=== PATIENT | male | born 1930 | race Caucasian/White ===

== ENCOUNTER → 2017-02-16 | Outpatient (CLI) | payer OTHER ==
[~2017-02-16] MED LIST: ALL300 PO; ATEN-173 PO; B-COCAP2 PO; CLTP PO; CMD25 PO; DOXY100C76 PO; FLAX10007 PO; MULT-190 PO; MULTCHW PO; POTA-335 PO; TRIA75TA53 PO; VERA240T20 PO
[2017-02-16 10:15] LABS: BASO % 0.4 %; BASO ABS # 0.02 K/uL (0-0.2); COMPLETE YES; HEMATOCRIT 46.6 % (42-52); IG% 0.2 %; LYMPH % 20.2 %; LYMPH ABS # 1.13 K/uL (1.2-3.4); MEAN CELL VOLUME 99.1 fL (80-100); MEAN CORPUSCULAR HEMOGLOBIN 33.8 pg (25-34); MEAN CORPUSCULAR HGB CONC 34.1 g/dl (32-36); MEAN PLATELET VOLUME 9.6 fL (7.4-10.4); MONO % 7.3 %; NEUT % 69.9 %; PLATELET COUNT 163 K/uL (130-400)
[2017-02-16 10:40] LABS: ALT/SGPT 25 U/L (12-78); AST/SGOT 24 U/L (15-37); BLOOD UREA NITROGEN 30 mg/dl (7-18); BUN/CREATININE RATIO 23.1 (10-20); CALCIUM 9.1 mg/dl (8.5-10.1); CARBON DIOXIDE 30 mmol/L (21-32); CHLORIDE 104 mmol/L (98-107); GLUCOSE 88 mg/dl (70-99); POTASSIUM 3.3 mmol/L (3.5-5.1); SODIUM 140 mmol/L (136-145)
[2017-02-16 10:43] LABS: ALB/GLOB RATIO 0.9 (0.9-2); ALKALINE PHOSPHATASE 104 U/L (45-117); CHOLESTEROL 139 mg/dl (0-200); CHOLESTEROL/HDL RATIO 3.3; HDL CHOLESTEROL 42 mg/dl; LDL CHOLESTEROL CALCULATED 75 mg/dl; TRIGLYCERIDES 110 mg/dl (0-150); VERY LOW DENSITY LIPOPROT CALC 22 mg/dl
[2017-02-16 11:24] LABS: ESTIMATED AVERAGE GLUCOSE 103 mg/dl; HA1C FLAG Normal (Normal)
--- NOTE | 2017-02-23 09:33 | CODING QUERY MEDICAL NECESSITY ---
SUPPORTING DIAGNOSIS NEEDED A supporting diagnosis is required for the test/procedure performed on this patient in order for us to be reimbursed by the patient's insurance. Please provide a supporting diagnosis for the following test/procedure listed below next to the test name along with your signature. *If there is no additional diagnosis for this patient that would support the following test/procedure please document that below next to the test/procedure. Test(s)/Procedure(s) that require a supporting diagnosis: * VITAMIN D, 25-HYDROXY DIAGNOSIS: * HEMOGLOBIN A1C DIAGNOSIS: Provider Signature: Date: Thank you Moon Amaro [employer] Once completed, please kindly fax back to [phone] For questions please call [phone]
== END | disposition home or self-care (01) ==
LOC: C.LAB 09:26
PROVIDERS: ATTEND Internal Medicine
DX: I48.2 Chronic atrial fibrillation (principal); N18.3 Chronic kidney disease, stage 3 (moderate); R73.01 Impaired fasting glucose

== ENCOUNTER 2017-06-29 09:13 | Inpatient (IN) | payer OTHER ==
[~2017-06-29] VITALS: Ht 177.8 cm; Wt 92.6 kg
[~2017-06-29 09:13] MED LIST changes: -DOXY100C76 PO
[2017-06-29] MEDS ORDERED: ALLO300T80 PO (09:29)
[2017-06-29] MEDS ORDERED: B-CO1CAP17 PO (09:29)
[2017-06-29] MEDS ORDERED: CALC600T72 PO (09:29)
[2017-06-29] MEDS ORDERED: WARF2.5T8 PO ×2 (09:29)
[2017-06-29] MEDS ORDERED: POTA-65 PO (09:29)
[2017-06-29] MEDS ORDERED: MoRPHine SULFATE 4 MG/ML 1 ML CARP\\VIAL IV STA (09:42)
[2017-06-29] MEDS ORDERED: SODIUM CHLORIDE 0.9% 500ML 500 ML IV STA (09:42)
[2017-06-29] MEDS ORDERED: ONDANSETRON INJ 2 MG/ML 2 ML VIAL IV STA (09:42)
[2017-06-29] MEDS ORDERED: OPTIRAY 320 IV PRN (09:45)
[2017-06-29 09:58] LABS: BASO % 0.1 %; BASO ABS # 0.02 K/uL (0-0.2); COMPLETE YES; HEMATOCRIT 45.8 % (42-52); IG% 0.3 %; LYMPH % 3.7 %; MEAN CELL VOLUME 99.8 fL (80-100); MEAN CORPUSCULAR HEMOGLOBIN 34.4 pg (25-34); MEAN CORPUSCULAR HGB CONC 34.5 g/dl (32-36); MEAN PLATELET VOLUME 9.7 fL (7.4-10.4); MONO % 7.4 %; NEUT % 88.5 %; PLATELET COUNT 137 K/uL (130-400); RED BLOOD COUNT 4.59 M/uL (4.7-6.1); WHITE BLOOD COUNT 16.04 K/uL (4.8-10.8)
[2017-06-29 10:03] LABS: PROTHROMBIN TIME (PATIENT) 20.8 SECONDS (9.0-12.0)
[2017-06-29 10:15] LABS: BUN/CREATININE RATIO 20.9 (10-20); CALCIUM 9.1 mg/dl (8.5-10.1); CREATININE 1.36 mg/dl (0.60-1.40); POTASSIUM 3.7 mmol/L (3.5-5.1)
--- NOTE | 2017-06-29 11:26 | DIAGNOSTIC IMAGING REPORT ---
CT ABD/PELVIS IV CONTRAST ONLY CLINICAL HISTORY: Epigastric pain and left flank pain. COMPARISON STUDY: None. TECHNIQUE: Following the IV administration of 93 mL of Optiray-320, CT scan of the abdomen and pelvis was performed from the lung bases to the proximal femurs. Images are reviewed in the axial, sagittal, and coronal planes. IV contrast was administered without complication. A dose lowering technique was utilized adhering to the principles of ALARA. CT DOSE: 1099.48 mGy.cm FINDINGS: Lower chest: The heart is enlarged with coronary artery calcifications. There are dependent atelectatic changes. There is respiratory motion artifact. There is a hiatal hernia. Liver: The contrast-enhanced liver is normal in size, contour, and attenuation. There is no intrahepatic biliary ductal dilatation. The hepatic veins and portal veins are patent. Gallbladder: Unremarkable. Spleen: Normal in size and attenuation. Pancreas: Evaluation is limited due to motion artifact. There is an equivocal 7 mm hypodensity within the pancreatic body. There is no significant ductal dilatation. Adrenal glands: There is minor left adrenal gland thickening Kidneys: There is a nonobstructing left renal calculus. There are bilateral hypodense renal lesions, likely representing cysts. These range in size from 8 mm to 24 mm. Bowel: There are no transition zones indicate bowel obstruction. There is no acute diverticulitis. There are no findings to indicate acute appendicitis. Peritoneum: There is no intraperitoneal free air or abdominal ascites. Vasculature: The abdominal aorta is normal in course and caliber. Adenopathy: None. Pelvic viscera: The bladder is distended. The prostate is enlarged. Skeletal structures: There are advanced multilevel spondylitic changes present. There is severe spinal stenosis at the L3-4 and L4-5 levels. There is ill-definition of the L2-3 disc. The patient may be status post a prior spinal fusion at this level. IMPRESSION: 1. No evidence of bowel obstruction. No evidence of free air 2. Nonobstructing left renal calculus 3. No evidence of acute diverticulitis. No evidence of acute appendicitis. 4. Advanced degenerative changes within the spine with severe spinal stenosis at the L3-4 and L4-5 levels. 5. Prostamegaly. Mildly distended bladder. Electronically signed by: Almas Davis M.D. 06/29/2017 11:25 AM Dictated Date/Time: 06/29/2017 11:16 AM
[2017-06-29] MEDS ORDERED: PIPERACILLIN/TAZOBACTAM 4.5 GM/100ML D5W IV STA (11:30)
[2017-06-29] MEDS ORDERED: ACETAMINOPHEN 325 MG TAB PO STA (11:32)
--- NOTE | 2017-06-29 11:44 | DIAGNOSTIC IMAGING REPORT ---
LUMBAR SPINE WITHOUT HISTORY: 86 years-old Male lower back pain acute low back pain. The patient is unable to ambulate COMPARISON: CT abdomen and pelvis of same day TECHNIQUE: Multiple axial CT images of the lumbar spine were obtained without contrast. A dose lowering technique was used consistent with the principals of CRESCENCIO. FINDINGS: The bones are demineralized and appear osteoporotic. 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 No acute compression deformity or subluxation identified. Sacrum appears intact. Mild degenerative changes of the SI joints. There is severe intervertebral disc space narrowing with endplate irregularity and lucency involving the disc space at L2-L3. There is prominent marginal spurring at this level. No significant associated inflammatory stranding or epidural fluid collections identified. Evaluation of the central canal and foramina is better evaluated by MRI. There appears to be at least moderate central canal and foraminal narrowing at several levels, notably at 2-L3, L3-L4 and L4-L5. Multifocal cortical scarring and probable renal cysts of the kidneys. Atherosclerosis of the aorta. Distention of the urinary bladder. Consolidative opacity of the right lung base suggesting atelectasis. IMPRESSION: 1. No acute fracture or subluxation identified. 2. Endplate irregularity with cortical indistinctness and severe intervertebral disc space narrowing at L2-L3 is seen with associated marginal bridging osteophytes. 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 Correlate with laboratory analysis and patient presentation. 3. Advanced multilevel intervertebral disc space narrowing, spondylitic spurring and facet arthrosis with varying degrees of central canal and foraminal narrowing which would be better assessed by MRI. The above report was generated using voice recognition software. It may contain grammatical, syntax or spelling errors. Electronically signed by: Sin Napier M.D. 06/29/2017 11:43 AM Dictated Date/Time: 06/29/2017 11:28 AM
[2017-06-29 11:56] LABS: URINE APPEARANCE CLEAR (CLEAR); URINE BILIRUBIN NEG (NEG); URINE COLOR DK YELLOW; URINE EPITHELIAL CELL AUTO >30 /lpf (0-5); URINE NITRITE NEG (NEG); URINE SPECIFIC GRAVITY > 1.045 (1.000-1.030); UROBILINOGEN NEG (NEG); ZZUR CULT IF INDIC CLEAN CATCH YES
[2017-06-29 11:59] LABS: MANUAL MICROSCOPIC REQUIRED? NO; REVIEW REQ? YES
[2017-06-29 12:06] LABS: URINE MUCUS PRESENT (NONE PRSENT)
--- NOTE | 2017-06-29 12:13 | DIAGNOSTIC IMAGING REPORT ---
CHEST ONE VIEW PORTABLE HISTORY: 86 years-old Male fever acute fever with illness COMPARISON: Portable chest radiograph 04/04/2015 TECHNIQUE: Portable upright AP view of the chest FINDINGS: Cardiac silhouette is again moderately enlarged. Chronic left hemidiaphragmatic elevation with linear subsegmental left basilar opacities appear unchanged. Atherosclerosis of the aorta. No pneumothorax or large pleural effusion. Minimal right basilar atelectasis. Degenerative changes of the shoulders and spine. IMPRESSION: 1. Cardiomegaly without acute process. 2. Unchanged left hemidiaphragmatic elevation with left basilar atelectasis/scarring. The above report was generated using voice recognition software. It may contain grammatical, syntax or spelling errors. Electronically signed by: Sin Napier M.D. 06/29/2017 12:12 PM Dictated Date/Time: 06/29/2017 12:11 PM
[2017-06-29] MEDS ORDERED: LEVAQUIN 500MG / 100ML D5W IV ONE ×2 (12:30→14:56)
[2017-06-29] MEDS ORDERED: LEVOFLOXACIN / D5W 500 MG in PREMIXED IN D5W 150 ML IV SCH (13:15)
[2017-06-29] MEDS ORDERED: ONDANSETRON INJ 2 MG/ML 2 ML VIAL IV PRN (13:15)
[2017-06-29] MEDS ORDERED: CYCLOBENZAPRINE HCL 10 MG TAB PO STA (13:19)
[2017-06-29] MEDS ORDERED: CYCLOBENZAPRINE HCL 10 MG TAB PO PRN (13:30)
[2017-06-29] MEDS ORDERED: IV FLUIDS COMPLETED PRN (13:45)
--- NOTE | 2017-06-29 13:51 | DIAGNOSTIC IMAGING REPORT ---
GALLBLADDER-ABD LIMITED CLINICAL HISTORY: 86 years-old Male presenting with epigastric abd pain. TECHNIQUE: Real-time grayscale and limited color Doppler ultrasound imaging of the abdomen limited to the right upper quadrant was performed. COMPARISON: CT from 06/29/2017. FINDINGS: Pancreas: Largely obscured due to overlying bowel gas. Liver: Normal echogenicity and echotexture. The liver measures 16.5 cm in maximal sagittal dimension. No sonographic evidence of hepatic mass. Main portal vein patent with normal directional flow. Biliary: No intrahepatic biliary ductal dilatation. Common bile duct measures up to 5 mm in diameter. Gallbladder: No evidence of gallstones, gallbladder wall thickening, gallbladder distention, or pericholecystic fluid or inflammatory change. Gallbladder sludge suggested. Right kidney: Normal in appearance. No hydronephrosis. Ascites: None. IMPRESSION: Gallbladder sludge suggested. No cholelithiasis or biliary ductal dilatation. Electronically signed by: Walter Diallo M.D. 06/29/2017 1:50 PM Dictated Date/Time: 06/29/2017 1:42 PM
[2017-06-29 14:02] VITALS: O2SAT 95; Ht 177.8 cm; Wt 92.6 kg
[2017-06-29] MEDS ORDERED: CYCLOBENZAPRINE HCL 10 MG TAB ONE (14:15)
[2017-06-29 14:55] VITALS: BP 116/65; PULSE 61; TEMP 36.9; O2SAT 95
[2017-06-29] MEDS ORDERED: LEVOFLOXACIN CONSULT ACTIVE PRN (15:30)
--- NOTE | 2017-06-29 16:59 | EMERGENCY ROOM VISIT NOTE ---
History Report prepared by Judith: Darrell Abad Under the Supervision of: Dr. Yasir Rodriguez D.O. First contact with patient: 09:22 Chief Complaint: NAUSEA Stated Complaint: ILLNESS Nursing Triage Summary: Pt presents to room B9 via ALS c/o nausea, vomiting and increased weakness since wednesday. History of Present Illness The patient is an 86 year old male who presents to the Emergency Room with complaints of constant back pain for the past three days. The patient's states that the patient was doing yard work, and afterwards he was having back pain, and he was unable to stand due to the pain and feeling weak. The patient reports that the pain is worse with movement. He states that this morning he was unable to get up because of this back pain. Additionally, the states that this morning when he went to the bathroom this morning he was shaking. The patient states that he has been nauseous for the past three days, though he states that he has not yet vomited. The patient has a history of neuropathy, and he uses a cane at baseline, and he does not usually have any back pain other than when over exerting himself. He is currently on Coumadin for A Fib. Pt denies out of the ordinary numbness, cough, runny nose, headache, change in vision, fevers, chest pain, shortness of breath, diarrhea, pain with urination, and melena. Source of History: patient, spouse/significant other Onset: three days ago Position: back Timing: constant Modifying Factors (Worsening): movement Associated Symptoms: + nausea, + weakness, No vomiting Review of Systems See HPI for pertinent positives & negatives. A total of 10 systems reviewed and were otherwise negative. Past Medical & Surgical Medical Problems: (1) Sepsis (2) UTI (urinary tract infection) Social History Smoking Status: Unknown if Ever Smoked Drug Use: none Marital Status: Housing Status: lives with family Occupation Status: retired Current/Historical Medications Scheduled Allopurinol (Zyloprim), 300 MG PO DAILY Atenolol (Tenormin), 25 MG PO DAILY Calcium Carbonate-Vitamin D (Calcium/Vitamin D), 1 TAB PO DAILY Flaxseed (Linseed) (Flax Seed Oil), 1,000 MG PO DAILY Multiple Vitamins W/ Minerals (Centrum Silver), 1 TAB PO DAILY Ocuvite Preservision (Ocuvite Preservision), 1 TAB PO DAILY Potassium Chloride (Potassium Chloride ER), 20 MEQ PO DAILY Triamterene/Hctz (Maxzide 75MG/50MG), 1 TAB PO DAILY Verapamil Sust Rel (Calan Sr Ext Rel), 240 MG PO BID Vitamin B Cmplx/Vitc/Folic Ac (Nephrocaps), 1 CAP PO BID Warfarin Sod (Jantoven), 2.5 MG PO 4XWK Warfarin Sod (Jantoven), 5 MG PO 3XWK Allergies Coded Allergies: No Known Allergies (Unverified , NONE, 06/29/17) Physical Exam Vital Signs Date Time Temp Pulse Resp B/P (MAP) Pulse Ox O2 Delivery O2 Flow Rate FiO2 06/29/17 14:55 36.9 61 16 116/65 (82) 95 Room Air 06/29/17 14:41 69 18 111/58 96 06/29/17 14:02 95 Room Air 06/29/17 14:01 67 18 107/61 95 Room Air 06/29/17 13:01 70 06/29/17 12:26 37.9 71 18 137/83 95 Room Air 06/29/17 11:38 38.2 06/29/17 11:17 71 18 130/76 98 Room Air 06/29/17 10:06 38.2 76 17 118/68 93 Room Air 06/29/17 09:25 93 Room Air 06/29/17 09:22 75 06/29/17 09:19 38.2 75 17 122/70 93 Room Air Physical Exam GENERAL: Sitting up in bed, chronically ill appearing. No acute distress. Non- toxic EYE EXAM: normal conjunctiva. PERRL and EOM's grossly intact. OROPHARYNX: no exudate, no erythema, lips, buccal mucosa, and tongue normal and mucous membranes are moist NECK: supple, no nuchal rigidity, no adenopathy, non-tender LUNGS: Clear to auscultation. Normal chest wall mechanics HEART: Irregularly irregular heart beat. ABDOMEN: Slight tenderness in the infraumbilical region. Abdomen soft, normo- active bowel sounds, no masses, no rebound or guarding. BACK: Acute reproducible tenderness in the left lower paraspinal regiion worsening with twisting, turning, and bending. No rash or pain tracking through the gluteus. Back is symmetrical on inspection and there is no deformity, no midline tenderness, no CVA tenderness. SKIN: no rashes and no bruising UPPER EXTREMITIES: upper extremities are grossly normal. LOWER EXTREMITIES: No pitting edema. NEURO EXAM: Normal sensorium, cranial nerves II-XII grossly intact, normal speech, no gross weakness of arms, flexion and extension at the knee, ankle, and EHL is intact on the right. Unable to dorsiflex left foot/EHL. Medical Decision & Procedures ER Provider Diagnostic Interpretation: Radiology results as stated below per my review and the radiologist's interpretation: LUMBAR SPINE WITHOUT HISTORY: 86 years-old Male lower back pain acute low back pain. The patient is unable to ambulate COMPARISON: CT abdomen and pelvis of same day TECHNIQUE: Multiple axial CT images of the lumbar spine were obtained without contrast. A dose lowering technique was used consistent with the principals of GALINARA. FINDINGS: The bones are demineralized and appear osteoporotic. 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 No acute compression deformity or subluxation identified. Sacrum appears intact. Mild degenerative changes of the SI joints. There is severe intervertebral disc space narrowing with endplate irregularity and lucency involving the disc space at L2-L3. There is prominent marginal spurring at this level. No significant associated inflammatory stranding or epidural fluid collections identified. Evaluation of the central canal and foramina is better evaluated by MRI. There appears to be at least moderate central canal and foraminal narrowing at several levels, notably at 2-L3, L3-L4 and L4-L5. Multifocal cortical scarring and probable renal cysts of the kidneys. Atherosclerosis of the aorta. Distention of the urinary bladder. Consolidative opacity of the right lung base suggesting atelectasis. IMPRESSION: 1. No acute fracture or subluxation identified. 2. Endplate irregularity with cortical indistinctness and severe intervertebral disc space narrowing at L2-L3 is seen with associated marginal bridging osteophytes. 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 Correlate with laboratory analysis and patient presentation. 3. Advanced multilevel intervertebral disc space narrowing, spondylitic spurring and facet arthrosis with varying degrees of central canal and foraminal narrowing which would be better assessed by MRI. The above report was generated using voice recognition software. It may contain grammatical, syntax or spelling errors. Electronically signed by: Sin Napier M.D. 06/29/2017 11:43 AM Dictated Date/Time: 06/29/2017 11:[address] ABD/PELVIS IV CONTRAST ONLY CLINICAL HISTORY: Epigastric pain and left flank pain. COMPARISON STUDY: None. TECHNIQUE: Following the IV administration of 93 mL of Optiray-320, CT scan of the abdomen and pelvis was performed from the lung bases to the proximal femurs. Images are reviewed in the axial, sagittal, and coronal planes. IV contrast was administered without complication. A dose lowering technique was utilized adhering to the principles of ALARA. CT DOSE: 1099.48 mGy.cm FINDINGS: Lower chest: The heart is enlarged with coronary artery calcifications. There are dependent atelectatic changes. There is respiratory motion artifact. There is a hiatal hernia. Liver: The contrast-enhanced liver is normal in size, contour, and attenuation. There is no intrahepatic biliary ductal dilatation. The hepatic veins and portal veins are patent. Gallbladder: Unremarkable. Spleen: Normal in size and attenuation. Pancreas: Evaluation is limited due to motion artifact. There is an equivocal 7 mm hypodensity within the pancreatic body. There is no significant ductal dilatation. Adrenal glands: There is minor left adrenal gland thickening Kidneys: There is a nonobstructing left renal calculus. There are bilateral hypodense renal lesions, likely representing cysts. These range in size from 8 mm to 24 mm. Bowel: There are no transition zones indicate bowel obstruction. There is no acute diverticulitis. There are no findings to indicate acute appendicitis. Peritoneum: There is no intraperitoneal free air or abdominal ascites. Vasculature: The abdominal aorta is normal in course and caliber. Adenopathy: None. Pelvic viscera: The bladder is distended. The prostate is enlarged. Skeletal structures: There are advanced multilevel spondylitic changes present. There is severe spinal stenosis at the L3-4 and L4-5 levels. There is ill-definition of the L2-3 disc. The patient may be status post a prior spinal fusion at this level. IMPRESSION: 1. No evidence of bowel obstruction. No evidence of free air 2. Nonobstructing left renal calculus 3. No evidence of acute diverticulitis. No evidence of acute appendicitis. 4. Advanced degenerative changes within the spine with severe spinal stenosis at the L3-4 and L4-5 levels. 5. Prostamegaly. Mildly distended bladder. Electronically signed by: Almas Davis M.D. 06/29/2017 11:25 AM Dictated Date/Time: 06/29/2017 11:16 AM CHEST ONE VIEW PORTABLE HISTORY: 86 years-old Male fever acute fever with illness COMPARISON: Portable chest radiograph 04/04/2015 TECHNIQUE: Portable upright AP view of the chest FINDINGS: Cardiac silhouette is again moderately enlarged. Chronic left hemidiaphragmatic elevation with linear subsegmental left basilar opacities appear unchanged. Atherosclerosis of the aorta. No pneumothorax or large pleural effusion. Minimal right basilar atelectasis. Degenerative changes of the shoulders and spine. IMPRESSION: 1. Cardiomegaly without acute process. 2. Unchanged left hemidiaphragmatic elevation with left basilar atelectasis/scarring. The above report was generated using voice recognition software. It may contain grammatical, syntax or spelling errors. Electronically signed by: Sin Napier M.D. 06/29/2017 12:12 PM Dictated Date/Time: 06/29/2017 12:11 PM GALLBLADDER-ABD LIMITED CLINICAL HISTORY: 86 years-old Male presenting with epigastric abd pain. TECHNIQUE: Real-time grayscale and limited color Doppler ultrasound imaging of the abdomen limited to the right upper quadrant was performed. COMPARISON: CT from 06/29/2017. FINDINGS: Pancreas: Largely obscured due to overlying bowel gas. Liver: Normal echogenicity and echotexture. The liver measures 16.5 cm in maximal sagittal dimension. No sonographic evidence of hepatic mass. Main portal vein patent with normal directional flow. Biliary: No intrahepatic biliary ductal dilatation. Common bile duct measures up to 5 mm in diameter. Gallbladder: No evidence of gallstones, gallbladder wall thickening, gallbladder distention, or pericholecystic fluid or inflammatory change. Gallbladder sludge suggested. Right kidney: Normal in appearance. No hydronephrosis. Ascites: None. IMPRESSION: Gallbladder sludge suggested. No cholelithiasis or biliary ductal dilatation. Electronically signed by: Walter Diallo M.D. 06/29/2017 1:50 PM Dictated Date/Time: 06/29/2017 1:42 PM Laboratory Results 06/29/17 09:35 Red Blood Count 4.59, Mean Corpuscular Volume 99.8, Mean Corpuscular Hemoglobin 34.4, Mean Corpuscular Hemoglobin Concent 34.5, Mean Platelet Volume 9.7, Neutrophils (%) (Auto) 88.5, Lymphocytes (%) (Auto) 3.7, Monocytes (%) (Auto) 7.4, Eosinophils (%) (Auto) 0.0, Basophils (%) (Auto) 0.1, Neutrophils # (Auto) 14.18, Lymphocytes # (Auto) 0.60, Monocytes # (Auto) 1.19, Eosinophils # (Auto) 0.00, Basophils # (Auto) 0.02 06/29/17 09:35 Test 06/29/17 09:35 06/29/17 11:45 06/29/17 11:56 White Blood Count 16.04 K/uL (4.8-10.8) Red Blood Count 4.59 M/uL (4.7-6.1) Hemoglobin 15.8 g/dL (14.0-18.0) Hematocrit 45.8 % (42-52) Mean Corpuscular Volume 99.8 fL (80-100) Mean Corpuscular Hemoglobin 34.4 pg (25-34) Mean Corpuscular Hemoglobin Concent 34.5 g/dl (32-36) Platelet Count 137 K/uL (130-400) Mean Platelet Volume 9.7 fL (7.4-10.4) Neutrophils (%) (Auto) 88.5 % Lymphocytes (%) (Auto) 3.7 % Monocytes (%) (Auto) 7.4 % Eosinophils (%) (Auto) 0.0 % Basophils (%) (Auto) 0.1 % Neutrophils # (Auto) 14.18 K/uL (1.4-6.5) Lymphocytes # (Auto) 0.60 K/uL (1.2-3.4) Monocytes # (Auto) 1.19 K/uL (0.11-0.59) Eosinophils # (Auto) 0.00 K/uL (0-0.5) Basophils # (Auto) 0.02 K/uL (0-0.2) RDW Standard Deviation 50.8 fL (36.4-46.3) RDW Coefficient of Variation 14.1 % (11.5-14.5) Immature Granulocyte % (Auto) 0.3 % Immature Granulocyte # (Auto) 0.05 K/uL (0.00-0.02) Prothrombin Time 20.8 SECONDS (9.0-12.0) Prothromb Time International Ratio 2.0 (0.9-1.1) Anion Gap 8.0 mmol/L (3-11) Est Creatinine Clear Calc Drug Dose 44.6 ml/min Estimated GFR () 54.2 Estimated GFR (Non- 46.8 BUN/Creatinine Ratio 20.9 (10-20) Calcium Level 9.1 mg/dl (8.5-10.1) Total Bilirubin 2.3 mg/dl (0.2-1) Direct Bilirubin 0.5 mg/dl (0-0.2) Aspartate Amino Transf (AST/SGOT) 17 U/L (15-37) Alanine Aminotransferase (ALT/SGPT) 20 U/L (12-78) Alkaline Phosphatase 82 U/L (45-117) Total Protein 7.7 gm/dl (6.4-8.2) Albumin 3.3 gm/dl (3.4-5.0) Lipase 120 U/L (73-393) Urine Color DK YELLOW Urine Appearance CLEAR (CLEAR) Urine pH 5.0 (4.5-7.5) Urine Specific [place] > 1.045 (1.000-1.030) Urine Protein 1+ (NEG) Urine Glucose (UA) NEG (NEG) Urine Ketones NEG (NEG) Urine Occult Blood 2+ (NEG) Urine Nitrite NEG (NEG) Urine Bilirubin NEG (NEG) Urine Urobilinogen NEG (NEG) Urine Leukocyte Esterase NEG (NEG) Urine WBC (Auto) 5-10 /hpf (0-5) Urine RBC (Auto) 10-30 /hpf (0-4) Urine Hyaline Casts (Auto) 10-30 /lpf (0-5) Urine Epithelial Cells (Auto) >30 /lpf (0-5) Urine Bacteria (Auto) NEG (NEG) Urine Renal Epithelial Cells /lpf (0-5) Urine Mucus PRESENT (NONE PRSENT) Urine Yeast (Auto) (NONE PRSENT) Urine Sperm (Auto) PRESENT (NOT PRESENT) Lactic Acid Level 1.9 mmol/L (0.4-2.0) Laboratory results per my review. Medications Administered Medications (Trade) Dose Ordered Sig/Geraldo Route Start Time Stop Time Status Last Admin Dose Admin Ondansetron HCl (Zofran Inj) 4 mg NOW STAT IV 06/29/17 09:42 06/29/17 09:43 DC 06/29/17 10:00 4 MG Sodium Chloride 500 ml @ 999 mls/hr Q31M STAT IV 06/29/17 09:42 06/29/17 10:12 DC 06/29/17 09:42 999 MLS/HR Morphine Sulfate (MoRPHine SULFATE INJ) 4 mg NOW STAT IV 06/29/17 09:42 06/29/17 09:43 DC 06/29/17 10:00 4 MG Piperacillin Sod/ Tazobactam Sod (Zosyn Iv) 4.5 gm NOW STAT IV 06/29/17 11:30 06/29/17 11:32 DC 06/29/17 11:56 4.5 GM Acetaminophen (Tylenol Tab) 650 mg NOW STAT PO 06/29/17 11:32 06/29/17 11:33 DC 06/29/17 11:55 650 MG Levofloxacin (Levaquin / D5W) 500 mg NOW ONCE IV 06/29/17 12:30 06/29/17 12:31 DC 06/29/17 12:54 500 MG Cyclobenzaprine HCl (Flexeril Tab) 10 mg NOW STAT PO 06/29/17 13:19 06/29/17 13:51 DC 06/29/17 14:17 10 MG ED Course ED COURSE: Vital signs were reviewed and showed normal vitals The patients medical record was reviewed The above diagnostic studies were performed and reviewed. ED treatments and interventions as stated above. 0922: The patient was evaluated in room B9. A complete history and physical examination was performed. 0942: Morphine Sulfate 4mg IV, Sodium Chloride 500 ml @ 999 mls/hr IV, Zofran 4mg IV 1032: I revaluated the patient, and he was resting and doing well 1130: Zosyn 4.5gm IV 1132: Tylenol Tab 650mg PO 1133: I reassessed the patient and he was doing well. 1216: I discussed the patient's case with Dr. Perez, and he is going to evaluate the patient for further evaluation. 1220: Upon reevaluation, the patient is doing well. I discussed my findings with the patient and he understands and agrees with the treatment plan. Based on the patients age, coexisting illnesses, exam and lab findings the decision to treat as an inpatient was made. The patient remained stable while under my care. The patient will be evaluated for further management. 1230: Levofloxacin 500mg IV Medical Decision Differential diagnosis includes etiologies such as sepsis, UTI, pneumonia, metabolic, electrolyte abnormalities, cardiac sources, intracerebral event, toxicologic, neurologic, as well as others were entertained. Patient is an 86-year-old male who presents to ER for feeling weak associated with shaking, abdominal discomfort, nausea and left lower back pain. Pain started with bending over. He has had this multiple times before in the past. It is just left of the paraspinal region. Patient is neurologically intact. CBC shows a leukocytosis of 16,000. BMP was unremarkable. T bili was elevated at 2.3. Lactic acid was 1.9. Lipase is normal. INR is therapeutic at 2. UA shows no obvious UTI. Chest x-ray supports a possible infiltrate in left lower lobe. I did cover him with IV Zosyn and Levaquin. Back pain does appear to be purely muscle skeletal although may need further investigation as an inpatient if no other source of fevers this found. I did put in for an ultrasound of the right upper quadrant which did not result prior to admission. Eventually showed sludge in the gallbladder. No signs of cholecystitis. Patient family were previously updated. He was given broad-spectrum antibiotics and admitted to internal medicine for fever of unknown origin. Medication Reconcilliation Current Medication List: was personally reviewed by me Blood Pressure Screening Patient's blood pressure: Normal blood pressure Consults Time Called: 1215 Consulting Physician: Dr. Perez Returned Call: 1216 I discussed the patient's case with Dr. Perez, and he is going to evaluate the patient for further evaluation. Impression Primary Impression: SIRS (systemic inflammatory response syndrome) Scribe Attestation The scribe's documentation has been prepared under my direction and personally reviewed by me in its entirety. I confirm that the note above accurately reflects all work, treatment, procedures, and medical decision making performed by me. Departure Information Dispostion Being Evaluated By Hospitalist Referrals Walter Whitehead M.D. (PCP) Patient Instructions My [facility]
[2017-06-29] MEDS: CEFTRIAXONE SOD INJ 2000 MG in DEXTROSE 5% 50ML IV SCH (18:30)
[2017-06-29] MEDS: VERAPAMIL HCL 240 MG TABCR PO SCH (20:11)
[2017-06-29] MEDS: WARFARIN SOD 2.5 MG TAB PO SCH (21:08)
--- NOTE | 2017-06-29 23:25 | History and Physical ---
History & Physical Date & Time of Service: Jun 29, 2017 at 23:08 Chief Complaint: Sepsis, Uti Primary Care Physician: Walter Whitehead M.D. History of Present Illness Source: patient, family, hospital records 86 yo male with h/o atrial fibrillation and HTN, presented to the ED today with fever and leukocytosis with unclear etiology. The patient reports that the was feeling well last week, no issues. This weekend he was bending over a lot, raking leaves and picking them up. He does not recall a specific time when his back started to hurt but he definitely over used his back muscles, this is not an activity that is normal for him. Then, he bent over the next day to pickle solution maker something off the floor and had severe left lower back pain. Today he noticed some vague periumbilical pain and developed a fever. No confusion, no cough, no nausea or vomiting, no dysuria. Eating well, moving his bowels normally. He was brought to the ED by his for evaluation of the back pain, abdominal pain and fever. Labs showed a leukocytosis, normal Hb, normal Cr and stable electrolytes. CT abdomen/pelvis did not show any acute inflammatory changes. UA was significant for 5-10WBC but not nitrites or LE. GB US showed some sludge but no stones, no signs of cholecystitis. Of note, no pain with eating was noticed by patient. Past Medical/Surgical History PAST MEDICAL AND SURGICAL HISTORY: Gout; hypertension; hypokalemia; atrial fibrillation, on chronic warfarin; mild obesity. Family History HTN Social History Smoking Status: Unknown if Ever Smoked Drug Use: none Marital Status: Housing status: lives with family Occupational Status: retired Multi-Drug Resistant Organisms History of MDRO: No Allergies Coded Allergies: No Known Allergies (Unverified , NONE, 06/29/17) Home Medications Scheduled Allopurinol (Zyloprim), 300 MG PO DAILY Atenolol (Tenormin), 25 MG PO DAILY Calcium Carbonate-Vitamin D (Calcium/Vitamin D), 1 TAB PO DAILY Flaxseed (Linseed) (Flax Seed Oil), 1,000 MG PO DAILY Multiple Vitamins W/ Minerals (Centrum Silver), 1 TAB PO DAILY Ocuvite Preservision (Ocuvite Preservision), 1 TAB PO DAILY Potassium Chloride (Potassium Chloride ER), 20 MEQ PO DAILY Triamterene/Hctz (Maxzide 75MG/50MG), 1 TAB PO DAILY Verapamil Sust Rel (Calan Sr Ext Rel), 240 MG PO BID Vitamin B Cmplx/Vitc/Folic Ac (Nephrocaps), 1 CAP PO BID Warfarin Sod (Jantoven), 2.5 MG PO 4XWK Warfarin Sod (Jantoven), 5 MG PO 3XWK Review of Systems Constitutional: + fever, + chills, + weakness, + fatigue, No weight loss Eyes: No worsening of vision, No eye pain, No redness, No discharge, No diplopia, No problem reported ENT: No hearing loss, No unusual epistaxis, No nasal symptoms, No sore throat, No tinnitus, No dental problems, No trouble swallowing, No problem reported Respiratory: No cough, No sputum, No wheezing, No shortness of breath, No dyspnea on exertion, No dyspnea at rest, No hemoptysis, No problem reported Cardiovascular: No chest pain, No orthopnea, No PND, No edema, No claudication , No palpitations, No problem reported Abdomen: + pain (periumbilical), No nausea, No vomiting, No diarrhea, No constipation, No GI bleeding, No problem reported Musculoskeletal: + joint pain (left lower back), + muscle pain (left lower back ), No swelling, No calf pain, No problem reported Genitourinary - Male: No hematuria, No dysuria, No urinary frequency, No urinary urgency Neurologic: No memory loss, No paralysis, No weakness, No numbness/tingling, No vertigo, No balance problems, No problem reported Psychiatric: No depression symptoms, No anhedonism, No anxiety, No insomnia, No substance abuse, No problem reported Endocrine: No fatigue, No excessive thirst, No excessive urination, No problem reported Hematologic / Lymphatic: No abnormal bleeding/bruising, No clotting problems, No swollen lymph nodes, No night sweats, No problem reported Integumentary: No rash, No itch, No new/changing skin lesions, No color change , No bleeding, No problem reported Allergic / Immunologic: No environmental allergies, No seasonal allergies, No pet sensitivities, No food allergies, No hives, No frequent infections, No poor healing, No prolonged convalescence, No problem reported Physical Exam Vital Signs Date Time Temp Pulse Resp B/P (MAP) Pulse Ox O2 Delivery O2 Flow Rate FiO2 06/29/17 14:55 36.9 61 16 116/65 (82) 95 Room Air 06/29/17 14:41 69 18 111/58 96 06/29/17 14:02 95 Room Air 06/29/17 14:01 67 18 107/61 95 Room Air 06/29/17 13:01 70 06/29/17 12:26 37.9 71 18 137/83 95 Room Air 06/29/17 11:38 38.2 06/29/17 11:17 71 18 130/76 98 Room Air 06/29/17 10:06 38.2 76 17 118/68 93 Room Air 06/29/17 09:25 93 Room Air 06/29/17 09:22 75 06/29/17 09:19 38.2 75 17 122/70 93 Room Air General Appearance: WD/WN, no apparent distress Head: normocephalic, atraumatic Eyes: normal inspection, EOMI, sclerae normal ENT: normal ENT inspection, hearing grossly normal, pharynx normal Neck: supple, no adenopathy, no JVD, trachea midline Respiratory/Chest: chest non-tender, lungs clear, normal breath sounds, no respiratory distress, no accessory muscle use Cardiovascular: regular rate, rhythm, no edema, no gallop, no JVD, no murmur, normal peripheral pulses Abdomen/GI: normal bowel sounds, non tender, soft, no organomegaly Back: + muscle spasm (left lower paraspinal muscles), + decreased range of motion Extremities/Musculoskelatal: normal inspection, no calf tenderness, normal capillary refill, no pedal edema, normal range of motion Neurologic/Psych: lock stitch channeler II-XII nml as tested, no motor/sensory deficits, alert, normal mood/affect, normal reflexes, oriented x 3 Skin: normal color, warm/dry, no rash Diagnostics Laboratory Results Results Past 24 Hours Test 06/29/17 09:35 06/29/17 11:45 06/29/17 11:56 Range/Units White Blood Count 16.04 4.8-10.8 K/uL Red Blood Count 4.59 4.7-6.1 M/uL Hemoglobin 15.8 14.0-18.0 g/dL Hematocrit 45.8 42-52 % Mean Corpuscular Volume 99.8 80-100 fL Mean Corpuscular Hemoglobin 34.4 25-34 pg Mean Corpuscular Hemoglobin Concent 34.5 32-36 g/dl Platelet Count 137 130-400 K/uL Mean Platelet Volume 9.7 7.4-10.4 fL Neutrophils (%) (Auto) 88.5 % Lymphocytes (%) (Auto) 3.7 % Monocytes (%) (Auto) 7.4 % Eosinophils (%) (Auto) 0.0 % Basophils (%) (Auto) 0.1 % Neutrophils # (Auto) 14.18 1.4-6.5 K/uL Lymphocytes # (Auto) 0.60 1.2-3.4 K/uL Monocytes # (Auto) 1.19 0.11-0.59 K/uL Eosinophils # (Auto) 0.00 0-0.5 K/uL Basophils # (Auto) 0.02 0-0.2 K/uL RDW Standard Deviation 50.8 36.4-46.3 fL RDW Coefficient of Variation 14.1 11.5-14.5 % Immature Granulocyte % (Auto) 0.3 % Immature Granulocyte # (Auto) 0.05 0.00-0.02 K/uL Prothrombin Time 20.8 9.0-12.0 SECONDS Prothromb Time International Ratio 2.0 0.9-1.1 Sodium Level 133 136-145 mmol/L Potassium Level 3.7 3.5-5.1 mmol/L Chloride Level 98 98-107 mmol/L Carbon Dioxide Level 27 21-32 mmol/L Anion Gap 8.0 3-11 mmol/L Blood Urea Nitrogen 28 7-18 mg/dl Creatinine 1.36 0.60-1.40 mg/dl Est Creatinine Clear Calc Drug Dose 44.6 ml/min Estimated GFR () 54.2 Estimated GFR (Non- 46.8 BUN/Creatinine Ratio 20.9 10-20 Random Glucose 128 70-99 mg/dl Calcium Level 9.1 8.5-10.1 mg/dl Total Bilirubin 2.3 0.2-1 mg/dl Direct Bilirubin 0.5 0-0.2 mg/dl Aspartate Amino Transf (AST/SGOT) 17 15-37 U/L Alanine Aminotransferase (ALT/SGPT) 20 12-78 U/L Alkaline Phosphatase 82 45-117 U/L Total Protein 7.7 6.4-8.2 gm/dl Albumin 3.3 3.4-5.0 gm/dl Lipase 120 73-393 U/L Urine Color DK YELLOW Urine Appearance CLEAR CLEAR Urine pH 5.0 4.5-7.5 Urine Specific [place] > 1.045 1.000-1.030 Urine Protein 1+ NEG Urine Glucose (UA) NEG NEG Urine Ketones NEG NEG Urine Occult Blood 2+ NEG Urine Nitrite NEG NEG Urine Bilirubin NEG NEG Urine Urobilinogen NEG NEG Urine Leukocyte Esterase NEG NEG Urine WBC (Auto) 5-10 0-5 /hpf Urine RBC (Auto) 10-30 0-4 /hpf Urine Hyaline Casts (Auto) 10-30 0-5 /lpf Urine Epithelial Cells (Auto) >30 0-5 /lpf Urine Bacteria (Auto) NEG NEG Urine Renal Epithelial Cells 0-5 /lpf Urine Mucus PRESENT NONE PRSENT Urine Yeast (Auto) NONE PRSENT Urine Sperm (Auto) PRESENT NOT PRESENT Lactic Acid Level 1.9 0.4-2.0 mmol/L Microbiology Results 06/29/17 Blood Culture, Received Pending 06/29/17 Blood Culture, Received Pending 06/29/17 Urine Culture, Received Pending Diagnostic Radiology CT LUMBAR SPINE IMPRESSION: 1. No acute fracture or subluxation identified. 2. Endplate irregularity with cortical indistinctness and severe intervertebral disc space narrowing at L2-L3 is seen with associated marginal bridging osteophytes. 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 Correlate with laboratory analysis and patient presentation. 3. Advanced multilevel intervertebral disc space narrowing, spondylitic spurring and facet arthrosis with varying degrees of central canal and foraminal narrowing which would be better assessed by MRI. CXR: IMPRESSION: 1. Cardiomegaly without acute process. 2. Unchanged left hemidiaphragmatic elevation with left basilar atelectasis/scarring. CT ABDOMEN AND PELVIS IMPRESSION: 1. No evidence of bowel obstruction. No evidence of free air 2. Nonobstructing left renal calculus 3. No evidence of acute diverticulitis. No evidence of acute appendicitis. 4. Advanced degenerative changes within the spine with severe spinal stenosis at the L3-4 and L4-5 levels. 5. Prostamegaly. Mildly distended bladder. GB ULTRASOUND IMPRESSION: Gallbladder sludge suggested. No cholelithiasis or biliary ductal dilatation. Impression Assessment and Plan 86 yo male with acute presentation of left lower back pain after overuse this weekend, now with fever, leukocytosis, unclear etiology - Fever, leukocytosis but cannot say this is sepsis, no clear source no pneumonia on CXR and no signs of pneumonia on history nothing clearly abnormal intra-abdominally, no RUQ pain on exam, just sludge on US, minimal elevation in bilirubin possible UTI with 5-10 WBC, but no nitrites or LE will give a dose of Rocephin 2gm IV follow up blood and urine cultures repeat CBC tomorrow, follow for any further fever - Low back pain, acute, left sided CT lumbar spine shows severe degenerative disc disease there was mention of discitis as possible differential diagnosis if pain gets worse, could consider MRI but hold for now gave a dose of Flexeril in the ED, adverse reaction with confusion PT/OT ordered - Atrial fibrillation: continue Coumadin, INR therapeutic for now, unclear etiology of patient's presentation, follow up cultures, CBC, symptoms Level of Care Med/Surg Advanced Directives Existing Living Will: No Existing Power of Men'S Golf Coach: No Resuscitation Status FULL RESUSCITATION VTE Prophylaxis VTE Risk Assessment Done? Y/N: Yes Risk Level: High Given or contraindicated: Warfarin (Coumadin)
[2017-06-30] VITALS (8 sets, daily range): BP systolic 103–137; BP diastolic 64–80; PULSE 58–70; TEMP 36.4–37.6; O2SAT 92–97
[2017-06-30] MEDS: ACETAMINOPHEN 325 MG TAB PO PRN (06:53)
[2017-06-30 07:29] LABS: BASO % 0.1 %; BASO ABS # 0.02 K/uL (0-0.2); COMPLETE YES; IG% 0.3 %; LYMPH % 4.7 %; LYMPH ABS # 0.98 K/uL (1.2-3.4); MEAN CELL VOLUME 101.9 fL (80-100); MEAN CORPUSCULAR HEMOGLOBIN 34.1 pg (25-34); MEAN CORPUSCULAR HGB CONC 33.5 g/dl (32-36); MEAN PLATELET VOLUME 9.7 fL (7.4-10.4); MONO % 6.9 %; PLATELET COUNT 123 K/uL (130-400); RED BLOOD COUNT 4.22 M/uL (4.7-6.1); WHITE BLOOD COUNT 21.06 K/uL (4.8-10.8)
[2017-06-30 07:38] LABS: INR 1.8 (0.9-1.1)
[2017-06-30] MEDS ORDERED: ALLOPURINOL 300 MG TAB PO SCH (08:00)
[2017-06-30 08:06] LABS: CREATININE 2.14 mg/dl (0.60-1.40)
[2017-06-30 08:07] LABS: BUN/CREATININE RATIO 20.9 (10-20); CALCIUM 8.9 mg/dl (8.5-10.1); MAGNESIUM 2.4 mg/dl (1.8-2.4); POTASSIUM 4.3 mmol/L (3.5-5.1)
[2017-06-30] MEDS: VERAPAMIL HCL 240 MG TABCR PO SCH ×2 (08:12→20:02)
--- NOTE | 2017-06-30 08:41 | Family Medicine Progress Note ---
Progress Note Date of Service Jun 30, 2017. Subjective Pt evaluation today including: conversation w/ patient, physical exam, chart review, lab review, review of inpatient medication list Pain: 5/10 pain reported PO Intake: Tolerating PO intake Voiding: no voiding problems Mr. Brito reports he feels weak and nauseous today. He states he felt very nauseous earlier in the morning, but did not throw up. He states his back pain has moved from the right side of his back down the front side of his right leg. He states the pain is sharp, 5-6/10 in severity and constant. His abdominal pain has resolved, however, and he reports regular bowel movements, with his last one being yesterday. At home, he reports he is normally SOB after 1 set of stairs, but never at rest. Respiratory: + dyspnea on exertion, No cough, No sputum, No wheezing Cardiovascular: No chest pain, No edema Abdomen: + nausea, No pain, No vomiting, No diarrhea, No constipation Musculoskeletal: + problem reported (back pain and right leg pain) All Other Systems: Reviewed and Negative Medications Current Inpatient Medications Medications (Trade) Dose Ordered Sig/Geraldo Route Start Time Stop Time Status Last Admin Dose Admin Ioversol (Optiray 320) 125 ml UD PRN IV 06/29/17 09:45 07/03/17 09:44 Acetaminophen (Tylenol Tab) 650 mg Q4H PRN PO 06/29/17 13:15 07/29/17 13:14 06/30/17 06:53 650 MG Ondansetron HCl (Zofran Inj) 4 mg Q6H PRN IV 06/29/17 13:15 07/29/17 13:14 Allopurinol (Zyloprim Tab) 300 mg DAILY PO 06/30/17 08:00 07/30/17 08:59 06/30/17 08:12 300 MG Atenolol (Tenormin Tab) 25 mg DAILY PO 06/30/17 08:00 07/30/17 08:59 06/30/17 08:12 25 MG Verapamil HCl (Calan-Sr Tab) 240 mg BID PO 06/29/17 20:00 07/29/17 20:59 06/30/17 08:12 240 MG Cyclobenzaprine HCl (Flexeril Tab) 10 mg BID PRN PO 06/29/17 13:30 07/29/17 13:29 Miscellaneous (Iv Fluids Completed) 1 ea PRN PRN N/A 06/29/17 13:45 06/29/18 13:44 Ceftriaxone Sodium 2000 mg/ Dextrose 70 ml @ 140 mls/hr DAILY@1800 IV 06/29/17 18:00 07/09/17 17:59 06/29/17 18:30 140 MLS/HR Warfarin Sodium (Coumadin Tab) 2.5 mg SuTuThSa@1600 PO 06/29/17 21:00 07/29/17 20:59 06/29/17 21:08 2.5 MG Warfarin Sodium (Coumadin Tab) 5 mg MoWeFr@1600 PO 06/30/17 16:00 07/30/17 15:59 Objective Vital Signs Date Time Temp Pulse Resp B/P (MAP) Pulse Ox O2 Delivery O2 Flow Rate FiO2 06/30/17 08:10 61 06/30/17 07:45 Room Air 06/30/17 07:32 36.8 59 20 129/73 (91) 92 Room Air 06/30/17 00:26 37.0 62 22 103/64 (77) 96 Room Air 06/30/17 00:00 96 Room Air 06/29/17 14:55 36.9 61 16 116/65 (82) 95 Room Air 06/29/17 14:41 69 18 111/58 96 06/29/17 14:02 95 Room Air 06/29/17 14:01 67 18 107/61 95 Room Air 06/29/17 13:01 70 06/29/17 12:26 37.9 71 18 137/83 95 Room Air 06/29/17 11:38 38.2 06/29/17 11:17 71 18 130/76 98 Room Air 06/29/17 10:06 38.2 76 17 118/68 93 Room Air 06/29/17 09:25 93 Room Air 06/29/17 09:22 75 06/29/17 09:19 38.2 75 17 122/70 93 Room Air Physical Exam General Appearance: WD/WN, no apparent distress, + pertinent finding (pt sweating. Tender over left lower paraspinal muscles. No tenderness on palpation of either leg) Respiratory/Chest: chest non-tender, normal breath sounds, no respiratory distress, no accessory muscle use, + decreased breath sounds Cardiovascular: no edema, no gallop, no JVD, no murmur, + irregularly irregular Abdomen: normal bowel sounds, non tender, soft, no organomegaly, no pulsatile mass Extremities: no pedal edema, no calf tenderness, normal capillary refill, + pertinent finding (calves have bruises and scabs bilaterally. From scratching against bedpost) Neurologic/Psychiatric: alert, oriented x 3 Laboratory Results Last 24 Hours Test 06/29/17 09:35 06/29/17 11:45 06/29/17 11:56 06/30/17 06:40 White Blood Count 16.04 K/uL 21.06 K/uL Red Blood Count 4.59 M/uL 4.22 M/uL Hemoglobin 15.8 g/dL 14.4 g/dL Hematocrit 45.8 % 43.0 % Mean Corpuscular Volume 99.8 fL 101.9 fL Mean Corpuscular Hemoglobin 34.4 pg 34.1 pg Mean Corpuscular Hemoglobin Concent 34.5 g/dl 33.5 g/dl Platelet Count 137 K/uL 123 K/uL Mean Platelet Volume 9.7 fL 9.7 fL Neutrophils (%) (Auto) 88.5 % 88.0 % Lymphocytes (%) (Auto) 3.7 % 4.7 % Monocytes (%) (Auto) 7.4 % 6.9 % Eosinophils (%) (Auto) 0.0 % 0.0 % Basophils (%) (Auto) 0.1 % 0.1 % Neutrophils # (Auto) 14.18 K/uL 18.54 K/uL Lymphocytes # (Auto) 0.60 K/uL 0.98 K/uL Monocytes # (Auto) 1.19 K/uL 1.46 K/uL Eosinophils # (Auto) 0.00 K/uL 0.00 K/uL Basophils # (Auto) 0.02 K/uL 0.02 K/uL RDW Standard Deviation 50.8 fL 53.6 fL RDW Coefficient of Variation 14.1 % 14.3 % Immature Granulocyte % (Auto) 0.3 % 0.3 % Immature Granulocyte # (Auto) 0.05 K/uL 0.06 K/uL Prothrombin Time 20.8 SECONDS 19.0 SECONDS Prothromb Time International Ratio 2.0 1.8 Sodium Level 133 mmol/L 130 mmol/L Potassium Level 3.7 mmol/L 4.3 mmol/L Chloride Level 98 mmol/L 95 mmol/L Carbon Dioxide Level 27 mmol/L 27 mmol/L Anion Gap 8.0 mmol/L 8.0 mmol/L Blood Urea Nitrogen 28 mg/dl 45 mg/dl Creatinine 1.36 mg/dl 2.14 mg/dl Est Creatinine Clear Calc Drug Dose 44.6 ml/min 28.3 ml/min Estimated GFR () 54.2 31.3 Estimated GFR (Non- 46.8 27.0 BUN/Creatinine Ratio 20.9 20.9 Random Glucose 128 mg/dl 127 mg/dl Calcium Level 9.1 mg/dl 8.9 mg/dl Total Bilirubin 2.3 mg/dl 1.4 mg/dl Direct Bilirubin 0.5 mg/dl 0.5 mg/dl Aspartate Amino Transf (AST/SGOT) 17 U/L 20 U/L Alanine Aminotransferase (ALT/SGPT) 20 U/L 18 U/L Alkaline Phosphatase 82 U/L 70 U/L Total Protein 7.7 gm/dl 7.6 gm/dl Albumin 3.3 gm/dl 2.8 gm/dl Lipase 120 U/L Urine Color DK YELLOW Urine Appearance CLEAR Urine pH 5.0 Urine Specific Angela > 1.045 Urine Protein 1+ Urine Glucose (UA) NEG Urine Ketones NEG Urine Occult Blood 2+ Urine Nitrite NEG Urine Bilirubin NEG Urine Urobilinogen NEG Urine Leukocyte Esterase NEG Urine WBC (Auto) 5-10 /hpf Urine RBC (Auto) 10-30 /hpf Urine Hyaline Casts (Auto) 10-30 /lpf Urine Epithelial Cells (Auto) >30 /lpf Urine Bacteria (Auto) NEG Urine Renal Epithelial Cells /lpf Urine Mucus PRESENT Urine Yeast (Auto) Urine Sperm (Auto) PRESENT Lactic Acid Level 1.9 mmol/L Magnesium Level 2.4 mg/dl Assessment and Plan Mr. Brito is an 86 year old man who presented with lower back pain, weakness and fever & leukocytosis of undetermined origin Sepsis, Bacteremia of unknown origin - no pneumonia on CXR - possible UTI with 5-10 WBC, but no nitrites or LE - blood cultures positive x2 for gram positive cocci - WBC 21.06, increased from 16.04 yesterday - Tmax 38.2, currently afebrile - thank you to ID for consult - repeat blood cultures - add daptomycin with renal dosing & await sensitivities of gram positive cocci - TTE results did not show vegetations, may need to do a ALONSO to confirm - ?possible osteomyelitis given back pain and bacteremia - consult ortho & obtain MRI - continue Rocephin 2gm IV and daptomycin - lactate level 1.9, then estefani to 2.2 Acute kidney injury - likely due to sepsis - creatinine bumped from 1.36 yesterday to 2.14 - likely prerenal source in setting of infection - 1L fluid bolus given - holding home allopurinol Hyponatremia - Na 130 - will reassess after 1L bolus of NS Hyperbilirubinemia - bilirubin yesterday was 2.3, has now come down to 1.3 - rest of liver enzymes are within normal limits - will monitor, no sign of biliary obstruction in imaging Low back pain - CT lumbar spine shows severe degenerative disc disease and spinal stenosis at L3/L4 and L4/L5 - ?possible osteomyelitis - MRI ordered Atrial fibrillation & HTN - continue Coumadin, INR 2 - continue verapamil and atenolol Gout - holding home allopurinol Code: Full DVT Prophylaxis: warfarin Disposition: remains on med/surg. low threshold for transfer to tele Resident Tracking Resident Involvement: Resident Care Provided Care Provided: Adult Hospital Medicine Reviewed: Pt Seen/Exam by Me History reports back pain worse with any movement no urinary or fecal incontinence Constitutional: denies: fever Respiratory: negative: short of breath Cardiovascular: denies chest pain Gastrointestinal/Abdominal: negative: abdominal pain Genitourinary: negative dysuria General Appearance: no apparent distress Respiratory: lungs clear, no respiratory distress Cardiovascular: regular rate, rhythm Gastrointestinal: normal bowel sounds, non tender, soft Extremities: other (back - no spinous or paraspinous point tenderness illicited in lumbar region) Neurologic/Psychiatric: no motor/sensory deficits, alert, oriented x 3 Skin Characteristics: warm/dry Assessment/Plan Resident Physician Supervision Note: I independently interviewed and examined the patient and verified the hernandez history and physical, reviewed labs and image studies, discussed the case with the resident Dr. Collins and agree with the findings and care plan.
[2017-06-30] MEDS ORDERED: SODIUM CHLORIDE 0.9% 1000ML 1,000 ML IV SCH (09:15)
[2017-06-30] MEDS ORDERED: LINEZOLID / D5W 600 MG in PREMIXED IN D5W 300 ML IV ONE (10:00)
[2017-06-30] MEDS: SODIUM CHLORIDE 0.9% 1000ML 1,000 ML IV SCH (10:50)
--- NOTE | 2017-06-30 10:53 | Progress Note ---
Progress Note Date of Service Jun 30, 2017. Progress Note ID Consult Dictated #[id number] A/P: 1. GPC BSI, ? source - leg ulcer, mouth 2. ? Discitis on CT -Repeat blood cultures, await ID gpc -Change zyvox to dapto with renal dosing due to increased creat -Suggest echo, l spine MRI -Will follow, thank you
[2017-06-30] MEDS ORDERED: DAPTOmycin IV 500 MG in SODIUM CHLORIDE 0.9% 50ML 50 ML IV SCH (11:00)
--- NOTE | 2017-06-30 11:09 | INFECT. DISEASE CONSULTATION ---
DATE OF CONSULTATION: 06/30/2017 HISTORY OF PRESENT ILLNESS: This is an 86-year-old gentleman who was admitted to the hospital yesterday after a sudden onset of back pain. He states he was doing some yard work over the weekend and was picking up leaves and bending over quite frequently; however, he denies any back pain or trauma related to that. He denies any fevers or chills prior to admission. In the Emergency Room, he was found to have a fever of 38.2. He was also found to have leukocytosis of 16,000. UA was performed and he only had 5-10 WBCs. He did undergo a CAT scan of the lumbar spine which showed severe degenerative joint disease but certainly discitis or osteomyelitis could have similar appearance and an MRI was suggested. As part of his initial workup, blood cultures were performed in the ER and 2/2 sets were growing gram positive cocci. The patient was started on Rocephin empirically. Infectious disease was consulted secondary to positive blood cultures. He states his back pain is somewhat improved today and certainly states it is worse with ambulation. He currently is in no pain, but is lying in bed. He denies any trauma to the area. He denies any loss of bowel or bladder. He denies any radiation into the lower extremity. He does admit to having some skin ulcerations from bumping his legs at home. He states the right lower extremity is somewhat tender and does not admit to any open wounds at this time but states these were bleeding, previous. He denies any purulent drainage from the area. No repeat blood cultures have been obtained today. He denies any fevers or chills but does admit to being warm overnight. He states today the pain is radiating around his bilateral flanks. He did have a CAT scan of the abdomen and pelvis which showed nonobstructing stones and renal cysts, but otherwise was unremarkable. A gallbladder ultrasound was negative as well. He currently denies any chest pain, cough or shortness of breath. He denies any fevers or chills. He has no nausea, vomiting or diarrhea. He states his appetite was stable prior to admission. All remaining review of systems reviewed and are unremarkable. His white blood cell count is worse today and up to 21,000. His creatinine has also increased to 2.1 today. PAST MEDICAL HISTORY: Significant for gout, hypertension, hypokalemia, atrial fibrillation on Coumadin and obesity. PAST SURGICAL HISTORY: Unremarkable. FAMILY HISTORY: Noncontributory. SOCIAL HISTORY: Negative for alcohol use, drug use or tobacco use. ALLERGIES: He has no known drug allergies. MEDICATIONS: Include Zyvox, Coumadin, atenolol, verapamil, Rocephin, Flexeril, Zofran. It appears he also got Levaquin and Zosyn in the Emergency Room. PHYSICAL EXAMINATION: VITAL SIGNS: His T-max is 38.2. He is currently afebrile, pulse 61, respiratory rate is 20, blood pressure 129/73, oxygen saturation is 92-96% on room air. GENERAL: He is awake, alert and oriented x3. He is in no acute distress. HEENT: Mucous membranes are moist. Extraocular muscles are intact. HEART: Regular. I do not auscultate a murmur. LUNGS: Clear bilaterally. ABDOMEN: Soft, nontender, nondistended. EXTREMITIES: There is no lower extremity edema. There are scabs over the anterior capsule on bilateral lower extremities without any evidence of erythema or purulent drainage or bleeding. He does have poor dentition. LABORATORY STUDIES: CBC today reveals a white blood cell count 21.0, hemoglobin is 14.4, platelets are 123. Chemistry panel reveals a sodium of 130, potassium 4.3, chloride 95, bicarbonate 27, BUN 45, creatinine 2.1, glucose of 127. LFTs are within normal limits. Lipase was normal. UA is 5-10 WBCs. Blood cultures from the 12th are growing gram positive cocci in 2/2 bottles. Urine culture is pending. IMAGING: As above. ASSESSMENT AND PLAN: Gram-positive septicemia, highly concerning for discitis with back pain and abnormal CAT scan. He will need repeat blood cultures. He will need echocardiogram. I would agree that an MRI would be warranted. I will change his Zyvox to daptomycin with renal dosing and await further identification of his gram-positive cocci. Thank you for this consultation.
[2017-06-30] MEDS ORDERED: DAPTOmycin IV 500 MG in SYRINGE 0 ML IV SCH (12:30)
--- NOTE | 2017-06-30 14:00 | ECHOCARDIOGRAM REPORT ---
*NOTICE TO RECEIVING [employer] This information is strictly Confidential and protected under [place] law. [place] law prohibits you from making any further disclosure of this information unless further disclosure is expressly permitted by the written consent of the person to whom it pertains or is authorized by law. A general authorization for the release of medical or other information is not sufficient for this purpose. Hospital accepts no responsibility if the information is made available to any other person, INCLUDING THE PATIENT. Interpretation Summary * Name: RENATO COLON Study Date: 06/30/2017 10:44 AM BP: 129/73 mmHg * Patient Location: [facility] HR: 61 * : 1930 (M/d/yyyy) Gender: Male Height: 70 in * Age: 86 yrs Ethnicity: [place] Weight: 204 lb * Ordering Physician: Judit Marie MD * Referring Physician: Self, Referred * Performed By: Sabina Cash DOLORES * * Reason For Study: Bacteremia * BSA: 2.1 m2 * Incorrect patient name appears on echo images. Study was performed of Renato Colon, not Renato Dandre Vijay. * -- Conclusions -- * 1. Normal LV size and wall thickness. * 2. Normal LV systolic function. LVEF 55-60%. No regional wall motion abnormalities. * 3. RV severely dilated with borderline RV function. * 4. Aortic valve sclerosis without stenosis. * 5. Mild TR. Mild to moderate pulmonary hypertension. Est PASP 45-50 mmHg. Est RA 15 mmHg. * 6. Severe biatrial enlargment * 7. No prior studies for comparison. Procedure Details * A complete two-dimensional transthoracic echocardiogram was performed (2D, M-mode, Doppler and color flow Doppler). Left Ventricle * The left ventricle is grossly normal size. * There is normal left ventricular wall thickness. * Ejection Fraction = 55-60%. Right Ventricle * The right ventricle is severely dilated. * The right ventricular systolic function is borderline reduced. Atria * The left atrium is severely dilated. * The right atrium is severely dilated. * No ASD detected; PFO is not assessed. Mitral Valve * The mitral valve is grossly normal. * There is no mitral valve stenosis. * There is trace mitral regurgitation. Tricuspid Valve * The tricuspid valve is not well visualized, but is grossly normal. * There is mild tricuspid regurgitation. Aortic Valve * Aortic valve sclerosis moderate, without significant aortic valvular stenosis. * The aortic valve is trileaflet. * No hemodynamically significant valvular aortic stenosis. * There is no significant aortic regurgitation. Pulmonic Valve * The pulmonary valve is inadequately visualized, but the Doppler data is adequate for interpretation. * Pulmonic stenosis is absent. * There is no significant pulmonary regurgitation. Great Vessels * Dilated inferior vena cava with reduced collapsability with sniff indicates an elevated right atrial pressure of 15 mmHg MMode 2D Measurements and Calculations IVSd 1.1 cm LVIDd 4.4 cm LVIDs 3.0 cm LVPWd 1.1 cm IVS/LVPW 0.98 FS 31.9 % EDV(Teich) 90.0 ml ESV(Teich) 35.8 ml EF(Teich) 60.2 % EDV(cubed) 88.0 ml ESV(cubed) 27.8 ml EF(cubed) 68.5 % LV mass(C)d 176.8 grams LV mass(C)dI 84.0 grams/m\S\2 SV(Teich) 54.2 ml SI(Teich) 25.7 ml/m\S\2 SV(cubed) 60.3 ml SI(cubed) 28.6 ml/m\S\2 Ao root diam 3.6 cm Ao root area 10.4 cm\S\2 ACS 1.4 cm LA dimension 4.5 cm asc Aorta Diam 3.4 cm LA/Ao 1.3 LVOT diam 2.0 cm LVOT area 3.3 cm\S\2 LVAd ap4 31.1 cm\S\2 LVLd ap4 8.1 cm EDV(MOD-sp4) 96.7 ml EDV(sp4-el) 101.0 ml LVAs ap4 18.6 cm\S\2 LVLs ap4 6.9 cm ESV(MOD-sp4) 41.1 ml ESV(sp4-el) 42.3 ml EF(MOD-sp4) 57.5 % EF(sp4-el) 58.1 % LVAd ap2 26.7 cm\S\2 LVLd ap2 7.7 cm EDV(MOD-sp2) 76.3 ml EDV(sp2-el) 78.2 ml LVAs ap2 16.0 cm\S\2 LVLs ap2 6.9 cm ESV(MOD-sp2) 30.7 ml ESV(sp2-el) 31.5 ml EF(MOD-sp2) 59.7 % EF(sp2-el) 59.7 % LVLd %diff -5.26 % EDV(MOD-bp) 86.6 ml LVLs %diff -0.59 % ESV(MOD-bp) 35.7 ml EF(MOD-bp) 58.8 % SV(MOD-sp4) 55.6 ml SI(MOD-sp4) 26.4 ml/m\S\2 SV(MOD-sp2) 45.6 ml SI(MOD-sp2) 21.6 ml/m\S\2 SV(MOD-bp) 50.9 ml SI(MOD-bp) 24.2 ml/m\S\2 SV(sp4-el) 58.7 ml SI(sp4-el) 27.9 ml/m\S\2 SV(sp2-el) 46.7 ml SI(sp2-el) 22.2 ml/m\S\2 Doppler Measurements and Calculations MV E max gladis 122.7 cm/sec MV A max gladis 30.1 cm/sec MV E/A 4.1 MV dec time 0.17 sec Ao V2 max 121.6 cm/sec Ao max PG 5.9 mmHg Ao max PG (full) 3.9 mmHg TERRA(V,A) 1.9 cm\S\2 TERRA(V,D) 1.9 cm\S\2 LV V1 max PG 2.0 mmHg LV V1 max 70.8 cm/sec PA V2 max 73.3 cm/sec PA max PG 2.1 mmHg PA acc slope 877.3 cm/sec\S\2 PA acc time 0.07 sec TR max gladis 278.1 cm/sec PA pr(Accel) 48.9 mmHg
[2017-06-30] MEDS ORDERED: WARFARIN SOD 5 MG TAB PO SCH (16:00)
[2017-06-30] MEDS: CEFTRIAXONE SOD INJ 2000 MG in DEXTROSE 5% 50ML IV SCH (17:54)
[2017-06-30] MEDS ORDERED: LINEZOLID / D5W 600 MG in PREMIXED IN D5W 300 ML IV SCH (21:00)
[2017-07-01] MEDS: SODIUM CHLORIDE 0.9% 1000ML 1,000 ML IV SCH ×3 (01:15→14:38)
[2017-07-01 06:16] LABS: HEMATOCRIT 38.9 % (42-52); MEAN CORPUSCULAR HEMOGLOBIN 33.9 pg (25-34); MEAN CORPUSCULAR HGB CONC 33.9 g/dl (32-36); MEAN PLATELET VOLUME 9.6 fL (7.4-10.4); PLATELET COUNT 137 K/uL (130-400); RED BLOOD COUNT 3.89 M/uL (4.7-6.1); WHITE BLOOD COUNT 16.28 K/uL (4.8-10.8)
[2017-07-01 06:53] LABS: BUN/CREATININE RATIO 31.1 (10-20); CALCIUM 8.4 mg/dl (8.5-10.1); CREATININE 1.6 mg/dl (0.60-1.40); POTASSIUM 3.5 mmol/L (3.5-5.1)
[2017-07-01 07:30] VITALS: BP 119/78; PULSE 62; TEMP 36.7; O2SAT 92
--- NOTE | 2017-07-01 07:59 | Progress Note ---
Progress Note Date of Service Jul 01, 2017. Progress Note Noted that MRI was not completed yesterday. I called MRI at 8am, they reported the pt had refused to come down yesterday evening. They reported it will happen today, likely later in the AM. Danyell Tuttle MD PGY-3
[2017-07-01] MEDS: VERAPAMIL HCL 240 MG TABCR PO SCH ×2 (08:13→20:03)
--- NOTE | 2017-07-01 09:07 | Orthopedic Consultation ---
Orthopedic Consultation Date of Consultation: Jul 01, 2017. Attending Physician: Judit Marie M.D. Reason for Consultation: Back pain History of Present Illness Very pleasant 86-year-old male presents to [facility] with onset of severe back pain and evidence of sepsis. Today he states his back pain is controlled as long as he is not moving. Denies any component of leg pain. He states that he lives with his and [employer] home. He usually uses a cane when outside of the home. He denies any description of neurogenic claudicatory complaints prior to this most recent event. Past Medical/Surgical History Medical Problems: (1) SIRS (systemic inflammatory response syndrome) Status: Acute Social History Smoking Status: Unknown if Ever Smoked Drug Use: none Marital Status: Housing Status: lives with family Occupation Status: retired Allergies Coded Allergies: No Known Allergies (Unverified , NONE, 06/29/17) Home Medications Scheduled Allopurinol (Zyloprim), 300 MG PO DAILY Atenolol (Tenormin), 25 MG PO DAILY Calcium Carbonate-Vitamin D (Calcium/Vitamin D), 1 TAB PO DAILY Flaxseed (Linseed) (Flax Seed Oil), 1,000 MG PO DAILY Multiple Vitamins W/ Minerals (Centrum Silver), 1 TAB PO DAILY Ocuvite Preservision (Ocuvite Preservision), 1 TAB PO DAILY Potassium Chloride (Potassium Chloride ER), 20 MEQ PO DAILY Triamterene/Hctz (Maxzide 75MG/50MG), 1 TAB PO DAILY Verapamil Sust Rel (Calan Sr Ext Rel), 240 MG PO BID Vitamin B Cmplx/Vitc/Folic Ac (Nephrocaps), 1 CAP PO BID Warfarin Sod (Jantoven), 2.5 MG PO 4XWK Warfarin Sod (Jantoven), 5 MG PO 3XWK Current Inpatient Medications Current Inpatient Medications Medications (Trade) Dose Ordered Sig/Geraldo Route Start Time Stop Time Status Last Admin Dose Admin Ioversol (Optiray 320) 125 ml UD PRN IV 06/29/17 09:45 07/03/17 09:44 Acetaminophen (Tylenol Tab) 650 mg Q4H PRN PO 06/29/17 13:15 07/29/17 13:14 06/30/17 06:53 650 MG Ondansetron HCl (Zofran Inj) 4 mg Q6H PRN IV 06/29/17 13:15 07/29/17 13:14 Allopurinol (Zyloprim Tab) 300 mg DAILY PO 06/30/17 08:00 07/30/17 08:59 Future Hold 06/30/17 08:12 300 MG Atenolol (Tenormin Tab) 25 mg DAILY PO 06/30/17 08:00 07/30/17 08:59 07/01/17 08:13 25 MG Verapamil HCl (Calan-Sr Tab) 240 mg BID PO 06/29/17 20:00 07/29/17 20:59 07/01/17 08:13 240 MG Cyclobenzaprine HCl (Flexeril Tab) 10 mg BID PRN PO 06/29/17 13:30 07/29/17 13:29 Miscellaneous (Iv Fluids Completed) 1 ea PRN PRN N/A 06/29/17 13:45 06/29/18 13:44 Ceftriaxone Sodium 2000 mg/ Dextrose 70 ml @ 140 mls/hr DAILY@1800 IV 06/29/17 18:00 07/09/17 17:59 06/30/17 17:54 140 MLS/HR Warfarin Sodium (Coumadin Tab) 2.5 mg SuTuThSa@1600 PO 06/29/17 21:00 07/29/17 20:59 06/29/17 21:08 2.5 MG Warfarin Sodium (Coumadin Tab) 5 mg MoWeFr@1600 PO 06/30/17 16:00 07/30/17 15:59 06/30/17 15:25 5 MG Sodium Chloride 1,000 ml @ 100 mls/hr Q10H IV 06/30/17 09:15 07/30/17 09:14 07/01/17 01:15 100 MLS/HR Daptomycin 500 mg/ Syringe 10 ml @ 5 mls/min Q48H IV 06/30/17 12:30 07/14/17 12:29 06/30/17 12:38 5 MLS/MIN Physical Exam Date Time Temp Pulse Resp B/P (MAP) Pulse Ox O2 Delivery O2 Flow Rate FiO2 07/01/17 07:35 Room Air 07/01/17 00:24 Room Air 06/30/17 23:38 37.6 70 20 132/72 (92) 97 Room Air 06/30/17 21:30 Room Air 06/30/17 19:40 36.4 62 20 137/80 (99) 94 Room Air 06/30/17 16:00 95 Room Air 06/30/17 15:08 37.3 58 18 119/68 (85) 95 Room Air On exam he is sitting up in bed. He has a negative logroll bilaterally. He does have some evidence of decreased sensation but to the bilateral lower summaries. He describes evidence of neuropathy. He is reasonable plantarflexion dorsiflexion quadriceps strength. Laboratory Results Last 24 Hours Test 06/30/17 12:53 07/01/17 06:03 Lactic Acid Level 2.2 mmol/L 1.9 mmol/L White Blood Count 16.28 K/uL Red Blood Count 3.89 M/uL Hemoglobin 13.2 g/dL Hematocrit 38.9 % Mean Corpuscular Volume 100.0 fL Mean Corpuscular Hemoglobin 33.9 pg Mean Corpuscular Hemoglobin Concent 33.9 g/dl RDW Standard Deviation 51.6 fL RDW Coefficient of Variation 14.2 % Platelet Count 137 K/uL Mean Platelet Volume 9.6 fL Sodium Level 129 mmol/L Potassium Level 3.5 mmol/L Chloride Level 97 mmol/L Carbon Dioxide Level 25 mmol/L Anion Gap 7.0 mmol/L Blood Urea Nitrogen 50 mg/dl Creatinine 1.60 mg/dl Est Creatinine Clear Calc Drug Dose 37.9 ml/min Estimated GFR () 44.6 Estimated GFR (Non- 38.4 BUN/Creatinine Ratio 31.1 Random Glucose 110 mg/dl Calcium Level 8.4 mg/dl Total Bilirubin 0.9 mg/dl Direct Bilirubin 0.3 mg/dl Aspartate Amino Transf (AST/SGOT) 32 U/L Alanine Aminotransferase (ALT/SGPT) 22 U/L Alkaline Phosphatase 62 U/L Total Protein 6.8 gm/dl Albumin 2.5 gm/dl Assessment & Plan Assessment acute low back pain. Plan at this time we know from his CAT scan that he is severe multilevel degenerative change throughout his lumbar spine with evidence of multilevel spinal stenosis and vacuum phenomenon. An MRI has been ordered but still pending. Clearly we will be able to make further recommendations after this is obtained. At this time is vital signs appear to be stable he is neurologically intact and there is no urgency.
--- NOTE | 2017-07-01 09:39 | Clinical Documentation Query ---
QUERY 1 OF [address] MARTIN, In your clinical opinion is this patient being managed for: ( x ) Sepsis due to Staph aureus ( ) Not Agree ( ) Other explanation of clinical findings (Please Explain) ( ) Unable to determine (Please Define) ( ) Need to Discuss The medical record reflects the following clinical findings, treatment, and risk factors. Clinical Indicators: 86 yo male presenting with sepsis. Blood cultures with staph aureus. Treatment:IV daptomycin, IV fluids, IV rocephin, ID consult Risk Factors: age, possible discitis/osteomyelitis Please clarify and document your clinical opinion in the progress notes and discharge summary. Terms such as "probable", "suspected", "likely", "questionable", "possible", or "still to be ruled out" are acceptable. QUERY 2 OF 2 In your clinical opinion does this patient have: ( x ) Chronic kidney disease, stage 3 ( ) Not Agree ( ) Other explanation of clinical findings (Please Explain) ( ) Unable to determine (Please Define) ( ) Need to Discuss The medical record reflects the following clinical findings, treatment, and risk factors. Clinical Indicators: Review of historical GFR showed range of 38.4-46.8 Treatment:monitor PRP's, treat chronic conditions Risk Factors: age, A fib, HTN, obesity Please clarify and document your clinical opinion in the progress notes and discharge summary. Terms such as "probable", "suspected", "likely", "questionable", "possible", or "still to be ruled out" are acceptable. IF IN AGREEMENT, YOU MUST DOCUMENT ABOVE DIAGNOSTIC STATEMENT IN DAILY PROGRESS NOTES AND DISCHARGE SUMMARY. This document is not part of the patient's record. Thank You, Gayla Sexton, RN [phone]
--- NOTE | 2017-07-01 09:49 | Clinical Documentation Query ---
QUERY 1 OF [address] PATRICIA, In your clinical opinion is this patient being managed for: ( ) Sepsis due to Staph aureus ( ) Not Agree ( ) Other explanation of clinical findings (Please Explain) ( ) Unable to determine (Please Define) ( ) Need to Discuss The medical record reflects the following clinical findings, treatment, and risk factors. Clinical Indicators: 86 yo male presenting with sepsis. Blood cultures with staph aureus. Treatment:IV daptomycin, IV fluids, IV rocephin, ID consult Risk Factors: age, possible discitis/osteomyelitis QUERY 2 OF 2 In your clinical opinion does this patient have: ( ) Chronic kidney disease, stage 3 ( ) Not Agree ( ) Other explanation of clinical findings (Please Explain) ( ) Unable to determine (Please Define) ( ) Need to Discuss The medical record reflects the following clinical findings, treatment, and risk factors. Clinical Indicators: Review of historical GFR showed range of 38.4-46.8 Treatment:monitor PRP's, treat chronic conditions Risk Factors: age, A fib, HTN, obesity Please clarify and document your clinical opinion in the progress notes and discharge summary. Terms such as "probable", "suspected", "likely", "questionable", "possible", or "still to be ruled out" are acceptable. IF IN AGREEMENT, YOU MUST DOCUMENT ABOVE DIAGNOSTIC STATEMENT IN DAILY PROGRESS NOTES AND DISCHARGE SUMMARY. This document is not part of the patient's record. Thank You, Gayla Sexton, RN [phone]
--- NOTE | 2017-07-01 14:25 | Progress Note ---
Subjective Date of Service: Jul 01, 2017. Subjective Pt evaluation today including: conversation w/ patient, conversation w/ family , physical exam, chart review, lab review seen in followup, family at bedside. still with back pain, saw ortho, awaiting MRI, has not been done yet. Initial blood culture with MSSA 2/2. repeat cultures pending. dapto stopped, remains on ctx, tolerating well. TTE negative for veg. No fevers overnight, states mild nausea, no vomiting, no diarrhea, no abd pain. back pain worse with movement but able to move le b/l. all remaining ros reviewed and are negative. Problem List Medical Problems: (1) SIRS (systemic inflammatory response syndrome) Status: Acute Objective Vital Signs Date Time Temp Pulse Resp B/P (MAP) Pulse Ox O2 Delivery O2 Flow Rate FiO2 07/01/17 07:35 Room Air 07/01/17 07:30 36.7 62 20 119/78 (92) 92 Room Air 07/01/17 00:24 Room Air 06/30/17 23:38 37.6 70 20 132/72 (92) 97 Room Air 06/30/17 21:30 Room Air 06/30/17 19:40 36.4 62 20 137/80 (99) 94 Room Air 06/30/17 16:00 95 Room Air 06/30/17 15:08 37.3 58 18 119/68 (85) 95 Room Air Physical Exam General Appearance: WD/WN, no apparent distress Eyes: normal inspection, EOMI Neck: supple Respiratory/Chest: chest non-tender, lungs clear, normal breath sounds, no respiratory distress Cardiovascular: regular rate, rhythm, no edema Abdomen: non tender, soft Extremities: non-tender, no pedal edema Neurologic/Psychiatric: alert, oriented x 3 Skin: normal color, no rash Laboratory Results Item Value Date Time Blood Culture - Final Complete 06/29/17 1156 Blood Staphylococcus Aureus Blood Culture - Final Complete 06/29/17 1148 Blood Staphylococcus Aureus Urine Culture - Final Complete 06/29/17 1145 Urine , Clean Catch Corynebacterium Species Last 24 Hours Test 07/01/17 06:03 White Blood Count 16.28 K/uL Red Blood Count 3.89 M/uL Hemoglobin 13.2 g/dL Hematocrit 38.9 % Mean Corpuscular Volume 100.0 fL Mean Corpuscular Hemoglobin 33.9 pg Mean Corpuscular Hemoglobin Concent 33.9 g/dl RDW Standard Deviation 51.6 fL RDW Coefficient of Variation 14.2 % Platelet Count 137 K/uL Mean Platelet Volume 9.6 fL Sodium Level 129 mmol/L Potassium Level 3.5 mmol/L Chloride Level 97 mmol/L Carbon Dioxide Level 25 mmol/L Anion Gap 7.0 mmol/L Blood Urea Nitrogen 50 mg/dl Creatinine 1.60 mg/dl Est Creatinine Clear Calc Drug Dose 37.9 ml/min Estimated GFR () 44.6 Estimated GFR (Non- 38.4 BUN/Creatinine Ratio 31.1 Random Glucose 110 mg/dl Lactic Acid Level 1.9 mmol/L Calcium Level 8.4 mg/dl Total Bilirubin 0.9 mg/dl Direct Bilirubin 0.3 mg/dl Aspartate Amino Transf (AST/SGOT) 32 U/L Alanine Aminotransferase (ALT/SGPT) 22 U/L Alkaline Phosphatase 62 U/L Total Protein 6.8 gm/dl Albumin 2.5 gm/dl Assessment and Plan (1) Sepsis Assessment & Plan: continue ctx, await mri findings and repeat cultures.
[2017-07-01] MEDS ORDERED: NURSING VERBAL MED ORDER ONE (14:45)
[2017-07-01 15:43] VITALS: BP 125/68; PULSE 65; TEMP 36.7; O2SAT 93
--- NOTE | 2017-07-01 15:55 | Family Medicine Progress Note ---
Progress Note Date of Service Jul 01, 2017. Subjective Pt evaluation today including: conversation w/ patient, physical exam, chart review, lab review, review of inpatient medication list Pain: Back pain reported PO Intake: Tolerating PO intake Voiding: no voiding problems Mr. Brito reports he feels better today. He denies fever, chills, chest pain, SOB, and states his nausea has resolved. He states his left sided back pain remains, but that his right leg only hurts if he moves in a certain way. He reports feeling much weaker than normal, usually he ambulates independently at home, and with a cane if he leaves his house. He states he was unable to complete his MRI yesterday as there were not enough people to lift him onto the table. Constitutional: No fever, No chills Respiratory: No cough, No sputum, No wheezing, No shortness of breath Cardiovascular: No chest pain, No edema Abdomen: No pain, No nausea, No vomiting, No diarrhea Musculoskeletal: + problem reported (left sided back pain) All Other Systems: Reviewed and Negative Medications Current Inpatient Medications Medications (Trade) Dose Ordered Sig/Geraldo Route Start Time Stop Time Status Last Admin Dose Admin Ioversol (Optiray 320) 125 ml UD PRN IV 06/29/17 09:45 07/03/17 09:44 Acetaminophen (Tylenol Tab) 650 mg Q4H PRN PO 06/29/17 13:15 07/29/17 13:14 06/30/17 06:53 650 MG Ondansetron HCl (Zofran Inj) 4 mg Q6H PRN IV 06/29/17 13:15 07/29/17 13:14 Allopurinol (Zyloprim Tab) 300 mg DAILY PO 06/30/17 08:00 07/30/17 08:59 Future Hold 06/30/17 08:12 300 MG Atenolol (Tenormin Tab) 25 mg DAILY PO 06/30/17 08:00 07/30/17 08:59 07/01/17 08:13 25 MG Verapamil HCl (Calan-Sr Tab) 240 mg BID PO 06/29/17 20:00 07/29/17 20:59 07/01/17 08:13 240 MG Cyclobenzaprine HCl (Flexeril Tab) 10 mg BID PRN PO 06/29/17 13:30 07/29/17 13:29 Miscellaneous (Iv Fluids Completed) 1 ea PRN PRN N/A 06/29/17 13:45 06/29/18 13:44 Ceftriaxone Sodium 2000 mg/ Dextrose 70 ml @ 140 mls/hr DAILY@1800 IV 06/29/17 18:00 07/09/17 17:59 06/30/17 17:54 140 MLS/HR Warfarin Sodium (Coumadin Tab) 2.5 mg SuTuThSa@1600 PO 06/29/17 21:00 07/29/17 20:59 06/29/17 21:08 2.5 MG Warfarin Sodium (Coumadin Tab) 5 mg MoWeFr@1600 PO 06/30/17 16:00 07/30/17 15:59 06/30/17 15:25 5 MG Sodium Chloride 1,000 ml @ 100 mls/hr Q10H IV 06/30/17 09:15 07/30/17 09:14 07/01/17 01:15 100 MLS/HR Objective Vital Signs Date Time Temp Pulse Resp B/P (MAP) Pulse Ox O2 Delivery O2 Flow Rate FiO2 07/01/17 07:35 Room Air 07/01/17 07:30 36.7 62 20 119/78 (92) 92 Room Air 07/01/17 00:24 Room Air 06/30/17 23:38 37.6 70 20 132/72 (92) 97 Room Air 06/30/17 21:30 Room Air 06/30/17 19:40 36.4 62 20 137/80 (99) 94 Room Air 06/30/17 16:00 95 Room Air 06/30/17 15:08 37.3 58 18 119/68 (85) 95 Room Air Physical Exam General Appearance: WD/WN, no apparent distress Respiratory/Chest: chest non-tender, normal breath sounds, no respiratory distress, no accessory muscle use, + decreased breath sounds Cardiovascular: no edema, no gallop, no JVD, no murmur Abdomen: normal bowel sounds, non tender, soft, no organomegaly, no pulsatile mass Extremities: non-tender, normal inspection, no pedal edema, no calf tenderness , + pertinent finding (left sided paraspinal muscle tenderness) Laboratory Results Last 24 Hours Test 06/30/17 12:53 07/01/17 06:03 Lactic Acid Level 2.2 mmol/L 1.9 mmol/L White Blood Count 16.28 K/uL Red Blood Count 3.89 M/uL Hemoglobin 13.2 g/dL Hematocrit 38.9 % Mean Corpuscular Volume 100.0 fL Mean Corpuscular Hemoglobin 33.9 pg Mean Corpuscular Hemoglobin Concent 33.9 g/dl RDW Standard Deviation 51.6 fL RDW Coefficient of Variation 14.2 % Platelet Count 137 K/uL Mean Platelet Volume 9.6 fL Sodium Level 129 mmol/L Potassium Level 3.5 mmol/L Chloride Level 97 mmol/L Carbon Dioxide Level 25 mmol/L Anion Gap 7.0 mmol/L Blood Urea Nitrogen 50 mg/dl Creatinine 1.60 mg/dl Est Creatinine Clear Calc Drug Dose 37.9 ml/min Estimated GFR () 44.6 Estimated GFR (Non- 38.4 BUN/Creatinine Ratio 31.1 Random Glucose 110 mg/dl Calcium Level 8.4 mg/dl Total Bilirubin 0.9 mg/dl Direct Bilirubin 0.3 mg/dl Aspartate Amino Transf (AST/SGOT) 32 U/L Alanine Aminotransferase (ALT/SGPT) 22 U/L Alkaline Phosphatase 62 U/L Total Protein 6.8 gm/dl Albumin 2.5 gm/dl Assessment and Plan Mr. Brito is an 86 year old man who presented with lower back pain, weakness and fever & leukocytosis of undetermined origin Sepsis secondary to staph aureus - blood cultures positive x2 for gram positive cocci - WBC decreased from 21.06 to 16.2 - remained afebrile over 24 hour period - thank you to ID for consult - repeat blood cultures pending - first set of cultures grew pansensitive staph aureus, d/c vancomycin and continue rocephin - TTE results did not show vegetations. He will require a ALONSO if his repeat blood cultures come back positive - ?possible osteomyelitis given back pain and bacteremia - thank you to ortho for consult - now awaiting MRI - lactate level dropped from 2.2 to 1.9 ? Delirium - sec to infection, being in the hospital - supportive care Acute kidney injury - likely due to sepsis - creatinine decreased from 2.14 to 1.6, will continue to monitor - d/c fluids and encourage oral intake - holding home allopurinol Hyponatremia - Na 129 - will monitor Hyperbilirubinemia - resolved - bilirubin now 0.9 - rest of liver enzymes are within normal limits - will monitor, no sign of biliary obstruction in imaging Low back pain - CT lumbar spine shows severe degenerative disc disease and spinal stenosis at L3/L4 and L4/L5 - ?possible osteomyelitis - MRI ordered Atrial fibrillation & HTN - continue Coumadin - continue verapamil and atenolol Gout - holding home allopurinol Code: Full DVT Prophylaxis: warfarin Disposition: remains on med/surg Resident Tracking Resident Involvement: Resident Care Provided Care Provided: Adult Hospital Medicine Reviewed: Pt Seen/Exam by Me History didn't sleep well last night. thinks he has been hallucinating since this morning. was trying to reach something but it wasn't there. back pain with movement but somewhat better. overall feeling better Constitutional: denies: fever Respiratory: negative: short of breath Cardiovascular: denies chest pain General Appearance: no apparent distress Respiratory: lungs clear, no respiratory distress Cardiovascular: regular rate, rhythm Gastrointestinal: normal bowel sounds, non tender, soft Neurologic/Psychiatric: alert, oriented x 3 Skin Characteristics: warm/dry Assessment/Plan Resident Physician Supervision Note: I independently interviewed and examined the patient and verified the hernandez history and physical, reviewed labs and image studies, discussed the case with the resident Dr. Collins and agree with the findings and care plan.
[2017-07-01 16:00] VITALS: O2SAT 93
[2017-07-01] MEDS: WARFARIN SOD 2.5 MG TAB PO SCH (16:35)
[2017-07-01] MEDS: CEFTRIAXONE SOD INJ 2000 MG in DEXTROSE 5% 50ML IV SCH (18:39)
--- NOTE | 2017-07-01 22:53 | DIAGNOSTIC IMAGING REPORT ---
LUMBAR SPINE MRI HISTORY: Difficulty walking. Bilateral leg pain and numbness. TECHNIQUE: Multiplanar multisequence MRI of the lumbar spine was performed without the use of contrast. COMPARISON: Lumbar spine CT 06/29/2017. FINDINGS: For the purpose of the report the L5-S1 disc space will be located on axial image 32 of 34. There is 3 mm of retrolisthesis of L1 on L2. The conus terminates at the L1 level. Moderate to space narrowing at L2-L3, L3-L4, and L4-L5. Severe disc space narrowing at L5-S1. The L2-L3 vertebral bodies are fused. Mild endplate edema at the L3-L4 level which extends into the bilateral L3 and L4 pedicles and spinous processes. There is also decreased T1 signal at the L3-L4 levels. No acute fractures identified. Subcutaneous edema within the lumbar region. There is also edema within the bilateral erector spinae muscles. There are small focal fluid collections posterior to the L3 and L4 facets best seen on sagittal images 4 and 13. The largest on the left measures 2 cm. Anterior fusion with flowing osteophytes within the lower thoracic spine. Axial images are suboptimal due to the motion artifact. Endplate osteophytes seen throughout the lumbar spine. L1-L2: Broad-based posterior disc bulge resulting in mild to moderate central canal and moderate bilateral neural foraminal narrowing. L2-L3: The vertebral bodies are fused. There is trace epidural fluid/abnormality posterior to the L2 vertebral body which measures up to 2.7 mm in thickness. This is best seen on axial T2 image 9 of 34. In addition, at the L2-L3 disc space level there is a focal 17 (cc) x 8 (AP) x 6 (TV) mm T2 hyperintense, T1 heterogeneous focal abnormality within the posterior epidural space. This results in moderate to severe central canal narrowing at this level. There is also moderate bilateral neural foraminal narrowing. L3-L4: Broad-based posterior disc bulge with severe ligamentum and facet hypertrophy resulting in severe central canal narrowing. The ventral canal measures a diameter of 5 mm. There is also moderate right and mild left neural foraminal narrowing. As seen on the L2-L3 level there is also suggestion of a posterior epidural which also accounts for this central canal narrowing. L4-L5: There is epidural abnormality at the L4 level surrounding the thecal sac. Some of this could be due to epidural fat. However, this does not complete suppress on the fat sat sequences and therefore is concerning for abnormal epidural fluid as seen at the L2 and L3 levels. This results in moderate central canal narrowing at this level. The epidural abnormality is best seen on axial image 25 of 34. L5-S1: No significant central canal or neural foraminal narrowing. IMPRESSION: 1. Epidural abnormality seen from the L2-L4 levels which could represent epidural abscess or an epidural hematoma. 2. Endplate edema at the L3-L4 levels which extend into the pedicles and transverse processes. There is also decreased T1 signal at the L3 inferior endplate. Despite the vacuum phenomenon at the L3-L4 level, these findings raise the possibility of a discitis/osteomyelitis. 4. There is also edema within the bilateral erector spinae muscles. Small fluid collections posterior to the L3-L4 facets measuring up to 2 cm could represent small abscesses. 5. Multilevel central canal narrowing as described above most pronounced at the L2-L3 and L3-L4 levels. Some of this is due to the epidural abnormality resulting in mass effect along the thecal sac. 6. These findings were discussed with Dr. Gutiérrez at 11 PM on 07/01/2017. Electronically signed by: Parmjit Torres M.D. 07/01/2017 11:37 PM Dictated Date/Time: 07/01/2017 10:29 PM
[2017-07-01] MEDS ORDERED: PIPERACILL/TAZOBAC CONSULT ACTIVE PRN (23:45)
[2017-07-01] MEDS ORDERED: VANCOMYCIN CONSULT ACTIVE PRN (23:45)
[2017-07-02] MEDS ORDERED: PIPERACILL/TAZOBAC IV 3.375 GM in DEXTROSE 5% 100ML IV ONE ×2
[2017-07-02] MEDS ORDERED: VANCOMYCIN INJ 2,250 MG in SODIUM CHLORIDE 0.9% 500ML 500 ML IV SCH ×2
[2017-07-02 00:52] VITALS: BP 142/77; PULSE 72; TEMP 36.8; O2SAT 93
[2017-07-02] MEDS ORDERED: PIPERACILL/TAZOBAC IV 3.375 GM in DEXTROSE 5% 100ML IV SCH (04:00)
[2017-07-02] MEDS ORDERED: PIPERACILL/TAZOBAC IV 3.375 GM in DEXTROSE 5% 100ML 100 ML IV SCH (06:00)
[2017-07-02 07:21] VITALS: BP 134/78; PULSE 59; TEMP 37; O2SAT 92
[2017-07-02 07:25] LABS: HEMATOCRIT 40.3 % (42-52); MEAN CELL VOLUME 98.1 fL (80-100); MEAN CORPUSCULAR HEMOGLOBIN 33.8 pg (25-34); MEAN CORPUSCULAR HGB CONC 34.5 g/dl (32-36); MEAN PLATELET VOLUME 9.5 fL (7.4-10.4); PLATELET COUNT 138 K/uL (130-400); RED BLOOD COUNT 4.11 M/uL (4.7-6.1); WHITE BLOOD COUNT 12.29 K/uL (4.8-10.8)
[2017-07-02 07:54] LABS: CALCIUM 8.2 mg/dl (8.5-10.1); CREATININE 1.27 mg/dl (0.60-1.40)
[2017-07-02] MEDS: VERAPAMIL HCL 240 MG TABCR PO SCH ×2 (08:50→19:49)
[2017-07-02] MEDS ORDERED: VANCOMYCIN INJ 1,000 MG in SODIUM CHLORIDE 0.9% 250ML 250 ML IV SCH (09:00)
--- NOTE | 2017-07-02 10:13 | DIAGNOSTIC IMAGING REPORT ---
CHEST ONE VIEW PORTABLE CLINICAL HISTORY: new onset SOB and wheeze dyspnea COMPARISON STUDY: 06/29/2017 FINDINGS: Chronic elevation left hemidiaphragm. Developing components of congestive failure possibly with superimposed basilar infiltrates. Pulmonary apices are clear. IMPRESSION: Developing congestive failure versus bibasilar parenchymal infiltrates. The above report was generated using voice recognition software. It may contain grammatical, syntax or spelling errors. Electronically signed by: Nixon Francois M.D. 07/02/2017 10:12 AM Dictated Date/Time: 07/02/2017 10:11 AM
--- NOTE | 2017-07-02 10:47 | Progress Note ---
Progress Note Date of Service Jul 02, 2017. Progress Note Patient seen this morning with his at the bedside. At this moment he is alert and oriented. He remembers our conversation from yesterday. On exam he does exhibit full sensation to light touch and cold bilateral lower extremities. He exhibits +5 over 5 plantar flexion dorsiflexion quadriceps. 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 Plan I had a long discussion with the patient and his reviewing his MRI findings and her current plan. At this time he is neurologically intact and with his health status would like to avoid any surgical intervention. Having said that we are planning to hold his Coumadin in the event that we may have to consider lumbar decompression and evacuation of epidural fluid. I also emphasized that oftentimes these can improve with the passage of time and appropriate antibiotic treatment for which she is on. I we following him throughout the weekend. They understand and agree with this plan.
--- NOTE | 2017-07-02 10:49 | Progress Note ---
Subjective Date of Service: Jul 02, 2017. 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 no cp, no cough. abx changed to vanco and zosyn overnight, repeat blood cultures so far negative.Having increased pain today and legs weak today, having some difficulty with urination on my exam, nursing states pt urinated earlier this am. No fevers. States he is having pain with movement, has not been ambulating due to this. present on my exam, states she feels he is more confused, did get flexeril and she states this tends to make him "loopy", no narcotics. Echo negative. Had MRI last evening, significant findings , likely discitis at L3/L4 with osteo, L2-L4 collection vs hematoma noted. abscess noted at L3/L4 measuring 2cm, some mass effect noted. Spoke with primary and ortho. Problem List Medical Problems: (1) SIRS (systemic inflammatory response syndrome) Status: Acute Objective Vital Signs Date Time Temp Pulse Resp B/P (MAP) Pulse Ox O2 Delivery O2 Flow Rate FiO2 07/02/17 07:30 Room Air 07/02/17 07:21 37.0 59 18 134/78 (96) 92 Room Air 07/02/17 00:52 36.8 72 20 142/77 (98) 93 Room Air 07/02/17 00:10 Room Air 07/01/17 16:00 93 Room Air 07/01/17 15:43 36.7 65 22 125/68 (87) 93 Room Air Physical Exam General Appearance: + mild distress Eyes: EOMI Neck: supple Respiratory/Chest: lungs clear, + decreased breath sounds, + wheezing, + pertinent finding Cardiovascular: regular rate, rhythm, no edema, no murmur Abdomen: non tender, soft Extremities: non-tender, no pedal edema Neurologic/Psychiatric: alert, oriented x 3 Skin: normal color, no rash Comments: less movement in legs today, states due to pain. Laboratory Results Item Value Date Time Blood Culture - Final Complete 06/29/17 1156 Blood Staphylococcus Aureus Blood Culture - Final Complete 06/29/17 1148 Blood Staphylococcus Aureus Blood Culture - Preliminary Resulted 06/30/17 1233 Blood NO GROWTH TO DATE. Blood Culture - Preliminary Resulted 06/30/17 1252 Blood NO GROWTH TO DATE. Last 24 Hours Test 07/02/17 07:04 White Blood Count 12.29 K/uL Red Blood Count 4.11 M/uL Hemoglobin 13.9 g/dL Hematocrit 40.3 % Mean Corpuscular Volume 98.1 fL Mean Corpuscular Hemoglobin 33.8 pg Mean Corpuscular Hemoglobin Concent 34.5 g/dl RDW Standard Deviation 49.9 fL RDW Coefficient of Variation 14.0 % Platelet Count 138 K/uL Mean Platelet Volume 9.5 fL Sodium Level 132 mmol/L Potassium Level 3.0 mmol/L Chloride Level 99 mmol/L Carbon Dioxide Level 23 mmol/L Anion Gap 10.0 mmol/L Blood Urea Nitrogen 39 mg/dl Creatinine 1.27 mg/dl Est Creatinine Clear Calc Drug Dose 47.7 ml/min Estimated GFR () 58.9 Estimated GFR (Non- 50.8 BUN/Creatinine Ratio 31.0 Random Glucose 96 mg/dl Calcium Level 8.2 mg/dl Assessment and Plan (1) Vertebral osteomyelitis Assessment & Plan: repeat cultures negative to date, fever resolved, will change back to ctx and follow pt has had clinical decline today, unclear if related to meds, infection, combination however, with urinary difficulty and decreased leg movement highly concerned for swelling/compression. Spoke with primary and ortho, pt coumadin held today, last INR on 06/30 1.8. Concerned for worsening decline. Ortho to eval and discuss options. ? need to transfer if concern for neuro decline. (2) Sepsis
[2017-07-02] MEDS ORDERED: CEFTRIAXONE SOD INJ 2,000 MG in DEXTROSE 5% 50ML 50 ML IV SCH (12:00)
[2017-07-02] MEDS ORDERED: NURSING VERBAL MED ORDER ONE (12:45)
[2017-07-02] MEDS: LEValbuterol HFA 15GM INHALER INH PRN ×2 (14:30→18:53)
[2017-07-02] MEDS ORDERED: FUROSEMIDE INJ 20 MG in SYRINGE 0 ML IV ONE (14:30)
[2017-07-02 15:10] VITALS: BP 129/75; PULSE 56; TEMP 37; O2SAT 92
--- NOTE | 2017-07-02 15:25 | Family Medicine Progress Note ---
Progress Note Date of Service Jul 02, 2017. Subjective Pt evaluation today including: conversation w/ patient, physical exam, chart review, lab review, review of inpatient medication list Pain: Back pain reported PO Intake: Tolerating PO intake Voiding: no voiding problems Mr. Brito reports he feels alright today. He states he is still nauseous and having trouble eating, but has not vomited. He reports his back is still painful , slightly better than yesterday unless he moves. He also reported raspy breathing beginning this morning but states he does not feel short of breath. He stated in the past, he has had testing done to assess his lung function, and he was told his breathing was 30% better after the use of an inhaler, but he was never prescribed any inhalers. Constitutional: No fever, No chills Respiratory: + wheezing, No cough, No sputum Cardiovascular: No chest pain, No orthopnea, No PND, No edema Abdomen: + nausea, No pain, No vomiting Musculoskeletal: + problem reported (left sided back pain) All Other Systems: Reviewed and Negative Medications Current Inpatient Medications Medications (Trade) Dose Ordered Sig/Geraldo Route Start Time Stop Time Status Last Admin Dose Admin Ioversol (Optiray 320) 125 ml UD PRN IV 06/29/17 09:45 07/03/17 09:44 Acetaminophen (Tylenol Tab) 650 mg Q4H PRN PO 06/29/17 13:15 07/29/17 13:14 06/30/17 06:53 650 MG Ondansetron HCl (Zofran Inj) 4 mg Q6H PRN IV 06/29/17 13:15 07/29/17 13:14 Allopurinol (Zyloprim Tab) 300 mg DAILY PO 06/30/17 08:00 07/30/17 08:59 Future Hold 06/30/17 08:12 300 MG Atenolol (Tenormin Tab) 25 mg DAILY PO 06/30/17 08:00 07/30/17 08:59 07/02/17 08:50 25 MG Verapamil HCl (Calan-Sr Tab) 240 mg BID PO 06/29/17 20:00 07/29/17 20:59 07/02/17 08:50 240 MG Cyclobenzaprine HCl (Flexeril Tab) 10 mg BID PRN PO 06/29/17 13:30 07/29/17 13:29 Miscellaneous (Iv Fluids Completed) 1 ea PRN PRN N/A 06/29/17 13:45 06/29/18 13:44 Warfarin Sodium (Coumadin Tab) 2.5 mg SuTuThSa@1600 PO 06/29/17 21:00 07/29/17 20:59 07/01/17 16:35 2.5 MG Warfarin Sodium (Coumadin Tab) 5 mg MoWeFr@1600 PO 06/30/17 16:00 07/30/17 15:59 06/30/17 15:25 5 MG Piperacillin Sod/ Tazobactam Sod 3.375 gm/Dextrose 115 ml @ 28.75 mls/ hr Q8H IV 07/02/17 04:00 08/13/17 03:59 07/02/17 03:55 28.75 MLS/HR Piperacillin Sod/ Tazobactam Sod (Consult) 1 ea UD PRN N/A 07/01/17 23:45 07/31/17 23:44 Vancomycin HCl (Consult) 1 ea UD PRN N/A 07/01/17 23:45 07/31/17 23:44 Levalbuterol (Xopenex Hfa Inhaler) 2 puffs QID PRN INH 07/02/17 09:15 08/01/17 09:14 Objective Vital Signs Date Time Temp Pulse Resp B/P (MAP) Pulse Ox O2 Delivery O2 Flow Rate FiO2 07/02/17 07:30 Room Air 07/02/17 07:21 37.0 59 18 134/78 (96) 92 Room Air 07/02/17 00:52 36.8 72 20 142/77 (98) 93 Room Air 07/02/17 00:10 Room Air 07/01/17 16:00 93 Room Air 07/01/17 15:43 36.7 65 22 125/68 (87) 93 Room Air Physical Exam General Appearance: WD/WN, no apparent distress, + pertinent finding (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) Respiratory/Chest: chest non-tender, no respiratory distress, no accessory muscle use, + decreased breath sounds, + wheezing Cardiovascular: no edema, no gallop, no JVD, no murmur Abdomen: normal bowel sounds, non tender, soft, no organomegaly, no pulsatile mass Laboratory Results Last 24 Hours Test 07/02/17 07:04 White Blood Count 12.29 K/uL Red Blood Count 4.11 M/uL Hemoglobin 13.9 g/dL Hematocrit 40.3 % Mean Corpuscular Volume 98.1 fL Mean Corpuscular Hemoglobin 33.8 pg Mean Corpuscular Hemoglobin Concent 34.5 g/dl RDW Standard Deviation 49.9 fL RDW Coefficient of Variation 14.0 % Platelet Count 138 K/uL Mean Platelet Volume 9.5 fL Sodium Level 132 mmol/L Potassium Level 3.0 mmol/L Chloride Level 99 mmol/L Carbon Dioxide Level 23 mmol/L Anion Gap 10.0 mmol/L Blood Urea Nitrogen 39 mg/dl Creatinine 1.27 mg/dl Est Creatinine Clear Calc Drug Dose 47.7 ml/min Estimated GFR () 58.9 Estimated GFR (Non- 50.8 BUN/Creatinine Ratio 31.0 Random Glucose 96 mg/dl Calcium Level 8.2 mg/dl Assessment and Plan Mr. Brito is an 86 year old man who presented with lower back pain, weakness and fever & leukocytosis of undetermined origin Sepsis secondary to staph aureus - blood cultures positive x2 for gram positive cocci - WBC decreased from 16.2 to 12.2 - remains afebrile - thank you to ID for consult - first set of cultures grew pansensitive staph aureus - TTE results did not show vegetations. Second set of blood cultures negative , does not require ALONSO - rocephin discontinued, one dose of vancomycin given and now on IV zosyn - source of infection likely low back Low back pain - CT lumbar spine shows severe degenerative disc disease and spinal stenosis at L3/L4 and L4/L5 - MRI shows possible epidural abscess vs. hematoma and questionable osteomyelitis - thank you to ortho for consult - will continue medical management - hold warfarin in case surgical intervention becomes necessary Shortness of breath - CXR showed developing components of congestive failure possibly with superimposed basilar infiltrates - will give 20mg IV lasix and levalbuterol inhalers prn and reassess ? Delirium - secondary to infection, being in the hospital - supportive care, frequent reorientation - better today Acute kidney injury - likely due to sepsis - creatinine decreased from 1.6 to 1.2, will continue to monitor - holding home allopurinol Hyponatremia - Na improved from 129 to 132 - will monitor Atrial fibrillation & HTN - hold coumadin - continue verapamil and atenolol Gout - holding home allopurinol Code: Full DVT Prophylaxis: holding warfarin, will order SCDs Disposition: remains on med/surg. Possible eventual d/c to [facility] Resident Tracking Resident Involvement: Resident Care Provided Care Provided: Adult Hospital Medicine Reviewed: Pt Seen/Exam by Me History denies any complains reports - back pain is better feels his breathing is not a problem - gets wheezy at home sometimes. Constitutional: denies: fever Respiratory: negative: short of breath Cardiovascular: denies chest pain General Appearance: no apparent distress Respiratory: lungs clear, no respiratory distress Cardiovascular: irregularly irregular Extremities: other (low back - pain with movement but better than yesterday. no point tenderness illicited) Neurologic/Psychiatric: alert, oriented x 3 Skin Characteristics: warm/dry Assessment/Plan Resident Physician Supervision Note: I independently interviewed and examined the patient and verified the hernandez history and physical, reviewed labs and image studies, discussed the case with the resident Dr. Collins and agree with the findings and care plan.
[2017-07-02] MEDS: CEFTRIAXONE SOD INJ 2,000 MG in DEXTROSE 5% 50ML 50 ML IV SCH (18:06)
[2017-07-02 19:55] VITALS: BP 137/80
[2017-07-02] MEDS: ALBUT/IPRATROP 3MG/0.5MG NEB 3 ML VIAL INH SCH (22:06)
[2017-07-02 22:07] VITALS: PULSE 53; O2SAT 82
[2017-07-03] VITALS (9 sets, daily range): BP systolic 118–137; BP diastolic 61–79; PULSE 56–78; TEMP 36.7–37.1; O2SAT 92–99
[2017-07-03] MEDS: ALBUT/IPRATROP 3MG/0.5MG NEB 3 ML VIAL INH SCH ×4 (07:17→19:00)
[2017-07-03] MEDS: VERAPAMIL HCL 240 MG TABCR PO SCH ×2 (07:51→20:30)
[2017-07-03 08:39] LABS: HEMATOCRIT 41.8 % (42-52); MEAN CELL VOLUME 96.3 fL (80-100); MEAN CORPUSCULAR HEMOGLOBIN 34.6 pg (25-34); MEAN CORPUSCULAR HGB CONC 35.9 g/dl (32-36); MEAN PLATELET VOLUME 9.5 fL (7.4-10.4); PLATELET COUNT 164 K/uL (130-400); RED BLOOD COUNT 4.34 M/uL (4.7-6.1); WHITE BLOOD COUNT 11.66 K/uL (4.8-10.8)
[2017-07-03 09:20] LABS: BUN/CREATININE RATIO 32.6 (10-20); CALCIUM 8.3 mg/dl (8.5-10.1); POTASSIUM 2.5 mmol/L (3.5-5.1)
[2017-07-03] MEDS ORDERED: NURSING VERBAL MED ORDER ONE (09:45)
[2017-07-03] MEDS ORDERED: POTASSIUM CHLORIDE 20 MEQ TABCR PO ONE (10:00)
--- NOTE | 2017-07-03 11:07 | Progress Note ---
Progress Note Date of Service Jul 03, 2017. Progress Note Patient is alert and oriented this morning. He states his back pain is better today. He is able to get to the bedside commode with assistance yesterday. He is denying any leg pain. He does have known peripheral neuropathy. On exam he again is alert and oriented this morning much clear to person place and time and our conversation. He exhibits +5 over 5 plantar flexion dorsiflexion quadriceps. Sensory symmetric and intact. Assessment sepsis possible epidural abscess per plan this time is neurologically stable. He is very adamant he like to avoid surgical intervention if possible. His white count appears to be decreasing. We will continue to watch him closely. If there is any decline or change we may need to consider decompression of the lumbar spine. I've also emphasized that if he is unable to progress with ambulation secondary to canal stenosis we may need to consider decompression as well.
[2017-07-03] MEDS ORDERED: POTASSIUM CHLORIDE 20 MEQ/15 ML UDC PO STA (15:15)
--- NOTE | 2017-07-03 15:18 | Family Medicine Progress Note ---
Progress Note Date of Service Jul 03, 2017. Subjective Pt evaluation today including: conversation w/ patient, physical exam, chart review, lab review Pain: back pain (persistent) PO Intake: tolerating Voiding: no voiding problems Constitutional: No fever, No chills Respiratory: + wheezing, + shortness of breath Cardiovascular: No chest pain Abdomen: + nausea, No pain, No vomiting Male : No dysuria Medications Current Inpatient Medications Medications (Trade) Dose Ordered Sig/Geraldo Route Start Time Stop Time Status Last Admin Dose Admin Acetaminophen (Tylenol Tab) 650 mg Q4H PRN PO 06/29/17 13:15 07/29/17 13:14 06/30/17 06:53 650 MG Ondansetron HCl (Zofran Inj) 4 mg Q6H PRN IV 06/29/17 13:15 07/29/17 13:14 Allopurinol (Zyloprim Tab) 300 mg DAILY PO 06/30/17 08:00 07/30/17 08:59 Future Hold 06/30/17 08:12 300 MG Atenolol (Tenormin Tab) 25 mg DAILY PO 06/30/17 08:00 07/30/17 08:59 07/03/17 07:51 25 MG Verapamil HCl (Calan-Sr Tab) 240 mg BID PO 06/29/17 20:00 07/29/17 20:59 07/03/17 07:51 240 MG Cyclobenzaprine HCl (Flexeril Tab) 10 mg BID PRN PO 06/29/17 13:30 07/29/17 13:29 Miscellaneous (Iv Fluids Completed) 1 ea PRN PRN N/A 06/29/17 13:45 06/29/18 13:44 Warfarin Sodium (Coumadin Tab) 2.5 mg SuTuThSa@1600 PO 06/29/17 21:00 07/29/17 20:59 Future Hold 07/01/17 16:35 2.5 MG Warfarin Sodium (Coumadin Tab) 5 mg MoWeFr@1600 PO 06/30/17 16:00 07/30/17 15:59 Future Hold 06/30/17 15:25 5 MG Levalbuterol (Xopenex Hfa Inhaler) 2 puffs QID PRN INH 07/02/17 09:15 08/01/17 09:14 07/02/17 18:53 2 PUFFS Ceftriaxone Sodium 2000 mg/ Dextrose 70 ml @ 100 mls/hr Q24H IV 07/02/17 18:00 08/10/17 17:59 07/02/17 18:06 100 MLS/HR Albuterol/ Ipratropium (Duoneb) 3 ml QIDR INH 07/02/17 20:00 08/01/17 19:59 07/03/17 11:06 3 ML Objective Vital Signs Date Time Temp Pulse Resp B/P (MAP) Pulse Ox O2 Delivery O2 Flow Rate FiO2 07/03/17 11:06 70 20 94 Nasal Cannula 2.0 07/03/17 07:24 36.8 77 16 135/79 (97) 97 2.0 07/03/17 07:18 78 20 95 Nasal Cannula 2.0 07/03/17 00:03 37.1 56 16 118/61 (80) 94 Nasal Cannula 2.0 07/03/17 00:00 92 Nasal Cannula 2.0 07/02/17 22:07 53 20 82 Nasal Cannula 2.0 07/02/17 19:55 137/80 (99) 07/02/17 15:38 Room Air 07/02/17 15:10 37.0 56 18 129/75 (93) 92 Room Air Physical Exam General Appearance: no apparent distress Neck: supple Respiratory/Chest: + decreased breath sounds, + wheezing Cardiovascular: regular rate, rhythm Abdomen: normal bowel sounds, non tender, soft Extremities: no pedal edema Notes: Lumbar back TTP Laboratory Results 07/03/17 07:55 07/03/17 07:55 07/03/17 13:00 Test 07/03/17 07:55 07/03/17 13:00 Red Blood Count 4.34 M/uL (4.7-6.1) Mean Corpuscular Volume 96.3 fL (80-100) Mean Corpuscular Hemoglobin 34.6 pg (25-34) Mean Corpuscular Hemoglobin Concent 35.9 g/dl (32-36) RDW Standard Deviation 47.9 fL (36.4-46.3) RDW Coefficient of Variation 13.6 % (11.5-14.5) Mean Platelet Volume 9.5 fL (7.4-10.4) Anion Gap 10.0 mmol/L (3-11) Est Creatinine Clear Calc Drug Dose 60.6 ml/min Estimated GFR () 78.6 Estimated GFR (Non- 67.8 BUN/Creatinine Ratio 32.6 (10-20) Calcium Level 8.3 mg/dl (8.5-10.1) Chemistry Specimen Hemolysis Assessment and Plan Mr. Brito is an 86yoM who presented with low back pain, weakness and fever & leukocytosis found to be septic sec to staph aureus likely from low back etiology (osteomyelitis vs. epidural abscess) Sepsis secondary to staph aureus - Initial blood cultures positive x2 for gram positive cocci - Repeat blood cultures x 2 dated 06/30 - NGTD - WBC decreased from 16.2 to 11.66 - remains afebrile - ID consulted - first set of cultures grew pansensitive staph aureus - TTE results did not show vegetations. Second set of blood cultures negative , does not require ALONSO - IV zosyn dced. Now on Ceftriaxone IV - source of infection - low back etiology Low back pain - CT lumbar spine shows severe degenerative disc disease and spinal stenosis at L3/L4 and L4/L5 - MRI shows possible epidural abscess vs. hematoma and questionable osteomyelitis - Ortho consulted - will continue medical management - hold warfarin in case surgical intervention becomes necessary Shortness of breath - CXR showed developing components of congestive failure possibly with superimposed basilar infiltrates - Given 20mg IV lasix and levalbuterol inhalers prn Hypokalemia - K 2.5 this AM - improved to 3 on lab repeat - Repleted with 40meq KCL once Atrial fibrillation & HTN - hold coumadin - continue verapamil and atenolol Gout - holding home allopurinol Delirium - improved - secondary to infection, being in the hospital - supportive care, frequent reorientation - better today Hyponatremia - improved - Na improved from 129 to 133 - will continue to monitor Acute kidney injury - improved - likely due to sepsis - creatinine normalized from 1.6 to 1, will continue to monitor - holding home allopurinol Code: Full DVT Prophylaxis: holding warfarin, will order SCDs Disposition: remains on med/surg. Possible eventual d/c to [facility] Resident Involvement: Resident Care Provided Care Provided: Adult Hospital Medicine Reviewed: Pt Seen/Exam by Me History back pain slowly improving - still hurts with any movement no shortness of breath Constitutional: denies: fever Respiratory: negative: short of breath Cardiovascular: denies chest pain General Appearance: no apparent distress Respiratory: no respiratory distress, decreased breath sounds Cardiovascular: irregularly irregular Neurologic/Psychiatric: oriented x 3, other (somnolent but easily arousable) Skin Characteristics: warm/dry Assessment/Plan Resident Physician Supervision Note: I independently interviewed and examined the patient and verified the hernandez history and physical, reviewed labs and image studies, discussed the case with the resident Dr. Cosby and agree with the findings and care plan.
[2017-07-03] MEDS: CEFTRIAXONE SOD INJ 2,000 MG in DEXTROSE 5% 50ML 50 ML IV SCH (17:28)
[2017-07-04] VITALS (11 sets, daily range): BP systolic 125–143; BP diastolic 71–82; PULSE 64–74; TEMP 36.6–37; O2SAT 92–99
[2017-07-04] MEDS: ALBUT/IPRATROP 3MG/0.5MG NEB 3 ML VIAL INH SCH ×5 (02:02→20:08)
[2017-07-04 06:47] LABS: HEMATOCRIT 41.1 % (42-52); MEAN CELL VOLUME 97.6 fL (80-100); MEAN CORPUSCULAR HEMOGLOBIN 34.2 pg (25-34); MEAN PLATELET VOLUME 9.2 fL (7.4-10.4); PLATELET COUNT 177 K/uL (130-400); RED BLOOD COUNT 4.21 M/uL (4.7-6.1); WHITE BLOOD COUNT 13.24 K/uL (4.8-10.8)
[2017-07-04 06:55] LABS: INR 2.9 (0.9-1.1); PROTHROMBIN TIME (PATIENT) 30.2 SECONDS (9.0-12.0)
[2017-07-04 07:23] LABS: BUN/CREATININE RATIO 25.4 (10-20); CALCIUM 8.1 mg/dl (8.5-10.1); CREATININE 0.95 mg/dl (0.60-1.40); POTASSIUM 3.2 mmol/L (3.5-5.1)
[2017-07-04] MEDS ORDERED: POTASSIUM CHLORIDE 20 MEQ/15 ML UDC PO STA (08:00)
[2017-07-04] MEDS: VERAPAMIL HCL 240 MG TABCR PO SCH ×2 (09:24→20:43)
--- NOTE | 2017-07-04 14:27 | Family Medicine Progress Note ---
Progress Note Date of Service Jul 04, 2017. Subjective Pt evaluation today including: conversation w/ patient, physical exam, chart review, lab review Pain: reports back pain only when he moves PO Intake: tolerating Voiding: no voiding problems This AM Mr. Brito reports back pain only when he moves but improved nausea and shortness of breath. He reports chronic soft stools/diarrhea described as "apricot pudding" consistency which is what his stools looked like today Constitutional: No fever, No chills Respiratory: + shortness of breath, No wheezing Cardiovascular: No chest pain Abdomen: + nausea, + diarrhea (reports chrnoc soft stools ), No pain, No vomiting Male : No dysuria Medications Current Inpatient Medications Medications (Trade) Dose Ordered Sig/Geraldo Route Start Time Stop Time Status Last Admin Dose Admin Acetaminophen (Tylenol Tab) 650 mg Q4H PRN PO 06/29/17 13:15 07/29/17 13:14 06/30/17 06:53 650 MG Ondansetron HCl (Zofran Inj) 4 mg Q6H PRN IV 06/29/17 13:15 07/29/17 13:14 Allopurinol (Zyloprim Tab) 300 mg DAILY PO 06/30/17 08:00 07/30/17 08:59 Future Hold 06/30/17 08:12 300 MG Atenolol (Tenormin Tab) 25 mg DAILY PO 06/30/17 08:00 07/30/17 08:59 07/04/17 09:25 25 MG Verapamil HCl (Calan-Sr Tab) 240 mg BID PO 06/29/17 20:00 07/29/17 20:59 07/04/17 09:24 240 MG Cyclobenzaprine HCl (Flexeril Tab) 10 mg BID PRN PO 06/29/17 13:30 07/29/17 13:29 Miscellaneous (Iv Fluids Completed) 1 ea PRN PRN N/A 06/29/17 13:45 06/29/18 13:44 Warfarin Sodium (Coumadin Tab) 2.5 mg SuTuThSa@1600 PO 06/29/17 21:00 07/29/17 20:59 Future Hold 07/01/17 16:35 2.5 MG Warfarin Sodium (Coumadin Tab) 5 mg MoWeFr@1600 PO 06/30/17 16:00 07/30/17 15:59 Future Hold 06/30/17 15:25 5 MG Levalbuterol (Xopenex Hfa Inhaler) 2 puffs QID PRN INH 07/02/17 09:15 08/01/17 09:14 07/02/17 18:53 2 PUFFS Ceftriaxone Sodium 2000 mg/ Dextrose 70 ml @ 100 mls/hr Q24H IV 07/02/17 18:00 08/10/17 17:59 07/03/17 17:28 100 MLS/HR Albuterol/ Ipratropium (Duoneb) 3 ml QIDR INH 07/02/17 20:00 08/01/17 19:59 07/04/17 11:13 3 ML Objective Vital Signs Date Time Temp Pulse Resp B/P (MAP) Pulse Ox O2 Delivery O2 Flow Rate FiO2 07/04/17 11:13 70 18 96 Nasal Cannula 2.0 07/04/17 09:30 97 Nasal Cannula 2.0 07/04/17 07:39 67 18 97 Nasal Cannula 2.0 07/04/17 07:17 37.0 69 18 143/78 (99) 97 2.0 07/04/17 02:03 64 18 97 Nasal Cannula 2.0 07/04/17 00:00 99 Nasal Cannula 2.0 07/03/17 23:32 36.7 71 18 137/66 (89) 96 Nasal Cannula 2.0 07/03/17 19:03 63 18 99 Nasal Cannula 2.0 07/03/17 16:00 Nasal Cannula 2.0 07/03/17 15:52 36.7 62 18 125/71 (89) 96 1.0 07/03/17 15:40 75 20 93 Nasal Cannula 2.0 Physical Exam General Appearance: no apparent distress Eyes: normal inspection Respiratory/Chest: lungs clear, + decreased breath sounds (bilateral lung bases ) Cardiovascular: regular rate, rhythm, no edema Abdomen: normal bowel sounds, non tender, soft Extremities: non-tender, no pedal edema Notes: back non-tender to palpation Laboratory Results 07/04/17 06:26 07/04/17 06:26 Test 07/04/17 06:26 Red Blood Count 4.21 M/uL (4.7-6.1) Mean Corpuscular Volume 97.6 fL (80-100) Mean Corpuscular Hemoglobin 34.2 pg (25-34) Mean Corpuscular Hemoglobin Concent 35.0 g/dl (32-36) RDW Standard Deviation 48.6 fL (36.4-46.3) RDW Coefficient of Variation 13.7 % (11.5-14.5) Mean Platelet Volume 9.2 fL (7.4-10.4) Prothrombin Time 30.2 SECONDS (9.0-12.0) Prothromb Time International Ratio 2.9 (0.9-1.1) Anion Gap 7.0 mmol/L (3-11) Est Creatinine Clear Calc Drug Dose 63.8 ml/min Estimated GFR () 83.7 Estimated GFR (Non- 72.2 BUN/Creatinine Ratio 25.4 (10-20) Calcium Level 8.1 mg/dl (8.5-10.1) Assessment and Plan Mr. Brito is an 86yoM who presented with low back pain, weakness, fever & leukocytosis found to be septic sec to staph aureus likely from low back etiology (osteomyelitis vs. epidural abscess). Today with improved exam findings. Sepsis secondary to staph aureus - Initial blood cultures positive x2 for gram positive cocci - Repeat blood cultures x 2 dated 06/30 - NGTD - WBC decreased from 16.2 to 11.66 07/03 to 13.24 today - remains afebrile - ID consulted - first set of cultures grew pansensitive staph aureus - TTE results did not show vegetations. Second set of blood cultures negative , does not require ALONSO - IV zosyn dced. Now on Ceftriaxone IV - source of infection - low back etiology Low back pain - CT lumbar spine shows severe degenerative disc disease and spinal stenosis at L3/L4 and L4/L5 - MRI shows possible epidural abscess vs. hematoma and questionable osteomyelitis - Ortho consulted - will continue medical management - hold warfarin in case surgical intervention becomes necessary Diarrhea - chronic? - Reports usually BMs soft "apricot pudding" consistency - C. Diff toxin negative - Started on probiotics - Consider Lomotil if worsens Shortness of breath - improving - CXR showed developing components of congestive failure possibly with superimposed basilar infiltrates - Given 20mg IV lasix and levalbuterol inhalers prn Hypokalemia - improving - K this AM 3.2 - Repleted with 40meq KCL x 2 Atrial fibrillation & HTN - hold coumadin - continue verapamil and atenolol Gout - holding home allopurinol Delirium - improved - secondary to infection, being in the hospital - supportive care, frequent reorientation - better today Hyponatremia - improved - Na improved from 129 to 134 - will continue to monitor Acute kidney injury - improved - likely due to sepsis - creatinine normalized from 1.6 to 0.95, will continue to monitor - holding home allopurinol Code: Full DVT Prophylaxis: holding warfarin, SCDs Disposition: remains on med/surg. Possible eventual d/c to [facility] PT/OT re-eval Resident Involvement: Resident Care Provided Care Provided: Adult Hospital Medicine Reviewed: Pt Seen/Exam by Me History feeling frustrated for having loose stools last night back pain with movement Constitutional: denies: fever Respiratory: negative: short of breath Cardiovascular: denies chest pain General Appearance: no apparent distress Respiratory: lungs clear, no respiratory distress Cardiovascular: regular rate, rhythm Gastrointestinal: soft Neurologic/Psychiatric: alert, oriented x 3 Skin Characteristics: warm/dry Assessment/Plan Resident Physician Supervision Note: I independently interviewed and examined the patient and verified the hernandez history and physical, reviewed labs and image studies, discussed the case with the resident Dr. Cosby and agree with the findings and care plan.
[2017-07-04] MEDS ORDERED: SACCHAROMYCES BOUL (FLORASTOR) 250 MG CAP PO ONE (18:00)
[2017-07-04] MEDS: CEFTRIAXONE SOD INJ 2,000 MG in DEXTROSE 5% 50ML 50 ML IV SCH (18:13)
[2017-07-05] VITALS (9 sets, daily range): BP systolic 133–142; BP diastolic 73–79; PULSE 59–67; TEMP 36.7–36.9; O2SAT 95–99
[2017-07-05 06:52] LABS: HEMATOCRIT 39.4 % (42-52); MEAN CELL VOLUME 98.5 fL (80-100); MEAN CORPUSCULAR HEMOGLOBIN 33.8 pg (25-34); MEAN CORPUSCULAR HGB CONC 34.3 g/dl (32-36); MEAN PLATELET VOLUME 9.1 fL (7.4-10.4); PLATELET COUNT 192 K/uL (130-400); WHITE BLOOD COUNT 11.31 K/uL (4.8-10.8)
[2017-07-05] MEDS: ALBUT/IPRATROP 3MG/0.5MG NEB 3 ML VIAL INH SCH ×4 (07:02→19:19)
[2017-07-05 07:22] LABS: BUN/CREATININE RATIO 28.7 (10-20); CALCIUM 8.1 mg/dl (8.5-10.1); CREATININE 0.87 mg/dl (0.60-1.40); POTASSIUM 3.5 mmol/L (3.5-5.1)
[2017-07-05] MEDS: VERAPAMIL HCL 240 MG TABCR PO SCH ×2 (07:30→19:30)
[2017-07-05] MEDS ORDERED: SACCHAROMYCES BOUL (FLORASTOR) 250 MG CAP PO SCH (08:00)
--- NOTE | 2017-07-05 10:11 | Progress Note ---
Subjective Date of Service: Jul 05, 2017. Subjective Pt evaluation today including: conversation w/ patient, physical exam, chart review, lab review pt oob to chair, looks significantly better today, states pain is less, less confused. no f/c. tolerating abx. repeat blood cultures are negative. states he is able to walk to bathroom without significant pain, overall feeling better. all remaining ros reviewed and are negative. Problem List Medical Problems: (1) SIRS (systemic inflammatory response syndrome) Status: Acute Objective Vital Signs Date Time Temp Pulse Resp B/P (MAP) Pulse Ox O2 Delivery O2 Flow Rate FiO2 07/05/17 08:50 36.7 67 20 133/73 (93) 97 Nasal Cannula 2.0 07/05/17 07:03 61 18 98 Nasal Cannula 2.0 07/05/17 00:00 95 Nasal Cannula 2.0 07/04/17 23:13 36.6 74 20 132/82 (99) 92 Nasal Cannula 2.0 07/04/17 20:43 72 125/71 (89) 07/04/17 20:10 71 18 95 Nasal Cannula 2.0 07/04/17 15:57 36.7 71 20 138/80 (99) 94 Nasal Cannula 2.0 07/04/17 15:55 Nasal Cannula 2.0 07/04/17 14:26 71 18 95 Nasal Cannula 2.0 07/04/17 11:13 70 18 96 Nasal Cannula 2.0 Physical Exam General Appearance: WD/WN, no apparent distress Eyes: normal inspection, EOMI Neck: supple Respiratory/Chest: lungs clear, normal breath sounds, no respiratory distress Cardiovascular: regular rate, rhythm, no edema Abdomen: non tender, soft Extremities: non-tender, no pedal edema Neurologic/Psychiatric: alert, oriented x 3 Skin: normal color Laboratory Results Item Value Date Time Blood Culture - Preliminary Resulted 06/30/17 1252 Blood NO GROWTH TO DATE. Blood Culture - Preliminary Resulted 06/30/17 1233 Blood NO GROWTH TO DATE. Blood Culture - Final Complete 06/29/17 1156 Blood Staphylococcus Aureus Blood Culture - Final Complete 06/29/17 1148 Blood Staphylococcus Aureus Last 24 Hours Test 07/05/17 06:23 White Blood Count 11.31 K/uL Red Blood Count 4.00 M/uL Hemoglobin 13.5 g/dL Hematocrit 39.4 % Mean Corpuscular Volume 98.5 fL Mean Corpuscular Hemoglobin 33.8 pg Mean Corpuscular Hemoglobin Concent 34.3 g/dl RDW Standard Deviation 49.5 fL RDW Coefficient of Variation 13.8 % Platelet Count 192 K/uL Mean Platelet Volume 9.1 fL Sodium Level 131 mmol/L Potassium Level 3.5 mmol/L Chloride Level 99 mmol/L Carbon Dioxide Level 26 mmol/L Anion Gap 6.0 mmol/L Blood Urea Nitrogen 25 mg/dl Creatinine 0.87 mg/dl Est Creatinine Clear Calc Drug Dose 69.7 ml/min Estimated GFR () 90.6 Estimated GFR (Non- 78.1 BUN/Creatinine Ratio 28.7 Random Glucose 92 mg/dl Calcium Level 8.1 mg/dl Assessment and Plan (1) Vertebral osteomyelitis Assessment & Plan: will continue rocephin at current dose, appears to be improving clinically, no neuro decline noted. 06/30 cultures negative to date, ok for picc line, will need min 6 weeks IV rocephin, tentative stop date 08/11. will need weekly cbc,cmp, esr while on abx. can follow with ID post d/c (2) Sepsis
--- NOTE | 2017-07-05 14:29 | Family Medicine Progress Note ---
Progress Note Date of Service Jul 05, 2017. Subjective Pt evaluation today including: conversation w/ patient, conversation w/ family , physical exam, chart review, lab review, review of inpatient medication list Pain: No pain reported PO Intake: Tolerating PO intake Voiding: no voiding problems Mr. Brito reports his back pain has improved, and that it does not bother him at rest, but when get got up to walk over the weekend, he reports that was painful for him, particularly with returning to bed afterwards. He denies nausea , chest pain, but states he has had a nonproductive cough since Wednesday. He does, however, report his breathing has improved over the weekend. When asked about his bowel movements, he states they are of a tapioca like consistency, but denies overt diarrhea. Constitutional: No fever, No chills Respiratory: + cough, No sputum, No wheezing, No shortness of breath Cardiovascular: No chest pain Abdomen: + diarrhea (loose stools), No pain, No nausea, No vomiting, No constipation Musculoskeletal: + problem reported (back pain) Male : No dysuria, No urinary frequency, No incontinence All Other Systems: Reviewed and Negative Medications Current Inpatient Medications Medications (Trade) Dose Ordered Sig/Geraldo Route Start Time Stop Time Status Last Admin Dose Admin Acetaminophen (Tylenol Tab) 650 mg Q4H PRN PO 06/29/17 13:15 07/29/17 13:14 06/30/17 06:53 650 MG Ondansetron HCl (Zofran Inj) 4 mg Q6H PRN IV 06/29/17 13:15 07/29/17 13:14 Allopurinol (Zyloprim Tab) 300 mg DAILY PO 06/30/17 08:00 07/30/17 08:59 Future Hold 06/30/17 08:12 300 MG Atenolol (Tenormin Tab) 25 mg DAILY PO 06/30/17 08:00 07/30/17 08:59 07/05/17 07:30 25 MG Verapamil HCl (Calan-Sr Tab) 240 mg BID PO 06/29/17 20:00 07/29/17 20:59 07/05/17 07:30 240 MG Cyclobenzaprine HCl (Flexeril Tab) 10 mg BID PRN PO 06/29/17 13:30 07/29/17 13:29 Miscellaneous (Iv Fluids Completed) 1 ea PRN PRN N/A 06/29/17 13:45 06/29/18 13:44 Warfarin Sodium (Coumadin Tab) 2.5 mg SuTuThSa@1600 PO 06/29/17 21:00 07/29/17 20:59 Future Hold 07/01/17 16:35 2.5 MG Warfarin Sodium (Coumadin Tab) 5 mg MoWeFr@1600 PO 06/30/17 16:00 07/30/17 15:59 Future Hold 06/30/17 15:25 5 MG Levalbuterol (Xopenex Hfa Inhaler) 2 puffs QID PRN INH 07/02/17 09:15 08/01/17 09:14 07/02/17 18:53 2 PUFFS Ceftriaxone Sodium 2000 mg/ Dextrose 70 ml @ 100 mls/hr Q24H IV 07/02/17 18:00 08/10/17 17:59 07/04/17 18:13 100 MLS/HR Albuterol/ Ipratropium (Duoneb) 3 ml QIDR INH 07/02/17 20:00 08/01/17 19:59 07/05/17 11:22 3 ML Saccharomyces Boulardii (Florastor Cap) 250 mg DAILY PO 07/05/17 08:00 08/04/17 07:59 07/05/17 07:30 250 MG Objective Vital Signs Date Time Temp Pulse Resp B/P (MAP) Pulse Ox O2 Delivery O2 Flow Rate FiO2 07/05/17 11:22 59 18 95 Nasal Cannula 2.0 07/05/17 08:50 36.7 67 20 133/73 (93) 97 Nasal Cannula 2.0 07/05/17 07:03 61 18 98 Nasal Cannula 2.0 07/05/17 00:00 95 Nasal Cannula 2.0 07/04/17 23:13 36.6 74 20 132/82 (99) 92 Nasal Cannula 2.0 07/04/17 20:43 72 125/71 (89) 07/04/17 20:10 71 18 95 Nasal Cannula 2.0 07/04/17 15:57 36.7 71 20 138/80 (99) 94 Nasal Cannula 2.0 07/04/17 15:55 Nasal Cannula 2.0 07/04/17 14:26 71 18 95 Nasal Cannula 2.0 Physical Exam General Appearance: WD/WN, no apparent distress Respiratory/Chest: chest non-tender, normal breath sounds, no respiratory distress, no accessory muscle use, + decreased breath sounds Cardiovascular: no edema, no gallop, no JVD, no murmur Abdomen: normal bowel sounds, non tender, soft, no organomegaly, no pulsatile mass Extremities: normal range of motion, no pedal edema, no calf tenderness, + pertinent finding (left sided back tenderness) Laboratory Results Last 24 Hours Test 07/05/17 06:23 White Blood Count 11.31 K/uL Red Blood Count 4.00 M/uL Hemoglobin 13.5 g/dL Hematocrit 39.4 % Mean Corpuscular Volume 98.5 fL Mean Corpuscular Hemoglobin 33.8 pg Mean Corpuscular Hemoglobin Concent 34.3 g/dl RDW Standard Deviation 49.5 fL RDW Coefficient of Variation 13.8 % Platelet Count 192 K/uL Mean Platelet Volume 9.1 fL Sodium Level 131 mmol/L Potassium Level 3.5 mmol/L Chloride Level 99 mmol/L Carbon Dioxide Level 26 mmol/L Anion Gap 6.0 mmol/L Blood Urea Nitrogen 25 mg/dl Creatinine 0.87 mg/dl Est Creatinine Clear Calc Drug Dose 69.7 ml/min Estimated GFR () 90.6 Estimated GFR (Non- 78.1 BUN/Creatinine Ratio 28.7 Random Glucose 92 mg/dl Calcium Level 8.1 mg/dl Assessment and Plan Mr. Brito is an 86 year old gentleman who presented with low back pain, weakness , fever & leukocytosis found to be septic secondary to staph aureus likely from low back etiology (osteomyelitis vs. epidural abscess). Urinary Retention - pt did not urinate all day and then was bladder scanned and found to be retaining >999mls - discussed with Dr. Nelson who ordered a repeat MRI - will also make him NPO after midnight in case he needs surgical intervention tomorrow - 10mg IV vitamin K given to reverse INR (was 2.9 on 07/04) - will recheck in morning Sepsis secondary to staph aureus - Initial blood cultures positive x2 for gram positive cocci - Repeat blood cultures x 2 dated 06/30 - NGTD - WBC continuing to decrease. Down to 11.3 today - remains afebrile - ID consulted - first set of cultures grew pansensitive staph aureus - TTE results did not show vegetations. Second set of blood cultures negative , does not require ALONSO - continue IV rocephin, will need 6 weeks of antibiotics - tentative stop date 08/11 - weekly CBC, CMP, ESR whilst on abx - f/u with ID in outpatient - consent for PICC line obtained and PICC line will be placed today - source of infection - low back etiology Low back pain - CT lumbar spine shows severe degenerative disc disease and spinal stenosis at L3/L4 and L4/L5 - MRI shows possible epidural abscess vs. hematoma and questionable osteomyelitis - Ortho consulted - will continue medical management - hold warfarin in case surgical intervention becomes necessary - INR 2.9 as of 07/04, will recheck tomorrow AM Diarrhea - chronic? - Reports usually BMs soft "tapioca pudding" consistency - C. Diff toxin negative - continue probiotics Shortness of breath - improving - CXR showed developing components of congestive failure possibly with superimposed basilar infiltrates - Given one dose of 20mg of Lasix on 07/02 - duonebs qid and levalbuterol inhaler prn Hypokalemia - improving - K this AM 3.5 Atrial fibrillation & HTN - hold coumadin - continue verapamil and atenolol Gout - holding home allopurinol Delirium - resolved - secondary to infection, being in the hospital - supportive care, frequent reorientation Hyponatremia - Na 131 - will continue to monitor Acute kidney injury - improved - likely due to sepsis - creatinine normalized from 1.6 to 0.87, will continue to monitor - holding home allopurinol Code: Full DVT Prophylaxis: holding warfarin, SCDs Disposition: remains on med/surg. Possible eventual d/c to [facility] Resident Physician Supervision Note: I interviewed and examined the patient. Discussed with Dr. Garfield Collins and agree with findings and plan as documented in the note. Any exceptions or clarifications are listed here: None Patient here with concern for epidural abscess and positive blood cultures for MSSA. Patient developed urinary retention today and after discussion with orthopedic spine surgery will likely be taken for abscess drainage 07/06. Infectious disease is also recommended a total of 6 weeks therapy for this staff bacteremia and PICC line will eventually be placed to a cough which is goal. Discussions were had about the patient having subacute rehabilitation which likely will be required since she's having spinal surgery. Patient is at the bedside QUESTIONS were answered he states that he feels slightly weak Vital signs are stable urinary retention was found with a bladder scan revealing 900 mL's of urine and inability of the patient avoids today Cardiac exam was regular there were no crackles there is no JVD lungs were clear Epidural abscess undetermined source, staph bacteremia also undetermined source Transthoracic echocardiogram did rule out a valvular vegetation, given the fact that were going to pursue 6 weeks of therapy and ALONSO would not be changing therapy. Once his the patient has his INR reduced posterior surgery will reevaluate him for the need for subacute rehabilitation and we will plan on 6 weeks of total IV access and therapy Documented By: Chris Merrill Resident Tracking Resident Involvement: Resident Care Provided Care Provided: Adult Hospital Medicine
--- NOTE | 2017-07-05 15:24 | Progress Note ---
Progress Note Date of Service Jul 05, 2017. Progress Note Patient is comfortable this time. Denies any significant back pain states he was able to tolerate sitting in a chair without difficulty day. He denies any perineal numbness. Denies any pain in the bilateral lower extremities. He did require a straight cath today with overall thousand cc of retained urine. On exam he is sitting up in bed is comfortable. He exhibits of pus 5 out of 5 bilateral plantarflexion dorsiflexion sensory symmetric and an intact of the thighs and inguinal region. Assessment epidural abscess. Plan at this time we will obtain an MRI lumbar spine without gadolinium rule out expansion of the epidural fluid. Also begin reversing his INR and lastly make him nothing by mouth after midnight as a precaution.
[2017-07-05] MEDS ORDERED: PHYTONADIONE INJ 10 MG in SODIUM CHLORIDE 0.9% 50ML 50 ML IV ONE (15:30)
--- NOTE | 2017-07-05 17:21 | DIAGNOSTIC IMAGING REPORT ---
CHEST ONE VIEW PORTABLE CLINICAL HISTORY: 86 years-old Male presenting with right picc tip placement. TECHNIQUE: Portable upright AP view of the chest was obtained. COMPARISON: 07/02/2017. FINDINGS: Right upper extremity PICC terminates is poorly visualized but may terminate within the right atrium. Atherosclerosis of aortic arch. Cardiac silhouette moderately enlarged, unchanged. Persistent elevation of the left hemidiaphragm. Prominence of pulmonary vasculature. Increased right basilar opacity. Persistent left basilar opacity. More focal left basilar nodularity unchanged. No pneumothorax. Small bilateral pleural effusions may be present. Degenerative changes of the glenohumeral joints. Upper abdomen normal. IMPRESSION: 1. Right upper terminate PICC poorly visualized but may terminate in the right atrium. Dedicated PA and lateral radiographs may better demonstrate the terminus. 2. Cardiomegaly with stable slightly increased pulmonary edema and suspected small layering pleural effusions. 3. Indeterminate nodular opacity at the left lung base, possibly atelectasis. Electronically signed by: Walter Diallo M.D. 07/05/2017 5:20 PM Dictated Date/Time: 07/05/2017 5:17 PM
[2017-07-05] MEDS: CEFTRIAXONE SOD INJ 2,000 MG in DEXTROSE 5% 50ML 50 ML IV SCH (18:00)
--- NOTE | 2017-07-05 20:10 | DIAGNOSTIC IMAGING REPORT ---
CHEST OBLIQUES ONLY CLINICAL HISTORY: Right PICC repositioning. COMPARISON STUDY: Chest radiograph July 05, 2017 at 4:52 PM. FINDINGS: The tip of the right PICC is partially obscured but likely projects over the cavoatrial junction. There is pulmonary vascular congestion. Elevation of the left hemidiaphragm is unchanged. Cardiomediastinal silhouette is stable. There is no pneumothorax. Mild bibasilar opacities persist. IMPRESSION: 1. Tip of right PICC partially obscured but likely projects over the cavoatrial junction. 2. Pulmonary vascular congestion. 3. Bibasilar opacities which reflect atelectasis. Electronically signed by: Glenn Leon M.D. 07/05/2017 8:08 PM Dictated Date/Time: 07/05/2017 8:06 PM
--- NOTE | 2017-07-06 06:58 | DIAGNOSTIC IMAGING REPORT ---
MRI LUMBAR SPINE W/O CONTRAST CLINICAL HISTORY: Persistent back pain. Difficulty walking. Bilateral leg pain. Abnormal MRI with possible epidural abscess/hematoma. TECHNIQUE: Sagittal and axial T1, T2 and STIR images were obtained. COMPARISON STUDY: 07/01/2017 OBSERVATIONS: There is L2-3 fusion. There is persistent marked increased signal within the L1-2 disc. Cystic degeneration of disc is favored over a discitis. L1-2: There is a circumferential disc bulge present. There is mild spinal stenosis. L2-3: There is a persistent fluid collection posterior to the L2-3 level. This measures 19 x 7 x 7 mm. This could represent a small epidural abscess or hematoma. There is mild to moderate spinal canal narrowing. L3-4: There is a circumferential disc bulge. There is facet joint ligamentous hypertrophy. There is severe spinal stenosis. There is persistent inferior L3 and superior L4 endplate edema. L4-5: There is a circumferential disc bulge. There is mild spinal stenosis. There is severe facet joint arthropathy. L5-S1: No disc protrusions or extrusions. No evidence of spinal canal or neural foraminal compromise. The conus medullaris and cauda equina appear normal. There is persistent edema within the paraspinal musculature. IMPRESSION: 1. No significant change from the prior study dated 07/01/2017 2. Persistent posterior epidural fluid collection at the L2-3 level measuring 19 x 7 x 7 mm. This could represent a small epidural abscess or hematoma. There is mild to moderate spinal canal narrowing at this level 3. Persistent mild endplate edema at the L3-4 level. An early discitis/osteomyelitis can again not be excluded 4. Persistent edema within the bilateral erector spinae muscles. 5. Mild spinal stenosis at the L1-2-level. Mild to moderate spinal stenosis the L2-3 level. Severe spinal stenosis at the L3-4 level. Mild spinal stenosis at the L4-5 level. Electronically signed by: Almas Davis M.D. 07/06/2017 6:56 AM Dictated Date/Time: 07/06/2017 6:43 AM
[2017-07-06 07:09] LABS: HEMATOCRIT 39.4 % (42-52); MEAN CELL VOLUME 97.8 fL (80-100); MEAN CORPUSCULAR HEMOGLOBIN 34.5 pg (25-34); MEAN CORPUSCULAR HGB CONC 35.3 g/dl (32-36); MEAN PLATELET VOLUME 8.8 fL (7.4-10.4); PLATELET COUNT 226 K/uL (130-400); RED BLOOD COUNT 4.03 M/uL (4.7-6.1); WHITE BLOOD COUNT 10.31 K/uL (4.8-10.8)
[2017-07-06 07:20] LABS: INR 1.3 (0.9-1.1); PROTHROMBIN TIME (PATIENT) 13.2 SECONDS (9.0-12.0)
[2017-07-06] MEDS: ALBUT/IPRATROP 3MG/0.5MG NEB 3 ML VIAL INH SCH ×3 (07:22→14:58)
[2017-07-06 07:24] VITALS: PULSE 65; O2SAT 97
[2017-07-06 07:36] VITALS: BP 141/78; PULSE 62; TEMP 36.5; O2SAT 98
[2017-07-06 07:37] LABS: BUN/CREATININE RATIO 27.4 (10-20); CALCIUM 8.2 mg/dl (8.5-10.1); CREATININE 0.87 mg/dl (0.60-1.40); POTASSIUM 3.5 mmol/L (3.5-5.1)
[2017-07-06] MEDS: VERAPAMIL HCL 240 MG TABCR PO SCH ×3 (07:45→19:59)
[2017-07-06] MEDS: LACTOBACILLUS ACIDOPHILUS (FLORANEX) TAB PO SCH (08:00)
[2017-07-06 11:15] VITALS: PULSE 56; O2SAT 97
[2017-07-06] MEDS ORDERED: LACTATED RINGER'S 1000ML 1,000 ML IV ONE (11:45)
--- NOTE | 2017-07-06 12:39 | Progress Note ---
Progress Note Date of Service Jul 06, 2017. Progress Note Patient was met with today. His is at the bedside. He is sitting up in bed. Appears comfortable. He denies any leg pain. Denies any leg numbness. Denies any significant back pain at this time. On exam he exhibits reasonable strength testing lower extremities. He was up to the chair several times yesterday. I reviewed his MRI with the patient and his . Does not appear to be any expansion of the epidural fluid or abscess. It is too early for this to have resolved. At this point the patient and his would very much like to avoid surgical intervention. His he is neurologically intact afebrile and appears stable. An may be worth continued observation versus possible consultation with interventional radiology for drainage of the epidural abscess. This time we will allow him a regular diet. Continue to follow was case.
--- NOTE | 2017-07-06 14:39 | Progress Note ---
Subjective Date of Service: Jul 06, 2017. Subjective pt oob to chair, working with PT. remains on abx, tolerating well. afebrile. repeat blood cultures negative and final x 2. no plans for surgery at this time as repeat MRI no worse, ortho following. Problem List Medical Problems: (1) SIRS (systemic inflammatory response syndrome) Status: Acute Objective Vital Signs Date Time Temp Pulse Resp B/P (MAP) Pulse Ox O2 Delivery O2 Flow Rate FiO2 07/06/17 11:15 56 17 97 Room Air 07/06/17 07:50 Room Air 07/06/17 07:36 36.5 62 16 141/78 (99) 98 Room Air 07/06/17 07:24 65 17 97 Nasal Cannula 2.0 07/06/17 00:00 Room Air 07/05/17 23:42 36.9 65 20 142/79 (100) 97 Room Air 07/05/17 19:19 66 18 96 Nasal Cannula 2.0 07/05/17 16:00 99 Nasal Cannula 2.0 07/05/17 15:22 36.8 59 18 138/78 (98) 99 Nasal Cannula 2.0 Physical Exam General Appearance: WD/WN Neck: supple Respiratory/Chest: normal breath sounds, no respiratory distress Neurologic/Psychiatric: alert Skin: normal color Laboratory Results Item Value Date Time Blood Culture - Final Complete 06/30/17 1252 Blood NO GROWTH Blood Culture - Final Complete 06/30/17 1233 Blood NO GROWTH Blood Culture - Final Complete 06/29/17 1156 Blood Staphylococcus Aureus Blood Culture - Final Complete 06/29/17 1148 Blood Staphylococcus Aureus Urine Culture - Final Complete 06/29/17 1145 Urine , Clean Catch Corynebacterium Species Last 24 Hours Test 07/06/17 06:57 White Blood Count 10.31 K/uL Red Blood Count 4.03 M/uL Hemoglobin 13.9 g/dL Hematocrit 39.4 % Mean Corpuscular Volume 97.8 fL Mean Corpuscular Hemoglobin 34.5 pg Mean Corpuscular Hemoglobin Concent 35.3 g/dl RDW Standard Deviation 48.2 fL RDW Coefficient of Variation 13.6 % Platelet Count 226 K/uL Mean Platelet Volume 8.8 fL Prothrombin Time 13.2 SECONDS Prothromb Time International Ratio 1.3 Sodium Level 131 mmol/L Potassium Level 3.5 mmol/L Chloride Level 97 mmol/L Carbon Dioxide Level 27 mmol/L Anion Gap 7.0 mmol/L Blood Urea Nitrogen 24 mg/dl Creatinine 0.87 mg/dl Est Creatinine Clear Calc Drug Dose 69.7 ml/min Estimated GFR () 90.6 Estimated GFR (Non- 78.1 BUN/Creatinine Ratio 27.4 Random Glucose 88 mg/dl Calcium Level 8.2 mg/dl Total Bilirubin 1.2 mg/dl Direct Bilirubin 0.4 mg/dl Aspartate Amino Transf (AST/SGOT) 25 U/L Alanine Aminotransferase (ALT/SGPT) 31 U/L Alkaline Phosphatase 66 U/L Total Protein 6.2 gm/dl Albumin 2.2 gm/dl Assessment and Plan (1) Vertebral osteomyelitis Assessment & Plan: will continue rocephin at current dose, appears to be improving clinically, no neuro decline noted. 06/30 cultures negative to date, ok for picc line, will need min 6 weeks IV rocephin, tentative stop date 08/11. will need weekly cbc,cmp, esr while on abx. can follow with ID post d/c (2) Sepsis
[2017-07-06 14:58] VITALS: PULSE 69; O2SAT 95
--- NOTE | 2017-07-06 15:52 | Family Medicine Progress Note ---
Progress Note Date of Service Jul 06, 2017. Subjective Pt evaluation today including: conversation w/ patient, physical exam Pain: No pain reported PO Intake: Tolerating PO intake Mr. Brito reports he feels ok today, with no new complaints. He states his back still hurts with movement, but that he has been able to get up as well as sit in his chair. He denies chest pain, n/v, abdominal pain and states his breathing is slowly improving. Constitutional: No fever, No chills Respiratory: No cough, No sputum, No wheezing Cardiovascular: No chest pain Abdomen: No pain, No nausea, No vomiting Musculoskeletal: + problem reported (back pain) All Other Systems: Reviewed and Negative Medications Current Inpatient Medications Medications (Trade) Dose Ordered Sig/Geraldo Route Start Time Stop Time Status Last Admin Dose Admin Acetaminophen (Tylenol Tab) 650 mg Q4H PRN PO 06/29/17 13:15 07/29/17 13:14 06/30/17 06:53 650 MG Ondansetron HCl (Zofran Inj) 4 mg Q6H PRN IV 06/29/17 13:15 07/29/17 13:14 Allopurinol (Zyloprim Tab) 300 mg DAILY PO 06/30/17 08:00 07/30/17 08:59 Future Hold 06/30/17 08:12 300 MG Atenolol (Tenormin Tab) 25 mg DAILY PO 06/30/17 08:00 07/30/17 08:59 07/06/17 08:01 25 MG Verapamil HCl (Calan-Sr Tab) 240 mg BID PO 06/29/17 20:00 07/29/17 20:59 07/05/17 19:30 240 MG Cyclobenzaprine HCl (Flexeril Tab) 10 mg BID PRN PO 06/29/17 13:30 07/29/17 13:29 Miscellaneous (Iv Fluids Completed) 1 ea PRN PRN N/A 06/29/17 13:45 06/29/18 13:44 Warfarin Sodium (Coumadin Tab) 2.5 mg SuTuThSa@1600 PO 06/29/17 21:00 07/29/17 20:59 Future Hold 07/01/17 16:35 2.5 MG Warfarin Sodium (Coumadin Tab) 5 mg MoWeFr@1600 PO 06/30/17 16:00 07/30/17 15:59 Future Hold 06/30/17 15:25 5 MG Levalbuterol (Xopenex Hfa Inhaler) 2 puffs QID PRN INH 07/02/17 09:15 08/01/17 09:14 07/02/17 18:53 2 PUFFS Ceftriaxone Sodium 2000 mg/ Dextrose 70 ml @ 100 mls/hr Q24H IV 07/02/17 18:00 08/10/17 17:59 07/05/17 18:00 100 MLS/HR Albuterol/ Ipratropium (Duoneb) 3 ml QIDR INH 07/02/17 20:00 08/01/17 19:59 07/06/17 14:58 3 ML Heparin Sodium (Porcine) (Heparin 10 Unit/ ml 5 ml Flush) 5 ml PRN PRN FLUSH 07/05/17 21:15 08/04/17 21:14 07/06/17 10:18 5 ML Lactobacillus Acidophilus (Floranex Tab) 4 tab QDB PO 07/06/17 08:00 08/05/17 07:59 Lactated Ringer's 1,000 ml @ 75 mls/hr [id number] ONCE IV 07/06/17 11:45 07/07/17 01:04 07/06/17 11:56 75 MLS/HR Objective Vital Signs Date Time Temp Pulse Resp B/P (MAP) Pulse Ox O2 Delivery O2 Flow Rate FiO2 07/06/17 14:58 69 16 95 Room Air 07/06/17 11:15 56 17 97 Room Air 07/06/17 07:50 Room Air 07/06/17 07:36 36.5 62 16 141/78 (99) 98 Room Air 07/06/17 07:24 65 17 97 Nasal Cannula 2.0 07/06/17 00:00 Room Air 07/05/17 23:42 36.9 65 20 142/79 (100) 97 Room Air 07/05/17 19:19 66 18 96 Nasal Cannula 2.0 07/05/17 16:00 99 Nasal Cannula 2.0 Physical Exam General Appearance: WD/WN, no apparent distress Respiratory/Chest: chest non-tender, normal breath sounds, no respiratory distress, no accessory muscle use, + decreased breath sounds Cardiovascular: no edema, no gallop, no JVD, no murmur Abdomen: normal bowel sounds, non tender, soft, no organomegaly, no pulsatile mass Laboratory Results Last 24 Hours Test 07/06/17 06:57 White Blood Count 10.31 K/uL Red Blood Count 4.03 M/uL Hemoglobin 13.9 g/dL Hematocrit 39.4 % Mean Corpuscular Volume 97.8 fL Mean Corpuscular Hemoglobin 34.5 pg Mean Corpuscular Hemoglobin Concent 35.3 g/dl RDW Standard Deviation 48.2 fL RDW Coefficient of Variation 13.6 % Platelet Count 226 K/uL Mean Platelet Volume 8.8 fL Prothrombin Time 13.2 SECONDS Prothromb Time International Ratio 1.3 Sodium Level 131 mmol/L Potassium Level 3.5 mmol/L Chloride Level 97 mmol/L Carbon Dioxide Level 27 mmol/L Anion Gap 7.0 mmol/L Blood Urea Nitrogen 24 mg/dl Creatinine 0.87 mg/dl Est Creatinine Clear Calc Drug Dose 69.7 ml/min Estimated GFR () 90.6 Estimated GFR (Non- 78.1 BUN/Creatinine Ratio 27.4 Random Glucose 88 mg/dl Calcium Level 8.2 mg/dl Total Bilirubin 1.2 mg/dl Direct Bilirubin 0.4 mg/dl Aspartate Amino Transf (AST/SGOT) 25 U/L Alanine Aminotransferase (ALT/SGPT) 31 U/L Alkaline Phosphatase 66 U/L Total Protein 6.2 gm/dl Albumin 2.2 gm/dl Assessment and Plan Mr. Brito is an 86 year old gentleman who presented with low back pain, weakness , fever & leukocytosis found to be septic secondary to staph aureus likely from low back etiology (osteomyelitis vs. epidural abscess). Urinary Retention/Low Back Pain - CT lumbar spine shows severe degenerative disc disease and spinal stenosis at L3/L4 and L4/L5 - MRI shows possible epidural abscess vs. hematoma and questionable osteomyelitis - yesterday, pt had episode of urinary retention and was bladder scanned and found to be retaining >999mls - york catheter placed - repeat MRI was ordered - showed no progression of the epidural abscess - discussed w/Dr. Nelson who recommends continuing abx and monitoring - Dr. Merrill also discussed this w/the IR doctor in [place] - they recommend continuing medical management and are aware if the need for intervention arises - continue holding warfarin in case of surgical intervention (INR 1.9 today - reversed with 10mg of IV vitamin K on 07/05) Sepsis secondary to staph aureus - Initial blood cultures positive x2 for gram positive cocci - Repeat blood cultures x 2 dated 06/30 - NGTD - WBC continuing to decrease. Down to normal at 10.3 today - remains afebrile - ID consulted - first set of cultures grew pansensitive staph aureus - TTE results did not show vegetations. Second set of blood cultures negative , does not require ALONSO - continue IV rocephin, will need 6 weeks of antibiotics - tentative stop date 08/11 - weekly CBC, CMP, ESR whilst on abx - f/u with ID in outpatient - PICC line intact Diarrhea - chronic? - Reports usually BMs soft "tapioca pudding" consistency - C. Diff toxin negative - continue probiotics Shortness of breath - improving - CXR 07/05 showed pulmonary vascular congestion, no infiltrates - Given one dose of 20mg of Lasix on 07/02 - duonebs qid and levalbuterol inhaler prn Hypokalemia - improving - K this AM 3.5 Atrial fibrillation & HTN - hold coumadin, start 1.5mg/kg of lovenox - continue verapamil and atenolol Gout - holding home allopurinol Delirium - resolved - secondary to infection, being in the hospital - supportive care, frequent reorientation Hyponatremia - Na 131 - will continue to monitor Acute kidney injury - improved - likely due to sepsis - creatinine normalized from 1.6 to 0.87, will continue to monitor - holding home allopurinol Code: Full DVT Prophylaxis: holding warfarin, starting lovenox, SCDs Disposition: remains on med/surg. Possible eventual d/c to [facility] Resident Physician Supervision Note: I interviewed and examined the patient. Discussed with Dr. Garfield Collins and agree with findings and plan as documented in the note. Any exceptions or clarifications are listed here: None Patient here with concern for epidural abscess and positive blood cultures for MSSA. Patient developed urinary retention 07/05 and after discussion with orthopedic spine surgery will not be taken to OR unless defined neurologic changes, Infectious disease is also recommended a total of 6 weeks therapy for this staph bacteremia and PICC line was placed 07/05 as pt did have negative peripheral blood cultures. As pt and he wanted to avoid surgery, I did call [facility] and spoke to spine surgeon cotton sampler, he did not feel we should proceed to IR drainage. Discussions were had about the patient having subacute rehabilitation which likely will be required since she's having spinal surgery. Patient is at the bedside QUESTIONS were answered he states that he feels slightly weak Vital signs are stable urinary retention was found with a bladder scan revealing 900 mL's of urine and york was placed 07/05, will consider flomax and proscar Cardiac exam was regular there lung exam was clear LE are without decreased stenghth or new sensory changes Epidural abscess undetermined source, staph bacteremia also undetermined source Transthoracic echocardiogram did rule out a valvular vegetation, given the fact that were going to pursue 6 weeks of therapy and ALONSO would not be changing therapy. Did Have INr reversed in case surgery was needed will restart lovenox at this time and move toward re anticoagulation. need for subacute rehabilitation and we will plan on 6 weeks of total IV access and therapy Documented By: Chris Merrill Resident Tracking Resident Involvement: Resident Care Provided Care Provided: Adult Hospital Medicine
[2017-07-06 16:00] VITALS: O2SAT 95
[2017-07-06 16:11] VITALS: BP 116/71; PULSE 62; TEMP 36.4; O2SAT 99
[2017-07-06] MEDS: CEFTRIAXONE SOD INJ 2,000 MG in DEXTROSE 5% 50ML 50 ML IV SCH (18:33)
[2017-07-06] MEDS: ENOXAPARIN 150 MG/1ML SYR SQ SCH (18:33)
[2017-07-06] MEDS ORDERED: ALBUT/IPRATROP 3MG/0.5MG NEB 3 ML VIAL INH PRN (20:00)
[2017-07-07] VITALS (7 sets, daily range): BP systolic 113–168; BP diastolic 64–87; PULSE 54–72; TEMP 36–37.6; O2SAT 92–98
[2017-07-07] MEDS ORDERED: ENOXAPARIN 1.5 MG/KG SQ SCH (08:00)
--- NOTE | 2017-07-07 08:37 | Family Medicine Progress Note ---
Progress Note Date of Service Jul 07, 2017. Subjective Pt evaluation today including: conversation w/ patient, physical exam, chart review, lab review, review of inpatient medication list Pain: Back pain PO Intake: Tolerating PO intake Voiding: york catheter in place Mr. Brito reports he feels alright today. He states his back pain is unchanged from yesterday. He denies chest pain, fever/chills, shortness of breath, n/v, weakness in his legs. He reports he feels his breathing is improved. Constitutional: No fever, No chills Respiratory: No cough, No sputum, No wheezing, No shortness of breath, No dyspnea on exertion, No dyspnea at rest Cardiovascular: No chest pain, No edema Abdomen: No pain, No nausea, No vomiting Musculoskeletal: + problem reported (back pain) All Other Systems: Reviewed and Negative Medications Current Inpatient Medications Medications (Trade) Dose Ordered Sig/Geraldo Route Start Time Stop Time Status Last Admin Dose Admin Acetaminophen (Tylenol Tab) 650 mg Q4H PRN PO 06/29/17 13:15 07/29/17 13:14 06/30/17 06:53 650 MG Ondansetron HCl (Zofran Inj) 4 mg Q6H PRN IV 06/29/17 13:15 07/29/17 13:14 Allopurinol (Zyloprim Tab) 300 mg DAILY PO 06/30/17 08:00 07/30/17 08:59 Future Hold 06/30/17 08:12 300 MG Atenolol (Tenormin Tab) 25 mg DAILY PO 06/30/17 08:00 07/30/17 08:59 07/06/17 08:01 25 MG Verapamil HCl (Calan-Sr Tab) 240 mg BID PO 06/29/17 20:00 07/29/17 20:59 07/06/17 19:59 240 MG Cyclobenzaprine HCl (Flexeril Tab) 10 mg BID PRN PO 06/29/17 13:30 07/29/17 13:29 Miscellaneous (Iv Fluids Completed) 1 ea PRN PRN N/A 06/29/17 13:45 06/29/18 13:44 Warfarin Sodium (Coumadin Tab) 2.5 mg SuTuThSa@1600 PO 06/29/17 21:00 07/29/17 20:59 Future Hold 07/01/17 16:35 2.5 MG Warfarin Sodium (Coumadin Tab) 5 mg MoWeFr@1600 PO 06/30/17 16:00 07/30/17 15:59 Future Hold 06/30/17 15:25 5 MG Levalbuterol (Xopenex Hfa Inhaler) 2 puffs QID PRN INH 07/02/17 09:15 08/01/17 09:14 07/02/17 18:53 2 PUFFS Ceftriaxone Sodium 2000 mg/ Dextrose 70 ml @ 100 mls/hr Q24H IV 07/02/17 18:00 08/10/17 17:59 07/06/17 18:33 100 MLS/HR Heparin Sodium (Porcine) (Heparin 10 Unit/ ml 5 ml Flush) 5 ml PRN PRN FLUSH 07/05/17 21:15 08/04/17 21:14 07/07/17 05:24 5 ML Lactobacillus Acidophilus (Floranex Tab) 4 tab QDB PO 07/06/17 08:00 08/05/17 07:59 Enoxaparin Sodium (Lovenox Inj) 141 mg DAILY@1700 SQ 07/06/17 17:00 08/05/17 16:59 07/06/17 18:33 141 MG Albuterol/ Ipratropium (Duoneb) 3 ml QIDR PRN INH 07/06/17 20:00 08/01/17 19:59 Objective Vital Signs Date Time Temp Pulse Resp B/P (MAP) Pulse Ox O2 Delivery O2 Flow Rate FiO2 07/07/17 07:21 36.0 59 16 168/64 (98) 95 Room Air 07/07/17 00:00 Room Air 07/07/17 00:00 36.4 72 20 137/87 (104) 92 Room Air 07/06/17 16:11 36.4 62 20 116/71 (86) 99 Room Air 07/06/17 16:00 95 Room Air 07/06/17 14:58 69 16 95 Room Air 07/06/17 11:15 56 17 97 Room Air Physical Exam General Appearance: WD/WN, no apparent distress Respiratory/Chest: chest non-tender, lungs clear, normal breath sounds, no respiratory distress, no accessory muscle use Cardiovascular: no edema, no gallop, no JVD, no murmur Abdomen: normal bowel sounds, non tender, soft, no organomegaly, no pulsatile mass Extremities: normal range of motion, non-tender, no pedal edema, no calf tenderness, normal capillary refill, + pertinent finding (right leg joint effusion. not warm to touch, full ROM, not erythematous) Neurologic/Psychiatric: alert, normal mood/affect, oriented x 3 Laboratory Results Last 24 Hours Test 07/07/17 08:11 Assessment and Plan Mr. Brito is an 86 year old gentleman who presented with low back pain, weakness , fever & leukocytosis found to be septic secondary to staph aureus likely from low back etiology (osteomyelitis vs. epidural abscess). Urinary Retention/Low Back Pain - MRI shows possible epidural abscess vs. hematoma and questionable osteomyelitis - 07/05 - pt had episode of urinary retention and was bladder scanned and found to be retaining >999mls - york catheter placed - repeat MRI was ordered - showed no progression of the epidural abscess - discussed w/Dr. Nelson who recommends continuing abx and monitoring - Dr. Merrill also discussed this w/the IR doctor in [place] - they recommend continuing medical management and are aware if the need for intervention arises - continue holding warfarin in case of surgical intervention (INR 1.2 today - reversed with 10mg of IV vitamin K on 07/05) - patient continues not to exhibit neurological symptoms - will obtain baseline ESR and CRP for monitoring whilst in outpatient setting Sepsis secondary to staph aureus - Initial blood cultures positive x2 for gram positive cocci - Repeat blood cultures x 2 dated 06/30 - NGTD - WBC remains within normal limits - remains afebrile - ID consulted - first set of cultures grew pansensitive staph aureus - TTE results did not show vegetations. Second set of blood cultures negative , does not require ALONSO - continue IV rocephin, will need 6 weeks of antibiotics - tentative stop date 08/11 - weekly CBC, CMP, ESR whilst on abx - f/u with ID in outpatient - PICC line intact Diarrhea - chronic? - Reports usually BMs soft "tapioca pudding" consistency - C. Diff toxin negative - continue probiotics Shortness of breath - improving - CXR 07/05 showed pulmonary vascular congestion, no infiltrates - Given one dose of 20mg of Lasix on 07/02 - duonebs qid and levalbuterol inhaler prn Hypokalemia - K this AM 3.2 - 40 meQ of potassium given today, will also add 20 meQ BID to his regimen - continue to monitor Atrial fibrillation & HTN - hold coumadin, continue 1.5mg/kg of lovenox - continue verapamil and atenolol Gout - holding home allopurinol Delirium - resolved - secondary to infection, being in the hospital - supportive care, frequent reorientation Hyponatremia - Na 133 - will continue to monitor Acute kidney injury - improved - likely due to sepsis - creatinine normalized from 1.6 to 0.87, will continue to monitor - holding home allopurinol Code: Full DVT Prophylaxis: holding warfarin, continue lovenox, SCDs Disposition: remains on med/surg. Accepted to [facility] on d/c Resident Physician Supervision Note: I was present with PGY1 Garfield Collins during the history and exam. I discussed the case with the resident and agree with the findings and plan as documented in the note. Any exceptions or clarifications are listed here: none. Pt w/ back pain but no worse than previous. Denies dyspnea. Asks multiple questions about whether IV antibiotics will "get rid of it" ( lumbar infection). VSS no fever gen - nad neck - no JVD heart - irregular, s1, s2 lungs - CTA b/l abd - soft ext - no edema musculo - right knee joint effusion but no pain w/ palpation or ROM neuro - strength 5/5 x 4 exts skin - healed ulcerations on shins b/l A/P: 1. Lumbar spine diskitis with epidural abscess 2. staph aureus septicemia 3. urinary retention s/p york insertion 4. acute kidney injury - resolved 5. a. fib cont IV rocephin via RUE PICC line no plans for surgical intervention at this time check SAHIL, r/o BPH, consider flomax PT, OT hold coumadin; continue lovenox 1.5mg/kg dispo planning = SNF Documented By: Yayo Samuel MD Resident Tracking Resident Involvement: Resident Care Provided Care Provided: Adult [facility] Medicine
[2017-07-07] MEDS: VERAPAMIL HCL 240 MG TABCR PO SCH ×2 (08:39→20:39)
[2017-07-07] MEDS: LACTOBACILLUS ACIDOPHILUS (FLORANEX) TAB PO SCH (08:39)
[2017-07-07 08:43] LABS: HEMATOCRIT 41.1 % (42-52); MEAN CELL VOLUME 97.9 fL (80-100); MEAN CORPUSCULAR HEMOGLOBIN 33.6 pg (25-34); MEAN CORPUSCULAR HGB CONC 34.3 g/dl (32-36); MEAN PLATELET VOLUME 8.8 fL (7.4-10.4); PLATELET COUNT 235 K/uL (130-400); WHITE BLOOD COUNT 10.48 K/uL (4.8-10.8)
[2017-07-07 08:51] LABS: INR 1.2 (0.9-1.1); PROTHROMBIN TIME (PATIENT) 12.3 SECONDS (9.0-12.0)
[2017-07-07 09:14] LABS: BUN/CREATININE RATIO 24.9 (10-20); CALCIUM 8.1 mg/dl (8.5-10.1); CREATININE 0.95 mg/dl (0.60-1.40); POTASSIUM 3.2 mmol/L (3.5-5.1)
--- NOTE | 2017-07-07 13:55 | Progress Note ---
Subjective Date of Service: Jul 07, 2017. Subjective Pt evaluation today including: conversation w/ patient, physical exam, chart review, lab review seen in followup, oob to chair, still having back pain with movement. none at rest, york remains in place. tolerating abx. s/p picc, repeat blood cultures negative and final. all remaining ros reviewed and are negative. no plans for surgery/IR Problem List Medical Problems: (1) SIRS (systemic inflammatory response syndrome) Status: Acute Objective Vital Signs Date Time Temp Pulse Resp B/P (MAP) Pulse Ox O2 Delivery O2 Flow Rate FiO2 07/07/17 08:40 61 18 157/84 (108) 98 07/07/17 08:00 95 Room Air 07/07/17 07:21 36.0 59 16 168/64 (98) 95 Room Air 07/07/17 00:00 Room Air 07/07/17 00:00 36.4 72 20 137/87 (104) 92 Room Air 07/06/17 16:11 36.4 62 20 116/71 (86) 99 Room Air 07/06/17 16:00 95 Room Air 07/06/17 14:58 69 16 95 Room Air Physical Exam General Appearance: WD/WN, no apparent distress Eyes: normal inspection, EOMI Neck: supple Respiratory/Chest: lungs clear, normal breath sounds, no respiratory distress Cardiovascular: regular rate, rhythm, no edema Abdomen: non tender, soft Extremities: non-tender, no pedal edema Neurologic/Psychiatric: alert, oriented x 3 Skin: normal color Laboratory Results Item Value Date Time Blood Culture - Final Complete 06/30/17 1252 Blood NO GROWTH Blood Culture - Final Complete 06/30/17 1233 Blood NO GROWTH Blood Culture - Final Complete 06/29/17 1156 Blood Staphylococcus Aureus Blood Culture - Final Complete 06/29/17 1148 Blood Staphylococcus Aureus Last 24 Hours Test 07/07/17 08:11 White Blood Count 10.48 K/uL Red Blood Count 4.20 M/uL Hemoglobin 14.1 g/dL Hematocrit 41.1 % Mean Corpuscular Volume 97.9 fL Mean Corpuscular Hemoglobin 33.6 pg Mean Corpuscular Hemoglobin Concent 34.3 g/dl RDW Standard Deviation 48.5 fL RDW Coefficient of Variation 13.6 % Platelet Count 235 K/uL Mean Platelet Volume 8.8 fL Prothrombin Time 12.3 SECONDS Prothromb Time International Ratio 1.2 Sodium Level 133 mmol/L Potassium Level 3.2 mmol/L Chloride Level 97 mmol/L Carbon Dioxide Level 30 mmol/L Anion Gap 6.0 mmol/L Blood Urea Nitrogen 24 mg/dl Creatinine 0.95 mg/dl Est Creatinine Clear Calc Drug Dose 63.8 ml/min Estimated GFR () 83.7 Estimated GFR (Non- 72.2 BUN/Creatinine Ratio 24.9 Random Glucose 94 mg/dl Calcium Level 8.1 mg/dl Assessment and Plan (1) Vertebral osteomyelitis Assessment & Plan: will continue rocephin at current dose, appears to be improving clinically, no neuro decline noted. 06/30 cultures negative to date, ok for picc line, will need min 6 weeks IV rocephin, tentative stop date 08/11. will need weekly cbc,cmp, esr while on abx. can follow with ID post d/c (2) Sepsis
[2017-07-07] MEDS ORDERED: POTASSIUM CHLORIDE 20 MEQ TABCR PO STA (15:07)
[2017-07-07] MEDS: ENOXAPARIN 150 MG/1ML SYR SQ SCH (16:31)
[2017-07-07] MEDS: CEFTRIAXONE SOD INJ 2,000 MG in DEXTROSE 5% 50ML 50 ML IV SCH (18:28)
[2017-07-07] MEDS: POTASSIUM CHLORIDE 20 MEQ TABCR PO SCH (20:40)
[2017-07-08 07:36] VITALS: BP 123/75; PULSE 58; TEMP 36.9; O2SAT 97
[2017-07-08 08:00] VITALS: O2SAT 97
[2017-07-08] MEDS: POTASSIUM CHLORIDE 20 MEQ TABCR PO SCH ×2 (08:41→20:45)
[2017-07-08] MEDS: VERAPAMIL HCL 240 MG TABCR PO SCH ×2 (08:41→20:45)
[2017-07-08] MEDS: LACTOBACILLUS ACIDOPHILUS (FLORANEX) TAB PO SCH (08:42)
[2017-07-08 08:59] LABS: HEMATOCRIT 38.7 % (42-52); MEAN CELL VOLUME 98.2 fL (80-100); MEAN CORPUSCULAR HEMOGLOBIN 33.2 pg (25-34); MEAN CORPUSCULAR HGB CONC 33.9 g/dl (32-36); MEAN PLATELET VOLUME 8.9 fL (7.4-10.4); PLATELET COUNT 252 K/uL (130-400); RED BLOOD COUNT 3.94 M/uL (4.7-6.1); WHITE BLOOD COUNT 15.37 K/uL (4.8-10.8)
[2017-07-08 09:07] LABS: INR 1.1 (0.9-1.1); PROTHROMBIN TIME (PATIENT) 11.7 SECONDS (9.0-12.0)
[2017-07-08 09:24] LABS: C-REACTIVE PROTEIN 5.19 mg/dl (0-0.29); CALCIUM 8.1 mg/dl (8.5-10.1); POTASSIUM 3.4 mmol/L (3.5-5.1)
--- NOTE | 2017-07-08 12:42 | Family Medicine Progress Note ---
Progress Note Date of Service Jul 08, 2017. Subjective Pt evaluation today including: conversation w/ patient, physical exam, chart review, lab review, review of inpatient medication list Pain: Back pain reported PO Intake: Tolerating PO intake Voiding: york catheter in place Mr. Brito reports he feels about the same as yesterday. He states the pain in his back is still present. He denies chest pain, fever, chills, SOB, n/v, pain in his legs. Constitutional: No fever, No chills Respiratory: No cough, No sputum, No wheezing, No shortness of breath, No dyspnea on exertion Cardiovascular: No chest pain, No edema Musculoskeletal: + problem reported (back pain) All Other Systems: Reviewed and Negative Medications Current Inpatient Medications Medications (Trade) Dose Ordered Sig/Geraldo Route Start Time Stop Time Status Last Admin Dose Admin Acetaminophen (Tylenol Tab) 650 mg Q4H PRN PO 06/29/17 13:15 07/29/17 13:14 06/30/17 06:53 650 MG Ondansetron HCl (Zofran Inj) 4 mg Q6H PRN IV 06/29/17 13:15 07/29/17 13:14 Allopurinol (Zyloprim Tab) 300 mg DAILY PO 06/30/17 08:00 07/30/17 08:59 Future Hold 06/30/17 08:12 300 MG Atenolol (Tenormin Tab) 25 mg DAILY PO 06/30/17 08:00 07/30/17 08:59 07/06/17 08:01 25 MG Verapamil HCl (Calan-Sr Tab) 240 mg BID PO 06/29/17 20:00 07/29/17 20:59 07/08/17 08:41 240 MG Cyclobenzaprine HCl (Flexeril Tab) 10 mg BID PRN PO 06/29/17 13:30 07/29/17 13:29 Miscellaneous (Iv Fluids Completed) 1 ea PRN PRN N/A 06/29/17 13:45 06/29/18 13:44 Warfarin Sodium (Coumadin Tab) 2.5 mg SuTuThSa@1600 PO 06/29/17 21:00 07/29/17 20:59 Future Hold 07/01/17 16:35 2.5 MG Warfarin Sodium (Coumadin Tab) 5 mg MoWeFr@1600 PO 06/30/17 16:00 07/30/17 15:59 Future Hold 06/30/17 15:25 5 MG Levalbuterol (Xopenex Hfa Inhaler) 2 puffs QID PRN INH 07/02/17 09:15 08/01/17 09:14 07/02/17 18:53 2 PUFFS Ceftriaxone Sodium 2000 mg/ Dextrose 70 ml @ 100 mls/hr Q24H IV 07/02/17 18:00 08/10/17 17:59 07/07/17 18:28 100 MLS/HR Heparin Sodium (Porcine) (Heparin 10 Unit/ ml 5 ml Flush) 5 ml PRN PRN FLUSH 07/05/17 21:15 08/04/17 21:14 07/07/17 05:24 5 ML Lactobacillus Acidophilus (Floranex Tab) 4 tab QDB PO 07/06/17 08:00 08/05/17 07:59 07/08/17 08:42 4 TAB Enoxaparin Sodium (Lovenox Inj) 141 mg DAILY@1700 SQ 07/06/17 17:00 08/05/17 16:59 07/07/17 16:31 141 MG Albuterol/ Ipratropium (Duoneb) 3 ml QIDR PRN INH 07/06/17 20:00 08/01/17 19:59 Potassium Chloride (Klor-Con Tab) 20 meq BID PO 07/07/17 20:00 07/10/17 19:59 07/08/17 08:41 20 MEQ Objective Vital Signs Date Time Temp Pulse Resp B/P (MAP) Pulse Ox O2 Delivery O2 Flow Rate FiO2 07/08/17 08:00 97 Room Air 07/08/17 07:36 36.9 58 20 123/75 (91) 97 Room Air 07/08/17 00:00 Room Air 07/07/17 23:48 37.6 66 20 130/70 (90) 94 Room Air 07/07/17 16:15 95 Room Air 07/07/17 16:07 37.3 54 20 113/71 (85) 94 Room Air Physical Exam General Appearance: WD/WN, no apparent distress Respiratory/Chest: chest non-tender, normal breath sounds, no respiratory distress, no accessory muscle use, + decreased breath sounds Cardiovascular: no edema, no gallop, no JVD, no murmur, + irregularly irregular Abdomen: normal bowel sounds, non tender, soft, no organomegaly, no pulsatile mass Extremities: non-tender, no pedal edema, no calf tenderness, + pertinent finding (multiple healed scabs over legs) Laboratory Results Last 24 Hours Test 07/08/17 08:05 White Blood Count 15.37 K/uL Red Blood Count 3.94 M/uL Hemoglobin 13.1 g/dL Hematocrit 38.7 % Mean Corpuscular Volume 98.2 fL Mean Corpuscular Hemoglobin 33.2 pg Mean Corpuscular Hemoglobin Concent 33.9 g/dl RDW Standard Deviation 48.9 fL RDW Coefficient of Variation 13.7 % Platelet Count 252 K/uL Mean Platelet Volume 8.9 fL Erythrocyte Sedimentation Rate 44 mm/hr Prothrombin Time 11.7 SECONDS Prothromb Time International Ratio 1.1 Sodium Level 131 mmol/L Potassium Level 3.4 mmol/L Chloride Level 98 mmol/L Carbon Dioxide Level 29 mmol/L Anion Gap 4.0 mmol/L Blood Urea Nitrogen 24 mg/dl Creatinine 1.00 mg/dl Est Creatinine Clear Calc Drug Dose 60.6 ml/min Estimated GFR () 78.6 Estimated GFR (Non- 67.8 BUN/Creatinine Ratio 24.0 Random Glucose 85 mg/dl Calcium Level 8.1 mg/dl C-Reactive Protein 5.19 mg/dl Assessment and Plan Mr. Brito is an 86 year old gentleman who presented with low back pain, weakness , fever & leukocytosis found to be septic secondary to staph aureus likely from low back etiology (osteomyelitis vs. epidural abscess). Urinary Retention/Low Back Pain - MRI shows possible epidural abscess vs. hematoma and questionable osteomyelitis - 07/05 - pt had episode of urinary retention and was bladder scanned and found to be retaining >999mls - york catheter placed - repeat MRI was ordered - showed no progression of the epidural abscess - discussed w/Dr. Nelson who recommends continuing abx and monitoring - Dr. Merrill also discussed this w/the IR doctor in [place] - they recommend continuing medical management and are aware if the need for intervention arises - continue holding warfarin in case of surgical intervention (INR 1.1 today - reversed with 10mg of IV vitamin K on 07/05) - patient continues not to exhibit neurological symptoms - baseline ESR = 44 and CRP = 5 - SAHIL today revealed possible enlarged prostate - will begin flomax and do a voiding trial in a couple of days Sepsis secondary to staph aureus - Initial blood cultures positive x2 for gram positive cocci - Repeat blood cultures x 2 dated 06/30 - negative - WBC elevated today at 15 - remains afebrile - ID consulted - first set of cultures grew pansensitive staph aureus - TTE results did not show vegetations. Second set of blood cultures negative , does not require ALONSO - continue IV rocephin, will need 6 weeks of antibiotics - tentative stop date 08/11 - weekly CBC, CMP, ESR whilst on abx - f/u with ID in outpatient - PICC line intact Diarrhea - chronic? - Reports usually BMs soft "tapioca pudding" consistency - C. Diff toxin negative, will repeat c.diff toxin as he had mucoid diarrhea today - continue probiotics Shortness of breath - improved - CXR 07/05 showed pulmonary vascular congestion, no infiltrates - Given one dose of 20mg of Lasix on 07/02 - duonebs qid and levalbuterol inhaler prn Hypokalemia - K this AM 3.4 - continue 20 meQ BID of potassium - continue to monitor Atrial fibrillation & HTN - hold coumadin, continue 1.5mg/kg of lovenox - continue verapamil and atenolol Gout - holding home allopurinol Delirium - resolved - secondary to infection, being in the hospital - supportive care, frequent reorientation Hyponatremia - Na 131 - will continue to monitor Acute kidney injury - improved - likely due to sepsis - creatinine normalized from 1.6 to 0.87, will continue to monitor - holding home allopurinol Code: Full DVT Prophylaxis: holding warfarin, continue lovenox, SCDs Disposition: remains on med/surg. Accepted to [facility] on d/c Resident Physician Supervision Note: I was present with PGY1 Garfield Collins during the history and exam. I discussed the case with the resident and agree with the findings and plan as documented in the note. Any exceptions or clarifications are listed here: none. No change in back pain. No decrease in strength of legs. York remains. Mucoid stool noted by staff today but denies abd pain. Appetite improving. VSS no fever gen - nad neck - no JVD heart - irregular, s1, s2 lungs - CTA b/l abd - soft ext - no edema musculo - right knee joint effusion unchanged; no pain to palpation neuro - strength 5/5 x 4 exts skin - healed ulcerations on shins b/l A/P: 1. Lumbar spine diskitis with epidural abscess 2. staph aureus septicemia 3. urinary retention s/p york insertion 4. acute kidney injury - resolved 5. a. fib 6. BPH per Dr. Collins's examination cont IV rocephin via RUE PICC line no plans for surgical intervention at this time although if he has fever spikes through antibiotics we would need to revisit the possibility of surgery agree w/ flomax; cont york for now PT, OT hold coumadin; continue lovenox 1.5mg/kg repeat c. diff toxin if diarrhea persists mild leukocytosis today in absence of fever - repeat CBC in am; trend crp as well if wbc count were to continue to rise would discuss case again with Dr. Nelson about ?need for surgery dispo planning = SNF Documented By: Yayo Samuel MD Resident Tracking Resident Involvement: Resident Care Provided Care Provided: Adult Hospital Medicine
[2017-07-08] MEDS: ACETAMINOPHEN 325 MG TAB PO PRN (15:24)
[2017-07-08 15:56] VITALS: BP 128/72; PULSE 59; TEMP 36.4; O2SAT 95
[2017-07-08] MEDS: CEFTRIAXONE SOD INJ 2,000 MG in DEXTROSE 5% 50ML 50 ML IV SCH (17:36)
[2017-07-08] MEDS: ENOXAPARIN 150 MG/1ML SYR SQ SCH (17:36)
[2017-07-08] MEDS ORDERED: TAMSULOSIN HCL 0.4 MG CAP PO SCH (22:00)
[2017-07-08 23:29] VITALS: BP 127/70; PULSE 61; TEMP 36.6; O2SAT 99
[2017-07-09 06:03] LABS: HEMATOCRIT 35.7 % (42-52); MEAN CELL VOLUME 98.1 fL (80-100); MEAN CORPUSCULAR HEMOGLOBIN 33.2 pg (25-34); MEAN CORPUSCULAR HGB CONC 33.9 g/dl (32-36); MEAN PLATELET VOLUME 8.8 fL (7.4-10.4); PLATELET COUNT 275 K/uL (130-400); RED BLOOD COUNT 3.64 M/uL (4.7-6.1); WHITE BLOOD COUNT 13.17 K/uL (4.8-10.8)
[2017-07-09 06:33] LABS: BUN/CREATININE RATIO 25.9 (10-20); C-REACTIVE PROTEIN 5.64 mg/dl (0-0.29); CALCIUM 8.1 mg/dl (8.5-10.1); CREATININE 0.98 mg/dl (0.60-1.40); POTASSIUM 3.5 mmol/L (3.5-5.1)
[2017-07-09 07:05] VITALS: BP 125/71; PULSE 63; TEMP 36.7; O2SAT 98
[2017-07-09] MEDS: LACTOBACILLUS ACIDOPHILUS (FLORANEX) TAB PO SCH (07:33)
[2017-07-09] MEDS: VERAPAMIL HCL 240 MG TABCR PO SCH (07:33)
[2017-07-09] MEDS: POTASSIUM CHLORIDE 20 MEQ TABCR PO SCH (07:34)
--- NOTE | 2017-07-09 08:47 | Family Medicine Progress Note ---
Progress Note Date of Service Jul 09, 2017. Subjective Pt evaluation today including: conversation w/ patient, physical exam, chart review, lab review, review of inpatient medication list Pain: Right sided back pain reported PO Intake: Tolerating PO intake Voiding: york catheter in place Mr. Brito reports he feels better today than he has in a couple of days. He states he has 3-4/10 constant, dull right sided back pain which he did not have before. He states it feels similar to the left sided back pain that was present on his admission, but has resolved since. He denies radiation of the pain into his legs. With regards to his fecal incontinence, he states he has had this for approx 2-3 years. He denies chest pain, SOB, abdominal pain. Constitutional: No fever, No chills Respiratory: No cough, No sputum, No wheezing, No shortness of breath Cardiovascular: No chest pain Abdomen: No pain, No nausea, No vomiting Musculoskeletal: + problem reported (right sided back pain) All Other Systems: Reviewed and Negative Medications Current Inpatient Medications Medications (Trade) Dose Ordered Sig/Geraldo Route Start Time Stop Time Status Last Admin Dose Admin Acetaminophen (Tylenol Tab) 650 mg Q4H PRN PO 06/29/17 13:15 07/29/17 13:14 07/08/17 15:24 650 MG Ondansetron HCl (Zofran Inj) 4 mg Q6H PRN IV 06/29/17 13:15 07/29/17 13:14 Allopurinol (Zyloprim Tab) 300 mg DAILY PO 06/30/17 08:00 07/30/17 08:59 Future Hold 06/30/17 08:12 300 MG Atenolol (Tenormin Tab) 25 mg DAILY PO 06/30/17 08:00 07/30/17 08:59 07/09/17 07:34 25 MG Verapamil HCl (Calan-Sr Tab) 240 mg BID PO 06/29/17 20:00 07/29/17 20:59 07/09/17 07:33 240 MG Cyclobenzaprine HCl (Flexeril Tab) 10 mg BID PRN PO 06/29/17 13:30 07/29/17 13:29 Miscellaneous (Iv Fluids Completed) 1 ea PRN PRN N/A 06/29/17 13:45 06/29/18 13:44 Warfarin Sodium (Coumadin Tab) 2.5 mg SuTuThSa@1600 PO 06/29/17 21:00 07/29/17 20:59 Future Hold 07/01/17 16:35 2.5 MG Warfarin Sodium (Coumadin Tab) 5 mg MoWeFr@1600 PO 06/30/17 16:00 07/30/17 15:59 Future Hold 06/30/17 15:25 5 MG Levalbuterol (Xopenex Hfa Inhaler) 2 puffs QID PRN INH 07/02/17 09:15 08/01/17 09:14 07/02/17 18:53 2 PUFFS Ceftriaxone Sodium 2000 mg/ Dextrose 70 ml @ 100 mls/hr Q24H IV 07/02/17 18:00 08/10/17 17:59 07/08/17 17:36 100 MLS/HR Heparin Sodium (Porcine) (Heparin 10 Unit/ ml 5 ml Flush) 5 ml PRN PRN FLUSH 07/05/17 21:15 08/04/17 21:14 07/09/17 05:29 5 ML Lactobacillus Acidophilus (Floranex Tab) 4 tab QDB PO 07/06/17 08:00 08/05/17 07:59 07/09/17 07:33 4 TAB Enoxaparin Sodium (Lovenox Inj) 141 mg DAILY@1700 SQ 07/06/17 17:00 08/05/17 16:59 07/08/17 17:36 141 MG Albuterol/ Ipratropium (Duoneb) 3 ml QIDR PRN INH 07/06/17 20:00 08/01/17 19:59 Potassium Chloride (Klor-Con Tab) 20 meq BID PO 07/07/17 20:00 07/10/17 19:59 07/09/17 07:34 20 MEQ Tamsulosin HCl (Flomax Cap) 0.4 mg HS PO 07/08/17 22:00 08/07/17 21:59 07/08/17 20:45 0.4 MG Objective Vital Signs Date Time Temp Pulse Resp B/P (MAP) Pulse Ox O2 Delivery O2 Flow Rate FiO2 07/09/17 07:05 36.7 63 20 125/71 (89) 98 Room Air 07/08/17 23:30 Room Air 07/08/17 23:29 36.6 61 20 127/70 (89) 99 Room Air 07/08/17 16:00 Room Air 07/08/17 15:56 36.4 59 18 128/72 (90) 95 Room Air Physical Exam General Appearance: WD/WN, no apparent distress Respiratory/Chest: chest non-tender, lungs clear, no respiratory distress, no accessory muscle use, + decreased breath sounds Cardiovascular: no edema, no gallop, no JVD, no murmur, + irregularly irregular Abdomen: normal bowel sounds, non tender, soft, no organomegaly, no pulsatile mass Laboratory Results Last 24 Hours Test 07/09/17 05:18 White Blood Count 13.17 K/uL Red Blood Count 3.64 M/uL Hemoglobin 12.1 g/dL Hematocrit 35.7 % Mean Corpuscular Volume 98.1 fL Mean Corpuscular Hemoglobin 33.2 pg Mean Corpuscular Hemoglobin Concent 33.9 g/dl RDW Standard Deviation 48.6 fL RDW Coefficient of Variation 13.6 % Platelet Count 275 K/uL Mean Platelet Volume 8.8 fL Sodium Level 132 mmol/L Potassium Level 3.5 mmol/L Chloride Level 98 mmol/L Carbon Dioxide Level 29 mmol/L Anion Gap 5.0 mmol/L Blood Urea Nitrogen 25 mg/dl Creatinine 0.98 mg/dl Est Creatinine Clear Calc Drug Dose 61.9 ml/min Estimated GFR () 80.6 Estimated GFR (Non- 69.5 BUN/Creatinine Ratio 25.9 Random Glucose 88 mg/dl Calcium Level 8.1 mg/dl C-Reactive Protein 5.64 mg/dl Assessment and Plan Mr. Brito is an 86 year old gentleman who presented with low back pain, weakness , fever & leukocytosis found to be septic secondary to staph aureus likely from low back etiology (osteomyelitis vs. epidural abscess). Urinary Retention/Low Back Pain - MRI shows possible epidural abscess vs. hematoma and questionable osteomyelitis - 07/05 - pt had episode of urinary retention and was bladder scanned and found to be retaining >999mls - york catheter placed - repeat MRI was ordered - showed no progression of the epidural abscess - discussed w/Dr. Nelson who recommends continuing abx and monitoring - Dr. Merrill also discussed this w/the IR doctor in [place] - they recommend continuing medical management and are aware if the need for intervention arises - continue holding warfarin in case of surgical intervention (INR 1.1 today - reversed with 10mg of IV vitamin K on 07/05) - patient continues not to exhibit neurological symptoms - baseline ESR = 44 and CRP = 5 - SAHIL today revealed possible enlarged prostate - will begin flomax and do a voiding trial in a couple of days Sepsis secondary to staph aureus - Initial blood cultures positive x2 for gram positive cocci - Repeat blood cultures x 2 dated 06/30 - negative - WBC elevated today at 15 - remains afebrile - ID consulted - first set of cultures grew pansensitive staph aureus - TTE results did not show vegetations. Second set of blood cultures negative , does not require ALONSO - continue IV rocephin, will need 6 weeks of antibiotics - tentative stop date 08/11 - weekly CBC, CMP, ESR whilst on abx - f/u with ID in outpatient - PICC line intact Diarrhea - chronic? - Reports usually BMs soft "tapioca pudding" consistency - C. Diff toxin negative, will repeat c.diff toxin as he had mucoid diarrhea today - continue probiotics Shortness of breath - improved - CXR 07/05 showed pulmonary vascular congestion, no infiltrates - Given one dose of 20mg of Lasix on 07/02 - duonebs qid and levalbuterol inhaler prn Hypokalemia - K this AM 3.4 - continue 20 meQ BID of potassium - continue to monitor Atrial fibrillation & HTN - hold coumadin, continue 1.5mg/kg of lovenox - continue verapamil and atenolol Gout - holding home allopurinol Delirium - resolved - secondary to infection, being in the hospital - supportive care, frequent reorientation Hyponatremia - Na 131 - will continue to monitor Acute kidney injury - improved - likely due to sepsis - creatinine normalized from 1.6 to 0.87, will continue to monitor - holding home allopurinol Code: Full DVT Prophylaxis: holding warfarin, continue lovenox, SCDs Disposition: remains on med/surg. Accepted to [facility] on d/c Resident Tracking Resident Involvement: Resident Care Provided Care Provided: Adult Hospital Medicine
--- NOTE | 2017-07-09 11:21 | Progress Note ---
Subjective Date of Service: Jul 09, 2017. Subjective spoke with primary and ortho, no plans for OR, family declined. no f/c. appetite improving, repeat blood cultures negative, picc in place, tolerating abx. some loose stool c diff negative 07/04 and 07/08. continues with probiotics. no overnight events. Problem List Medical Problems: (1) SIRS (systemic inflammatory response syndrome) Status: Acute Objective Vital Signs Date Time Temp Pulse Resp B/P (MAP) Pulse Ox O2 Delivery O2 Flow Rate FiO2 07/09/17 08:59 Room Air 07/09/17 07:05 36.7 63 20 125/71 (89) 98 Room Air 07/08/17 23:30 Room Air 07/08/17 23:29 36.6 61 20 127/70 (89) 99 Room Air 07/08/17 16:00 Room Air 07/08/17 15:56 36.4 59 18 128/72 (90) 95 Room Air Laboratory Results Item Value Date Time Blood Culture - Final Complete 06/29/17 1156 Blood Staphylococcus Aureus Blood Culture - Final Complete 06/29/17 1148 Blood Staphylococcus Aureus Blood Culture - Final Complete 06/30/17 1252 Blood NO GROWTH Blood Culture - Final Complete 06/30/17 1233 Blood NO GROWTH Last 24 Hours Test 07/09/17 05:18 White Blood Count 13.17 K/uL Red Blood Count 3.64 M/uL Hemoglobin 12.1 g/dL Hematocrit 35.7 % Mean Corpuscular Volume 98.1 fL Mean Corpuscular Hemoglobin 33.2 pg Mean Corpuscular Hemoglobin Concent 33.9 g/dl RDW Standard Deviation 48.6 fL RDW Coefficient of Variation 13.6 % Platelet Count 275 K/uL Mean Platelet Volume 8.8 fL Sodium Level 132 mmol/L Potassium Level 3.5 mmol/L Chloride Level 98 mmol/L Carbon Dioxide Level 29 mmol/L Anion Gap 5.0 mmol/L Blood Urea Nitrogen 25 mg/dl Creatinine 0.98 mg/dl Est Creatinine Clear Calc Drug Dose 61.9 ml/min Estimated GFR () 80.6 Estimated GFR (Non- 69.5 BUN/Creatinine Ratio 25.9 Random Glucose 88 mg/dl Calcium Level 8.1 mg/dl C-Reactive Protein 5.64 mg/dl Assessment and Plan (1) Vertebral osteomyelitis Assessment & Plan: will continue rocephin at current dose, appears to be improving clinically, no neuro decline noted. 06/30 cultures negative to date, ok for picc line, will need min 6 weeks IV rocephin, tentative stop date 08/11. will need weekly cbc,cmp, esr while on abx. can follow with ID post d/c (2) Sepsis
[2017-07-09] MEDS ORDERED: CEFT1INJ57 IV (13:24)
[2017-07-09] MEDS ORDERED: FLM4 PO (13:24)
[2017-07-09] MEDS ORDERED: LCTX PO (13:24)
[2017-07-09] MEDS ORDERED: LVNIS150 SQ (13:24)
--- NOTE | 2017-07-09 13:41 | Discharge Instructions ---
Discharge Instructions Date of Service Jul 09, 2017. Admission Reason for Admission: Sepsis, Uti Discharge Discharge Diagnosis / Problem: Sepsis, Epidural Abscess Discharge Goals Goal(s): Decrease discomfort, Improve function, Increase independence Activity Recommendations Activity Level: OOB In Chair, Assistance Required . Additional Information Patient informed of condition: Yes Advance Directives: No DNR: No Level of Care: Skilled Communicable Disease: No Prognosis: Stable [place] Catheter: Yes Instructions / Follow-Up Instructions / Follow-Up Mr. Brito is an 86 year old gentleman who presented with low back pain, weakness , fever & leukocytosis found to be septic secondary to staph aureus bacteremia from low back etiology (osteomyelitis & epidural abscess). He was being monitored for worsening back pain or neurological symptoms, and did not exhibit any. He has been stable for a number of days. The IR doctor in [place] is aware , and recommended IV antibiotics and close monitoring as opposed to immediate surgical intervention, but in the case that he does deteriorate, they will take him. If Mr. Brito develops neurological symptoms, fever, chills, worsening back pain , please have him transferred to a tertiary center ([place]) for evaluation and treatment by an interventional radiologist. Epidural Abscess - MRI shows epidural abscess vs. hematoma and questionable osteomyelitis - Dr. Nelson aware and recommends monitoring and treatment with IV abx - being treated with IV Rocephin 2g daily for 6 weeks through PICC line Sepsis secondary to staph aureus - ID consulted - first set of cultures grew pansensitive staph aureus - TTE results did not show vegetations. Second set of blood cultures negative on 06/30, does not require ALONSO - continue IV rocephin, will need 6 weeks of antibiotics - tentative stop date 08/11 - weekly CBC, CMP, CRP whilst on abx - f/u with ID in outpatient - baseline ESR = 44 and CRP = 5 - currently afebrile Urinary Retention - 07/05 - pt had episode of urinary retention and was bladder scanned and found to be retaining >999mls - york catheter placed - repeat MRI was ordered - showed no progression of the epidural abscess - started flomax as his SAHIL showed BPH - can d/c york in next 2-3 days and do a voiding trial Diarrhea - chronic? - Reports usually BMs soft "tapioca pudding" consistency - C. Diff toxin negative - continue probiotics, likely due to abx Hypokalemia - K this AM 3.5 - continue potassium supplementation Atrial fibrillation & HTN - hold coumadin, continue 1.5mg/kg of lovenox - held coumadin in case he needed surgical intervention, if he is stable over the next few days, can transition back to warfarin - continue verapamil and atenolol Gout - holding home allopurinol, he states he had not taken this for many years. Can restart if needed Delirium - resolved - secondary to infection, being in the hospital - supportive care, frequent reorientation Hyponatremia - Na 132 - continue to monitor Current Hospital Diet Patient's current hospital diet: AHA Diet (Heart Healthy) Discharge Diet Recommended Diet: AHA Diet (Heart Healthy) Pending Studies Studies pending at discharge: no Medical Emergencies . Who to Call and When: Medical Emergencies: If at any time you feel your situation is an emergency, please call 911 immediately. . Non-Emergent Contact Non-Emergency issues call your: Primary Care Provider . . "Provider Documentation" section prepared by Garfield Collins. Attending Attestation: I agree with these discharge instructions as outlined by PGY1 Dr. Garfield Collins. Yayo Samuel MD . Core Measure Problem Core Measures: None
--- NOTE | 2017-07-09 13:59 | Discharge Summary ---
Discharge Summary Date of Service Jul 09, 2017. 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 The patient is unable to ambulate COMPARISON: CT abdomen and pelvis of same day TECHNIQUE: Multiple axial CT images of the lumbar spine were obtained without contrast. A dose lowering technique was used consistent with the principals of CRESCENCIO. FINDINGS: The bones are demineralized and appear osteoporotic. 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 No acute compression deformity or subluxation identified. Sacrum appears intact. Mild degenerative changes of the SI joints. There is severe intervertebral disc space narrowing with endplate irregularity and lucency involving the disc space at L2-L3. There is prominent marginal spurring at this level. No significant associated inflammatory stranding or epidural fluid collections identified. Evaluation of the central canal and foramina is better evaluated by MRI. There appears to be at least moderate central canal and foraminal narrowing at several levels, notably at 2-L3, L3-L4 and L4-L5. Multifocal cortical scarring and probable renal cysts of the kidneys. Atherosclerosis of the aorta. Distention of the urinary bladder. Consolidative opacity of the right lung base suggesting atelectasis. IMPRESSION: 1. No acute fracture or subluxation identified. 2. Endplate irregularity with cortical indistinctness and severe intervertebral disc space narrowing at L2-L3 is seen with associated marginal bridging osteophytes. 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 Correlate with laboratory analysis and patient presentation. 3. Advanced multilevel intervertebral disc space narrowing, spondylitic spurring and facet arthrosis with varying degrees of central canal and foraminal narrowing which would be better assessed by MRI. CT ABD/PELVIS IV CONTRAST ONLY CLINICAL HISTORY: Epigastric pain and left flank pain. COMPARISON STUDY: None. TECHNIQUE: Following the IV administration of 93 mL of Optiray-320, CT scan of the abdomen and pelvis was performed from the lung bases to the proximal femurs. Images are reviewed in the axial, sagittal, and coronal planes. IV contrast was administered without complication. A dose lowering technique was utilized adhering to the principles of ALARA. CT DOSE: 1099.48 mGy.cm FINDINGS: Lower chest: The heart is enlarged with coronary artery calcifications. There are dependent atelectatic changes. There is respiratory motion artifact. There is a hiatal hernia. Liver: The contrast-enhanced liver is normal in size, contour, and attenuation. There is no intrahepatic biliary ductal dilatation. The hepatic veins and portal veins are patent. Gallbladder: Unremarkable. Spleen: Normal in size and attenuation. Pancreas: Evaluation is limited due to motion artifact. There is an equivocal 7 mm hypodensity within the pancreatic body. There is no significant ductal dilatation. Adrenal glands: There is minor left adrenal gland thickening Kidneys: There is a nonobstructing left renal calculus. There are bilateral hypodense renal lesions, likely representing cysts. These range in size from 8 mm to 24 mm. Bowel: There are no transition zones indicate bowel obstruction. There is no acute diverticulitis. There are no findings to indicate acute appendicitis. Peritoneum: There is no intraperitoneal free air or abdominal ascites. Vasculature: The abdominal aorta is normal in course and caliber. Adenopathy: None. Pelvic viscera: The bladder is distended. The prostate is enlarged. Skeletal structures: There are advanced multilevel spondylitic changes present. There is severe spinal stenosis at the L3-4 and L4-5 levels. There is ill-definition of the L2-3 disc. The patient may be status post a prior spinal fusion at this level. IMPRESSION: 1. No evidence of bowel obstruction. No evidence of free air 2. Nonobstructing left renal calculus 3. No evidence of acute diverticulitis. No evidence of acute appendicitis. 4. Advanced degenerative changes within the spine with severe spinal stenosis at the L3-4 and L4-5 levels. 5. Prostamegaly. Mildly distended bladder. GALLBLADDER-ABD LIMITED CLINICAL HISTORY: 86 years-old Male presenting with epigastric abd pain. TECHNIQUE: Real-time grayscale and limited color Doppler ultrasound imaging of the abdomen limited to the right upper quadrant was performed. COMPARISON: CT from 06/29/2017. FINDINGS: Pancreas: Largely obscured due to overlying bowel gas. Liver: Normal echogenicity and echotexture. The liver measures 16.5 cm in maximal sagittal dimension. No sonographic evidence of hepatic mass. Main portal vein patent with normal directional flow. Biliary: No intrahepatic biliary ductal dilatation. Common bile duct measures up to 5 mm in diameter. Gallbladder: No evidence of gallstones, gallbladder wall thickening, gallbladder distention, or pericholecystic fluid or inflammatory change. Gallbladder sludge suggested. Right kidney: Normal in appearance. No hydronephrosis. Ascites: None. IMPRESSION: Gallbladder sludge suggested. No cholelithiasis or biliary ductal dilatation. MRI LUMBAR SPINE W/O CONTRAST CLINICAL HISTORY: Persistent back pain. Difficulty walking. Bilateral leg pain. Abnormal MRI with possible epidural abscess/hematoma. TECHNIQUE: Sagittal and axial T1, T2 and STIR images were obtained. COMPARISON STUDY: 07/01/2017 OBSERVATIONS: There is L2-3 fusion. There is persistent marked increased signal within the L1-2 disc. Cystic degeneration of disc is favored over a discitis. L1-2: There is a circumferential disc bulge present. There is mild spinal stenosis. L2-3: There is a persistent fluid collection posterior to the L2-3 level. This measures 19 x 7 x 7 mm. This could represent a small epidural abscess or hematoma. There is mild to moderate spinal canal narrowing. L3-4: There is a circumferential disc bulge. There is facet joint ligamentous hypertrophy. There is severe spinal stenosis. There is persistent inferior L3 and superior L4 endplate edema. L4-5: There is a circumferential disc bulge. There is mild spinal stenosis. There is severe facet joint arthropathy. L5-S1: No disc protrusions or extrusions. No evidence of spinal canal or neural foraminal compromise. The conus medullaris and cauda equina appear normal. There is persistent edema within the paraspinal musculature. IMPRESSION: 1. No significant change from the prior study dated 07/01/2017 2. Persistent posterior epidural fluid collection at the L2-3 level measuring 19 x 7 x 7 mm. This could represent a small epidural abscess or hematoma. There is mild to moderate spinal canal narrowing at this level 3. Persistent mild endplate edema at the L3-4 level. An early discitis/osteomyelitis can again not be excluded 4. Persistent edema within the bilateral erector spinae muscles. 5. Mild spinal stenosis at the L1-2-level. Mild to moderate spinal stenosis the L2-3 level. Severe spinal stenosis at the L3-4 level. Mild spinal stenosis at the L4-5 level. echocardiogram: * -- Conclusions -- * 1. Normal LV size and wall thickness. * 2. Normal LV systolic function. LVEF 55-60%. No regional wall motion abnormalities. * 3. RV severely dilated with borderline RV function. * 4. Aortic valve sclerosis without stenosis. * 5. Mild TR. Mild to moderate pulmonary hypertension. Est PASP 45-50 mmHg. Est RA 15 mmHg. * 6. Severe biatrial enlargment * 7. No prior studies for comparison. RUE PICC line placement Consultations: Dr. Nelson - Surgery Dr. Pressley - Infectious Diseases Medication Reconciliation New Medications: Ceftriaxone Sod (Rocephin) 1 Gm Inj 2 GM IV Q24H for 33 Days, VIAL 2 grams daily until 08/11/2017 Enoxaparin (Lovenox) 150 Mg/1 Ml Inj 141 MG SQ DAILY@1700 for 10 Days Lactobacillus Acidophilus (Floranex) 1 Tab Tab 4 TAB PO QDB for 30 Days, TAB Tamsulosin HCl (Tamsulosin HCl) 0.4 Mg Cap 0.4 MG PO HS for 30 Days, CAP Continued Medications: Atenolol (Tenormin) 25 Mg Tab 25 MG PO DAILY, 0 Refills Calcium Carbonate-Vitamin D (Calcium/Vitamin D) 1 Tab Tab 1 TAB PO DAILY Flaxseed (Linseed) (Flax Seed Oil) 1,000 Mg Cap 1000 MG PO DAILY Multiple Vitamins W/ Minerals (Centrum Silver) 1 Chw Chw 1 TAB PO DAILY Ocuvite Preservision (Ocuvite Preservision) 1 Tab Tab 1 TAB PO DAILY, TAB Potassium Chloride (Potassium Chloride ER) 20 Meq Tab 20 MEQ PO DAILY Verapamil Sust Rel (Calan Sr Ext Rel) 240 Mg Tabcr 240 MG PO BID, 0 Refills Vitamin B Cmplx/Vitc/Folic Ac (Nephrocaps) Cap 1 CAP PO BID, CAP Discontinued Medications: Allopurinol (Zyloprim) 300 Mg Tab 300 MG PO DAILY Triamterene/Hctz (Maxzide 75MG/50MG) Tab 1 TAB PO DAILY, 0 Refills Warfarin Sod (Jantoven) 2.5 Mg Tab 2.5 MG PO 4XWK TAKES TUES,THURS,SAT,SUN Warfarin Sod (Jantoven) 2.5 Mg Tab 5 MG PO 3XWK TAKES MON,WED,FRI Discharge Exam Mr. Brito reports he feels better today than he has in a couple of days. He states he has 3-4/10 constant, dull right sided back pain which he did not have before. He states it feels similar to the left sided back pain that was present on his admission, but has resolved since. He denies radiation of the pain into his legs. Review of Systems: Constitutional: No fever, No chills Respiratory: No cough, No sputum, No wheezing, No shortness of breath Cardiovascular: No chest pain, No edema Abdomen: + diarrhea, No pain, No nausea, No vomiting Musculoskeletal: + problem reported (right sided back pain) Physical Exam: General Appearance: WD/WN, no apparent distress, + pertinent finding (no tenderness to palpation of back) Respiratory/Chest: chest non-tender, lungs clear, no respiratory distress, no accessory muscle use, + decreased breath sounds Cardiovascular: no edema, no gallop, no JVD, no murmur, normal peripheral pulses Abdomen / GI: normal bowel sounds, non tender, soft, no organomegaly, no pulsatile mass Extremities: + pertinent finding (multiple healed scabs over legs) Hospital Course Mr. Brito is an 86 year old gentleman who presented with low back pain, weakness , fever & leukocytosis found to be septic secondary staph aureus bacteremia from low back etiology (osteomyelitis, epidural abscess). Epidural Abscess - MRI shows possible epidural abscess vs. hematoma and questionable osteomyelitis - discussed w/Dr. Nelson who recommends continuing IV abx and monitoring - Dr. Merrill also discussed this w/the IR doctor in [place] - they recommend continuing medical management and are aware if the need for intervention arises - patient continues not to exhibit neurological symptoms - baseline ESR = 44 and CRP = 5 Urinary Retention - 07/05 - pt had episode of urinary retention and was bladder scanned and found to be retaining >999mls - york catheter placed - repeat MRI was ordered - showed no progression of the epidural abscess - SAHIL today revealed possible enlarged prostate - began flomax and will d/c with york. Can do a voiding trial in a couple of days Sepsis secondary to staph aureus - ID consulted - first set of cultures grew pansensitive staph aureus - TTE results did not show vegetations. Second set of blood cultures on negative, does not require ALONSO - continue IV rocephin, will need 6 weeks of antibiotics via PICC line - tentative stop date 08/11 - weekly CBC, CMP, CRP whilst on abx - f/u with ID in outpatient Diarrhea - chronic - Reports usually BMs soft "tapioca pudding" consistency - C. Diff toxin negative, will repeat c.diff toxin as he had mucoid diarrhea today - continue probiotics - has had fecal incontinence over last 2-3 years Shortness of breath - CXR 07/05 showed pulmonary vascular congestion, no infiltrates - Given one dose of 20mg of Lasix on 07/02 - resolved, no longer requires O2 Hypokalemia - K this AM 3.5 - continue potassium supplementation on d/c Atrial fibrillation & HTN - held coumadin in case surgical intervention became necessary - discharged on 1.5mg/kg of lovenox - can switch back to warfarin once he has been stable for a few days - continue verapamil and atenolol Gout - holding home allopurinol - he reports he had not taken this for a number of years Delirium - resolved - secondary to infection, being in the hospital - supportive care, frequent reorientation Hyponatremia - Na 132 on d/c, chronically low Acute kidney injury - improved - likely due to sepsis - creatinine normalized from 1.6 to 0.87 Resident Physician Supervision Note: I was present with PGY1 Dr. Garfield Collins during the history and exam on day of discharge. I discussed the case with the resident and agree with the findings and plan as documented in the discharge summary. Any exceptions or clarifications are listed here: none. 86yo male with history of atrial fibrillation who presented with fever, acute kidney injury and low back pain. Later found to have positive blood cultures with methicillin-sensitive staph aureus. His septicemia was treated with IV antibiotic therapy and ultimately narrowed to rocephin once daily via PICC line. The source for his MSSA septicemia was lumbar diskitis at L2-L3 and epidural abscess at L2-L4. He was seen in consult by Dr. Elio Nelson who recommended conservative Rx with prolonged course of IV antibiotics. A phone consult was had with interventional radiology at [facility] who recommended conservative Rx with antibiotics as well. In the 48 hours prior to discharge he had no fever and appetite improved. Back pain improved throughout his stay as well. Acute kidney injury resolved with supportive care. Hyponatremia - Na on day of discharge was 132. He was 133 at admission. 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 He will need 6 weeks of IV rocephin via RUE PICC at minimum. Weekly CBC, CMP, ESR, and CRP will be needed and f/u with Dr. Nazia Pressley within 7-10 days of discharge is advised. Discharge exam - gen - NAD skin - RUE PICC clean; multiple healed ulcers/abrasions on shins neck - no JVD heart - irregular, s1, s2 lungs - CTA b/l abd - soft, NT ext - no edema neuro - strength 5/5 b/l legs In addition to his antibiotic therapy the following is recommended at discharge - 1. removal of york catheter in 3-4 days after discharge with spontaneous voiding trial at that time 2. continuation of lovenox 1.5mg/kg daily for anticoagulation for his a. fib; would not resume coumadin until we see progressive improvement in back issue ( hopefully can resume coumadin next 5 days or so) If the patient develops recurrent fever, worsening back pain, worsening neurological function of the legs, etc and the source appears to be his lumbar diskitis/epidural abscess urgent transfer to [facility] is advised. Documented By: Yayo Samuel MD Total Time Spent: Greater than 30 minutes This includes examination of the patient, discharge planning, medication reconciliation, and communication with other providers. Discharge Instructions Please refer to the electronic Patient Visit Report (Discharge Instructions) for additional information. Follow-Up see Dr. Nazia Pressley, infectious disease, in 7-10 days while on IV rocephin therapy the following is recommended - weekly CBC, CMP, ESR, CRP - start these on 07/14/2017 Additional Copies To Gus Nelson D.O.; Jamila Johnson; Walter Whitehead M.D.; Jennifer. Pressley D.O. Resident Tracking Resident Involvement: Resident Care Provided Care Provided: [facility]
[2017-07-09 14:02] VITALS: BP 125/71; PULSE 63; TEMP 36.7; O2SAT 98
== END 2017-07-09 14:38 | DRG 871 ==
LOC: EDBD 09:13 → C.EDB 09:14 → C.MS4W 13:16 → ENRESERV 14:13 → C.MS4W 14:55 → UNDOADMOB 14:55 → OBSVTOIN 06-30 10:51
PROVIDERS: ADMIT Internal Medicine; ATTEND Internal Medicine
PROC: 02HV33Z Insertion of Infusion Device into Superior Vena Cava, Percutaneous Approach (ICD-10-PCS; principal; 2017-07-05)
DX: A41.01 Sepsis due to Methicillin susceptible Staphylococcus aureus (principal); G06.1 Intraspinal abscess and granuloma; N17.9 Acute kidney failure, unspecified; M46.26 Osteomyelitis of vertebra, lumbar region; I50.31 Acute diastolic (congestive) heart failure; E87.1 Hypo-osmolality and hyponatremia; M51.36 Other intervertebral disc degeneration, lumbar region; I11.0 Hypertensive heart disease with heart failure; I48.91 Unspecified atrial fibrillation; Z79.01 Long term (current) use of anticoagulants; E87.6 Hypokalemia; N40.1 Benign prostatic hyperplasia with lower urinary tract symptoms; R33.9 Retention of urine, unspecified; M48.061 Spinal stenosis, lumbar region without neurogenic claudication; R41.0 Disorientation, unspecified

== ENCOUNTER → 2017-10-04 | Outpatient (CLI) | payer OTHER ==
[~2017-10-04] MED LIST changes: -ALL300 PO; +B-CO1CAP17 PO; -B-COCAP2 PO; +CALC600T72 PO; +CEPH500C2 PO; -CLTP PO; -CMD25 PO; +FLM4 PO; +LCTX PO; -POTA-335 PO; +POTA-65 PO; -TRIA75TA53 PO; +WARF2.5T8 PO
[2017-10-04 16:05] LABS: BLOOD UREA NITROGEN 33 mg/dl (7-18); CREATININE 1.46 mg/dl (0.60-1.40)
== END | disposition home or self-care (01) ==
LOC: C.LAB 15:07
PROVIDERS: ATTEND Physician Assistant Medical
DX: M54.5 Low back pain (principal)

== ENCOUNTER → 2017-10-12 | Outpatient (CLI) | payer OTHER ==
[~2017-10-12] MED LIST changes: -FLM4 PO
--- NOTE | 2017-10-12 15:02 | DIAGNOSTIC IMAGING REPORT ---
MRI LUMBAR SPINE W/O CONTRAST CLINICAL HISTORY: LUMBAR SPINE PAIN HISTORY OF ABSCESS. TECHNIQUE: Sagittal and axial T1, T2 and STIR images were obtained. COMPARISON STUDY: 07/05/2017 OBSERVATIONS: There are no areas of marrow replacement suspicious for neoplasm. There is L2-3 fusion. There is improving L3-4 endplate edema. L1-2: There is a circumferential disc bulge present. There is mild to moderate spinal stenosis. There is bilateral foraminal narrowing. L2-3: There are postsurgical changes of a prior fusion. There is mild spinal stenosis. There is no significant foraminal narrowing L3-4: There is slight decrease in the small posterior epidural fluid collection currently measuring 10 mm. Given history this likely represents a resolving abscess. There is diffuse circumferential disc bulge present. There is severe spinal stenosis. L4-5: There is a circumferential disc bulge and mild spinal stenosis. There is bilateral foraminal narrowing. There is facet joint arthropathy. L5-S1: There is a mild circumferential disc bulge. There is no significant spinal stenosis. There is minor bilateral foraminal narrowing. There is been near complete interval resolution of the previous described erector spinae high muscular edema. The conus medullaris and cauda equina appear normal. IMPRESSION: 1. Interval decrease in the size of the posterior epidural fluid collection at the L3-4 level. 2. Postsurgical changes of an L2-3 spinal fusion 3. Mild to moderate spinal stenosis the L1-2 level, mild spinal stenosis at the L2-3 level, severe spinal stenosis at the L3-4 level, and mild spinal stenosis at the L4-5 level. 4. Resolution of the erector spinae muscle edema Electronically signed by: Almas Davis M.D. 10/12/2017 3:01 PM Dictated Date/Time: 10/12/2017 2:51 PM
== END | disposition home or self-care (01) ==
LOC: C.MRI 13:39
PROVIDERS: ATTEND Internal Medicine
DX: M54.16 Radiculopathy, lumbar region (principal); M48.061 Spinal stenosis, lumbar region without neurogenic claudication

== ENCOUNTER → 2017-11-19 | Outpatient (CLI) | payer OTHER ==
--- NOTE | 2017-11-19 17:58 | DIAGNOSTIC IMAGING REPORT ---
LUMBAR SPINE W/O CONTRAST CLINICAL HISTORY: 87 years-old Male presenting with OSTEOMYELITIS OF LUMBAR SPINE, lumbar spine pain since June, subsequent sepsis, asymptomatic currently. TECHNIQUE: Multisequence, multiplanar MR imaging of the lumbar spine was performed without the use of intravenous contrast. IV contrast: None. COMPARISON: 10/12/2017, 07/01/2017 and 07/05/2017 FINDINGS: Localizer images: Unremarkable. Exaggerated lumbar lordosis. Osseous fusion across L2-3 as on prior exam. No significant bony edema is evident. Diffuse fatty and sclerotic endplate changes. Severe multilevel degenerative changes detailed below: L1-2: Disc bulge, facet arthropathy, and ligamentum flavum thickening results in circumferential effacement of the thecal sac though CSF signal intensity is maintained. Severe right and moderate left neural foraminal narrowing. L2-3: Disc osteophyte complex results in effacement of the ventral thecal sac. There is greater effacement of the right lateral recess (series 12 image 10), which exerts mass effect on the transiting right nerve roots. Moderate to severe bilateral neural foraminal narrowing. L3-4: Disc osteophyte complex, severe facet hypertrophy, and ligament flavum thickening result in severe circumferential effacement of the thecal sac as on prior exam. No residual CSF signal intensity. Severe neural foraminal narrowing bilaterally greater on the left small residual fluid collection in the posterior epidural space extending along a length of 2.6 cm (series 10 image 8). This is incompletely evaluated without intravenous contrast but is larger than on prior exam and more similar to June. L4-5: Mild disc bulge, facet arthropathy, and ligamentum flavum thickening result in circumferential effacement of the thecal sac though CSF signal intensity is maintained. Severe bilateral neural foraminal narrowing. L5-S1: Disc osteophyte complex and facet arthropathy result in moderate bilateral neural foraminal narrowing. No significant spinal canal stenosis. Spinal cord ends in good position at the superior endplate of L1. Cauda equina crowding as mentioned above. There is also clumping of the exiting right L5 nerve roots. The cauda equina is in the periphery of the thecal sac below the level of L4-5. Mild muscular edema of the erector spinae though this is significantly less than in June. Fatty atrophy of the erector spinae muscles. Partially visualized kidneys demonstrate a right renal cyst. IMPRESSION: 1. Persistent severe spinal canal stenosis at L3-4 in part secondary to a small posterior epidural collection. This has slightly increased from the most recent prior but is similar to June. This could represent granulomatous tissue, abscess, hematoma, or complex synovial cyst. This would be better evaluated with intravenous contrast. 2. Significant multilevel degenerative changes with severe neural foraminal narrowing at multiple levels as detailed above. 3. Osseous fusion across L2-3. 4. Mild paraspinal muscular edema. 5. No convincing evidence of discitis osteomyelitis. 6. Slight clumping of the cauda equina and peripheral is aeration of the cauda equina below L4-5. This could suggest arachnoiditis though the appearance is similar to prior. This may merely be a result of severe stenosis at L3-4 altering the configuration of the cauda equina. Electronically signed by: Walter Diallo M.D. 11/19/2017 5:57 PM Dictated Date/Time: 11/19/2017 5:41 PM
== END | disposition home or self-care (01) ==
LOC: C.MRIBC 16:29
PROVIDERS: ATTEND Internal Medicine Infectious Disease
DX: M48.26 Kissing spine, lumbar region (principal)

== ENCOUNTER 2020-01-27 13:50 | Inpatient (IN) ==
[2020-01-27] MEDS ORDERED: SODIUM CHLORIDE 0.9% 1000ML 1,000 ML IV SCH (14:15)
[2020-01-27 14:48] LABS: Basophils # (auto) 0.01 K/uL (0-0.2); Basophils % (auto) 0.1 %; Eosinophils # (auto) 0.05 K/uL (0-0.5); Eosinophils % (auto) 0.3 %; Hemoglobin 15.3 g/dL (14.0-18.0); Immature Granulocytes % (auto) 0.6 %; Lymphocytes # (auto) 0.79 K/uL (1.2-3.4); Lymphocytes % (auto) 4.7 %; Mean Corpuscular Hemoglobin 33.3 pg (25-34); Mean Corpuscular Hgb Conc 35.6 g/dL (32-36); Mean Corpuscular Volume 93.7 fL (80-100); Mean Platelet Volume 8.8 fL (7.4-10.4); Monocytes # (auto) 2.31 K/uL (0.11-0.59); Monocytes % (auto) 13.7 %; Neutrophils # (auto) 13.62 K/uL (1.4-6.5); Neutrophils % (auto) 80.6 %; Platelet Count 234 K/uL (130-400); RDW Coefficient of Variation 13.4 % (11.5-14.5); RDW Standard Deviation 45.8 fL (36.4-46.3); Red Blood Count 4.59 M/uL (4.7-6.1); White Blood Count 16.88 K/uL (4.8-10.8)
--- NOTE | 2020-01-27 14:50 | XRay Report ---
SINGLE VIEW CHEST CLINICAL HISTORY: Generalized weakness. FINDINGS: 2 AP, portable, upright chest radiographs are compared to study dated 07/05/2017. The exami nation is degraded by portable technique and patient rotation. The heart is markedly enlarged noting atherosclerotic calcification of the thoracic aorta. The pulmonary vasculature is noncongested. Chron ic interstitial thickening and elevation of the left hemidiaphragm are similar to previous. There is bibasilar scarring/atelectasis. No airspace consolidation or large pleural effusion is identified. No pneumothorax is seen. The skeletal structures are osteopenic. The bony thorax is grossly intact. Adv anced arthritic change is noted in the shoulders. IMPRESSION: Cardiomegaly and chronic parenchymal changes as above with no acute cardiopulmonary abnor mality identified. ACT 112: Negative or not required by law. Electronically signed by: Frandy Moody M.D. 01/27/2020 2:48 PM
[2020-01-27 15:05] LABS: BUN Creatinine Ratio 25.8 (10-20); Creatinine Clr Calc Pharmacy 39.5 ml/min; Est GFR (Non-African American) 43.1; Potassium 3.8 mmol/L (3.5-5.1)
[2020-01-27 15:16] LABS: Albumin Globulin Ratio 0.6 (0.9-2); Bilirubin,Total 1.4 mg/dl (0.2-1); Globulin 4.6 gm/dl (2.5-4.0); Thyroid Stimulating Hormone 0.535 uIu/ml (0.300-4.500); Total Protein 7.6 gm/dl (6.4-8.2); Troponin I 0.024 ng/ml (0-0.045)
--- NOTE | 2020-01-27 15:24 | CT Scan Report ---
CT SCAN OF THE BRAIN WITHOUT IV CONTRAST CLINICAL HISTORY: Fall. Generalized weakness. COMPARISON STUDY: No priors. TECHNIQUE: Unenhanced axial CT scan of the brain is performed from the vertex to the skull base. A do se lowering technique was utilized adhering to the principles of ALARA. CT DOSE: 1257.71 mGy.cm FINDINGS: Brain parenchyma: There are age-related involutional changes noting advanced confluent subcortical a nd periventricular microangiopathic change. There is no hemorrhage, mass effect, or evidence of acute territorial ischemia by CT criteria. There are small chronic lacunar infarcts in the right cerebella r hemisphere in the right basal ganglia. Barrett-white matter differentiation is preserved. No extra-axi al fluid collection is seen. Ventricles, sulci, cisterns: Prominent secondary to involutional change. Intracranial vasculature: There is atherosclerotic calcification of the cavernous carotid and vertebr al arteries. Calvarium: The skeletal structures are osteopenic. There is no depressed calvarial fracture. Sinuses and mastoids: The visualized paranasal sinuses are clear. The mastoid air cells are well pneu matized. Orbits: The bony orbits are grossly intact. There is a right ocular lens implant. IMPRESSION: There is no hemorrhage, mass effect, or evidence of acute territorial ischemia by CT laura gray. ACT 112: Negative or not required by law. Electronically signed by: Frandy Moody M.D. 01/27/2020 3:22 PM
[2020-01-27 15:56] LABS: Appearance Urine Clear (Clear); Bacteria Urine Automated Negative (Negative); Bilirubin Urine Negative (Negative); Blood Urine 1+ (Negative); Color Urine Yellow; Epithelial Cell Urine Auto 0-5 /lpf (0-5); Glucose Urine UA Negative (Negative); Ketones Urine Negative (Negative); Leukocyte Esterase Urine Negative (Negative); Nitrite Urine Negative (Negative); Protein Urine 1+ (Negative); Specific Gravity Urine 1.013 (1.000-1.030); Urobilinogen Urine Negative (Negative); pH Urine 5.5 (4.5-7.5)
--- NOTE | 2020-01-27 16:38 | Emergency Department Note ---
History of Present Illness General Chief complaint: Illness Stated complaint: WEAKNESS Time Seen by Provider: 01/27/20 13:53 Source: patient and family Mode of arrival: EMS Limitations: physical limitation History of Present Illness Provider complaint: Generalized weakness Maximum Pain Intensity: 3 This is an 89-year-old male who presents to the ED with a chief complaint of generalized weakness. The patient states that his symptoms initially started about a week ago. He states that he felt constipated. He was having stomach pains but had a bowel movement yesterday and today. He states that he fell several times this week because of his weakness. He reports decreased appetite. He has not had any nausea vomiting with the exception of onset Wednesday, 1 week ago. The patient states that since his bowel movements today, his abdominal pain has improved. His states that he falls asleep very easily. He has been sleeping more than usual. He has been eating less than usual. He has fallen several times in the past week. He could not get off of the toilet today. He is on warfarin for A. fib. Home Medications Home Medications Medication Instructions Recorded Confirmed Type Lactobacillus acidoph-L.bulgar 1 4 tab PO QDB tab 03/30/18 01/27/20 History million cell tablet calcium carbonate-vitamin D3 600 1 tab PO DAILY 03/30/18 01/27/20 History mg (1,500 mg)-800 unit tablet flaxseed oil 1,000 mg capsule 1,000 mg PO QAM 03/30/18 01/27/20 History egdtefhv-zix-tfbqt acid 0.4 1 tab PO QAM 03/30/18 01/27/20 History mg-lycopene 300 mcg-lutein 250 mcg tablet vitamins A,C,Z-rzkf-kfytrm 7,160 1 tab PO BID tab 03/30/18 01/27/20 History unit-113 mg-100 unit tablet verapamil 240 mg tablet,extended 240 mg PO Q12H #180 tab 10/17/19 01/27/20 Rx release warfarin 2.5 mg tablet See Rx Instructions PO UD #108 tab 12/29/19 01/27/20 Rx atenolol 25 mg PO QAM 01/27/20 01/27/20 History potassium chloride [Klor-Con M20] 20 meq PO QAM 01/27/20 01/27/20 History triamterene-hydrochlorothiazid 1 tab PO QAM 01/27/20 01/27/20 History [Maxzide] vitamin B complex 1 cap PO BID 01/27/20 01/27/20 History Allergies Allergy/AdvReac Type Severity Reaction Status Date / Time No Known Drug Allergies Allergy Unknown Verified 01/27/20 14:37 Past Med/Surg History Medical History Arthritis of multiple sites (Chronic) Bacteremia (Inactive) Chronic anticoagulation (Chronic) CKD (chronic kidney disease), stage III (Chronic) Dyslipidemia (Chronic) HTN (hypertension) (Chronic) Impaired fasting glucose (Chronic) Macular degeneration Osteomyelitis of lumbar vertebra (Chronic) Peripheral neuropathy (Chronic) Permanent atrial fibrillation (Chronic) Vertebral osteomyelitis Surgical History History of colonoscopy History of inguinal hernia repair History of tonsillectomy Family History Father Cardiac failure Mother Colorectal cancer Sister Colorectal cancer Denies family history of Ovarian cancer Prostate cancer Breast cancer Lung cancer Social History Preferred Language: Panamanian Visual Impairment: Limited Hearing Ability: Use of Hearing Aid 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 Head Required: No marital status: Current Living Situation: Spouse current occupational status: retired Feels Safe at Home: Yes Smoking Status: Never smoker Hx Alcohol Use: Yes Alcohol type: beer Alcohol Intake Frequency: Rarely Hx Substance Use: No Childhood Exposure to Second-Hand Smoke: No Dental Care, Regularly: Yes Physical Activity Frequency: Daily Seatbelt Use: always Sunscreen Use: Yes Review of Systems A total of 10 systems reviewed and were otherwise negative Physical Exam Vital Signs Vital Signs - 24 hr 01/27/20 14:00 01/27/20 14:44 Temperature 37.0 C Temperature Source Oral Pulse Rate 56 L Respiratory Rate 20 Respiratory Effort / Characteristics Non-Labored Respiratory Depth Normal Respiratory Pattern Regular Blood Pressure 110/85 Blood Pressure Mean 93 Blood Pressure Position Lying Pulse Oximetry 97 Oxygen Delivery Method Room Air Room Air Sepsis Recent Fever Within 48 Hours No Sepsis Action Taken by Nursing No Action Required CONSTITUTIONAL/VITAL SIGNS: Reviewed / noted above. GENERAL: Non-toxic in appearance. Generalized weakness. INTEGUMENTARY: Warm, dry, and [place]. HEAD: Normocephalic. EYES: without scleral icterus or trauma. ENT/OROPHARYNX: clear and moist. LYMPHADENOPATHY/NECK: Is supple without lymphadenopathy or meningismus. RESPIRATORY: Lungs clear and equal. CARDIOVASCULAR: Regular rate and rhythm. GI/ABDOMEN: Soft and nontender. No organomegaly or pulsatile mass. No rebound or guarding. Normal bowel sounds. EXTREMITIES: Warm and well perfused. Abrasions to the right shoulder from recent fall. BACK: No CVA tenderness. NEUROLOGICAL: Intact without focal deficits. PSYCHIATRIC: normal affect. MUSCULOSKELETAL: Normally developed with good muscle tone. TRIAGE NURSING DOCUMENTATION REVIEWED. Course Administered Medications Discontinued Medications Sodium Chloride (Nss 1000ml) 1,000 mls @ 999 mls/hr IV .Q1H1M BOSSMAN Stop: 01/27/20 15:15 Last Infusion: 01/27/20 16:21 Dose: 0 mls/hr Documented by: [id number] Admin: 01/27/20 15:02 Dose: 999 mls/hr Documented by: [id number] Medical Decision Making Differential Diagnosis Differential includes acute coronary syndrome, myocardial infarction, CVA, TIA, anemia, infection, pneumonia, UTI, pyelonephritis, poor nutrition, dehydration, electrolyte disturbance,hypoglycemia. Medical Records Attestation: I reviewed the patient's medical records. Home Medications Current Medication List: was personally reviewed by me Laboratory Data Attestation: I reviewed the patient's lab results. Result diagrams: 01/27/20 14:40 01/27/20 14:40 Lab Results 01/27/20 01/27/20 01/27/20 Range/Units 14:40 14:40 15:30 WBC 16.88 H (4.8-10.8) K/uL RBC 4.59 L (4.7-6.1) M/uL Hgb 15.3 (14.0-18.0) g/dL Hct 43.0 (42-52) % MCV 93.7 (80-100) fL MCH 33.3 (25-34) pg MCHC 35.6 (32-36) g/dL RDW Std Deviation 45.8 (36.4-46.3) fL RDW Coeff of Leonel 13.4 (11.5-14.5) % Plt Count 234 (130-400) K/uL MPV 8.8 (7.4-10.4) fL Immature Gran % (Auto) 0.6 % Neut % (Auto) 80.6 % Lymph % (Auto) 4.7 % Clark % (Auto) 13.7 % Eos % (Auto) 0.3 % Baso % (Auto) 0.1 % Neut # (Auto) 13.62 H (1.4-6.5) K/uL Lymph # (Auto) 0.79 L (1.2-3.4) K/uL Clark # (Auto) 2.31 H (0.11-0.59) K/uL Eos # (Auto) 0.05 (0-0.5) K/uL Baso # (Auto) 0.01 (0-0.2) K/uL Immature Gran # (Auto) 0.10 H (0.00-0.02) K/uL Sodium 129 L (136-145) mmol/L Potassium 3.8 (3.5-5.1) mmol/L Chloride 92 L (98-107) mmol/L Carbon Dioxide 30 (21-32) mmol/L Anion Gap 7.0 (3-11) BUN 37 H (7-18) mg/dl Creatinine 1.43 H (0.6-1.4) mg/dl Est Cr Clr Drug Dosing 39.5 ml/min Est GFR ( Amer) 50.0 Est GFR (Non-Af Amer) 43.1 BUN/Creatinine Ratio 25.8 H (10-20) Glucose 94 (70-99) mg/dl Calcium 9.0 (8.5-10.1) mg/dl Total Bilirubin 1.4 H (0.2-1) mg/dl AST 26 (15-37) U/L ALT 26 (12-78) U/L Alkaline Phosphatase 111 (45-117) U/L Total Creatine Kinase 108 (39-308) U/L Troponin I 0.024 (0-0.045) ng/ml Total Protein 7.6 (6.4-8.2) gm/dl Albumin 3.0 L (3.4-5.0) gm/dl Globulin 4.6 H (2.5-4.0) gm/dl Albumin/Globulin Ratio 0.6 L (0.9-2) TSH 0.535 (0.300-4.500) uIu/ml Urine Color Yellow Urine Appearance Clear (Clear) Urine pH 5.5 (4.5-7.5) Ur Specific [place] 1.013 (1.000-1.030) Urine Protein 1+ H (Negative) Urine Glucose (UA) Negative (Negative) Urine Ketones Negative (Negative) Urine Blood 1+ H (Negative) Urine Nitrite Negative (Negative) Urine Bilirubin Negative (Negative) Urine Urobilinogen Negative (Negative) Ur Leukocyte Esterase Negative (Negative) Urine WBC (Auto) 1-5 (0-5) /hpf Urine RBC (Auto) 5-10 H (0-4) /hpf U Hyaline Cast (Auto) 1-5 (0-5) /lpf U Epithel Cells (Auto) 0-5 (0-5) /lpf Urine Bacteria (Auto) Negative (Negative) Imaging Data Radiologist's Impression: CT scan of the brain:IMPRESSION: There is no hemorrhage, mass effect, or evidence of acute territorial ischemia by CT criteria. SINGLE VIEW CHEST CLINICAL HISTORY: Generalized weakness. FINDINGS: 2 AP, portable, upright chest radiographs are compared to study dated 07/05/2017. The examination is degraded by portable technique and patient rotation. The heart is markedly enlarged noting atherosclerotic calcification of the thoracic aorta. The pulmonary vasculature is noncongested. Chronic interstitial thickening and elevation of the left hemidiaphragm are similar to previous. There is bibasilar scarring/atelectasis. No airspace consolidation or large pleural effusion is identified. No pneumothorax is seen. The skeletal structures are osteopenic. The bony thorax is grossly intact. Advanced arthritic change is noted in the shoulders. IMPRESSION: Cardiomegaly and chronic parenchymal changes as above with no acute cardiopulmonary abnormality identified. ECG Data Attestation: I personally reviewed and interpreted this ECG as follows: Indication: + weakness Rate (beats per minute): 57 Rhythm: + atrial fibrillation ECG Intervals/blocks: + Normal QT-c ECG ST segments: no ST elevation ECG Findings: no PVCs Blood Pressure Blood Pressure Findings: Normal blood pressure MDM Narrative This is an 89-year-old male who presents to the ED with a chief complaint of generalized weakness. The patient states that his symptoms initially started about a week ago. He states that he felt constipated. He was having stomach pains but had a bowel movement yesterday and today. He states that he fell several times this week because of his weakness. He reports decreased appetite. He has not had any nausea vomiting with the exception of onset Wednesday, 1 week ago. The patient states that since his bowel movements today, his abdominal pain has improved. His states that he falls asleep very easily. He has been sleeping more than usual. He has been eating less than usual. He has fallen several times in the past week. He could not get off of the toilet today. He is on warfarin for A. fib. The patient's CBC revealed a leukocytosis with a white blood cell count of 16.8. His sodium is 129. BUN is 37 and creatinine is 1.4. This is baseline for the patient. Troponin is normal and TSH is normal. Chest x-ray did not show any acute disease and a urine showed 1+ blood but otherwise no evidence of infection. Because of the patient significant weakness and inability to get off the toilet today, and recent falls, the patient will require further inpatient evaluation and likely inpatient rehab. Impression & Plan Generalized muscle weakness, Anorexia Discharge Plan Visit Data Chief Complaint: Illness Stated Complaint: WEAKNESS ED Provider: Toy Jimenez Discharge Problem: Generalized muscle weakness, Anorexia Patient Disposition: Being Evaluated by Hospitalist Forms Stand Alone Forms: My [facility] Prescriptions Prescriptions: No Action calcium carbonate-vitamin D3 [Caltrate with Vitamin D3] 600 mg(1,500mg) -800 unit tablet 1 tab PO DAILY RF: 0 flaxseed oil 1,000 mg capsule 1,000 mg PO QAM RF: 0 Lactobacillus acidoph-L.bulgar [Floranex] 1 million cell tablet 4 tab PO QDB RF: 0 puavinbr-xeu-VS-lycopen-lutein [Centrum Silver] 0.4-300-250 mg-mcg-mcg tablet 1 tab PO QAM RF: 0 vitamins A,C,F-lfsz-mexmqr 7,160-113-100 mato-wa-zura tablet 1 tab PO BID RF: 0 verapamil [Calan SR] 240 mg tablet extended release 240 mg PO Q12H Qty: 180 RF: 3 warfarin 2.5 mg tablet See Rx Instructions PO UD Qty: 108 RF: 3 vitamin B complex Capsule 1 cap PO BID RF: 0 atenolol 25 mg tablet 25 mg PO QAM RF: 0 potassium chloride [Klor-Con M20] 20 mEq tablet,ER particles/crystals 20 meq PO QAM RF: 0 triamterene-hydrochlorothiazid [Maxzide] 75-50 mg tablet 1 tab PO QAM RF: 0 Referrals Referrals: Walter Whitehead MD [Primary Care Provider] -
[2020-01-27 17:16] LABS: INR 2.3 (0.9-1.1); Prothrombin Time 23.3 Seconds (9.0-12.0)
[2020-01-27] MEDS ORDERED: ACETAMINOPHEN 325 MG TAB PO PRN (18:55)
[2020-01-27] MEDS ORDERED: ONDANSETRON INJ 2 MG/ML 2 ML VIAL IV PRN (18:55)
--- NOTE | 2020-01-27 19:54 | History & Physical Report ---
Date of Service January 27, 2020 Assessment & Plan (1) Generalized muscle weakness: Generalized muscle weakness/ambulatory dysfunction/anorexia with mild protein calorie malnutrition- We will consult PT/OT. May in part be aggravated by peripheral neuropathy, hyponatremia and bradycardia We will hold triamterene/HCTZ and atenolol. Decrease verapamil as noted below Present on Admission?: Yes (2) Gait abnormality: See above Present on Admission?: Yes (3) Anorexia: See above Present on Admission?: Yes (4) Hyponatremia: Sodium was 129 upon admission, with range 131-136. Would discontinue triamterene/HCTZ. Continue rehydration with normal saline. Repeat laboratories in a.m. Present on Admission?: Yes (5) Peripheral neuropathy: Will consult PT/OT, and try to avoid any additional medications Present on Admission?: Yes (6) CKD (chronic kidney disease), stage III: Creatinine upon admission 1.43, with range 1.46-1.55. Follow serially. Present on Admission?: Yes (7) Chronic anticoagulation: Continue warfarin. INR 2.3 upon admission. Present on Admission?: Yes (8) HTN (hypertension): Permanent atrial fibrillation/hypertension- Hold atenolol due to bradycardia Hold triamterene/HCTZ as noted above Decrease verapamil extended release from 240 mg p.o. every 12 hours to 120 mg p.o. every 12 hours Present on Admission?: Yes (9) Permanent atrial fibrillation: See above Present on Admission?: Yes Admission and Anticipated Discharge Date Admission Date: January 27, 2020 History of Present Illness Chief Complaint: The patient presents to the emergency department with complaints of generalized weakness, decreased appetite, and difficulty with ambulation. Primary Care Provider: Walter Whitehead MD The patient is a 89-year-old male with a past medical history including pulmonary hypertension, aortic valve sclerosis, ambulatory dysfunction, peripheral neuropathy, dyslipidemia, chronic anticoagulation, osteomyelitis of lumbar vertebrae, CKD stage III, hypertension and permanent atrial fibrillation. His reports that he has had decreased appetite for the past week, however, he did actually eat better over the past 24 hours. She became concerned because he was still having difficulty with ambulation, and was generally weak, and she brought him to the emergency department for assessment. provides the main HPI and review of systems Allergies Allergy/AdvReac Type Severity Reaction Status Date / Time No Known Drug Allergies Allergy Unknown Verified 01/27/20 14:37 Home Medications Home Medications Medication Instructions Recorded Confirmed Type Lactobacillus acidoph-L.bulgar 1 4 tab PO QDB tab 03/30/18 01/27/20 History million cell tablet calcium carbonate-vitamin D3 600 1 tab PO DAILY 03/30/18 01/27/20 History mg (1,500 mg)-800 unit tablet flaxseed oil 1,000 mg capsule 1,000 mg PO QAM 03/30/18 01/27/20 History qtvpczrt-otq-kvfqw acid 0.4 1 tab PO QAM 03/30/18 01/27/20 History mg-lycopene 300 mcg-lutein 250 mcg tablet vitamins A,C,I-nubn-lmrszu 7,160 1 tab PO BID tab 03/30/18 01/27/20 History unit-113 mg-100 unit tablet verapamil 240 mg tablet,extended 240 mg PO Q12H #180 tab 10/17/19 01/27/20 Rx release warfarin 2.5 mg tablet See Rx Instructions PO UD #108 tab 12/29/19 01/27/20 Rx atenolol 25 mg PO QAM 01/27/20 01/27/20 History potassium chloride [Klor-Con M20] 20 meq PO QAM 01/27/20 01/27/20 History triamterene-hydrochlorothiazid 1 tab PO QAM 01/27/20 01/27/20 History [Maxzide] vitamin B complex 1 cap PO BID 01/27/20 01/27/20 History Past Med/Surg History Medical History Arthritis of multiple sites (Chronic) Bacteremia (Inactive) Chronic anticoagulation (Chronic) CKD (chronic kidney disease), stage III (Chronic) Dyslipidemia (Chronic) HTN (hypertension) (Chronic) Impaired fasting glucose (Chronic) Macular degeneration Osteomyelitis of lumbar vertebra (Chronic) Peripheral neuropathy (Chronic) Permanent atrial fibrillation (Chronic) Vertebral osteomyelitis Surgical History History of colonoscopy History of inguinal hernia repair History of tonsillectomy Family History Father Cardiac failure Mother Colorectal cancer Sister Colorectal cancer Denies family history of Ovarian cancer Prostate cancer Breast cancer Lung cancer Social History Preferred Language: Afghan Communication Ability: Effective Visual Impairment: Limited Hearing Ability: Use of Hearing Aid Dial Lathe Operator Required: No Beliefs That Will Affect Care: None marital status: Current Living Situation: Spouse current occupational status: retired Other Information That Helps Us Care for You: No Feels Safe at Home: Yes Safety Concerns: Feels Safe At This Time Smoking Status: Former smoker Tobacco Type: cigarettes ; Do You Dip or Chew Tobacco: No ; Smoking End Date: "" ; Second Hand Exposure: No ; Hx Alcohol Use: Yes Alcohol type: hard liquor Alcohol Intake Frequency: Rarely Hx Substance Use: No Childhood Exposure to Second-Hand Smoke: No Dental Care, Regularly: Yes Physical Activity Frequency: Daily Seatbelt Use: always Sunscreen Use: Yes Review of Systems Review of Systems: As per the patient and , denies chest pain, palpitations, shortness of breath, dyspnea on exertion, cough, lower extremity swelling, sore throat, fevers, chills, sweats, nausea, vomiting, diarrhea , constipation, abdominal pain, pelvic pain, blood in urine or stool, dysuria, urinary frequency or urgency, lightheadedness, dizziness, headache, loss of consciousness, rash, abnormal bruising or bleeding, focal weakness, numbness or tingling in arms or legs, back or neck pain, or night sweats. The review of systems is otherwise negative other than for that already noted above, and at least 10 systems have been reviewed. Physical Exam Physical Exam: The patient is awake, alert, but slow to respond, well developed and well nourished, normocephalic and atraumatic, lying in bed and in no acute distress. HEENT--PERRL, EOMI, mucous membranes and oropharynx dry. Neck--supple. No JVD. No bruits. Thyroid normal, trachea midline, no adenopathy. Heart--normal S1 and S2. No murmurs, rubs or gallops. Lungs--clear bilaterally, no respiratory distress, no accessory muscle use. Abdomen--normal bowel sounds and soft. Nontender. Nondistended. Extremities--no cyanosis or clubbing. No edema. There are good distal pulses b/l. Dermatologic--normal skin turgor, normal color, no abnormal lymph nodes, no rash. Neurologic--cranial nerves II through XII grossly intact. Rheumatologic--normal range of motion. Psychiatric--normal affect. Results & Data Results & Data ([facility]) Vital Signs (Past 12 Hours) Vital Signs Temp Pulse Pulse Resp BP BP Pulse Ox 01/27/20 19:21 47 L 01/27/20 18:58 98.6 F 52 L 18 114/77 97 01/27/20 18:01 52 L 24 138/72 01/27/20 18:00 52 L 27 H 01/27/20 17:31 52 L 19 121/64 01/27/20 17:30 51 L 27 H 01/27/20 17:02 52 L 25 H 01/27/20 17:01 54 L 27 H 128/68 01/27/20 17:00 52 L 22 01/27/20 16:31 50 L 19 01/27/20 16:30 53 L 17 126/83 01/27/20 16:01 52 L 27 H 137/74 01/27/20 16:00 53 L 29 H 01/27/20 15:30 56 L 27 H 01/27/20 15:00 55 L 27 H 125/78 01/27/20 14:41 56 L 22 128/64 97 01/27/20 14:30 56 L 22 01/27/20 14:19 58 L 01/27/20 14:01 67 22 127/66 01/27/20 14:00 98.6 F 56 L 20 110/85 97 Laboratory Results Laboratory Results WBC 16.88 K/uL (4.8-10.8) H 01/27/20 14:40 RBC 4.59 M/uL (4.7-6.1) L 01/27/20 14:40 Hgb 15.3 g/dL (14.0-18.0) 01/27/20 14:40 Hct 43.0 % (42-52) 01/27/20 14:40 MCV 93.7 fL (80-100) 01/27/20 14:40 MCH 33.3 pg (25-34) 01/27/20 14:40 MCHC 35.6 g/dL (32-36) 01/27/20 14:40 RDW Std Deviation 45.8 fL (36.4-46.3) 01/27/20 14:40 RDW Coeff of Leonel 13.4 % (11.5-14.5) 01/27/20 14:40 Plt Count 234 K/uL (130-400) 01/27/20 14:40 MPV 8.8 fL (7.4-10.4) 01/27/20 14:40 Immature Gran % (Auto) 0.6 % 01/27/20 14:40 Neut % (Auto) 80.6 % 01/27/20 14:40 Lymph % (Auto) 4.7 % 01/27/20 14:40 [place] % (Auto) 13.7 % 01/27/20 14:40 Eos % (Auto) 0.3 % 01/27/20 14:40 Baso % (Auto) 0.1 % 01/27/20 14:40 Neut # (Auto) 13.62 K/uL (1.4-6.5) H 01/27/20 14:40 Lymph # (Auto) 0.79 K/uL (1.2-3.4) L 01/27/20 14:40 [place] # (Auto) 2.31 K/uL (0.11-0.59) H 01/27/20 14:40 Eos # (Auto) 0.05 K/uL (0-0.5) 01/27/20 14:40 Baso # (Auto) 0.01 K/uL (0-0.2) 01/27/20 14:40 Immature Gran # (Auto) 0.10 K/uL (0.00-0.02) H 01/27/20 14:40 PT 23.3 Seconds (9.0-12.0) H 01/27/20 14:40 INR 2.3 (0.9-1.1) H 01/27/20 14:40 Sodium 129 mmol/L (136-145) L 01/27/20 14:40 Potassium 3.8 mmol/L (3.5-5.1) 01/27/20 14:40 Chloride 92 mmol/L (98-107) L 01/27/20 14:40 Carbon Dioxide 30 mmol/L (21-32) 01/27/20 14:40 Anion Gap 7.0 (3-11) 01/27/20 14:40 BUN 37 mg/dl (7-18) H 01/27/20 14:40 Creatinine 1.43 mg/dl (0.6-1.4) H 01/27/20 14:40 Est Cr Clr Drug Dosing 39.5 ml/min 01/27/20 14:40 Est GFR ( Amer) 50.0 01/27/20 14:40 Est GFR (Non-Af Amer) 43.1 01/27/20 14:40 BUN/Creatinine Ratio 25.8 (10-20) H 01/27/20 14:40 Glucose 94 mg/dl (70-99) 01/27/20 14:40 Calcium 9.0 mg/dl (8.5-10.1) 01/27/20 14:40 Total Bilirubin 1.4 mg/dl (0.2-1) H 01/27/20 14:40 AST 26 U/L (15-37) 01/27/20 14:40 ALT 26 U/L (12-78) 01/27/20 14:40 Alkaline Phosphatase 111 U/L (45-117) 01/27/20 14:40 Total Creatine Kinase 108 U/L (39-308) 01/27/20 14:40 Troponin I 0.024 ng/ml (0-0.045) 01/27/20 14:40 Total Protein 7.6 gm/dl (6.4-8.2) 01/27/20 14:40 Albumin 3.0 gm/dl (3.4-5.0) L 01/27/20 14:40 Globulin 4.6 gm/dl (2.5-4.0) H 01/27/20 14:40 Albumin/Globulin Ratio 0.6 (0.9-2) L 01/27/20 14:40 TSH 0.535 uIu/ml (0.300-4.500) 01/27/20 14:40 Urine Color Yellow 01/27/20 15:30 Urine Appearance Clear (Clear) 01/27/20 15:30 Urine pH 5.5 (4.5-7.5) 01/27/20 15:30 Ur Specific [place] 1.013 (1.000-1.030) 01/27/20 15:30 Urine Protein 1+ (Negative) H 01/27/20 15:30 Urine Glucose (UA) Negative (Negative) 01/27/20 15:30 Urine Ketones Negative (Negative) 01/27/20 15:30 Urine Blood 1+ (Negative) H 01/27/20 15:30 Urine Nitrite Negative (Negative) 01/27/20 15:30 Urine Bilirubin Negative (Negative) 01/27/20 15:30 Urine Urobilinogen Negative (Negative) 01/27/20 15:30 Ur Leukocyte Esterase Negative (Negative) 01/27/20 15:30 Urine WBC (Auto) 1-5 /hpf (0-5) 01/27/20 15:30 Urine RBC (Auto) 5-10 /hpf (0-4) H 01/27/20 15:30 U Hyaline Cast (Auto) 1-5 /lpf (0-5) 01/27/20 15:30 U Epithel Cells (Auto) 0-5 /lpf (0-5) 01/27/20 15:30 Urine Bacteria (Auto) Negative (Negative) 01/27/20 15:30 Diagnostic Findings [place], [place] [phone] XRay Report Patient: RENATO COLON Date: 01/27/20 MR#: [id number]: [address] Acct ID:[id number]: Date: 1930ity Zip: [place] [address] Age: 89Location: ED Sex: M Room/Bed: Att Phy:Diagnosis: WEAKNESS Erica Phy: Walter Whitehead MDService Date: 01/27/20 Fam Phy:Interpreting Phy: Frandy Moody MD Admit Phy: Ordering Phy: Toy Jimenez D.O. cc: ~ SINGLE VIEW CHEST CLINICAL HISTORY: Generalized weakness. FINDINGS: 2 AP, portable, upright chest radiographs are compared to study dated 07/05/2017. The examination is degraded by portable technique and patient rotation. The heart is markedly enlarged noting atherosclerotic calcification of the thoracic aorta. The pulmonary vasculature is noncongested. Chronic interstitial thickening and elevation of the left hemidiaphragm are similar to previous. There is bibasilar scarring/atelectasis. No airspace consolidation or large pleural effusion is identified. No pneumothorax is seen. The skeletal structures are osteopenic. The bony thorax is grossly intact. Advanced arthritic change is noted in the shoulders. IMPRESSION: Cardiomegaly and chronic parenchymal changes as above with no acute cardiopulmonary abnormality identified. ACT 112: Negative or not required by law. Electronically signed by: Frandy Moody M.D. 01/27/2020 2:48 PM Dictated: 01/27/20 1447 Transcribed: 01/27/20 1447 [place], [place] [phone] CT Scan Report Patient: RENATO COLON Date: 01/27/20 MR#: [id number]: [address] Acct ID:[id number]: Date: 1City Zip: [place] [address] Age: 89Location: ED Sex: M Room/Bed: Att Phy:Diagnosis: WEAKNESS Erica Phy: Walter Whitehead MDService Date: 01/27/20 Fam Phy:Interpreting Phy: Frandy Moody MD Admit Phy: Ordering Phy: Toy Jimenez D.O. cc: ~ CT SCAN OF THE BRAIN WITHOUT IV CONTRAST CLINICAL HISTORY: Fall. Generalized weakness. COMPARISON STUDY: No priors. TECHNIQUE: Unenhanced axial CT scan of the brain is performed from the vertex to the skull base. A dose lowering technique was utilized adhering to the principles of ALARA. CT DOSE: 1257.71 mGy.cm FINDINGS: Brain parenchyma: There are age-related involutional changes noting advanced confluent subcortical and periventricular microangiopathic change. There is no hemorrhage, mass effect, or evidence of acute territorial ischemia by CT criteria. There are small chronic lacunar infarcts in the right cerebellar hemisphere in the right basal ganglia. Barrett-white matter differentiation is preserved. No extra-axial fluid collection is seen. Ventricles, sulci, cisterns: Prominent secondary to involutional change. Intracranial vasculature: There is atherosclerotic calcification of the cavernous carotid and vertebral arteries. Calvarium: The skeletal structures are osteopenic. There is no depressed calvarial fracture. Sinuses and mastoids: The visualized paranasal sinuses are clear. The mastoid air cells are well pneumatized. Orbits: The bony orbits are grossly intact. There is a right ocular lens implant. IMPRESSION: There is no hemorrhage, mass effect, or evidence of acute territorial ischemia by CT criteria. ACT 112: Negative or not required by law. Electronically signed by: Frandy Moody M.D. 01/27/2020 3:22 PM Dictated: 01/27/20 1520 Transcribed: 01/27/20 152 Code Status & VTE Plan Code Status Full code VTE Prophylaxis Plan VTE Prophylaxis will be ordered: Yes PG Care Time/CCT Total # of Minutes Spent Total Time Spent with Patient: Total time spent is greater than 50% in coordination of care (as documented) at patient's floor/unit and/or counseling patient: Coding Level of Care Code 64677 Initial Inpt Care Lvl 3 Diagnoses Generalized muscle weakness M62.81 Gait abnormality R26.9 Anorexia R63.0 Hyponatremia E87.1 Peripheral neuropathy G62.9 Peripheral neuropathy type: polyneuropathy, unspecified CKD (chronic kidney disease), stage III N18.3 Chronic anticoagulation Z79.01 HTN (hypertension) I10 Hypertension type: essential hypertension Permanent atrial fibrillation I48.21 (1) Peripheral neuropathy Peripheral neuropathy type: polyneuropathy, unspecified Qualified Code(s): G62.9 - Polyneuropathy, unspecified (2) HTN (hypertension) Hypertension type: essential hypertension Qualified Code(s): I10 - Essential (primary) hypertension
[2020-01-27] MEDS ORDERED: VERAPAMIL HCL 240 MG TABCR PO SCH (20:00)
[2020-01-27] MEDS: SODIUM CHLORIDE 0.9% 1000ML 1,000 ML IV SCH (20:03)
[2020-01-27] MEDS ORDERED: VITAMINS A C E ZINC COPPER PO SCH (21:00)
[2020-01-27] MEDS: VERAPAMIL HCL 120 MG TABCR PO SCH (21:04)
[2020-01-27] MEDS: VITAMIN B COMPLEX TAB PO SCH (21:04)
[2020-01-27] MEDS: WARFARIN SOD 2.5 MG TAB PO SCH (21:04)
[2020-01-28 06:16] LABS: INR 2.6 (0.9-1.1); Prothrombin Time 25.8 Seconds (9.0-12.0)
[2020-01-28] MEDS: VERAPAMIL HCL 120 MG TABCR PO SCH ×3 (08:59→20:34)
[2020-01-28] MEDS: SODIUM CHLORIDE 0.9% 1000ML 1,000 ML IV SCH ×2 (08:59→20:03)
[2020-01-28] MEDS: VITAMIN B COMPLEX TAB PO SCH ×3 (08:59→20:35)
[2020-01-28] MEDS ORDERED: NON-FORMULARY MEDICATION (Flaxseed Oil 1,000 MG) PO SCH (09:00)
[2020-01-28] MEDS ORDERED: ATENOLOL 25 MG TABLET PO SCH (09:00)
[2020-01-28] MEDS: CEROVITE ADV FORMULA TAB PO SCH (09:00)
[2020-01-28] MEDS: LACTOBACILLUS ACIDOPHILUS (FLORANEX) TAB PO SCH (09:00)
[2020-01-28] MEDS ORDERED: POTASSIUM CHLORIDE 20 MEQ TABCR PO SCH (09:00)
[2020-01-28] MEDS: CALCIUM 600MG + VIT D 400 IU TAB PO SCH (09:00)
[2020-01-28 09:05] LABS: Basophils # (auto) 0.02 K/uL (0-0.2); Basophils % (auto) 0.1 %; Eosinophils # (auto) 0.06 K/uL (0-0.5); Eosinophils % (auto) 0.4 %; Hematocrit (blood only) 44.4 % (42-52); Hemoglobin 14.9 g/dL (14.0-18.0); Immature Granulocytes # (auto) 0.07 K/uL (0.00-0.02); Immature Granulocytes % (auto) 0.5 %; Lymphocytes # (auto) 0.95 K/uL (1.2-3.4); Lymphocytes % (auto) 6.3 %; Mean Corpuscular Hemoglobin 32.4 pg (25-34); Mean Corpuscular Hgb Conc 33.6 g/dL (32-36); Mean Corpuscular Volume 96.5 fL (80-100); Mean Platelet Volume 8.8 fL (7.4-10.4); Monocytes # (auto) 1.16 K/uL (0.11-0.59); Monocytes % (auto) 7.7 %; Neutrophils # (auto) 12.81 K/uL (1.4-6.5); Platelet Count 271 K/uL (130-400); RDW Coefficient of Variation 13.4 % (11.5-14.5); RDW Standard Deviation 47.5 fL (36.4-46.3); White Blood Count 15.07 K/uL (4.8-10.8)
[2020-01-28 09:42] LABS: Albumin Level 2.7 gm/dl (3.4-5.0); BUN Creatinine Ratio 22.2 (10-20); Calcium 8.9 mg/dl (8.5-10.1); Creatinine Clr Calc Pharmacy 39.2 ml/min; Est GFR (Non-African American) 47.5; Magnesium 2.2 mg/dl (1.8-2.4); Potassium 3.2 mmol/L (3.5-5.1)
[2020-01-28 09:45] LABS: Albumin Globulin Ratio 0.6 (0.9-2); Bilirubin,Total 1.2 mg/dl (0.2-1); Globulin 4.5 gm/dl (2.5-4.0); Total Protein 7.2 gm/dl (6.4-8.2)
--- NOTE | 2020-01-28 12:35 | Electrocardiogram Report ---
Test Reason : Blood Pressure : / mmHG Vent. 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
[2020-01-28] MEDS: POTASSIUM CHLORIDE 20 MEQ TABCR PO SCH ×3 (15:29→20:34)
[2020-01-28] MEDS: PANTOprazole 40 MG TAB PO SCH (15:29)
[2020-01-28] MEDS: WARFARIN SOD 2.5 MG TAB PO SCH (15:30)
--- NOTE | 2020-01-28 19:53 | Hospitalist Progress Note ---
Date of Service January 28, 2020 Assessment & Plan (1) Leukocytosis: Elevated WBC count, abdominal pain, anorexia, emesis - concerning for GI tract pathology. Biliary? other? will obtain RUQ u/s - r/o brewing cholecystitis. defer on antibiotics unless u/s is suggestive of cholecystitis. blood cx's sent. u/a remarkable except for blood/RBCs. if RUQ u/s is negative and if pain persists consider CT abd/pelvis to r/o kidney stone, etc. repeat cbc am. (2) Abdominal pain: see discussion above add PPI full liquid diet t. bili modestly high but has been high in the past RUQ u/s to start (3) Hyponatremia: Improving with saline hydration. HCTZ has been stopped. Hypovolemic hyponatremia. Repeat BMP am. (4) CKD (chronic kidney disease), stage III: BMP stable. BMP again in am. (5) HTN (hypertension): Due to bradycardia and electrolytes abnormalities his HCTZ has been stopped, atenolol has been stopped, and verapamil dose has been decreased by 50%. (6) Permanent atrial fibrillation: See above in "HTN" (7) Hypokalemia: replace repeat BMP am mag noted to be normal (8) Bradycardia: likely combination of BB use and CCB use atenolol on hold verapamil dose decreased by 50% rates much improved to the 70s TSH noted to be normal (9) Fall: likely multifactorial (?infectious process? hyponatremia? bradycardia? and/or other factors) CT head neg PT, OT evals requested (10) DVT prophylaxis: cont warfarin updated at bedside today Admission and Anticipated Discharge Date Admission Date: January 27, 2020 Subjective patient c/o ongoing upper abdominal discomfort. he is not a great historian and can't remember the date of onset but reports the pain is relatively constant. about a "3 out of 10" on pain scale. had emesis at home - he said "multiple times" but - who arrived later in my visit - said it was one time. no fevers or chills. had no appetite at home - appetite this am was improved with breakfast (ate 100% per flowsheets from nursing). denies dyspnea or cough. Review of Systems Constitutional: + fatigue and + anorexia (but improved today ); no fever Cardiovascular: no chest pain Gastrointestinal: + abdominal pain and + nausea; no constipation and no diarrhea/loose stools Physical Exam Constitutional: no acute distress and no altered mental status ENMT: external ear and nose normal, oropharynx normal Respiratory: normal respiratory effort, lungs clear to auscultation Cardiovascular: Rate/Rhythm: regular rate and + irregularly irregular Heart Sounds: normal S1 and normal S2; no murmur Vessels: posterior tibial pulses present and dorsalis pedis pulses present; no JVD Extremities: no edema Gastrointestinal (Abdomen): Inspection/Auscultation: abdomen not distended Percussion/Palpation: + abdomen tender (RUQ/epigastric region ) and abdomen soft; no guarding and no hepatosplenomegaly Skin: no rashes, warm and dry Psychiatric: A+Ox3, euthymic affect Results & Data Results & Data ([facility]) Vital Signs (Past 12 Hours) Vital Signs Temp Pulse Pulse Resp BP Pulse Ox 01/28/20 19:27 36.5 C 74 18 122/74 94 01/28/20 15:26 56 L 01/28/20 15:14 36.4 C L 58 L 18 126/65 94 01/28/20 11:28 36.7 C 81 18 117/66 94 01/28/20 09:00 61 Laboratory Results Laboratory Results - last 24 hr 01/28/20 01/28/20 01/28/20 05:44 08:38 08:38 WBC 15.07 H RBC 4.60 L Hgb 14.9 Hct 44.4 MCV 96.5 MCH 32.4 MCHC 33.6 RDW Std Deviation 47.5 H RDW Coeff of Leonel 13.4 Plt Count 271 MPV 8.8 Immature Gran % (Auto) 0.5 Neut % (Auto) 85.0 Lymph % (Auto) 6.3 [place] % (Auto) 7.7 Eos % (Auto) 0.4 Baso % (Auto) 0.1 Neut # (Auto) 12.81 H Lymph # (Auto) 0.95 L [place] # (Auto) 1.16 H Eos # (Auto) 0.06 Baso # (Auto) 0.02 Immature Gran # (Auto) 0.07 H ESR 52 H PT 25.8 H INR 2.6 H Sodium Potassium Chloride Carbon Dioxide Anion Gap BUN Creatinine Est Cr Clr Drug Dosing Est GFR ( Amer) Est GFR (Non-Af Amer) BUN/Creatinine Ratio Glucose Calcium Magnesium Total Bilirubin AST ALT Alkaline Phosphatase Total Protein Albumin Globulin Albumin/Globulin Ratio 01/28/20 08:38 WBC RBC Hgb Hct MCV MCH MCHC RDW Std Deviation RDW Coeff of Leonel Plt Count MPV Immature Gran % (Auto) Neut % (Auto) Lymph % (Auto) [place] % (Auto) Eos % (Auto) Baso % (Auto) Neut # (Auto) Lymph # (Auto) [place] # (Auto) Eos # (Auto) Baso # (Auto) Immature Gran # (Auto) ESR PT INR Sodium 133 L Potassium 3.2 L D Chloride 97 L Carbon Dioxide 28 Anion Gap 7.0 BUN 29 H Creatinine 1.32 Est Cr Clr Drug Dosing 39.2 Est GFR ( Amer) 55.0 Est GFR (Non-Af Amer) 47.5 BUN/Creatinine Ratio 22.2 H Glucose 125 H Calcium 8.9 Magnesium 2.2 Total Bilirubin 1.2 H AST 23 ALT 25 Alkaline Phosphatase 110 Total Protein 7.2 Albumin 2.7 L Globulin 4.5 H Albumin/Globulin Ratio 0.6 L PG Care Time/CCT Total # of Minutes Spent Total Time Spent with Patient: Total time spent is greater than 50% in coordination of care (as documented) at patient's floor/unit and/or counseling patient: Coding Level of Care Code 73158 Subseq Hosp Care Lvl 3 Diagnoses Leukocytosis D72.829 Abdominal pain R10.9 Hyponatremia E87.1 CKD (chronic kidney disease), stage III N18.3 HTN (hypertension) I10 Hypertension type: essential hypertension Permanent atrial fibrillation I48.21 Hypokalemia E87.6 Bradycardia R00.1 Fall W19.XXXA DVT prophylaxis Z29.9 (1) HTN (hypertension) Hypertension type: essential hypertension Qualified Code(s): I10 - Essential (primary) hypertension
[2020-01-29] MEDS ORDERED: PIPERACILL/TAZOBAC CONSULT ACTIVE PRN (00:07)
--- NOTE | 2020-01-29 00:25 | Communication Note ---
Date of Service: January 29, 2020 Was made aware of US [employer] STAT Rad read of concerns for acute gangrenous cholecystitis. Patient is currently resting with comfort. No hypotension, afebrile. He just had late clear liquid dinner. Started Zosyn 4.5gm IV q6H after literature review for treatment options. General surgery consult placed, and patient made NPO. Will follow closely overnight if worsens will call general surgery. Patient made aware of findings and current treatment plan. Will start on IVF NSS @ 120 mL/hr. Resident Activity Tracking Resident Involvement: Resident Care Provided Care Provided: Adult Hospital Medicine
[2020-01-29] MEDS ORDERED: PIPERACILLIN/TAZOBACTAM 3.375 GM in DEXTROSE 5% 100 ML IV ONE (00:30)
[2020-01-29] MEDS ORDERED: SODIUM CHLORIDE 0.9% 1000ML 1,000 ML IV SCH (00:30)
[2020-01-29] MEDS: PIPERACILLIN/TAZOBACTAM 3.375 GM in DEXTROSE 5% 100 ML IV SCH ×3 (05:55→21:20)
--- NOTE | 2020-01-29 07:24 | Ultrasound Report ---
ABDOMINAL ULTRASOUND, RIGHT UPPER QUADRANT HISTORY: epigastric/RUQ pain; emesis; eval cholecystitis. COMPARISON: Abdominal ultrasound 06/29/2017. FINDINGS: Pancreas: Obscured by overlying bowel gas. Liver: Unremarkable. Gallbladder: Small stones and sludge within the gallbladder. There is gallbladder wall with suggestio n of sloughing of the mucosal membranes at the gallbladder fundus. This is concerning for acute gangr enous cholecystitis. CBD: 8 mm in diameter. Right kidney: No hydronephrosis. IMPRESSION: 1. Thickened and abnormal appearing gallbladder wall with suggestion of sloughing of the mucosal memb ranes at the gallbladder fundus. This is concerning for acute gangrenous cholecystitis. 2. Small stones and sludge within the gallbladder. ACT 112: Negative or not required by law. Electronically signed by: Parmjit Torres M.D. 01/29/2020 7:23 AM
[2020-01-29] MEDS ORDERED: PHYTONADIONE 5 MG in SODIUM CHLORIDE 0.9% 50 ML IV ONE (08:15)
--- NOTE | 2020-01-29 08:25 | Surgery Consultation ---
Date of Consultation January 29, 2020 Assessment & Plan (1) Acute cholecystitis: On coumadin for A-fib, INR yesteray 2.6. WBC stable on IV abx. Multiple medical issues, will discuss further with medical service/family to decide between lap salbador vs perc drainage. as above. d/w Dr. Butts...believes pt ok medically for lap salbador. INR today is 3.0. vit K, monitor INR, continue light diet and antibiotics. d/w pt and lap salbador and associated risks.... suspect lap salbador pending INR. pt / agreeable to plan. History of Present Illness Attending Physician: Yayo Samuel History of Present Illness 89 y/o male with c/o weakness, loss of appetite. Has pain after eating. He lives at home, has stair lift. No previous abdominal pain or surgery. Allergies Allergy/AdvReac Type Severity Reaction Status Date / Time No Known Drug Allergies Allergy Unknown Verified 01/27/20 14:37 Home Medications Home Medications Medication Instructions Recorded Confirmed Type Lactobacillus acidoph-L.bulgar 1 4 tab PO QDB tab 03/30/18 01/27/20 History million cell tablet calcium carbonate-vitamin D3 600 1 tab PO DAILY 03/30/18 01/27/20 History mg (1,500 mg)-800 unit tablet flaxseed oil 1,000 mg capsule 1,000 mg PO QAM 03/30/18 01/27/20 History vmmlghyt-xvp-tpsfg acid 0.4 1 tab PO QAM 03/30/18 01/27/20 History mg-lycopene 300 mcg-lutein 250 mcg tablet vitamins A,C,A-pqol-ulcjac 7,160 1 tab PO BID tab 03/30/18 01/27/20 History unit-113 mg-100 unit tablet verapamil 240 mg tablet,extended 240 mg PO Q12H #180 tab 10/17/19 01/27/20 Rx release warfarin 2.5 mg tablet See Rx Instructions PO UD #108 tab 12/29/19 01/27/20 Rx atenolol 25 mg PO QAM 01/27/20 01/27/20 History potassium chloride [Klor-Con M20] 20 meq PO QAM 01/27/20 01/27/20 History triamterene-hydrochlorothiazid 1 tab PO QAM 01/27/20 01/27/20 History [Maxzide] vitamin B complex 1 cap PO BID 01/27/20 01/27/20 History Patient History Medical History Arthritis of multiple sites (Chronic) Bacteremia (Inactive) Chronic anticoagulation (Chronic) CKD (chronic kidney disease), stage III (Chronic) Dyslipidemia (Chronic) HTN (hypertension) (Chronic) Impaired fasting glucose (Chronic) Macular degeneration Osteomyelitis of lumbar vertebra (Chronic) Peripheral neuropathy (Chronic) Permanent atrial fibrillation (Chronic) Vertebral osteomyelitis Surgical History History of colonoscopy History of inguinal hernia repair History of tonsillectomy Family History Father Cardiac failure Mother Colorectal cancer Sister Colorectal cancer Denies family history of Ovarian cancer Prostate cancer Breast cancer Lung cancer Social History Preferred Language: Pashto Communication Ability: Effective Visual Impairment: Limited Hearing Ability: Use of Hearing Aid [employer] Required: No Beliefs That Will Affect Care: None marital status: Current Living Situation: Spouse current occupational status: retired Other Information That Helps Us Care for You: No Feels Safe at Home: Yes Safety Concerns: Feels Safe At This Time Smoking Status: Former smoker Tobacco Type: cigarettes ; Do You Dip or Chew Tobacco: No ; Smoking End Date: "" ; Second Hand Exposure: No ; Hx Alcohol Use: Yes Alcohol type: hard liquor Alcohol Intake Frequency: Rarely Hx Substance Use: No Childhood Exposure to Second-Hand Smoke: No Dental Care, Regularly: Yes Physical Activity Frequency: Daily Seatbelt Use: always Sunscreen Use: Yes Review of Systems Constitutional: no fever and no chills Gastrointestinal: + abdominal pain; no nausea and no vomiting Physical Exam Constitutional: no acute distress Respiratory: normal respiratory effort Cardiovascular: Rate/Rhythm: regular rate Gastrointestinal (Abdomen): Inspection/Auscultation: abdomen not distended and no abdominal surgical scar Percussion/Palpation: + abdomen tender (minimal RUQ) and abdomen soft Results & Data Vital Signs (Past 12 Hours) Vital Signs Temp Pulse Pulse Resp BP Pulse Ox 01/29/20 07:36 63 01/29/20 07:17 36.5 C 63 16 123/74 92 01/29/20 06:44 60 01/29/20 04:32 36.5 C 69 20 141/75 H 95 01/28/20 22:41 36.5 C 90 18 141/73 H 94 PG Care Time/CCT Total # of Minutes Spent Total Time Spent with Patient: Total time spent is greater than 50% in coordination of care (as documented) at patient's floor/unit and/or counseling patient: Coding Level of Care Code 21935 Initial Inpt Care Lvl 3 Diagnoses Acute cholecystitis K81.0
[2020-01-29 08:48] LABS: Basophils # (auto) 0.01 K/uL (0-0.2); Basophils % (auto) 0.1 %; Eosinophils # (auto) 0.12 K/uL (0-0.5); Hematocrit (blood only) 39.9 % (42-52); Hemoglobin 13.8 g/dL (14.0-18.0); Immature Granulocytes # (auto) 0.08 K/uL (0.00-0.02); Immature Granulocytes % (auto) 0.6 %; Lymphocytes % (auto) 7.9 %; Mean Corpuscular Hemoglobin 32.5 pg (25-34); Mean Corpuscular Hgb Conc 34.6 g/dL (32-36); Mean Corpuscular Volume 94.1 fL (80-100); Mean Platelet Volume 8.6 fL (7.4-10.4); Monocytes # (auto) 1.37 K/uL (0.11-0.59); Monocytes % (auto) 10.9 %; Neutrophils # (auto) 10.03 K/uL (1.4-6.5); Neutrophils % (auto) 79.5 %; Platelet Count 223 K/uL (130-400); RDW Coefficient of Variation 13.3 % (11.5-14.5); RDW Standard Deviation 45.8 fL (36.4-46.3); Red Blood Count 4.24 M/uL (4.7-6.1); White Blood Count 12.61 K/uL (4.8-10.8)
[2020-01-29 09:00] LABS: Prothrombin Time 29.9 Seconds (9.0-12.0)
[2020-01-29] MEDS: CEROVITE ADV FORMULA TAB PO SCH (09:10)
[2020-01-29] MEDS: CALCIUM 600MG + VIT D 400 IU TAB PO SCH (09:10)
[2020-01-29] MEDS: PANTOprazole 40 MG TAB PO SCH (09:10)
[2020-01-29] MEDS: VITAMIN B COMPLEX TAB PO SCH ×2 (09:10→21:21)
[2020-01-29] MEDS: LACTOBACILLUS ACIDOPHILUS (FLORANEX) TAB PO SCH (09:10)
[2020-01-29] MEDS: VERAPAMIL HCL 120 MG TABCR PO SCH ×2 (09:11→21:21)
[2020-01-29] MEDS: POTASSIUM CHLORIDE 20 MEQ TABCR PO SCH ×3 (09:11→21:21)
[2020-01-29 09:20] LABS: Albumin Level 2.2 gm/dl (3.4-5.0); BUN Creatinine Ratio 19.5 (10-20); Calcium 8.2 mg/dl (8.5-10.1); Est GFR (Non-African American) 61.2; Potassium 3.2 mmol/L (3.5-5.1)
[2020-01-29 09:22] LABS: Albumin Globulin Ratio 0.6 (0.9-2); Globulin 3.9 gm/dl (2.5-4.0); Total Protein 6.1 gm/dl (6.4-8.2)
[2020-01-29] MEDS: NSS + 20MEQ KCL 20 MEQ/1,000 ML BAG IV SCH (17:11)
--- NOTE | 2020-01-29 21:26 | Hospitalist Progress Note ---
Date of Service January 29, 2020 Assessment & Plan (1) Acute cholecystitis: likely cause of his illness at home (emesis, Poor PO intake, abd pain, etc). gen surg consulted; lap salbador this week. reverse coumadin with vitamin K. ok for clears per gen surg. cont IV zosyn. blood cx's thus far neg. if any rise in bili - MRCP. (2) Hyponatremia: Improving with saline hydration. HCTZ has been stopped. Hypovolemic hyponatremia. Repeat BMP am. Cont NS hydration gently. (3) CKD (chronic kidney disease), stage III: BMP stable. BMP again in am. (4) HTN (hypertension): Due to bradycardia and electrolytes abnormalities his HCTZ has been stopped, atenolol has been stopped, and verapamil dose has been decreased by 50%. BPS stable with these changes. (5) Permanent atrial fibrillation: See above in "HTN" rates acceptable overnight (6) Hypokalemia: replace repeat BMP am mag normal (7) Bradycardia: likely combination of BB use and CCB use atenolol on hold verapamil dose decreased by 50% rates much improved and stable TSH noted to be normal (8) Fall: likely multifactorial (brewing cholecystitis, hyponatremia, bradycardia, etc) CT head neg PT, OT evals requested (9) DVT prophylaxis: coumadin (but being reversed for upcoming lap salbador) COVID-19 test sent - will need for OR updated by phone today Admission and Anticipated Discharge Date Admission Date: January 27, 2020 Subjective minimal upper abdominal discomfort denies nausea or emesis had 1 liquid BM during his GB u/s last night none since tolerating clears tele stable overnight feeling overall pretty good Review of Systems Constitutional: no fever, no chills and no body aches Respiratory: no dyspnea Cardiovascular: no chest pain Physical Exam Constitutional: no acute distress and no altered mental status ENMT: external ear and nose normal, oropharynx normal Respiratory: normal respiratory effort, lungs clear to auscultation Cardiovascular: Rate/Rhythm: regular rate and + irregularly irregular Heart Sounds: normal S1 and normal S2; no murmur Vessels: posterior tibial pulses present and dorsalis pedis pulses present; no JVD Extremities: no edema Gastrointestinal (Abdomen): Inspection/Auscultation: abdomen not distended Percussion/Palpation: + abdomen tender (RUQ/epigastric region - minimal ) and abdomen soft; no guarding and no hepatosplenomegaly Skin: no rashes, warm and dry Psychiatric: A+Ox3, euthymic affect Results & Data Results & Data ([facility]) Vital Signs (Past 12 Hours) Vital Signs Temp Pulse Resp BP Pulse Ox 01/29/20 19:35 36.6 C 56 L 18 158/72 H 95 01/29/20 15:21 36.7 C 68 18 136/69 98 01/29/20 11:22 36.3 C L 60 16 123/73 97 01/29/20 10:14 36.6 C 63 18 153/85 H 97 01/29/20 09:57 36.5 C 62 18 152/77 H 94 01/29/20 09:40 36.7 C 62 18 137/74 97 Laboratory Results Laboratory Results - last 24 hr 01/29/20 01/29/20 01/29/20 08:34 08:34 08:34 WBC 12.61 H RBC 4.24 L Hgb 13.8 L Hct 39.9 L MCV 94.1 MCH 32.5 MCHC 34.6 RDW Std Deviation 45.8 RDW Coeff of Leonel 13.3 Plt Count 223 MPV 8.6 Immature Gran % (Auto) 0.6 Neut % (Auto) 79.5 Lymph % (Auto) 7.9 Kings % (Auto) 10.9 Eos % (Auto) 1.0 Baso % (Auto) 0.1 Neut # (Auto) 10.03 H Lymph # (Auto) 1.00 L Kings # (Auto) 1.37 H Eos # (Auto) 0.12 Baso # (Auto) 0.01 Immature Gran # (Auto) 0.08 H PT 29.9 H INR 3.0 H Sodium 134 L Potassium 3.2 L Chloride 99 Carbon Dioxide 28 Anion Gap 7.0 BUN 21 H Creatinine 1.07 Est Cr Clr Drug Dosing 48.0 Est GFR ( Amer) 71.0 Est GFR (Non-Af Amer) 61.2 BUN/Creatinine Ratio 19.5 Glucose 98 Calcium 8.2 L Total Bilirubin 1.0 AST 20 ALT 21 Alkaline Phosphatase 90 Total Protein 6.1 L Albumin 2.2 L Globulin 3.9 Albumin/Globulin Ratio 0.6 L Lipase SARS-CoV-2 RNA (RT-PCR) 01/29/20 01/29/20 08:34 16:55 WBC RBC Hgb Hct MCV MCH MCHC RDW Std Deviation RDW Coeff of Leonel Plt Count MPV Immature Gran % (Auto) Neut % (Auto) Lymph % (Auto) Kings % (Auto) Eos % (Auto) Baso % (Auto) Neut # (Auto) Lymph # (Auto) Kings # (Auto) Eos # (Auto) Baso # (Auto) Immature Gran # (Auto) PT INR Sodium Potassium Chloride Carbon Dioxide Anion Gap BUN Creatinine Est Cr Clr Drug Dosing Est GFR ( Amer) Est GFR (Non-Af Amer) BUN/Creatinine Ratio Glucose Calcium Total Bilirubin AST ALT Alkaline Phosphatase Total Protein Albumin Globulin Albumin/Globulin Ratio Lipase 200 SARS-CoV-2 RNA (RT-PCR) Pending PG Care Time/CCT Total # of Minutes Spent Total Time Spent with Patient: Total time spent is greater than 50% in coordination of care (as documented) at patient's floor/unit and/or counseling patient: Coding Level of Care Code 82846 Subseq Hosp Care Lvl 2 Diagnoses Acute cholecystitis K81.0 Hyponatremia E87.1 CKD (chronic kidney disease), stage III N18.3 HTN (hypertension) I10 Hypertension type: essential hypertension Permanent atrial fibrillation I48.21 Hypokalemia E87.6 Bradycardia R00.1 Fall W19.XXXA DVT prophylaxis Z29.9 (1) HTN (hypertension) Hypertension type: essential hypertension Qualified Code(s): I10 - Essential (primary) hypertension
[2020-01-30] MEDS: PIPERACILLIN/TAZOBACTAM 3.375 GM in DEXTROSE 5% 100 ML IV SCH ×3 (06:10→21:43)
[2020-01-30] MEDS: NSS + 20MEQ KCL 20 MEQ/1,000 ML BAG IV SCH ×2 (06:11→18:28)
[2020-01-30 08:50] LABS: Basophils # (auto) 0.01 K/uL (0-0.2); Basophils % (auto) 0.1 %; Eosinophils # (auto) 0.15 K/uL (0-0.5); Eosinophils % (auto) 1.3 %; Hematocrit (blood only) 41.1 % (42-52); Hemoglobin 14.2 g/dL (14.0-18.0); Immature Granulocytes # (auto) 0.11 K/uL (0.00-0.02); Immature Granulocytes % (auto) 0.9 %; Lymphocytes # (auto) 1.05 K/uL (1.2-3.4); Lymphocytes % (auto) 8.9 %; Mean Corpuscular Hemoglobin 32.6 pg (25-34); Mean Corpuscular Hgb Conc 34.5 g/dL (32-36); Mean Corpuscular Volume 94.5 fL (80-100); Mean Platelet Volume 8.6 fL (7.4-10.4); Monocytes # (auto) 1.22 K/uL (0.11-0.59); Monocytes % (auto) 10.3 %; Neutrophils % (auto) 78.5 %; Platelet Count 263 K/uL (130-400); RDW Coefficient of Variation 13.1 % (11.5-14.5); RDW Standard Deviation 45.5 fL (36.4-46.3); Red Blood Count 4.35 M/uL (4.7-6.1); White Blood Count 11.84 K/uL (4.8-10.8)
[2020-01-30] MEDS: CEROVITE ADV FORMULA TAB PO SCH (08:51)
[2020-01-30] MEDS: LACTOBACILLUS ACIDOPHILUS (FLORANEX) TAB PO SCH (08:51)
[2020-01-30] MEDS: VERAPAMIL HCL 120 MG TABCR PO SCH ×2 (08:51→20:51)
[2020-01-30] MEDS: VITAMIN B COMPLEX TAB PO SCH ×2 (08:52→20:52)
[2020-01-30] MEDS: POTASSIUM CHLORIDE 20 MEQ TABCR PO SCH ×3 (08:52→20:52)
[2020-01-30] MEDS: PANTOprazole 40 MG TAB PO SCH (08:52)
[2020-01-30] MEDS: CALCIUM 600MG + VIT D 400 IU TAB PO SCH (08:52)
[2020-01-30 09:04] LABS: INR 1.4 (0.9-1.1); Prothrombin Time 14.1 Seconds (9.0-12.0)
[2020-01-30 09:28] LABS: Albumin Level 2.5 gm/dl (3.4-5.0); BUN Creatinine Ratio 14.4 (10-20); Calcium 8.4 mg/dl (8.5-10.1); Creatinine Clr Calc Pharmacy 47.9 ml/min; Est GFR (African American) 70.2; Est GFR (Non-African American) 60.5; Potassium 3.6 mmol/L (3.5-5.1)
[2020-01-30 09:32] LABS: Albumin Globulin Ratio 0.6 (0.9-2); Bilirubin,Total 1.6 mg/dl (0.2-1); Globulin 4.1 gm/dl (2.5-4.0); Total Protein 6.6 gm/dl (6.4-8.2)
--- NOTE | 2020-01-30 11:24 | Surgery Progress Note ---
Date of Service January 30, 2020 Assessment & Plan (1) Acute cholecystitis: INR down to 1.4 today...can proceed with lap salbador tomorrow. discussed options/risks ( bleeding/infection/dvt/pe/mi/cva/injury to bile duct or other organs, bile leaks etc...) questions answered. will proceed with lap/poss open cholecystectomy tomorrow (2) Right knee pain: will obtain xray of right knee/tibial platuea. Subjective pt feeling ok...does have a dull ache in epigastric region. nausea improved. also mentions he fell at home over a week ago..now having some right knee, tibial pain that has not resolved... Physical Exam Physical Exam: alert. nad. abd: soft. +epigastric ttp. no g/r/r right knee slightly swollen. several skin breaks. no redness or warmth. Results & Data Vital Signs (Past 12 Hours) Vital Signs Temp Pulse Pulse Pulse Resp BP Pulse Ox 01/30/20 11:13 36.5 C 63 20 133/76 98 01/30/20 07:34 63 01/30/20 07:11 36.9 C 69 19 145/88 H 97 01/30/20 03:16 37.1 C 58 L 18 134/79 96 01/30/20 00:00 67 PG Care Time/CCT Total # of Minutes Spent Total Time Spent with Patient: Total time spent is greater than 50% in coordination of care (as documented) at patient's floor/unit and/or counseling patient: Coding Level of Care Code 90232 Subseq Hosp Care Lvl 3 Diagnoses Acute cholecystitis K81.0 Right knee pain M25.561
--- NOTE | 2020-01-30 11:40 | XRay Report ---
XR knee RT 3V CLINICAL HISTORY: right knee pain s/p fall COMPARISON: None. DISCUSSION: No acute fractures are visualized. There are advanced osteoarthritic changes most pronoun abelino in the medial joint compartment and patellofemoral joint. There is a probable small loose bodies. There is a suprapatellar joint effusion. There are moderate vascular calcifications IMPRESSION: 1. Moderately advanced osteoarthritic change 2. No acute fractures identified 3. Joint effusion ACT 112: Negative or not required by law. Electronically signed by: Almas Davis M.D. 01/30/2020 11:39 AM
[2020-01-31] MEDS: PIPERACILLIN/TAZOBACTAM 3.375 GM in DEXTROSE 5% 100 ML IV SCH ×3 (06:14→21:41)
[2020-01-31 06:20] LABS: Hematocrit (blood only) 38.2 % (42-52); Hemoglobin 13.4 g/dL (14.0-18.0); Mean Corpuscular Hemoglobin 33.3 pg (25-34); Mean Corpuscular Hgb Conc 35.1 g/dL (32-36); Mean Corpuscular Volume 94.8 fL (80-100); Mean Platelet Volume 8.4 fL (7.4-10.4); Platelet Count 243 K/uL (130-400); RDW Coefficient of Variation 13.3 % (11.5-14.5); RDW Standard Deviation 46.1 fL (36.4-46.3); Red Blood Count 4.03 M/uL (4.7-6.1); White Blood Count 10.06 K/uL (4.8-10.8)
[2020-01-31 06:29] LABS: INR 1.4 (0.9-1.1); Prothrombin Time 14.5 Seconds (9.0-12.0)
[2020-01-31 06:55] LABS: Albumin Level 2.3 gm/dl (3.4-5.0); BUN Creatinine Ratio 11.3 (10-20); Calcium 8.2 mg/dl (8.5-10.1); Creatinine Clr Calc Pharmacy 50.2 ml/min; Est GFR (African American) 74.3; Est GFR (Non-African American) 64.1; Potassium 3.8 mmol/L (3.5-5.1)
[2020-01-31 06:57] LABS: Albumin Globulin Ratio 0.6 (0.9-2); Bilirubin,Total 1.4 mg/dl (0.2-1); Total Protein 6.3 gm/dl (6.4-8.2)
--- NOTE | 2020-01-31 07:13 | Hospitalist Progress Note ---
Date of Service January 30, 2020 Assessment & Plan (1) Acute cholecystitis: likely cause of his illness at home (emesis, Poor PO intake, abd pain, etc). gen surg consulted; lap salbador tomorrow. reversed coumadin with vitamin K. INR 1.4 today. repeat INR in am. cont clears per gen surg. cont IV zosyn. blood cx's thus far neg. if any further rise in bili - MRCP? intra-op cholangiogram? (2) Hyponatremia: Improved with saline hydration. HCTZ has been stopped. Repeat BMP am. Cont NS hydration gently. (3) CKD (chronic kidney disease), stage III: BMP stable. BMP again in am. (4) HTN (hypertension): Due to bradycardia and electrolytes abnormalities his HCTZ has been stopped, atenolol has been stopped, and verapamil dose has been decreased by 50%. BPS cont to be stable with these changes. (5) Permanent atrial fibrillation: See above in "HTN" rates acceptable overnight coumadin on hold (6) Hypokalemia: replaced and resolved repeat BMP am mag normal (7) Bradycardia: likely combination of BB use and CCB use atenolol on hold verapamil dose decreased by 50% rates much improved and stable TSH noted to be normal (8) Fall: likely multifactorial (brewing cholecystitis, hyponatremia, bradycardia, etc) CT head neg PT, OT evals requested knee x-rays today without fracture (9) DVT prophylaxis: coumadin (but reversed for upcoming lap salbador) COVID-19 test sent - will need for OR and/or rehab post-discharge updated at bedside today Admission and Anticipated Discharge Date Admission Date: January 27, 2020 Subjective no events overnight feeling about the same abdominal discomfort is very mild/scant tolerating clears however at bedside - she is pleased with his mentation and his overall appearance she is aware of lap salbador tomorrow Review of Systems Constitutional: no fever and no chills Respiratory: no cough and no dyspnea Cardiovascular: no chest pain Gastrointestinal: + diarrhea/loose stools; no nausea and no vomiting Physical Exam Constitutional: no acute distress and no altered mental status ENMT: external ear and nose normal, oropharynx normal Respiratory: normal respiratory effort, lungs clear to auscultation Auscultation: + diminished lung sounds (Modest - bases ) Cardiovascular: Rate/Rhythm: regular rate and + irregularly irregular Heart Sounds: normal S1 and normal S2; no murmur Vessels: posterior tibial pulses present and dorsalis pedis pulses present; no JVD Extremities: no edema Gastrointestinal (Abdomen): Inspection/Auscultation: abdomen not distended Percussion/Palpation: + abdomen tender (Scant - epigastric region) and abdomen soft; no guarding and no hepatosplenomegaly Skin: no rashes, warm and dry Psychiatric: A+Ox3, euthymic affect Results & Data Results & Data ([facility]) Vital Signs (Past 12 Hours) Vital Signs Temp Pulse Resp BP Pulse Ox 01/31/20 02:51 36.6 C 58 L 18 135/81 96 01/30/20 22:00 37.0 C 63 20 148/80 H 97 01/30/20 19:42 36.8 C 79 18 131/79 96 Laboratory Results WBC 11 Cr wnl t. bili 1.6 other LFTs wnl PG Care Time/CCT Total # of Minutes Spent Total Time Spent with Patient: Total time spent is greater than 50% in coordination of care (as documented) at patient's floor/unit and/or counseling patient: Coding Level of Care Code 60204 Subseq Hosp Care Lvl 2 Diagnoses Acute cholecystitis K81.0 Hyponatremia E87.1 CKD (chronic kidney disease), stage III N18.3 HTN (hypertension) I10 Hypertension type: essential hypertension Permanent atrial fibrillation I48.21 Hypokalemia E87.6 Bradycardia R00.1 Fall W19.XXXD Encounter type: subsequent encounter DVT prophylaxis Z29.9 (1) HTN (hypertension) Hypertension type: essential hypertension Qualified Code(s): I10 - Essential (primary) hypertension (2) Fall Encounter type: subsequent encounter Qualified Code(s): W19.XXXD - Unspecified fall, subsequent encounter
[2020-01-31] MEDS ORDERED: LIDOCAINE HCL 2% 2 ML VIAL/AMP(20MG/ML) INFIL ONE (07:41)
[2020-01-31] MEDS ORDERED: PROPOFOL IV EMULSION 10 MG/ML 20 ML VIAL IV ONE (07:41)
[2020-01-31] MEDS ORDERED: ONDANSETRON INJ 2 MG/ML 2 ML VIAL ONE (07:41)
[2020-01-31] MEDS ORDERED: fentaNYL citrate 100 MCG/2 ML VIAL ONE (07:41)
[2020-01-31] MEDS ORDERED: ROCURONIUM BROMIDE 10 MG/ML 5 ML VIAL IV ONE (07:41)
[2020-01-31] MEDS: NSS + 20MEQ KCL 20 MEQ/1,000 ML BAG IV SCH (07:56)
[2020-01-31] MEDS ORDERED: BUPIVACAINE 0.5 % 5 MG/1 ML MPF 30ML VIAL ONE (09:00)
[2020-01-31] MEDS ORDERED: EPINEPHrine INJ 1 MG/ML AMP ONE (09:00)
[2020-01-31] MEDS ORDERED: ONDANSETRON INJ 2 MG/ML 2 ML VIAL IV PRN (10:39)
[2020-01-31] MEDS ORDERED: ATROPINE SULFATE 0.1 MG/ML 10ML SYR IV PRN (10:39)
[2020-01-31] MEDS ORDERED: ePHEDrine sulfate 50 MG/ML AMP IV PRN (10:39)
--- NOTE | 2020-01-31 10:39 | Anesthesiology Consultation ---
Date of Service January 31, 2020 Assessment & Plan (1) Encounter for pre-operative examination: Chart Review Chart Review: Acceptable Risk for Surgery and Patient NOT seen in Pre Admission Testing Consults Requested none ASA ASA3 Proposed Anesthesia Anesthesia Type: General Risk / Benefits Reviewed With: PT / POA / Parent / Guardian, Accepts Plan and In formed Consent Obtained History Surgery Operation Date: 01/31/20 10:30 Proposed Procedures p Laparoscopic Cholecystectomy, Possible Cholangiogram - Melvin Reyes, DO Height/Weight Height: 5 ft 10 in Weight: 86.3 kg Allergies Allergy/AdvReac Type Severity Reaction Status Date / Time No Known Drug Allergies Allergy Unknown Verified 01/27/20 14:37 Medications Home Medications Medication Instructions Recorded Confirmed Last Taken Lactobacillus acidoph-L.bulgar 1 4 tab PO QDB tab 03/30/18 01/27/20 01/27/20 million cell tablet calcium carbonate-vitamin D3 600 1 tab PO DAILY 03/30/18 01/27/20 01/27/20 mg (1,500 mg)-800 unit tablet flaxseed oil 1,000 mg capsule 1,000 mg PO QAM 03/30/18 01/27/20 01/27/20 oferlvft-vfw-xemfl acid 0.4 1 tab PO QAM 03/30/18 01/27/20 01/27/20 mg-lycopene 300 mcg-lutein 250 mcg tablet vitamins A,C,V-ufnh-veiwgz 7,160 1 tab PO BID tab 03/30/18 01/27/20 01/27/20 unit-113 mg-100 unit tablet verapamil 240 mg tablet,extended 240 mg PO Q12H #180 tab 10/17/19 01/27/20 01/27/20 release warfarin 2.5 mg tablet See Rx Instructions PO UD #108 tab 12/29/19 01/27/20 01/26/20 atenolol 25 mg PO QAM 01/27/20 01/27/20 01/27/20 potassium chloride [Klor-Con M20] 20 meq PO QAM 01/27/20 01/27/20 01/27/20 triamterene-hydrochlorothiazid 1 tab PO QAM 01/27/20 01/27/20 01/27/20 [Maxzide] vitamin B complex 1 cap PO BID 01/27/20 01/27/20 01/27/20 Active Medications Generic Name Dose Route Start Last Admin Trade Name Katt PRN Reason Stop Dose Admin Piperacillin Sod/Tazobactam 115 mls @ 28.75 mls/hr 01/29/20 06:00 01/31/20 10:08 Sod 3.375 gm/ Dextrose IV 02/08/20 05:59 Infused Q8H [facility]OSSMAN Infusion Protocol Potassium Chloride/Sodium Chloride 20 meq in 1,000 mls @ 75 mls/hr 01/29/20 16:30 01/31/20 07:56 Normal Saline W/20 Meq Kcl IV 02/28/20 16:29 75 mls/hr .[id number] BOSSMAN Administration Lactobacillus Acidophilus 4 tab 01/28/20 07:30 01/30/20 08:51 Floranex PO 02/27/20 07:29 4 tab QDB BOSSMAN Administration Multivitamins/Minerals 1 tab 01/28/20 09:00 01/30/20 08:52 Caltrate Plus PO 02/27/20 08:59 1 tab DAILY BOSSMAN Administration Multivitamins/Minerals 1 tab 01/28/20 09:00 01/30/20 08:51 Multivitamin W/ Minerals Tab PO 02/27/20 08:59 1 tab QAM [facility]SMAN Administration Pantoprazole Sodium 40 mg 01/28/20 14:00 01/30/20 08:52 Protonix PO 02/27/20 13:59 40 mg QAM [facility]SMAN Administration Potassium Chloride 20 meq 01/28/20 14:00 01/30/20 20:52 Klor-Con M20 PO 02/27/20 13:59 20 meq TID [facility]SMAN Administration Verapamil HCl 120 mg 01/27/20 20:00 01/30/20 20:51 Calan Sr PO 02/26/20 19:59 120 mg Q12H BOSSMAN Administration Vitamin B Complex 1 tab 01/27/20 21:00 01/30/20 20:52 Vitamin B Complex PO 02/26/20 20:59 1 tab BID [facility]SMAN Administration Warfarin Sodium 2.5 mg 01/27/20 20:00 01/28/20 15:30 Coumadin PO 02/26/20 19:59 2.5 mg [id number] BOSSMAN Administration NPO Date Last Intake of Fluids: 01/30/20 Time Last Intake of Fluids: 20:00 Date Last Intake of Solids: 01/29/20 Past Medical History Medical History Arthritis of multiple sites (Chronic) Bacteremia (Inactive) Chronic anticoagulation (Chronic) CKD (chronic kidney disease), stage III (Chronic) Dyslipidemia (Chronic) HTN (hypertension) (Chronic) Impaired fasting glucose (Chronic) Macular degeneration Osteomyelitis of lumbar vertebra (Chronic) Peripheral neuropathy (Chronic) Permanent atrial fibrillation (Chronic) Vertebral osteomyelitis Exercise / Class Metabolic Activity II 4-5 Yardwork/Stairs/Walk up hill Past Family History Family History Father Cardiac failure Mother Colorectal cancer Sister Colorectal cancer Denies family history of Ovarian cancer Prostate cancer Breast cancer Lung cancer Past Surgical History Surgical History History of colonoscopy History of inguinal hernia repair History of tonsillectomy Past Anesthesia History No Hx of Anesthesia Complications and No Family Hx of Anesthesia Complications History of PONV No Hx of PONV and No Hx of Motion Sickness Social History Smoking Status: Former smoker tobacco type: cigarettes Do You Dip or Chew Tobacco: No Smoking End Date: "" Hx Alcohol Use: Yes Alcohol type: hard liquor Hx Substance Use: No Physical Exam Vital Signs Last Vital Signs Temp 36.7 C 01/31/20 10:21 Pulse 66 01/31/20 10:21 Resp 18 01/31/20 10:21 BP 153/82 H 01/31/20 10:21 Pulse Ox 98 01/31/20 10:21 ENMT Mouth: no dentition abnormality Thyromental Distance: > or= 3.5 Finger Breadths Mallampati Class: II Neck normal visual inspection Respiratory normal respiratory effort Auscultation: lungs clear to auscultation bilaterally Cardiovascular Rate/Rhythm: regular rate and regular rhythm Psychiatric Orientation: alert Testing Laboratory Results 01/31/20 05:55 01/31/20 05:55 PT 14.5 Seconds (9.0-12.0) H 01/31/20 05:55 INR 1.4 (0.9-1.1) H 01/31/20 05:55 Urine Color Yellow 01/27/20 15:30 Urine Appearance Clear (Clear) 01/27/20 15:30 Urine pH 5.5 (4.5-7.5) 01/27/20 15:30 Ur Specific [place] 1.013 (1.000-1.030) 01/27/20 15:30 Urine Protein 1+ (Negative) H 01/27/20 15:30 Urine Glucose (UA) Negative (Negative) 01/27/20 15:30 Urine Ketones Negative (Negative) 01/27/20 15:30 Urine Nitrite Negative (Negative) 01/27/20 15:30 Ur Leukocyte Esterase Negative (Negative) 01/27/20 15:30 Urine WBC (Auto) 1-5 /hpf (0-5) 01/27/20 15:30 Urine RBC (Auto) 5-10 /hpf (0-4) H 01/27/20 15:30 U Hyaline Cast (Auto) 1-5 /lpf (0-5) 01/27/20 15:30 U Epithel Cells (Auto) 0-5 /lpf (0-5) 01/27/20 15:30 Urine Bacteria (Auto) Negative (Negative) 01/27/20 15:30 01/28/20 08:38 Aerobic Blood Culture - Preliminary Blood No growth in Aerobic bottle after 48 hours. Anaerobic Blood Culture - Preliminary No growth in Anaerobic bottle after 48 hours. 01/28/20 08:55 Aerobic Blood Culture - Preliminary Blood No growth in Aerobic bottle after 48 hours. Anaerobic Blood Culture - Preliminary No growth in Anaerobic bottle after 48 hours.
--- NOTE | 2020-01-31 10:41 | History & Physical Bridge Note ---
Date of Service January 31, 2020 History & Physical Bridge Note I have examined the patient, reviewed the History & Physical and in the interval since the performance of the History & Physical I have noted the following changes of clinical significance: no changes noted
[2020-01-31] MEDS ORDERED: CEFAZOLIN 250 MG/ML 1 GM VIAL ONE (11:07)
[2020-01-31] MEDS ORDERED: ESMOLOL HCL INJ 10 MG/ML 10ML VIAL IV ONE (11:19)
[2020-01-31] MEDS ORDERED: CEFAZOLIN 2000MG 2,000 MG/15 ML SYR IV ONE (11:37)
[2020-01-31] MEDS ORDERED: NEOSTIGMINE METHYLSULFATE 5 MG/5 ML SYR ONE (12:50)
[2020-01-31] MEDS ORDERED: GLYCOPYRROLATE 0.2 MG/ML VIAL ONE (12:50)
--- NOTE | 2020-01-31 13:02 | Operative Report ---
PG Post Operative Report Pre & Post Diagnosis Operation Date: 01/31/20 10:30 Pre-Op Diagnosis: Acute cholecystits Post-Op Diagnosis: Acute cholecystits I identified the patient and participated in the time-out.: Yes Procedure Operation Date: 01/31/20 10:30 Actual Procedures p Laparoscopic Cholecystectomy - Melvin Reyes DO Surgeon Melvin Reyes DO [employer] Sheets Supervisor mary Tafoya Estimated Blood Loss 40 Findings Consistent with Post-Op Diagnosis Specimens gallbladder Drains SHELL into RUQ Description of Procedure After informed consent was obtained the patient was taken to the operating room and placed in supine position. After successful intubation the abdomen was ster ilely prepped and draped in usual fashion. A supraumbilical incision was made with an 11 blade scalpel and carried down through the soft tissue using cautery. The anterior rectus fascia was opened using cautery and two #0 Vicryl stay sutures were placed. Peritoneum was entered using blunt finger penetration and a finger sweep was performed. A 12 mm Johnson trocar was placed and the abdomen was insufflated to 18 mmHg. Laparoscope was inserted and the abdomen was examined in 360 degrees. A subxiphoid 5 mm port which would later be changed to a 12 mm port was placed, 2 right upper quadrant 5 mm ports were placed under direct vision as well. The patient was placed in reverse Trendelenburg position and airplaned to the left. The omentum and colon were adherent to the gallbladder itself. Once we peeled the omentum off the dome of the gallbladder it exposed perforated gallbladder wall near the dome with gelatinous, necrotic tissue. There was already stones, sludge and bile contained within the omentum/gallbladder lumen. The gallbladder was completely gangrenous and the top half of the gallbladder was almost a gelatinous type of infarcted serosa and mucosa. There were stones and bile in the right upper quadrant which we immediately suctioned out. The dissection was quite tedious. We were able to slowly dissect the colon as well as duodenum off of the gallbladder. I gently p eeled it up with blunt dissection. We were able to grasp and elevate the gallbladder superiorly and laterally. I continued to slowly dissect down the neck of the gallbladder... Because of the necrotic nature of the gallbladder I was unable to completely delineate the cystic artery and cystic duct. I was able to come around behind the actual neck of the gallbladder with a right angle clamp. I then used a SEBAS 60 mm brown stapler to transect the cystic artery and neck of the gallbladder with 1 cartridge. After this I was able to use primarily blunt dissection with small amounts of cautery to take the gallbladder off of the liver bed. Again part of the back wall of the gallbladder remained because of its prior perforation. Once we had a gallbladder off of the gallbladder fossa I placed it into an Endo Catch bag and removed it from the camera port site. Next we spent quite some time suctioning out any sludge and stones that had spilled as well as bile blood and debris. Multiple bags of irrigant were used to irrigate the right upper quadrant until the irrigant was clear. A quick look around the abdomen showed no other gross abnormalities. A 10 flat Josue-Burgos drain was placed into the right upper quadrant and pulled out 1 of the 5 mm trochars and secured to the skin using 0 Vicryl. The trochars were all removed and the abdomen desufflated. The fascia of the camera port was closed using 0 Vicryl in a [id number] fashion. The wounds were all irrigated and closed using 4-0 Monocryl. Marcaine was injected around the incisions for postoperative analgesia and skin glue used as a dressing. Patient was awakened extubated and transferred recovery stable condition. My physician addictions counselor assistant was present for the entire case. She helped prep the patient. She helped with exposure throughout my dissection as well as with wound closure and dressing placement. I attest to the content of the Intraoperative Record and any orders documented therein. Any exceptions are noted below.
[2020-01-31] MEDS: fentaNYL citrate 100 MCG/2 ML VIAL IV PRN ×2 (13:06→13:11)
--- NOTE | 2020-01-31 13:50 | Anesthesiology Progress Note ---
Date of Service January 31, 2020 Anesthesia Post Procedure Vital Signs Vital Signs: Temp Pulse Pulse Pulse Resp BP Pulse Ox 01/31/20 13:30 36.6 C 78 18 116/59 L 97 01/31/20 13:20 80 18 125/68 98 01/31/20 13:10 80 20 129/71 95 01/31/20 13:03 36.4 C L 87 16 136/85 96 01/31/20 10:21 36.7 C 66 18 153/82 H 98 01/31/20 08:16 153/78 H 01/31/20 07:50 36.7 C 65 17 177/54 H 98 01/31/20 07:28 70 01/31/20 02:51 36.6 C 58 L 18 135/81 96 01/30/20 22:00 37.0 C 63 20 148/80 H 97 01/30/20 19:42 36.8 C 79 18 131/79 96 01/30/20 15:00 57 L 01/30/20 14:31 36.6 C 58 L 20 136/79 95 Pain Intensity Abdomen: Pain Intensity: 5 Bilateral Generalized: Pain Intensity: 5 Transfer of Care Handoff Completed per policy Notes Mental Status: alert / awake / arousable Patient Amnestic to Procedure: Yes Nausea / Vomiting: adequately controlled Pain: adequately controlled Airway Patency, RR, SpO2: stable & adequate BP & HR: stable & adequate Hydration State: stable & adequate Anesthetic Complications: no major complications apparent
[2020-01-31] MEDS ORDERED: HYDROCODONE/ACETAMOPHEN 5/325MG TAB PO PRN ×2 (13:55)
[2020-01-31] MEDS ORDERED: MoRPHine SULFATE 4 MG/ML 1 ML CARP\\VIAL IV PRN (13:55)
[2020-01-31] MEDS ORDERED: MoRPHine SULFATE 2 MG/ML CARP IV PRN (13:55)
[2020-01-31] MEDS: LACTOBACILLUS ACIDOPHILUS (FLORANEX) TAB PO SCH (14:12)
[2020-01-31] MEDS: CALCIUM 600MG + VIT D 400 IU TAB PO SCH (14:13)
[2020-01-31] MEDS: VITAMIN B COMPLEX TAB PO SCH ×2 (14:13→21:42)
[2020-01-31] MEDS: CEROVITE ADV FORMULA TAB PO SCH (14:13)
[2020-01-31] MEDS: POTASSIUM CHLORIDE 20 MEQ TABCR PO SCH ×3 (14:13→21:42)
[2020-01-31] MEDS: LACTATED RINGER'S 1,000 ML IV SCH ×2 (14:14→21:40)
[2020-01-31] MEDS: PANTOprazole 40 MG TAB PO SCH (14:19)
[2020-01-31] MEDS: VERAPAMIL HCL 120 MG TABCR PO SCH ×2 (14:19→21:42)
[2020-01-31] MEDS: TAMSULOSIN HCL 0.4 MG CAP PO SCH (14:19)
[2020-01-31 17:28] LABS: Hematocrit (blood only) 40.2 % (42-52); Hemoglobin 13.7 g/dL (14.0-18.0)
[2020-01-31] MEDS ORDERED: NURSING DECISION MEDICATION ONE (20:41)
[2020-01-31] MEDS ORDERED: COUGH DROP (SUGAR FREE) LOZ 24 LOZ/1 BOX BUCCAL PRN (20:44)
[2020-01-31] MEDS ORDERED: MIRTAZAPINE TAB 15 MG TAB PO ONE (21:00)
--- NOTE | 2020-01-31 22:34 | Hospitalist Progress Note ---
Date of Service January 31, 2020 Assessment & Plan (1) Acute cholecystitis: likely cause of his illness at home (emesis, Poor PO intake, abd pain, etc). gen surg consulted; S/P lap salbador Will likely dung to resume Coumadin. will monitor for now. cont IV zosyn. blood cx's thus far neg. (2) Hyponatremia: Improved with saline hydration. HCTZ has been stopped. Cont NS hydration gently. (3) CKD (chronic kidney disease), stage III: BMP stable. (4) HTN (hypertension): Due to bradycardia and electrolytes abnormalities his HCTZ has been stopped, atenolol has been stopped, and verapamil dose has been decreased by 50%. BPS cont to be stable with these changes. (5) Permanent atrial fibrillation: See above in "HTN" rates acceptable overnight coumadin on hold (6) Hypokalemia: replaced and resolved repeat BMP am mag normal (7) Bradycardia: likely combination of BB use and CCB use atenolol on hold verapamil dose decreased by 50% rates much improved and stable TSH noted to be normal (8) Fall: likely multifactorial (brewing cholecystitis, hyponatremia, bradycardia, etc) CT head neg PT, OT evals requested knee x-rays today without fracture (9) DVT prophylaxis: coumadin (but reversed for upcoming lap salbador) COVID-19 test sent - Admission and Anticipated Discharge Date Admission Date: January 27, 2020 Subjective Patient reports no new symptoms today. He tolerated lap. cholescystectomy. Review of Systems Review of Systems: All systems reviewed & are unremarkable except as noted in HPI & below Physical Exam Physical Exam: Constitutional: no acute distress and no altered mental status ENMT: external ear and nose normal, oropharynx normal Respiratory: normal respiratory effort, lungs clear to auscultation Auscultation: + diminished lung sounds (Modest - bases ) Cardiovascular: Rate/Rhythm: regular rate and + irregularly irregular Heart Sounds: normal S1 and normal S2; no murmur Vessels: posterior tibial pulses present and dorsalis pedis pulses present; no JVD Extremities: no edema Gastrointestinal (Abdomen): Inspection/Auscultation: abdomen not distended Percussion/Palpation: abdomen soft; no guarding and no hepatosplenomegaly Skin: no rashes, warm and dry Psychiatric: A+Ox3, euthymic affect Results & Data Results & Data ([facility]) Vital Signs (Past 12 Hours) Vital Signs Temp Pulse Pulse Pulse Resp BP Pulse Ox 01/31/20 19:53 36.8 C 72 16 149/86 H 95 01/31/20 18:20 36.4 C L 76 16 162/83 H 95 01/31/20 17:26 36.4 C L 78 16 152/80 H 93 01/31/20 16:18 36.4 C L 73 18 160/87 H 94 01/31/20 16:00 67 01/31/20 15:10 36.6 C 75 16 159/78 H 95 01/31/20 14:17 72 18 116/68 93 01/31/20 13:30 36.6 C 78 18 116/59 L 97 01/31/20 13:20 80 18 125/68 98 01/31/20 13:10 80 20 129/71 95 01/31/20 13:03 36.4 C L 87 16 136/85 96 PG Care Time/CCT Total # of Minutes Spent Total Time Spent with Patient: Total time spent is greater than 50% in coordination of care (as documented) at patient's floor/unit and/or counseling patient: Coding Level of Care Code 77680 Subseq Hosp Care Lvl 3 Diagnoses Acute cholecystitis K81.0 Hyponatremia E87.1 CKD (chronic kidney disease), stage III N18.3 HTN (hypertension) I10 Hypertension type: essential hypertension Permanent atrial fibrillation I48.21 Hypokalemia E87.6 Bradycardia R00.1 Fall W19.XXXD Encounter type: subsequent encounter DVT prophylaxis Z29.9 Time Spent (min) 35 (1) HTN (hypertension) Hypertension type: essential hypertension Qualified Code(s): I10 - Essential (primary) hypertension (2) Fall Encounter type: subsequent encounter Qualified Code(s): W19.XXXD - Unspecified fall, subsequent encounter
[2020-02-01] MEDS: PIPERACILLIN/TAZOBACTAM 3.375 GM in DEXTROSE 5% 100 ML IV SCH ×3 (06:04→21:29)
[2020-02-01] MEDS: LACTATED RINGER'S 1,000 ML IV SCH ×2 (06:04→14:15)
[2020-02-01 06:24] LABS: Hemoglobin 13.4 g/dL (14.0-18.0); Mean Corpuscular Hemoglobin 32.8 pg (25-34); Mean Corpuscular Hgb Conc 34.4 g/dL (32-36); Mean Corpuscular Volume 95.4 fL (80-100); Mean Platelet Volume 8.6 fL (7.4-10.4); Platelet Count 263 K/uL (130-400); RDW Coefficient of Variation 13.3 % (11.5-14.5); RDW Standard Deviation 46.1 fL (36.4-46.3); Red Blood Count 4.09 M/uL (4.7-6.1)
[2020-02-01 06:47] LABS: Albumin Level 2.3 gm/dl (3.4-5.0); BUN Creatinine Ratio 9.5 (10-20); Bilirubin Direct 0.5 mg/dl (0-0.2); Calcium 8.1 mg/dl (8.5-10.1); Creatinine Clr Calc Pharmacy 45.4 ml/min; Est GFR (African American) 65.7; Est GFR (Non-African American) 56.7; Potassium 3.7 mmol/L (3.5-5.1)
[2020-02-01 06:50] LABS: Bilirubin,Total 1.1 mg/dl (0.2-1); Total Protein 6.1 gm/dl (6.4-8.2)
--- NOTE | 2020-02-01 07:51 | Surgery Progress Note ---
Date of Service February 01, 2020 Assessment & Plan (1) Acute cholecystitis: POD 1 lap salbador cont IV abx cont drain advance diet as devin decrease IVF as above. doing ok so far. may need assessed for possible rehab prior to home Subjective some soreness, no other c/o Physical Exam Gastrointestinal (Abdomen): Inspection/Auscultation: + abdominal surgical drain present (20 cc overnight); abdomen not distended Percussion/Palpation: abdomen soft Results & Data Vital Signs (Past 12 Hours) Vital Signs Temp Pulse Resp BP Pulse Ox 02/01/20 04:07 36.9 C 77 19 144/83 H 94 01/31/20 23:00 36.8 C 79 18 135/74 96 01/31/20 19:53 36.8 C 72 16 149/86 H 95 PG Care Time/CCT Total # of Minutes Spent Total Time Spent with Patient: Total time spent is greater than 50% in coordination of care (as documented) at patient's floor/unit and/or counseling patient: Coding Level of Care Code None Diagnoses Acute cholecystitis K81.0
--- NOTE | 2020-02-01 08:35 | Anesthesiology Progress Note ---
Date of Service February 01, 2020 Anesthesia Post Procedure Vital Signs Vital Signs: Temp Pulse Pulse Pulse Resp BP Pulse Ox 02/01/20 07:50 36.5 C 65 17 159/80 H 94 02/01/20 04:07 36.9 C 77 19 144/83 H 94 01/31/20 23:00 36.8 C 79 18 135/74 96 01/31/20 19:53 36.8 C 72 16 149/86 H 95 01/31/20 18:20 36.4 C L 76 16 162/83 H 95 01/31/20 17:26 36.4 C L 78 16 152/80 H 93 01/31/20 16:18 36.4 C L 73 18 160/87 H 94 01/31/20 16:00 67 01/31/20 15:10 36.6 C 75 16 159/78 H 95 01/31/20 14:17 72 18 116/68 93 01/31/20 13:30 36.6 C 78 18 116/59 L 97 01/31/20 13:20 80 18 125/68 98 01/31/20 13:10 80 20 129/71 95 01/31/20 13:03 36.4 C L 87 16 136/85 96 01/31/20 10:21 36.7 C 66 18 153/82 H 98 Pain Intensity Abdomen: Pain Intensity: 6 Bilateral Generalized: Pain Intensity: 5 Notes Mental Status: alert / awake / arousable Patient Amnestic to Procedure: Yes Nausea / Vomiting: adequately controlled Pain: adequately controlled Airway Patency, RR, SpO2: stable & adequate BP & HR: stable & adequate Hydration State: stable & adequate Anesthetic Complications: no major complications apparent and Pt Satisfied with anesthetic care
[2020-02-01] MEDS: CEROVITE ADV FORMULA TAB PO SCH (09:25)
[2020-02-01] MEDS: VERAPAMIL HCL 120 MG TABCR PO SCH ×2 (09:25→20:45)
[2020-02-01] MEDS: TAMSULOSIN HCL 0.4 MG CAP PO SCH (09:25)
[2020-02-01] MEDS: POTASSIUM CHLORIDE 20 MEQ TABCR PO SCH ×2 (09:26→20:45)
[2020-02-01] MEDS: VITAMIN B COMPLEX TAB PO SCH ×2 (09:26→20:44)
[2020-02-01] MEDS: CALCIUM 600MG + VIT D 400 IU TAB PO SCH (09:26)
[2020-02-01] MEDS: PANTOprazole 40 MG TAB PO SCH (09:26)
[2020-02-01] MEDS: LACTOBACILLUS ACIDOPHILUS (FLORANEX) TAB PO SCH (09:26)
[2020-02-01] MEDS ORDERED: WARFARIN SOD 2.5 MG TAB PO ONE (21:00)
--- NOTE | 2020-02-01 21:18 | Hospitalist Progress Note ---
Date of Service February 01, 2020 Assessment & Plan (1) Acute cholecystitis: POD #1 s/p lap salbador for perforated acute gangrenous cholecytitis doing well from surgical standpoint tolerating diet cont IV zosyn given the perforation of GB and spilling of contents into abdomen as seen during surgery diet advancement per surgery cont IV fluids judiciously (2) Hyponatremia: Resolved with saline hydration. HCTZ has been stopped. Repeat BMP am. (3) CKD (chronic kidney disease), stage III: BMP stable. BMP again in am. (4) HTN (hypertension): Due to bradycardia and electrolytes abnormalities his HCTZ has been stopped, atenolol has been stopped, and verapamil dose has been decreased by 50%. BPS now rising. resume HCTZ am. (5) Permanent atrial fibrillation: See above in "HTN" rates acceptable overnight resume coumadin today (6) Hypokalemia: replaced and resolved (7) Bradycardia: likely combination of BB use and CCB use atenolol on hold verapamil dose decreased by 50% rates much improved and stable TSH noted to be normal (8) Fall: pre-hospitalization likely multifactorial (brewing cholecystitis, hyponatremia, bradycardia, etc) CT head neg PT, OT right knee x-rays without fracture (9) DVT prophylaxis: coumadin - resume updated at bedside today rehab post-d/c? Admission and Anticipated Discharge Date Admission Date: January 27, 2020 Subjective patient with dull abdominal discomfort but no nausea. passing limited amount of flatus. no stool tele stable overnight - rate controlled a.fib. denies dyspnea. denies chest pain. at bedside today during my visit. Review of Systems Constitutional: no fever and no chills Respiratory: no cough Cardiovascular: no chest pain Gastrointestinal: no nausea and no vomiting Physical Exam Constitutional: no acute distress and no altered mental status ENMT: external ear and nose normal, oropharynx normal Respiratory: normal respiratory effort, lungs clear to auscultation Auscultation: + diminished lung sounds (bases ) Cardiovascular: Rate/Rhythm: regular rate and + irregularly irregular Heart Sounds: normal S1 and normal S2; no murmur Vessels: posterior tibial pulses present and dorsalis pedis pulses present; no JVD Extremities: no edema Gastrointestinal (Abdomen): Inspection/Auscultation: + abdomen distended Percussion/Palpation: abdomen nontender, no guarding and no hepatosplenomegaly Skin: no rashes, warm and dry abdominal wall incisions clean; SHELL drain in place right abdomen Psychiatric: A+Ox3, euthymic affect Results & Data Results & Data ([facility]) Vital Signs (Past 12 Hours) Vital Signs Temp Pulse Pulse Resp BP BP Pulse Ox 02/01/20 20:06 36.8 C 74 20 170/91 H 95 02/01/20 15:12 36.9 C 77 17 120/72 94 02/01/20 14:21 78 02/01/20 11:36 36.7 C 69 17 162/97 H 96 Laboratory Results Laboratory Results - last 24 hr 02/01/20 02/01/20 05:55 05:55 WBC 10.10 RBC 4.09 L Hgb 13.4 L Hct 39.0 L MCV 95.4 MCH 32.8 MCHC 34.4 RDW Std Deviation 46.1 RDW Coeff of Leonel 13.3 Plt Count 263 MPV 8.6 Sodium 137 Potassium 3.7 Chloride 104 Carbon Dioxide 28 Anion Gap 6.0 BUN 11 Creatinine 1.14 Est Cr Clr Drug Dosing 45.4 Est GFR ( Amer) 65.7 Est GFR (Non-Af Amer) 56.7 BUN/Creatinine Ratio 9.5 L Glucose 82 Calcium 8.1 L Total Bilirubin 1.1 H Direct Bilirubin 0.5 H AST 57 H ALT 48 Alkaline Phosphatase 76 Total Protein 6.1 L Albumin 2.3 L PG Care Time/CCT Total # of Minutes Spent Total Time Spent with Patient: Total time spent is greater than 50% in coordination of care (as documented) at patient's floor/unit and/or counseling patient: Coding Level of Care Code 90196 Subseq Hosp Care Lvl 2 Diagnoses Acute cholecystitis K81.0 Hyponatremia E87.1 CKD (chronic kidney disease), stage III N18.3 HTN (hypertension) I10 Hypertension type: essential hypertension Permanent atrial fibrillation I48.21 Hypokalemia E87.6 Bradycardia R00.1 Fall W19.XXXD Encounter type: subsequent encounter DVT prophylaxis Z29.9 (1) HTN (hypertension) Hypertension type: essential hypertension Qualified Code(s): I10 - Essential (primary) hypertension (2) Fall Encounter type: subsequent encounter Qualified Code(s): W19.XXXD - Unspecified fall, subsequent encounter
[2020-02-02] MEDS: PIPERACILLIN/TAZOBACTAM 3.375 GM in DEXTROSE 5% 100 ML IV SCH ×3 (05:58→21:36)
[2020-02-02 06:35] LABS: Hematocrit (blood only) 37.9 % (42-52); Hemoglobin 12.6 g/dL (14.0-18.0); Mean Corpuscular Hemoglobin 31.9 pg (25-34); Mean Corpuscular Hgb Conc 33.2 g/dL (32-36); Mean Corpuscular Volume 95.9 fL (80-100); Mean Platelet Volume 8.7 fL (7.4-10.4); Platelet Count 243 K/uL (130-400); RDW Coefficient of Variation 13.2 % (11.5-14.5); RDW Standard Deviation 46.2 fL (36.4-46.3); Red Blood Count 3.95 M/uL (4.7-6.1); White Blood Count 10.14 K/uL (4.8-10.8)
[2020-02-02 06:45] LABS: INR 1.8 (0.9-1.1); Prothrombin Time 18.2 Seconds (9.0-12.0)
[2020-02-02 07:23] LABS: BUN Creatinine Ratio 8.2 (10-20); Bilirubin Direct 0.4 mg/dl (0-0.2); Creatinine Clr Calc Pharmacy 39.8 ml/min; Est GFR (African American) 56.1; Est GFR (Non-African American) 48.4; Potassium 3.6 mmol/L (3.5-5.1)
[2020-02-02 07:26] LABS: Bilirubin,Total 0.9 mg/dl (0.2-1); Total Protein 5.7 gm/dl (6.4-8.2)
[2020-02-02] MEDS: VERAPAMIL HCL 120 MG TABCR PO SCH ×2 (07:48→20:31)
[2020-02-02] MEDS: POTASSIUM CHLORIDE 20 MEQ TABCR PO SCH ×2 (07:48→20:32)
[2020-02-02] MEDS: PANTOprazole 40 MG TAB PO SCH (07:49)
[2020-02-02] MEDS: LACTOBACILLUS ACIDOPHILUS (FLORANEX) TAB PO SCH (07:49)
[2020-02-02] MEDS: CALCIUM 600MG + VIT D 400 IU TAB PO SCH (07:49)
[2020-02-02] MEDS: TAMSULOSIN HCL 0.4 MG CAP PO SCH (07:49)
[2020-02-02] MEDS: CEROVITE ADV FORMULA TAB PO SCH (07:49)
[2020-02-02] MEDS: VITAMIN B COMPLEX TAB PO SCH ×2 (07:50→20:31)
[2020-02-02] MEDS: hydroCHLOROthiazide 25 MG TAB PO SCH (07:54)
--- NOTE | 2020-02-02 09:27 | Surgery Progress Note ---
Date of Service February 02, 2020 Assessment & Plan (1) Acute cholecystitis: doing ok pod 2 increase activity/PT/OT ok to remove SHELL prior to d/c f/u with me in 1-2 weeks. Subjective pt pod #2. feeling fine. ate regular breakfast. denies pain. Physical Exam Physical Exam: alert. nad abd: soft. wounds look good. SHELL with approx 30 cc's of serous output. Results & Data Vital Signs (Past 12 Hours) Vital Signs Temp Pulse Resp BP Pulse Ox 02/02/20 07:37 36.7 C 76 16 162/83 H 98 02/02/20 02:51 36.3 C L 74 18 172/89 H 97 02/01/20 23:50 36.9 C 89 20 162/76 H 94 PG Care Time/CCT Total # of Minutes Spent Total Time Spent with Patient: Total time spent is greater than 50% in coordination of care (as documented) at patient's floor/unit and/or counseling patient: Coding Level of Care Code None Diagnoses Acute cholecystitis K81.0
[2020-02-02] MEDS: WARFARIN SOD 5 MG TAB PO SCH (16:21)
--- NOTE | 2020-02-02 21:36 | Hospitalist Progress Note ---
Date of Service February 02, 2020 Assessment & Plan (1) Acute cholecystitis: POD #2 s/p lap salbador for perforated acute gangrenous cholecystitis doing well from surgical standpoint tolerating diet cont IV zosyn given the perforation of GB and spilling of contents into abdomen as seen during surgery cont IV zosyn another 1-2 days, then PO abx diet advancement per surgery fluids stopped (2) Hyponatremia: Resolved with saline hydration. HCTZ has been stopped. (3) CKD (chronic kidney disease), stage III: BMP stable. BMP again in am. (4) HTN (hypertension): Due to bradycardia and electrolytes abnormalities his HCTZ had been stopped, atenolol had been stopped, and verapamil dose had been decreased by 50%. Resume HCTZ today. (5) Permanent atrial fibrillation: See above in "HTN" rates acceptable again overnight resumed coumadin -- daily INR (6) Hypokalemia: replacing BMP am (7) Bradycardia: resolved was likely combination of BB use and CCB use atenolol on hold verapamil dose decreased by 50% TSH noted to be normal cont reduced dose verapamil (8) Fall: pre-hospitalization likely multifactorial (brewing cholecystitis, hyponatremia, bradycardia, etc) CT head neg PT, OT right knee x-rays without fracture but does have effusion on exam - suspect it is a hemorrhagic effusion not having pain - just watch for now (9) DVT prophylaxis: coumadin updated at bedside 01/31 rehab referral in progress; insurance auth pending I'm pleased w/ how he is doing Admission and Anticipated Discharge Date Admission Date: January 27, 2020 Subjective patient sitting in chair eating during visit minimal right sided abdominal discomfort no nausea or emesis passing flatus tolerating diet tele - rate-controlled a.fib feels good but is "weak" knows he needs rehab Review of Systems Constitutional: + fatigue; no fever, no chills and no anorexia Respiratory: no cough and no dyspnea Cardiovascular: no chest pain and no orthopnea Gastrointestinal: + abdominal pain; no nausea and no vomiting Physical Exam Constitutional: no acute distress and no altered mental status ENMT: external ear and nose normal, oropharynx normal Respiratory: normal respiratory effort, lungs clear to auscultation Auscultation: + diminished lung sounds (bases ) Cardiovascular: Rate/Rhythm: regular rate and + irregularly irregular Heart Sounds: normal S1 and normal S2; no murmur Vessels: posterior tibial pulses present and dorsalis pedis pulses present; no JVD Extremities: no edema Gastrointestinal (Abdomen): Inspection/Auscultation: + abdomen distended (mild, no change from yesterday) and normal bowel sounds Percussion/Palpation: abdomen nontender, no guarding and no hepatosplenomegaly Musculoskeletal: moderate right knee effusion - but not warm or tender to palpation Skin: no rashes, warm and dry incisions abdominal wall clean Psychiatric: A+Ox3, euthymic affect Results & Data Results & Data ([facility]) Vital Signs (Past 12 Hours) Vital Signs Temp Pulse Pulse Resp BP Pulse Ox 02/02/20 15:34 36.8 C 75 19 125/74 93 02/02/20 14:20 79 02/02/20 11:24 36.9 C 84 16 114/72 96 Laboratory Results Laboratory Results - last 24 hr 02/02/20 02/02/20 02/02/20 05:46 05:46 05:46 WBC 10.14 RBC 3.95 L Hgb 12.6 L Hct 37.9 L MCV 95.9 MCH 31.9 MCHC 33.2 RDW Std Deviation 46.2 RDW Coeff of Leonel 13.2 Plt Count 243 MPV 8.7 PT 18.2 H INR 1.8 H Sodium 140 Potassium 3.6 Chloride 105 Carbon Dioxide 28 Anion Gap 7.0 BUN 11 Creatinine 1.30 Est Cr Clr Drug Dosing 39.8 Est GFR ( Amer) 56.1 Est GFR (Non-Af Amer) 48.4 BUN/Creatinine Ratio 8.2 L Glucose 95 Calcium 8.0 L Total Bilirubin 0.9 Direct Bilirubin 0.4 H AST 33 ALT 32 Alkaline Phosphatase 76 Total Protein 5.7 L Albumin 2.0 L PG Care Time/CCT Total # of Minutes Spent Total Time Spent with Patient: Total time spent is greater than 50% in coordination of care (as documented) at patient's floor/unit and/or counseling patient: Coding Level of Care Code 03533 Subseq Hosp Care Lvl 2 Diagnoses Acute cholecystitis K81.0 Hyponatremia E87.1 CKD (chronic kidney disease), stage III N18.3 HTN (hypertension) I10 Hypertension type: essential hypertension Permanent atrial fibrillation I48.21 Hypokalemia E87.6 Bradycardia R00.1 Fall W19.XXXD Encounter type: subsequent encounter DVT prophylaxis Z29.9 (1) HTN (hypertension) Hypertension type: essential hypertension Qualified Code(s): I10 - Essential (primary) hypertension (2) Fall Encounter type: subsequent encounter Qualified Code(s): W19.XXXD - Unspecified fall, subsequent encounter
[2020-02-03] MEDS: PIPERACILLIN/TAZOBACTAM 3.375 GM in DEXTROSE 5% 100 ML IV SCH ×3 (06:00→21:44)
[2020-02-03 06:30] LABS: Hematocrit (blood only) 37.1 % (42-52); Hemoglobin 12.2 g/dL (14.0-18.0); Mean Corpuscular Hemoglobin 31.4 pg (25-34); Mean Corpuscular Hgb Conc 32.9 g/dL (32-36); Mean Corpuscular Volume 95.6 fL (80-100); Mean Platelet Volume 8.5 fL (7.4-10.4); Platelet Count 266 K/uL (130-400); RDW Coefficient of Variation 13.5 % (11.5-14.5); RDW Standard Deviation 46.6 fL (36.4-46.3); Red Blood Count 3.88 M/uL (4.7-6.1); White Blood Count 11.19 K/uL (4.8-10.8)
[2020-02-03 06:38] LABS: Prothrombin Time 19.9 Seconds (9.0-12.0)
[2020-02-03 06:55] LABS: BUN Creatinine Ratio 9.6 (10-20); Creatinine Clr Calc Pharmacy 40.4 ml/min; Est GFR (African American) 57.1; Est GFR (Non-African American) 49.3; Potassium 3.2 mmol/L (3.5-5.1)
[2020-02-03] MEDS: TAMSULOSIN HCL 0.4 MG CAP PO SCH (07:47)
[2020-02-03] MEDS: CEROVITE ADV FORMULA TAB PO SCH (07:47)
[2020-02-03] MEDS: LACTOBACILLUS ACIDOPHILUS (FLORANEX) TAB PO SCH (07:47)
[2020-02-03] MEDS: CALCIUM 600MG + VIT D 400 IU TAB PO SCH (07:48)
[2020-02-03] MEDS: VITAMIN B COMPLEX TAB PO SCH ×2 (07:48→20:05)
[2020-02-03] MEDS: POTASSIUM CHLORIDE 20 MEQ TABCR PO SCH ×2 (07:48→20:04)
[2020-02-03] MEDS: PANTOprazole 40 MG TAB PO SCH (07:48)
[2020-02-03] MEDS: VERAPAMIL HCL 120 MG TABCR PO SCH ×2 (07:48→20:05)
[2020-02-03] MEDS: hydroCHLOROthiazide 25 MG TAB PO SCH (07:49)
[2020-02-03] MEDS ORDERED: POTASSIUM CHLORIDE 20 MEQ TABCR PO STA (09:34)
[2020-02-03] MEDS ORDERED: bisacodyL 10 MG SUPP PR STA (15:34)
--- NOTE | 2020-02-03 15:38 | Hospitalist Progress Note ---
Date of Service February 03, 2020 Assessment & Plan (1) Acute cholecystitis: POD #3 s/p lap salbador for perforated acute gangrenous cholecystitis doing well from surgical standpoint tolerating diet cont IV zosyn given the perforation of GB and spilling of contents into abdomen as seen during surgery cont IV zosyn; then PO abx - start Wednesday AM? diet - regular - and tolerating such (2) Hyponatremia: Resolved with saline hydration. (3) CKD (chronic kidney disease), stage III: BMP stable. BMP again in am. (4) HTN (hypertension): Due to bradycardia and electrolytes abnormalities his HCTZ had been stopped, atenolol had been stopped, and verapamil dose had been decreased by 50%. Resumed HCTZ yesterday - BPs improved. (5) Permanent atrial fibrillation: See above in "HTN" rates acceptable again overnight on verapamil only cont OFF atenolol INR 2 today INR in am cont coumadin (6) Hypokalemia: replace again; BMP am; also check mag level (7) Bradycardia: resolved was likely combination of BB use and CCB use atenolol on hold verapamil dose decreased by 50% TSH noted to be normal cont reduced dose verapamil (8) Fall: pre-hospitalization likely multifactorial (brewing cholecystitis, hyponatremia, bradycardia, etc) CT head neg PT, OT right knee x-rays without fracture but does have effusion on exam - suspect it is a hemorrhagic effusion now having some pain = see below (9) Right knee pain: advanced OA at baseline had fall prior to admission - has effusion now suspect hemorrhagic effusion from trauma doubt gout, but will check uric acid level am ice 20 minutes 4x's/day voltaren gel 4gm QID re-eval in am if pain persists consider arthrocentesis (10) DVT prophylaxis: coumadin updated at bedside 01/31 and 02/02 insurance denied inpatient rehab @ [facility] will appeal on Wednesday d/c tele move to med/surg Admission and Anticipated Discharge Date Admission Date: January 27, 2020 Subjective patient without abdominal pain today no nausea/emesis tolerating diet passing flatus but no stool c/o right knee pain especially with ambulation but minimal pain at rest insurance denied rehab stay at [facility] tele overnight - rate controlled a.fib w/o bradycardia Review of Systems Constitutional: + fatigue; no fever, no chills and no anorexia Respiratory: no cough, no dyspnea and no dyspnea on exertion Cardiovascular: no chest pain Gastrointestinal: + constipation; no abdominal pain, no nausea and no vomiting Physical Exam Constitutional: no acute distress and no altered mental status sitting in chair comfortably ENMT: external ear and nose normal, oropharynx normal Respiratory: normal respiratory effort, lungs clear to auscultation Auscultation: + diminished lung sounds (bases ) Cardiovascular: Rate/Rhythm: regular rate and + irregularly irregular Heart Sounds: normal S1 and normal S2; no murmur Vessels: posterior tibial pulses present and dorsalis pedis pulses present; no JVD Extremities: no edema Gastrointestinal (Abdomen): Inspection/Auscultation: normal bowel sounds; abdomen not distended Percussion/Palpation: abdomen soft; abdomen nontender, no guarding and no hepatosplenomegaly Musculoskeletal: right knee - mild/moderate effusion, mild warmth; no tenderness with passive flexion/extension or palpation Skin: no rashes, warm and dry ulceration inferior to right knee with clean base, no drainage, no cellulitis; abdominal wall incisions clean Results & Data Results & Data ([facility]) Vital Signs (Past 12 Hours) Vital Signs Temp Pulse Resp BP Pulse Ox 02/03/20 15:19 36.7 C 72 17 124/72 97 02/03/20 11:24 37.1 C 73 18 110/69 97 02/03/20 07:18 37.0 C 78 18 157/77 H 94 02/03/20 04:00 36.5 C 77 19 149/87 H 96 Laboratory Results Laboratory Results - last 24 hr 02/03/20 02/03/20 02/03/20 05:56 05:56 05:56 WBC 11.19 H RBC 3.88 L Hgb 12.2 L Hct 37.1 L MCV 95.6 MCH 31.4 MCHC 32.9 RDW Std Deviation 46.6 H RDW Coeff of Leonel 13.5 Plt Count 266 MPV 8.5 PT 19.9 H INR 2.0 H Sodium 136 Potassium 3.2 L Chloride 101 Carbon Dioxide 32 Anion Gap 3.0 BUN 12 Creatinine 1.28 Est Cr Clr Drug Dosing 40.4 Est GFR ( Amer) 57.1 Est GFR (Non-Af Amer) 49.3 BUN/Creatinine Ratio 9.6 L Glucose 100 H Calcium 8.0 L PG Care Time/CCT Total # of Minutes Spent Total Time Spent with Patient: Total time spent is greater than 50% in coordination of care (as documented) at patient's floor/unit and/or counseling patient: Coding Level of Care Code 91084 Subseq Hosp Care Lvl 3 Diagnoses Acute cholecystitis K81.0 Hyponatremia E87.1 CKD (chronic kidney disease), stage III N18.3 HTN (hypertension) I10 Hypertension type: essential hypertension Permanent atrial fibrillation I48.21 Hypokalemia E87.6 Bradycardia R00.1 Fall W19.XXXD Encounter type: subsequent encounter Right knee pain M25.561 DVT prophylaxis Z29.9 (1) HTN (hypertension) Hypertension type: essential hypertension Qualified Code(s): I10 - Essential (primary) hypertension (2) Fall Encounter type: subsequent encounter Qualified Code(s): W19.XXXD - Unspecified fall, subsequent encounter
[2020-02-03] MEDS: WARFARIN SOD 2.5 MG TAB PO SCH (16:44)
[2020-02-03] MEDS: DICLOFENAC SOD 1% GEL 100 GM TUBE EXT SCH ×2 (16:45→20:06)
[2020-02-04] MEDS: PIPERACILLIN/TAZOBACTAM 3.375 GM in DEXTROSE 5% 100 ML IV SCH ×2 (06:03→14:08)
[2020-02-04 08:08] LABS: INR 1.9 (0.9-1.1); Prothrombin Time 19.3 Seconds (9.0-12.0)
[2020-02-04 08:30] LABS: BUN Creatinine Ratio 14.5 (10-20); Calcium 8.1 mg/dl (8.5-10.1); Creatinine Clr Calc Pharmacy 45.4 ml/min; Est GFR (African American) 65.7; Est GFR (Non-African American) 56.7; Magnesium 1.7 mg/dl (1.8-2.4); Potassium 3.1 mmol/L (3.5-5.1)
[2020-02-04 08:36] LABS: Uric Acid 4.6 mg/dl (2.6-7.2)
[2020-02-04] MEDS: VITAMIN B COMPLEX TAB PO SCH ×2 (08:58→19:57)
[2020-02-04] MEDS: POTASSIUM CHLORIDE 20 MEQ TABCR PO SCH ×2 (08:58→19:56)
[2020-02-04] MEDS: CALCIUM 600MG + VIT D 400 IU TAB PO SCH (08:59)
[2020-02-04] MEDS: CEROVITE ADV FORMULA TAB PO SCH (08:59)
[2020-02-04] MEDS: TAMSULOSIN HCL 0.4 MG CAP PO SCH (08:59)
[2020-02-04] MEDS: VERAPAMIL HCL 120 MG TABCR PO SCH ×2 (08:59→19:57)
[2020-02-04] MEDS: hydroCHLOROthiazide 25 MG TAB PO SCH (08:59)
[2020-02-04] MEDS: LACTOBACILLUS ACIDOPHILUS (FLORANEX) TAB PO SCH (08:59)
[2020-02-04] MEDS: DICLOFENAC SOD 1% GEL 100 GM TUBE EXT SCH ×4 (09:00→19:58)
[2020-02-04] MEDS: PANTOprazole 40 MG TAB PO SCH (09:01)
[2020-02-04] MEDS ORDERED: POTASSIUM CHLORIDE 20 MEQ TABCR PO STA (09:17)
[2020-02-04] MEDS: MAGNESIUM SULFATE / D5W 1 GM/100 ML BAG IV SCH ×2 (09:55→11:50)
[2020-02-04] MEDS: WARFARIN SOD 2.5 MG TAB PO SCH (17:06)
--- NOTE | 2020-02-04 19:54 | Hospitalist Progress Note ---
Date of Service February 04, 2020 Assessment & Plan (1) Acute cholecystitis: POD #4 s/p lap salbador for severe, perforated acute gangrenous cholecystitis doing well from surgical standpoint tolerating regular diet moving bowels no abdominal pain SHELL drain to be removed today has received 7 days of zosyn since admission; d/c, and place on 3 more days of augmentin PO then stop repeat LFTs in am for stability (2) Hyponatremia: Resolved with saline hydration (3) CKD (chronic kidney disease), stage III: BMP stable. (4) HTN (hypertension): Due to bradycardia and electrolytes abnormalities his HCTZ had been stopped, atenolol had been stopped, and verapamil dose had been decreased by 50%. Resumed HCTZ - BPs improved. (5) Permanent atrial fibrillation: See above in "HTN" rates acceptable again overnight on verapamil only cont OFF atenolol INR 1.9 today INR in am cont coumadin (6) Hypokalemia: replace again with PO KCL mag 1.7 - give 2 grams mag sulfate repeat K and mag in AM (7) Bradycardia: resolved was likely combination of BB use and CCB use atenolol on hold verapamil dose decreased by 50% TSH noted to be normal cont reduced dose verapamil (8) Fall: pre-hospitalization likely multifactorial (brewing cholecystitis, hyponatremia, bradycardia, etc) CT head neg continue PT, OT - needs rehab right knee x-rays without fracture but does have effusion on exam - suspect it is a hemorrhagic effusion see below (9) Right knee pain: advanced OA at baseline had fall prior to admission - has effusion now suspect hemorrhagic effusion from trauma doubt gout x-rays without fracture with ice 20 minutes 4x's/day and voltaren gel 4gm QID the effusion is improved declines arthrocentesis cont ice and voltaren (10) Hypomagnesemia: replace mag sulfate 2 grams, then repeat level AM (11) Metabolic encephalopathy: 2nd to acute cholecystitis - resolved at baseline mental status today (12) DVT prophylaxis: coumadin updated at bedside 01/31 and 02/02 updated by phone 02/03 insurance denied inpatient rehab @ [facility]; /patient do NOT want SNF for rehab will appeal on Wednesday AM Admission and Anticipated Discharge Date Admission Date: January 27, 2020 Subjective patient states right knee feels better in comparison to yesterday with frequent ice and voltaren gel qid. he is able to bend the knee w/o pain and ambulate without significant limitation. his breathing is fine. he has no abdominal pain. had stool yesterday per staff (liquid). passing plenty of flatus. Review of Systems Constitutional: + fatigue; no fever, no chills and no anorexia (tolerating diet ) Respiratory: no cough Cardiovascular: no chest pain Gastrointestinal: no bloating and no heartburn Physical Exam Constitutional: no acute distress and no altered mental status ENMT: external ear and nose normal, oropharynx normal Respiratory: normal respiratory effort, lungs clear to auscultation Auscultation: + diminished lung sounds (minimal - bases) Cardiovascular: Rate/Rhythm: regular rate and + irregularly irregular Heart Sounds: normal S1 and normal S2; no murmur Vessels: posterior tibial pulses present and dorsalis pedis pulses present; no JVD Extremities: no edema Gastrointestinal (Abdomen): Inspection/Auscultation: normal bowel sounds; abdomen not distended Percussion/Palpation: abdomen soft; abdomen nontender, no guarding and no hepatosplenomegaly Musculoskeletal: right knee - mild-moderate effusion - improved in size today; no warmth or redness; nontender to palpation or with passive ROM Skin: no rashes, warm and dry incisions clean on abdominal wall; ulceration right stovall just below tibial plateau clean, no cellulitis Psychiatric: A+Ox3, euthymic affect Results & Data Results & Data ([facility]) Vital Signs (Past 12 Hours) Vital Signs Temp Pulse Resp BP Pulse Ox 02/04/20 15:35 36.7 C 70 18 116/54 L 97 02/04/20 07:58 36.5 C 82 18 139/77 97 Laboratory Results Laboratory Results - last 24 hr 02/04/20 02/04/20 07:29 07:29 PT 19.3 H INR 1.9 H Sodium 136 Potassium 3.1 L Chloride 101 Carbon Dioxide 28 Anion Gap 7.0 BUN 17 Creatinine 1.14 Est Cr Clr Drug Dosing 45.4 Est GFR ( Amer) 65.7 Est GFR (Non-Af Amer) 56.7 BUN/Creatinine Ratio 14.5 Glucose 87 Uric Acid 4.6 Calcium 8.1 L Magnesium 1.7 L PG Care Time/CCT Total # of Minutes Spent Total Time Spent with Patient: Total time spent is greater than 50% in coordination of care (as documented) at patient's floor/unit and/or counseling patient: Coding Level of Care Code 84246 Subseq Hosp Care Lvl 3 Diagnoses Acute cholecystitis K81.0 Hyponatremia E87.1 CKD (chronic kidney disease), stage III N18.3 HTN (hypertension) I10 Hypertension type: essential hypertension Permanent atrial fibrillation I48.21 Hypokalemia E87.6 Bradycardia R00.1 Fall W19.XXXD Encounter type: subsequent encounter Right knee pain M25.561 Chronicity: acute Hypomagnesemia E83.42 Metabolic encephalopathy G93.41 DVT prophylaxis Z29.9 (1) HTN (hypertension) Hypertension type: essential hypertension Qualified Code(s): I10 - Essential (primary) hypertension (2) Fall Encounter type: subsequent encounter Qualified Code(s): W19.XXXD - Unspecified fall, subsequent encounter (3) Right knee pain Chronicity: acute Qualified Code(s): M25.561 - Pain in right knee
[2020-02-04] MEDS: AMOXICILLIN/CLAVULANATE 875 MG TAB PO SCH (20:00)
[2020-02-05 06:57] LABS: Basophils # (auto) 0.01 K/uL (0-0.2); Basophils % (auto) 0.1 %; Eosinophils # (auto) 0.27 K/uL (0-0.5); Eosinophils % (auto) 2.6 %; Hematocrit (blood only) 36.4 % (42-52); Hemoglobin 12.5 g/dL (14.0-18.0); Immature Granulocytes # (auto) 0.04 K/uL (0.00-0.02); Immature Granulocytes % (auto) 0.4 %; Lymphocytes # (auto) 1.05 K/uL (1.2-3.4); Lymphocytes % (auto) 10.3 %; Mean Corpuscular Hemoglobin 32.4 pg (25-34); Mean Corpuscular Hgb Conc 34.3 g/dL (32-36); Mean Corpuscular Volume 94.3 fL (80-100); Mean Platelet Volume 8.8 fL (7.4-10.4); Monocytes # (auto) 1.04 K/uL (0.11-0.59); Monocytes % (auto) 10.2 %; Neutrophils # (auto) 7.78 K/uL (1.4-6.5); Neutrophils % (auto) 76.4 %; Platelet Count 291 K/uL (130-400); RDW Coefficient of Variation 13.4 % (11.5-14.5); RDW Standard Deviation 45.7 fL (36.4-46.3); Red Blood Count 3.86 M/uL (4.7-6.1); White Blood Count 10.19 K/uL (4.8-10.8)
[2020-02-05 07:08] LABS: INR 1.8 (0.9-1.1); Prothrombin Time 18.6 Seconds (9.0-12.0)
[2020-02-05 07:27] LABS: Albumin Level 2.1 gm/dl (3.4-5.0); BUN Creatinine Ratio 12.2 (10-20); Calcium 8.4 mg/dl (8.5-10.1); Creatinine Clr Calc Pharmacy 41.7 ml/min; Est GFR (African American) 59.4; Est GFR (Non-African American) 51.2; Potassium 3.2 mmol/L (3.5-5.1)
[2020-02-05 07:30] LABS: Albumin Globulin Ratio 0.5 (0.9-2); Bilirubin,Total 0.8 mg/dl (0.2-1); Globulin 3.9 gm/dl (2.5-4.0)
[2020-02-05] MEDS: LACTOBACILLUS ACIDOPHILUS (FLORANEX) TAB PO SCH (08:23)
[2020-02-05] MEDS: DICLOFENAC SOD 1% GEL 100 GM TUBE EXT SCH ×4 (08:23→19:58)
[2020-02-05] MEDS: CALCIUM 600MG + VIT D 400 IU TAB PO SCH (08:23)
[2020-02-05] MEDS: AMOXICILLIN/CLAVULANATE 875 MG TAB PO SCH ×2 (08:23→17:10)
[2020-02-05] MEDS: VERAPAMIL HCL 120 MG TABCR PO SCH ×2 (08:23→19:56)
[2020-02-05] MEDS: hydroCHLOROthiazide 25 MG TAB PO SCH (08:24)
[2020-02-05] MEDS: POTASSIUM CHLORIDE 20 MEQ TABCR PO SCH ×2 (08:24→19:57)
[2020-02-05] MEDS: PANTOprazole 40 MG TAB PO SCH (08:24)
[2020-02-05] MEDS: VITAMIN B COMPLEX TAB PO SCH ×2 (08:24→19:57)
[2020-02-05] MEDS: CEROVITE ADV FORMULA TAB PO SCH (08:24)
[2020-02-05] MEDS: TAMSULOSIN HCL 0.4 MG CAP PO SCH (08:24)
--- NOTE | 2020-02-05 14:31 | Hospitalist Progress Note ---
Date of Service February 05, 2020 Assessment & Plan (1) Acute cholecystitis: S/p lap salbador for severe, perforated acute gangrenous cholecystitis on 01/[address] Reyes. - Doing well from surgical standpoint; SHELL drain to be removed on 01/30/2020. - Received 7 days of Zosyn, then placed on 3 more days of Augmentin (End date: 02/06) (2) CKD (chronic kidney disease), stage III: BMP stable. Cr. 1.24 with eGFR ~50. (3) HTN (hypertension): Due to bradycardia and electrolytes abnormalities his HCTZ had been stopped, atenolol had been stopped, and verapamil dose had been decreased by 50%. - Resumed HCTZ on 02/01 - BPs improved. Na+ stable. (4) Permanent atrial fibrillation: See above in "HTN". Rates acceptable again overnight on verapamil only. - Cont OFF atenolol - Cont warfarin - INR 1.8 today. (5) Bradycardia: Resolved. Was likely combination of BB use and CCB use. - Atenolol on hold - Verapamil dose decreased by 50%. (Now 120 mg Q12h) (6) Fall: Pre-hospitalization. Likely multifactorial (brewing cholecystitis, hyponatremia, bradycardia, etc). - Continue PT, OT - needs rehab (7) Right knee pain: Advanced OA at baseline. Had fall prior to admission - has effusion now; suspect hemorrhagic effusion from trauma. X-rays without fracture. - Cont ice and diclofenac gel. (8) DVT prophylaxis: Warfarin Admission and Anticipated Discharge Date Admission Date: January 27, 2020 Subjective Feeling well today. No abdominal pain. Reports no fevers/chills, chest pain, s hortness of breath, abdominal pain, nausea, or vomiting. Physical Exam Constitutional: WD/WN, vitals as above Eyes: EOM intact bilaterally; no conjunctival abnormality ENMT: external ear and nose normal, oropharynx normal Neck: trachea midline, no thyromegaly normal visual inspection Respiratory: normal respiratory effort, lungs clear to auscultation no respiratory distress Cardiovascular: RRR, no murmur, no edema Gastrointestinal (Abdomen): Inspection/Auscultation: abdomen normal to inspection and + abdominal surgical incision (Healing); abdomen not distended Musculoskeletal: no cyanosis or clubbing, extremities motor strength 5/5 Skin: no rashes, warm and dry Neurologic: moves all extremities and awake Psychiatric: Orientation: alert, oriented to person and cooperative Results & Data Results & Data ([facility]) Vital Signs (Past 12 Hours) Vital Signs Temp Pulse Resp BP Pulse Ox 02/05/20 07:29 36.9 C 68 16 146/77 H 97 PG Care Time/CCT Total # of Minutes Spent Total Time Spent with Patient: Total time spent is greater than 50% in coordination of care (as documented) at patient's floor/unit and/or counseling patient: Coding Level of Care Code 68233 Subseq Hosp Care Lvl 2 Diagnoses Acute cholecystitis K81.0 CKD (chronic kidney disease), stage III N18.3 HTN (hypertension) I10 Hypertension type: essential hypertension Permanent atrial fibrillation I48.21 Bradycardia R00.1 Fall W19.XXXD Encounter type: subsequent encounter Right knee pain M25.561 Chronicity: acute DVT prophylaxis Z29.9 (1) HTN (hypertension) Hypertension type: essential hypertension Qualified Code(s): I10 - Essential (primary) hypertension (2) Fall Encounter type: subsequent encounter Qualified Code(s): W19.XXXD - Unspecified fall, subsequent encounter (3) Right knee pain Chronicity: acute Qualified Code(s): M25.561 - Pain in right knee
[2020-02-05] MEDS: WARFARIN SOD 5 MG TAB PO SCH (17:10)
--- NOTE | 2020-02-06 05:49 | Communication Note ---
Date of Service: February 06, 2020 Nursing reports frequent mostly liquid stools with malordor suspicious for Cdiff and is requesting testing since sample obtained. Cdiff testing was ordered which resulted negative. No other acute events reported overnight.
[2020-02-06 07:05] LABS: Hematocrit (blood only) 35.6 % (42-52); Hemoglobin 12.2 g/dL (14.0-18.0); Mean Corpuscular Hemoglobin 32.3 pg (25-34); Mean Corpuscular Hgb Conc 34.3 g/dL (32-36); Mean Corpuscular Volume 94.2 fL (80-100); Mean Platelet Volume 8.9 fL (7.4-10.4); Platelet Count 308 K/uL (130-400); RDW Coefficient of Variation 13.2 % (11.5-14.5); RDW Standard Deviation 45.5 fL (36.4-46.3); Red Blood Count 3.78 M/uL (4.7-6.1); White Blood Count 12.09 K/uL (4.8-10.8)
[2020-02-06 07:13] LABS: INR 1.7 (0.9-1.1); Prothrombin Time 17.5 Seconds (9.0-12.0)
[2020-02-06 07:30] LABS: BUN Creatinine Ratio 15.7 (10-20); Calcium 8.3 mg/dl (8.5-10.1); Est GFR (African American) 68.6; Est GFR (Non-African American) 59.2; Magnesium 1.9 mg/dl (1.8-2.4); Potassium 3.1 mmol/L (3.5-5.1)
[2020-02-06] MEDS: LACTOBACILLUS ACIDOPHILUS (FLORANEX) TAB PO SCH (07:57)
[2020-02-06] MEDS: AMOXICILLIN/CLAVULANATE 875 MG TAB PO SCH ×2 (07:57→16:45)
[2020-02-06] MEDS: hydroCHLOROthiazide 25 MG TAB PO SCH (07:58)
[2020-02-06] MEDS: VERAPAMIL HCL 120 MG TABCR PO SCH ×2 (07:58→20:22)
[2020-02-06] MEDS: CALCIUM 600MG + VIT D 400 IU TAB PO SCH (07:58)
[2020-02-06] MEDS: TAMSULOSIN HCL 0.4 MG CAP PO SCH (07:58)
[2020-02-06] MEDS: POTASSIUM CHLORIDE 20 MEQ TABCR PO SCH ×2 (07:58→20:22)
[2020-02-06] MEDS: DICLOFENAC SOD 1% GEL 100 GM TUBE EXT SCH ×4 (07:59→20:23)
[2020-02-06] MEDS: CEROVITE ADV FORMULA TAB PO SCH (07:59)
[2020-02-06] MEDS: VITAMIN B COMPLEX TAB PO SCH ×2 (07:59→20:23)
[2020-02-06] MEDS: PANTOprazole 40 MG TAB PO SCH (07:59)
[2020-02-06] MEDS: WARFARIN SOD 2.5 MG TAB PO SCH (16:44)
[2020-02-06 17:57] LABS: Appearance Synovial Fluid HAZY; Color Synovial Fluid YELLOW; Mononuclear WBC Synovial 6.8 %; Polynuclear WBC Synovial 93.2 %; RBC Synovial Fluid (A) < 3000 /uL; Source Synovial Fluid ELBOW; WBC Synovial Fluid (A) 4672 /ul (0-200)
--- NOTE | 2020-02-06 18:30 | Hospitalist Progress Note ---
Date of Service February 06, 2020 Assessment & Plan (1) Left elbow pain: Noted by on 02/05 prior to discharge. - Seen by ortho -> WBCs are 4600. - Started on doxycycline for possible infectious bursitis. Follow culture. (2) Acute cholecystitis: S/p lap salbador for severe, perforated acute gangrenous cholecystitis on 01/[address] Reyes. - Doing well from surgical standpoint; SHELL drain to be removed on 01/30/2020. - Received 7 days of Zosyn, then placed on 3 more days of Augmentin (End date: 02/06) (3) CKD (chronic kidney disease), stage III: BMP stable. Cr. 1.24 with eGFR ~50. (4) HTN (hypertension): Due to bradycardia and electrolytes abnormalities his HCTZ had been stopped, atenolol had been stopped, and verapamil dose had been decreased by 50%. - Resumed HCTZ on 02/01 - BPs improved. Na+ stable. - Stopped again on 02/05 given continued hypokalemia despite repletion. (5) Permanent atrial fibrillation: See above in "HTN". Rates acceptable again overnight on verapamil only. - Cont OFF atenolol - Cont warfarin - INR 1.7 today. (6) Bradycardia: Resolved. Was likely combination of BB use and CCB use. - Atenolol on hold - Verapamil dose decreased by 50%. (Now 120 mg Q12h) (7) Fall: Pre-hospitalization. Likely multifactorial (brewing cholecystitis, hyponatremia, bradycardia, etc). - Continue PT, OT - needs rehab (8) Right knee pain: Advanced OA at baseline. Had fall prior to admission - had effusion; suspect hemorrhagic effusion from trauma. X-rays without fracture. - Cont ice and diclofenac gel. (9) DVT prophylaxis: Warfarin Admission and Anticipated Discharge Date Admission Date: January 27, 2020 Subjective Left elbow swelling. Reports no fevers/chills, chest pain, shortness of breath, abdominal pain, nausea, or vomiting. Physical Exam Constitutional: WD/WN, vitals as above Eyes: EOM intact bilaterally; no conjunctival abnormality ENMT: external ear and nose normal, oropharynx normal Neck: trachea midline, no thyromegaly normal visual inspection Respiratory: normal respiratory effort, lungs clear to auscultation no respiratory distress Cardiovascular: RRR, no murmur, no edema Gastrointestinal (Abdomen): Inspection/Auscultation: abdomen normal to inspection and + abdominal surgical incision (Healing); abdomen not distended Musculoskeletal: no cyanosis or clubbing, extremities motor strength 5/5 Extremities: + extremities abnormal to inspection (Left elbow effusion) Skin: no rashes, warm and dry Neurologic: moves all extremities and awake Psychiatric: Orientation: alert, oriented to person and cooperative Results & Data Results & Data ([facility]) Vital Signs (Past 12 Hours) Vital Signs Temp Pulse Pulse Resp BP BP Pulse Ox 02/06/20 15:43 37.1 C 77 18 135/75 97 02/06/20 11:48 36.8 C 75 73 20 160/84 H 121/53 L 95 02/06/20 06:58 36.8 C 73 20 121/53 L 95 PG Care Time/CCT Total # of Minutes Spent Total Time Spent with Patient: Total time spent is greater than 50% in coordination of care (as documented) at patient's floor/unit and/or counseling patient: Coding Level of Care Code 31809 Subseq Hosp Care Lvl 3 Diagnoses Left elbow pain M25.522 Acute cholecystitis K81.0 CKD (chronic kidney disease), stage III N18.3 HTN (hypertension) I10 Hypertension type: essential hypertension Permanent atrial fibrillation I48.21 Bradycardia R00.1 Fall W19.XXXD Encounter type: subsequent encounter Right knee pain M25.561 Chronicity: acute DVT prophylaxis Z29.9 (1) HTN (hypertension) Hypertension type: essential hypertension Qualified Code(s): I10 - Essential (primary) hypertension (2) Fall Encounter type: subsequent encounter Qualified Code(s): W19.XXXD - Unspecified fall, subsequent encounter (3) Right knee pain Chronicity: acute Qualified Code(s): M25.561 - Pain in right knee
--- NOTE | 2020-02-06 18:32 | Consultation Report ---
DATE OF CONSULTATION: 02/06/2020 REASON FOR CONSULT: Left elbow swelling. HISTORY OF PRESENT ILLNESS: The patient is an 89-year-old white male who had been admitted to [facility] on the of this month and then ended up undergoing a laparoscopic cholecystectomy by Dr. Reyes. Dr. Ruddy Zhang has been following the patient for his stay and the patient was progressing well and recovering well from his surgery. He was going to be discharged to [facility] today; however, the patient's had made a comment about the swelling in his left elbow. This has gone unnoticed and she stated that it was much more swollen today. The patient felt that it had swelled up a little bit over the last few days. He states that it is not overtly painful unless he is hyperflexing or hyperextending his elbow, no pain at rest normally with the left elbow. Vital signs have been remaining stable and he has been afebrile, although Dr. Zhang noticed a bump in his white count from 10 to 12 and felt the patient should be evaluated for his left elbow. We have been asked to see him for this. Currently, the patient was sitting in his chair at the bedside, sleeping and was easily awoken. We then had him sit down in his bed and discuss his left elbow. He is in no acute distress and no acute pain at this time. PAST MEDICAL HISTORY: Admission for generalized muscle weakness, gait abnormality, anorexia, hyponatremia, peripheral neuropathy, CKD stage III, on chronic anticoagulation with Coumadin, hypertension, atrial fibrillation, history of macular degeneration, osteomyelitis of the lumbar spine, peripheral neuropathy, dyslipidemia, bacteremia in the past, arthritis. PAST SURGICAL HISTORY: Colonoscopy, inguinal hernia repair, tonsillectomy and above-noted cholecystectomy. SOCIAL HISTORY: Former smoker, quit smoking in the 70s. He does drink alcohol on occasion. FAMILY HISTORY: Cardiac failure, colorectal cancer. MEDICATIONS: Lactobacillus 4 tabs p.o. daily, calcium carbonate 1 tab p.o. daily, flaxseed oil 1000 mg p.o. q.a.m., multivitamin 1 tab p.o. q.a.m., vitamins A,C,[id number] 1 tab p.o. b.i.d., verapamil 240 mg p.o. q.12 hours, warfarin 2.5 mg as scheduled, atenolol 25 mg p.o. q.a.m., potassium chloride 20 mEq p.o. q.a.m., Maxzide 1 tab p.o. q.a.m. and vitamin B complex 1 cap p.o. b.i.d. ALLERGIES: NKDA. REVIEW OF SYSTEMS: As per admitting history and physical. No recent chills or fevers, cough or increased sputum production, shortness of breath, chest pain, no feelings of his heart fluttering out of his chest. He had some mild abdominal tenderness during his admission prior to his cholecystectomy. Denies any urinary symptoms at this time. PHYSICAL EXAMINATION: GENERAL: The patient is an 89-year-old white male who appears his stated age. He is pleasant and cooperative and in no acute distress. He is alert and oriented to person and place. EXTREMITIES: Focusing in the exam on the left upper extremity, he has a large bursitis of the left elbow. It has a dark erythema to it surrounding most of the swollen area. On palpation, it is essentially nontender and does not seem to bother the patient when palpating it. I can feel a slight fluid shift inside the swollen portion of the skin. The patient has full flexion of his elbow and has some mild pain at that end point, full extension does cause some slight tenderness in the same area. He has no joint pain at this time of the left elbow. Strengths are equal and he has good sensation noted in his left hand. Distal pulses are equal bilaterally. ASSESSMENT: Bursitis, left elbow. PLAN: With the acute nature and the increasing white count, Dr. Zhang questioned the possibility of infection. I feel that it was warranted to go ahead and aspirate the left elbow bursitis region. I discussed this with the patient who was in agreement. The patient is notably on Coumadin and INR was only 1.7 at this point in time. Risks include bleeding and/or infection. We also discussed that there is a chance that this would reaccumulate possibly, of which the patient understood. At that time, the left elbow was swabbed with 2 alcohol swabs and 2 Betadine swabs and let to dry. A 20-gauge needle was then inserted into the bursa sac and 4 mL of clear bright yellow fluid was obtained. The needle was withdrawn and pressure was applied to the wound with a 4 x 3 gauze and then wrapped with an Heber wrap. The patient tolerated this well. This will be sent for cell count and culture. The fluid itself appeared as an inflammatory bursitis in nature and not septic. However, we will see what the cultures show. Continue compression of the left elbow. Ice and elevation. We will continue to follow the cultures and see how he is doing during his stay. GERALD
--- NOTE | 2020-02-06 19:55 | Ultrasound Report ---
RIGHT LOWER EXTREMITY VENOUS DOPPLER HISTORY: Right ankle swelling COMPARISON STUDY: None. FINDINGS: There is normal compressibility, flow, and augmentation within the right lower extremity de ep venous system. Calf vessels were suboptimally assessed due to the swelling. IMPRESSION: No definite DVT within the right lower extremity ACT 112: Negative or not required by law. Electronically signed by: Parmjit Torres M.D. 02/06/2020 7:54 PM
[2020-02-06] MEDS: POTASSIUM CHLORIDE / WTR 10 MEQ/100 ML PLCT IV SCH ×3 (20:21→22:57)
[2020-02-06] MEDS: DOXYCYCLINE HYCLATE 100 MG CAP PO SCH (20:21)
[2020-02-07] MEDS: POTASSIUM CHLORIDE / WTR 10 MEQ/100 ML PLCT IV SCH (00:19)
[2020-02-07] MEDS: DOXYCYCLINE HYCLATE 100 MG CAP PO SCH ×2 (06:00→19:58)
[2020-02-07 06:56] LABS: Hematocrit (blood only) 33.9 % (42-52); Hemoglobin 11.5 g/dL (14.0-18.0); Mean Corpuscular Hemoglobin 31.9 pg (25-34); Mean Corpuscular Hgb Conc 33.9 g/dL (32-36); Mean Corpuscular Volume 94.2 fL (80-100); Mean Platelet Volume 8.6 fL (7.4-10.4); Platelet Count 271 K/uL (130-400); RDW Coefficient of Variation 13.4 % (11.5-14.5); RDW Standard Deviation 46.5 fL (36.4-46.3); White Blood Count 9.89 K/uL (4.8-10.8)
[2020-02-07 07:05] LABS: INR 1.7 (0.9-1.1); Prothrombin Time 17.4 Seconds (9.0-12.0)
[2020-02-07 07:26] LABS: BUN Creatinine Ratio 18.1 (10-20); Calcium 8.4 mg/dl (8.5-10.1); Est GFR (African American) 68.6; Est GFR (Non-African American) 59.2; Magnesium 1.9 mg/dl (1.8-2.4); Potassium 3.2 mmol/L (3.5-5.1)
[2020-02-07] MEDS: LACTOBACILLUS ACIDOPHILUS (FLORANEX) TAB PO SCH (08:39)
[2020-02-07] MEDS: TAMSULOSIN HCL 0.4 MG CAP PO SCH (08:39)
[2020-02-07] MEDS: PANTOprazole 40 MG TAB PO SCH (08:40)
[2020-02-07] MEDS: CEROVITE ADV FORMULA TAB PO SCH (08:41)
[2020-02-07] MEDS: VITAMIN B COMPLEX TAB PO SCH ×2 (08:41→20:02)
[2020-02-07] MEDS: VERAPAMIL HCL 120 MG TABCR PO SCH ×2 (08:41→20:02)
[2020-02-07] MEDS: CALCIUM 600MG + VIT D 400 IU TAB PO SCH (08:41)
[2020-02-07] MEDS: POTASSIUM CHLORIDE 20 MEQ TABCR PO SCH ×2 (08:41→20:02)
[2020-02-07] MEDS: AMOXICILLIN/CLAVULANATE 875 MG TAB PO SCH ×2 (08:42→16:48)
[2020-02-07] MEDS: DICLOFENAC SOD 1% GEL 100 GM TUBE EXT SCH ×4 (08:42→20:04)
--- NOTE | 2020-02-07 15:54 | Hospitalist Progress Note ---
Date of Service February 07, 2020 Assessment & Plan (1) Left elbow pain: Noted by on 02/05 prior to discharge. - Seen by ortho -> WBCs are 4600. - Started on doxycycline for possible infectious bursitis. Follow culture. Better today. Ortho will see him in follow up. (2) Acute cholecystitis: S/p lap salbador for severe, perforated acute gangrenous cholecystitis on 01/[address] Reyes. - Doing well from surgical standpoint; SHELL drain to be removed on 01/30/2020. - Received 7 days of Zosyn, then placed on 3 more days of Augmentin (End date: 02/06) (3) CKD (chronic kidney disease), stage III: BMP stable. Cr. 1.24 with eGFR ~50. - Cr 1.1 today. Remains good. (4) HTN (hypertension): Due to bradycardia and electrolytes abnormalities his HCTZ had been stoppe d, atenolol had been stopped, and verapamil dose had been decreased by 50%. - Resumed HCTZ on 02/01 - BPs improved. Na+ stable. - Stopped again on 02/05 given continued hypokalemia despite repletion. - BP still stable today off HCTZ. (5) Permanent atrial fibrillation: See above in "HTN". Rates acceptable again overnight on verapamil only. - Cont OFF atenolol - Cont warfarin - INR 1.7 today. (6) Bradycardia: Resolved. Was likely combination of BB use and CCB use. - Atenolol on hold - Verapamil dose decreased by 50%. (Now 120 mg Q12h) (7) Fall: Pre-hospitalization. Likely multifactorial (brewing cholecystitis, hyponatremia, bradycardia, etc). - Continue PT, OT - needs rehab (8) Right knee pain: Advanced OA at baseline. Had fall prior to admission - had effusion; suspect hemorrhagic effusion from trauma. X-rays without fracture. - Cont ice and diclofenac gel. (9) DVT prophylaxis: Warfarin Admission and Anticipated Discharge Date Admission Date: January 27, 2020 Subjective Feels well today. The left elbow is feeling better. The right ankle is stable to day. Reports no fevers/chills, chest pain, shortness of breath, abdominal pain, nausea, or vomiting. Physical Exam Constitutional: WD/WN, vitals as above Eyes: EOM intact bilaterally; no conjunctival abnormality ENMT: external ear and nose normal, oropharynx normal Neck: trachea midline, no thyromegaly normal visual inspection Respiratory: normal respiratory effort, lungs clear to auscultation no respiratory distress Cardiovascular: RRR, no murmur, no edema Gastrointestinal (Abdomen): Inspection/Auscultation: abdomen normal to inspection and + abdominal surgical incision (Healing); abdomen not distended Musculoskeletal: no cyanosis or clubbing, extremities motor strength 5/5 Extremities: + extremities abnormal to inspection (Left elbow effusion) Skin: no rashes, warm and dry Neurologic: moves all extremities and awake Psychiatric: Orientation: alert, oriented to person and cooperative Results & Data Results & Data ([facility]) Vital Signs (Past 12 Hours) Vital Signs Temp Pulse Pulse Resp BP Pulse Ox 02/07/20 15:17 37.0 C 83 20 123/64 96 02/07/20 08:00 36.4 C L 69 16 150/72 H 97 02/07/20 04:00 36.4 C L 67 18 122/72 93 PG Care Time/CCT Total # of Minutes Spent Total Time Spent with Patient: Total time spent is greater than 50% in coordination of care (as documented) at patient's floor/unit and/or counseling patient: Coding Level of Care Code 17661 Subseq Hosp Care Lvl 3 Diagnoses Left elbow pain M25.522 Acute cholecystitis K81.0 CKD (chronic kidney disease), stage III N18.3 HTN (hypertension) I10 Hypertension type: essential hypertension Permanent atrial fibrillation I48.21 Bradycardia R00.1 Fall W19.XXXD Encounter type: subsequent encounter Right knee pain M25.561 Chronicity: acute DVT prophylaxis Z29.9 (1) HTN (hypertension) Hypertension type: essential hypertension Qualified Code(s): I10 - Essential (primary) hypertension (2) Fall Encounter type: subsequent encounter Qualified Code(s): W19.XXXD - Unspecified fall, subsequent encounter (3) Right knee pain Chronicity: acute Qualified Code(s): M25.561 - Pain in right knee
[2020-02-07] MEDS ORDERED: WARFARIN SOD 2.5 MG TAB PO ONE (16:30)
[2020-02-07] MEDS: WARFARIN SOD 2.5 MG TAB PO SCH (16:46)
[2020-02-08 06:38] VITALS: BP 112/58; PULSE 67; TEMP 98.1; O2SAT 95
[2020-02-08 08:11] LABS: Hemoglobin 11.6 g/dL (14.0-18.0); Mean Corpuscular Hemoglobin 31.5 pg (25-34); Mean Corpuscular Hgb Conc 33.1 g/dL (32-36); Mean Corpuscular Volume 95.1 fL (80-100); Mean Platelet Volume 8.8 fL (7.4-10.4); Platelet Count 321 K/uL (130-400); RDW Coefficient of Variation 13.4 % (11.5-14.5); RDW Standard Deviation 46.4 fL (36.4-46.3); Red Blood Count 3.68 M/uL (4.7-6.1); White Blood Count 8.25 K/uL (4.8-10.8)
[2020-02-08 08:22] LABS: INR 1.7 (0.9-1.1); Prothrombin Time 17.9 Seconds (9.0-12.0)
[2020-02-08] MEDS: LACTOBACILLUS ACIDOPHILUS (FLORANEX) TAB PO SCH (08:40)
[2020-02-08] MEDS: VERAPAMIL HCL 120 MG TABCR PO SCH (08:40)
[2020-02-08] MEDS: DICLOFENAC SOD 1% GEL 100 GM TUBE EXT SCH (08:40)
[2020-02-08] MEDS: VITAMIN B COMPLEX TAB PO SCH (08:41)
[2020-02-08] MEDS: CEROVITE ADV FORMULA TAB PO SCH (08:41)
[2020-02-08] MEDS: POTASSIUM CHLORIDE 20 MEQ TABCR PO SCH (08:41)
[2020-02-08] MEDS: PANTOprazole 40 MG TAB PO SCH (08:41)
[2020-02-08] MEDS: CALCIUM 600MG + VIT D 400 IU TAB PO SCH (08:41)
[2020-02-08] MEDS: AMOXICILLIN/CLAVULANATE 875 MG TAB PO SCH (08:42)
[2020-02-08] MEDS: DOXYCYCLINE HYCLATE 100 MG CAP PO SCH (08:42)
[2020-02-08] MEDS: TAMSULOSIN HCL 0.4 MG CAP PO SCH (08:43)
[2020-02-08 08:48] LABS: Albumin Level 2.1 gm/dl (3.4-5.0); BUN Creatinine Ratio 19.6 (10-20); Calcium 8.7 mg/dl (8.5-10.1); Creatinine Clr Calc Pharmacy 49.2 ml/min; Est GFR (African American) 72.6; Est GFR (Non-African American) 62.6; Potassium 3.5 mmol/L (3.5-5.1)
[2020-02-08 08:51] LABS: Albumin Globulin Ratio 0.5 (0.9-2); Bilirubin,Total 0.8 mg/dl (0.2-1); Globulin 4.1 gm/dl (2.5-4.0); Total Protein 6.2 gm/dl (6.4-8.2)
--- NOTE | 2020-02-08 16:44 | Discharge Summary ---
Date of Service February 08, 2020 Admission HPI Per Admitting Provider The patient is a 89-year-old male with a past medical history including pulmonary hypertension, aortic valve sclerosis, ambulatory dysfunction, peripheral neuropathy, dyslipidemia, chronic anticoagulation, osteomyelitis of lumbar vertebrae, CKD stage III, hypertension and permanent atrial fibrillation. His reports that he has had decreased appetite for the past week, however, he did actually eat better over the past 24 hours. She became concerned because he was still having difficulty with ambulation, and was generally weak, and she brought him to the emergency department for assessment. provides the main HPI and review of systems Principal Diagnosis Acute cholecystitis Discharge Exam Constitutional WD/WN, vitals as above Eyes EOM intact bilaterally; no conjunctival abnormality ENMT external ear and nose normal, oropharynx normal Neck trachea midline, no thyromegaly normal visual inspection Respiratory normal respiratory effort, lungs clear to auscultation no respiratory distress Cardiovascular RRR, no murmur, no edema Gastrointestinal (Abdomen) Inspection/Auscultation: abdomen normal to inspection and + abdominal surgical incision (Healing); abdomen not distended Musculoskeletal no cyanosis or clubbing, extremities motor strength 5/5 Extremities: + extremities abnormal to inspection (Left elbow effusion) Skin no rashes, warm and dry Neurologic moves all extremities and awake Psychiatric Orientation: alert, oriented to person and cooperative Discharge Data Allergies Allergy/AdvReac Type Severity Reaction Status Date / Time No Known Drug Allergies Allergy Unknown Verified 01/27/20 14:37 Consultations 01/27/20 16:58 ED Decision to Admit Stat 01/27/20 18:55 Consult Case Management - Discharge Planning Routine 01/29/20 00:20 Consult General Surgery Routine 02/06/20 15:29 Consult Orthopedic Surgery Routine Procedures Performed Operation Date: 01/31/20 10:30 Actual Procedures p Laparoscopic Cholecystectomy - Melvin Reyes, Ordered Studies 01/27/20 14:11 CT head/brain wo con Stat 01/28/20 13:27 US gallbladder Urgent 02/06/20 18:25 US venous doppler LE RT Routine Hospital Course (1) Left elbow pain: Noted by on 02/05 prior to discharge. - Seen by ortho -> WBCs are 4600. - Started on doxycycline for possible infectious bursitis; however, culture was negative at 48 hours. 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 Trial NSAIDs. Ortho will see him in follow up. (2) Acute cholecystitis: S/p lap salbador for severe, perforated acute gangrenous cholecystitis on 01/[address] Reyes. - Doing well from surgical standpoint; SHELL drain to be removed on 01/30/2020. - Received 7 days of Zosyn, then placed on 5 more days of Augmentin (End date: 02/08) (3) CKD (chronic kidney disease), stage III: BMP stable. Cr. 1.24 with eGFR ~50. - Cr 1.1 today. Remains good. (4) HTN (hypertension): Due to bradycardia and electrolytes abnormalities his HCTZ had been stopped, atenolol had been stopped, and verapamil dose had been decreased by 50%. - Resumed HCTZ on 02/01 - BPs improved. Na+ stable. - Stopped again on 02/05 given continued hypokalemia despite repletion. - BP still stable today off HCTZ. (5) Permanent atrial fibrillation: See above in "HTN". Rates acceptable again overnight on verapamil only. - Cont OFF atenolol - Cont warfarin - INR 1.7 today. (6) Bradycardia: Resolved. Was likely combination of BB use and CCB use. - Atenolol on hold - Verapamil dose decreased by 50%. (Now 120 mg Q12h) (7) Fall: Pre-hospitalization. Likely multifactorial (brewing cholecystitis, hyponatremia, bradycardia, etc). - Continue PT, OT - needs rehab (8) Right knee pain: Advanced OA at baseline. Had fall prior to admission - had effusion; suspect hemorrhagic effusion from trauma. X-rays without fracture. - Cont ice and diclofenac gel. (9) DVT prophylaxis: Warfarin Total Time Total Time Spent Total Time Spent (In Minutes): 35 Discharge Plan Discharge Items Patient Disposition: Transfer [facility] Reason For Visit: HYPONATREMIA, WEAKNESS, AMBULATORY DYSFUNCTION Discharge Diagnosis: Perforated gallbladder now with gallbladder removed Activity: Resume your previous activity Lifting: No more than 10 pounds Bathing Comment: Ok to shower. No tub soaks. Non-emergency contact: Primary Care Provider and Surgeon Call non-emergency contact if: your symptoms worsen and your temperature is above 101 Follow-up/Referrals: Walter Whitehead MD [Primary Care Provider] - Melvin Reyes DO [Surgeon] - (Please call to schedule a follow up appointment in clinic within 1-2 weeks) Diet: Heart Healthy Addtl Attending Provider Instructions: You were admitted to the hospital with a perforated gallbladder. You had your gallbladder out last week and have taken a bit of time to recover. Please take the Augmentin for another day, then you will be done. It is causing some diarrhea, which you can use Imodium to improve. C. diff testing was negative. You also had a left elbow effusion that had some mild pain. The orthopedic doctors took out fluid and sent it for testing. It has not grown any bacteria; however, we would like you on a week of doxycyline 100 mg PO BID just to be sure it is not an infected bursitis. We also feel that gout may be playing a role, so we are starting you on ibuprofen 400 mg PO TID to help reduce any inflammation from that. You should take this for 3-5 days until the swelling has improved. Please see Dr. Domingo in the office in a week if it has not gone away. Otherwise, your heart has remained stable with a regular rate in the hospital. You have remained in atrial fibrillation here. On discharge, your INR was 1.7 which is a bit low. As you stop the Augmentin, please check your INR in 1-2 days to be sure it is back in the normal 2-3 range. Addtl Door Opener Provider Instructions: Orthopedics: Left elbow swelling. Continue compression with Heber wrap, ice and elevation of the left elbow. Range of motion as tolerated. Follow-up with Dr. Domingo in 7 to 10 days if no better. Follow-up sooner if you begin to have worsening symptoms with the left elbow. [phone] Pending Studies at Discharge: No Stand-Alone Forms: My [facility] Skilled Items Patient informed of condition?: Yes DNR: No Discharge Level of Care: Skilled Communicable Disease: No Discharge Prognosis: Improving Lines: None Urinary Catheter: No Medications and DC Order Prescriptions: New tamsulosin 0.4 mg Capsule 0.4 mg PO QAM Qty: 1 RF: 0 amoxicillin-pot clavulanate [Augmentin] 875-125 mg Tablet 1 tab PO BIDM Qty: 3 RF: 0 pantoprazole 40 mg Tablet,Delayed Release (Dr/Ec) 40 mg PO QAM Qty: 1 RF: 0 doxycycline hyclate 100 mg Capsule 100 mg PO Q12H Qty: 1 RF: 0 ibuprofen 400 mg tablet 400 mg PO TID Qty: 1 RF: 0 Continued calcium carbonate-vitamin D3 [Caltrate with Vitamin D3] 600 mg(1,500mg) -800 unit tablet 1 tab PO DAILY RF: 0 flaxseed oil 1,000 mg capsule 1,000 mg PO QAM RF: 0 Lactobacillus acidoph-L.bulgar [Floranex] 1 million cell tablet 4 tab PO QDB RF: 0 khzqvlgx-gmi-JE-lycopen-lutein [Centrum Silver] 0.4-300-250 mg-mcg-mcg tablet 1 tab PO QAM RF: 0 vitamins A,C,Q-imte-pqkaet 7,160-113-100 fcda-iu-biaq tablet 1 tab PO BID RF: 0 verapamil [Calan SR] 240 mg tablet extended release 240 mg PO Q12H Qty: 180 RF: 3 warfarin 2.5 mg tablet See Rx Instructions PO UD Qty: 108 RF: 3 vitamin B complex Capsule 1 cap PO BID RF: 0 potassium chloride [Klor-Con M20] 20 mEq tablet,ER particles/crystals 20 meq PO QAM RF: 0 Discontinued atenolol 25 mg tablet 25 mg PO QAM RF: 0 triamterene-hydrochlorothiazid [Maxzide] 75-50 mg tablet 1 tab PO QAM RF: 0 Discharge Orders: Discharge Order (Routine); Ordered 02/08/20 Ordered By: Ruddy Zhang Admission Data Admit Date/Time: 01/27/20 17:53 Attending Provider: Ruddy Zhang Admit Provider: Pierce Gavin Primary Care Provider: Walter Whitehead Other Providers: [facility] ; Jamila Quintero [facility] [place] ; Pierce Gavin ; Darwin Smith ; Alen Domingo Other Interventions: Discharge Summary Assessment (RN) Last Done: 02/08/20 13:16 DC Date/Time DO NOT enter until pt leaves facility: 02/08/20 13:44 Coding Level of Care Code D/C Day Management >30 mins Diagnoses Left elbow pain M25.522 Acute cholecystitis K81.0 CKD (chronic kidney disease), stage III N18.3 HTN (hypertension) I10 Hypertension type: essential hypertension Permanent atrial fibrillation I48.21 Bradycardia R00.1 Fall W19.XXXD Encounter type: subsequent encounter Right knee pain M25.561 Chronicity: acute DVT prophylaxis Z29.9
== END 2020-02-08 13:44 | DRG 417 ==
LOC: ED 13:50 → 2N 17:53 → SUATTDRO 17:53 → 2N 18:23
DX: Z79.01 Long term (current) use of anticoagulants; E83.42 Hypomagnesemia; Z87.891 Personal history of nicotine dependence; R00.1 Bradycardia, unspecified; G93.41 Metabolic encephalopathy; E87.6 Hypokalemia; Z79.899 Other long term (current) drug therapy; G62.9 Polyneuropathy, unspecified; M17.11 Unilateral primary osteoarthritis, right knee; M25.461 Effusion, right knee; K81.0 Acute cholecystitis; N18.3 Chronic kidney disease, stage 3 (moderate); M71.122 Other infective bursitis, left elbow; I48.21 Permanent atrial fibrillation; R33.9 Retention of urine, unspecified; E87.1 Hypo-osmolality and hyponatremia; I12.9 Hypertensive chronic kidney disease with stage 1 through stage 4 chronic kidney disease, or unspecified chronic kidney disease

== ENCOUNTER 2020-03-08 17:50 | Inpatient (IN) ==
--- NOTE | 2020-03-08 18:36 | Emergency Department Note ---
Impression & Plan Generalized muscle weakness, NSVT (nonsustained ventricular tachycardia), Hypokalemia ED Provider Note NAME: RENATO COLON AGE: 89 SEX: M ARRIVES VIA: Ambulance INFORMANT: Patient, ED PROVIDER(S): Avinash Lewis MD CHIEF COMPLAINT: Weakness PLAN: Disposition: Admit MEDICAL DECISION MAKING: The patient is a pleasant 89-year-old gentleman with a past medical history of A. fib on Coumadin who presents emergency department after having a evaluation by his PCP for generalized weakness in the setting of recent admission with discharge to rehab subsequent discharge to home where he has been for the past week but reports being increasingly weak and had a fall on Wednesday where he hit his head but did not lose consciousness and did not seek medical attention. Today he was seen by his PCP for weakness and was referred to emergency department for further evaluation. The patient's main complaint is feeling weak but denies any pain, fevers, chills, cough, congestion, nausea, vomit, diarrhea, urinary symptoms. Reports he feels "discouraged" for being back in the hospital again. On arrival the patient is fatigued appearing but no acute distress, afebrile stable vital signs. EKG without evidence of acute ischemia. CXR negative. WBC and platelets wnl. H/H similar to prior. Chemistry without acidosis. Potassium 3.1 with repletion provided. Otherwise, LFTs and electrolytes unremarkable. Troponin negative. UA negative. CT head negative. Te lemetry with brief NSVT with several triplets but asymptomatic. Reasonable to proceed with admission for further management. Patient and agreeable. Case was discussed with Dr. Gavin, [facility] hospitalist, who will evaluate the patient for admission. Triage Nursing notes reviewed and agree them. Prior medical records reviewed Vital Signs: reviewed and remarkable for no significant abnormalities Differential diagnosis: Infection, dehydration, metabolic abnormality, hypo/hyperglycemia, electrolyte disturbance, anemia, hypoxia, cardiac sources, intracerebral event, toxicologic, neurologic, as well as other pathologies. ER treatment provided: See below. Diagnostics interpreted by me: ECG: Atrial fibrillation, 78 bpm, no ectopy, no overt ST elevation or depression, QTC 483, QRS 92. Cardiac Monitoring: An order for continuous cardiac monitoring was placed and demonstrated atrial fibrillation, 78 bpm, episode of NSVT with several triplets. Laboratory studies: See below Imaging studies: CT OF THE HEAD WITHOUT CONTRAST CLINICAL HISTORY: Fall 5 days ago, coumadin COMPARISON STUDY: Head CT January 27, 2020. CT DOSE: 1151.75 mGy.cm TECHNIQUE: Helical axial images of the head were obtained without IV contrast. Automated exposure control was utilized for the study. A dose lowering technique was utilized adhering to the principles of ALARA. FINDINGS: No acute intracranial hemorrhage, midline shift or mass effect is present. The ventricular system is unremarkable. White matter hypodensity suggests small vessel disease. There is moderate to severe atrophy. The basilar cisterns are patent. No extra-axial collections are present. There are no fin dings to suggest acute dural sinus thrombosis or acute territorial infarct. No significant calvarial abnormalities are present. Visualized portions of the sinuses and mastoid air cells are clear. IMPRESSION: No acute intracranial findings. No change in appearance of the brain. XR chest 1V portable CLINICAL HISTORY: Chest Pain COMPARISON STUDY: Chest radiograph January 27, 2020. FINDINGS: Elevation of the left hemidiaphragm is unchanged. Moderate cardiomegaly is unchanged. There is no evidence for pulmonary edema. Linear bibasilar opacities favor atelectasis or scarring. There is no consolidation to suggest pneumonia. There is no pneumothorax or pleural effusion. The appearance of the chest is unchanged. IMPRESSION: No acute cardiopulmonary findings. No change in appearance of the chest. Consultation(s): Case was discussed with Dr. Gavin, [facility] hospitalist, who will evaluate the patient for admission. HPI: The patient is a pleasant 89-year-old gentleman with a past medical history of A. fib on Coumadin who presents emergency department after having a evaluation by his PCP for generalized weakness in the setting of recent admission with discharge to rehab subsequent discharge to home where he has been for the past week but reports being increasingly weak and had a fall on Wednesday where he hit his head but did not lose consciousness and did not seek medical attention. Today he was seen by his PCP for weakness and was referred to emergency department for further evaluation. The patient's main complaint is feeling weak but denies any pain, fevers, chills, cough, congestion, nausea, vomit, diarrhea, urinary symptoms. Reports he feels "discouraged" for being back in the hospital again. On arrival the patient is fatigued appearing but no acute distress, afebrile stable vital signs. ROS: See above HPI for pertinent positives & negatives. A total of 10 systems reviewed and were otherwise negative. PAST MEDICAL HISTORY:See Below PAST SURGICAL HISTORY:See Below FAMILY HISTORY:See Below SOCIAL HISTORY:See Below HOME MEDICATIONS:See Below ALLERGIES:See Below VITALS:See Below PHYSICAL EXAMINATION: GENERAL: Awake, alert, fatigued-appearing, in no distress HENT: Normocephalic, atraumatic. Oropharynx with dry mucous membranes and otherwise unremarkable. EYES: Normal conjunctiva. Sclera non-icteric. NECK: Supple. No nuchal rigidity. FROM. No JVD. RESPIRATORY: Clear to auscultation. CARDIAC: Irregular rate, normal rhythm. Extremities warm and well perfused. Pulses equal. ABDOMEN: Soft, non-distended. No tenderness to palpation. No rebound or guarding. No masses. RECTAL: Deferred. MUSCULOSKELETAL: Chest examination reveals no tenderness. The back is symmetrical on inspection without obvious abnormality. There is no CVA tenderness to palpation. No joint edema. LOWER EXTREMITIES: Calves are equal size bilaterally and non-tender. No edema. No discoloration. NEURO: Normal sensorium. No sensory or motor deficits noted. 5/5 strength and SILT x 4 extremities. SKIN: No rash or jaundice noted. Avinash Lewis MD Past Med/Surg History Medical History Arthritis of multiple sites Bacteremia Chronic anticoagulation CKD (chronic kidney disease), stage III Dyslipidemia HTN (hypertension) Impaired fasting glucose Macular degeneration Osteomyelitis of lumbar vertebra Peripheral neuropathy Permanent atrial fibrillation Vertebral osteomyelitis Surgical History History of colonoscopy History of inguinal hernia repair History of tonsillectomy Family History Father Cardiac failure Mother Colorectal cancer Sister Colorectal cancer Denies family history of Ovarian cancer Prostate cancer Breast cancer Lung cancer Social History Smoking Status: Never smoker Second Hand Exposure: No; Hx Alcohol Use: No Hx Substance Use: No Preferred Language: [place] Communication Ability: Effective Visual Impairment: Limited Hearing Ability: Use of Hearing Aid Transmission Worker Required: No Beliefs That Will Affect Care: None marital status: Current Living Situation: Spouse current occupational status: retired Other Information That Helps Us Care for You: No Feels Safe at Home: Yes Childhood Exposure to Second-Hand Smoke: No Dental Care, Regularly: Yes Physical Activity Frequency: Daily Seatbelt Use: always Sunscreen Use: Yes Allergies Allergies Allergy/AdvReac Type Severity Reaction Status Date / Time No Known Drug Allergies Allergy Unknown Unknown Verified 03/08/20 20:56 Home Meds Home Medications Medication Instructions Recorded Confirmed flaxseed oil 1,000 mg capsule 1,000 mg PO BID 03/30/18 03/08/20 odjoggxo-egk-kcyyn acid 0.4 1 tab PO QAM 03/30/18 03/08/20 mg-lycopene 300 mcg-lutein 250 mcg tablet potassium chloride [Klor-Con M20] 20 meq PO QAM 01/27/20 03/08/20 vitamin B complex 1 cap PO BID 01/27/20 03/08/20 calcium carb-D3-mag ox-zinc ox 1 tab PO BID 03/08/20 03/08/20 [Anirudh Mag Zinc Plus D3] glucosamine-chondroitin [Osteo 1 tab PO BID 03/08/20 03/08/20 Bi-Flex] verapamil [Calan SR] 240 mg PO QPM 03/08/20 03/08/20 Previous Rx's Medication Instructions Recorded warfarin 2.5 mg tablet See Rx Instructions PO UD #108 tab 12/29/19 tamsulosin 0.4 mg PO QAM #1 cap 02/06/20 Results & Data (ED) Vital Signs Vital Signs - 24 hr 03/08/20 17:50 03/08/20 17:53 03/08/20 19:06 Temperature 37.2 C Temperature Source Oral Pulse Rate 75 77 82 Pulse Rate [Right Finger] Pulse Rate from SpO2 Sensor 76 Pulse Rhythm Regular Respiratory Rate 18 17 23 Respiratory Effort / Characteristics Non-Labored Spontaneous Respiratory Depth Normal Respiratory Pattern Regular Blood Pressure 162/89 H 162/89 H 158/88 H Blood Pressure [Right Arm] Blood Pressure Mean 113 102 106 Blood Pressure Mean [Right Arm] Blood Pressure Position [Right Arm] Pulse Oximetry 96 96 Oxygen Delivery Method Room Air Sepsis Recent Fever Within 48 Hours No Sepsis New/Unexplained Change in Mental Status No Sepsis Action Taken by Nursing No Action Required 03/08/20 19:30 03/08/20 20:10 03/08/20 20:11 Temperature Temperature Source Pulse Rate 80 82 Pulse Rate [Right Finger] 89 Pulse Rate from SpO2 Sensor 82 81 Pulse Rhythm Respiratory Rate 25 H 23 18 Respiratory Effort / Characteristics Respiratory Depth Respiratory Pattern Blood Pressure 143/85 H 153/87 H Blood Pressure [Right Arm] 153/87 H Blood Pressure Mean 95 109 Blood Pressure Mean [Right Arm] 109 Blood Pressure Position [Right Arm] Sitting Pulse Oximetry 98 96 97 Oxygen Delivery Method Sepsis Recent Fever Within 48 Hours Sepsis New/Unexplained Change in Mental Status Sepsis Action Taken by Nursing 03/08/20 20:30 03/08/20 21:01 03/08/20 21:31 Temperature Temperature Source Pulse Rate 72 88 80 Pulse Rate [Right Finger] Pulse Rate from SpO2 Sensor Pulse Rhythm Respiratory Rate 22 25 H 31 H Respiratory Effort / Characteristics Respiratory Depth Respiratory Pattern Blood Pressure 160/88 H 144/108 H 132/71 Blood Pressure [Right Arm] Blood Pressure Mean 107 133 80 Blood Pressure Mean [Right Arm] Blood Pressure Position [Right Arm] Pulse Oximetry Oxygen Delivery Method Sepsis Recent Fever Within 48 Hours Sepsis New/Unexplained Change in Mental Status Sepsis Action Taken by Nursing 03/08/20 22:01 Temperature Temperature Source Pulse Rate 89 Pulse Rate [Right Finger] Pulse Rate from SpO2 Sensor Pulse Rhythm Respiratory Rate 32 H Respiratory Effort / Characteristics Respiratory Depth Respiratory Pattern Blood Pressure 127/85 Blood Pressure [Right Arm] Blood Pressure Mean 113 Blood Pressure Mean [Right Arm] Blood Pressure Position [Right Arm] Pulse Oximetry Oxygen Delivery Method Sepsis Recent Fever Within 48 Hours Sepsis New/Unexplained Change in Mental Status Sepsis Action Taken by Nursing Laboratory Data Attestation: I reviewed the patient's lab results. Result diagrams: 03/09/20 00:48 03/09/20 00:48 Lab Results 03/08/20 03/08/20 03/08/20 Range/Units 19:05 19:05 19:05 WBC 8.38 (4.8-10.8) K/uL RBC 3.66 L (4.7-6.1) M/uL Hgb 11.9 L (14.0-18.0) g/dL Hct 35.8 L (42-52) % MCV 97.8 (80-100) fL MCH 32.5 (25-34) pg MCHC 33.2 (32-36) g/dL RDW Std Deviation 50.8 H (36.4-46.3) fL RDW Coeff of Leonel 14.0 (11.5-14.5) % Plt Count 259 (130-400) K/uL MPV 8.4 (7.4-10.4) fL Immature Gran % (Auto) 0.1 % Neut % (Auto) 69.9 % Lymph % (Auto) 14.1 % [place] % (Auto) 12.9 % Eos % (Auto) 2.9 % Baso % (Auto) 0.1 % Neut # (Auto) 5.86 (1.4-6.5) K/uL Lymph # (Auto) 1.18 L (1.2-3.4) K/uL [place] # (Auto) 1.08 H (0.11-0.59) K/uL Eos # (Auto) 0.24 (0-0.5) K/uL Baso # (Auto) 0.01 (0-0.2) K/uL Immature Gran # (Auto) 0.01 (0.00-0.02) K/uL PT 23.0 H (9.0-12.0) Seconds INR 2.3 H (0.9-1.1) APTT 40.7 H (21.0-31.0) Seconds PTT Ratio 1.5 Sodium 137 (136-145) mmol/L Potassium 3.4 L (3.5-5.1) mmol/L Chloride 100 (98-107) mmol/L Carbon Dioxide 30 (21-32) mmol/L Anion Gap 7.0 (3-11) BUN 18 (7-18) mg/dl Creatinine 1.07 (0.6-1.4) mg/dl Est Cr Clr Drug Dosing 53.0 ml/min Est GFR ( Amer) 71.0 Est GFR (Non-Af Amer) 61.2 BUN/Creatinine Ratio 16.9 (10-20) Glucose 97 (70-99) mg/dl Calcium 8.6 (8.5-10.1) mg/dl Phosphorus 2.8 (2.5-4.9) mg/dl Magnesium 2.2 (1.8-2.4) mg/dl Total Bilirubin 0.7 (0.2-1) mg/dl Direct Bilirubin 0.3 H (0-0.2) mg/dl AST 25 (15-37) U/L ALT 23 (12-78) U/L Alkaline Phosphatase 127 H (45-117) U/L Troponin I < 0.015 (0-0.045) ng/ml Total Protein 6.9 (6.4-8.2) gm/dl Albumin 2.7 L (3.4-5.0) gm/dl Globulin 4.2 H (2.5-4.0) gm/dl Albumin/Globulin Ratio 0.6 L (0.9-2) Lipase 257 (73-393) U/L TSH 0.516 (0.300-4.500) uIu/ml Urine Color Urine Appearance (Clear) Urine pH (4.5-7.5) Ur Specific [place] (1.000-1.030) Urine Protein (Negative) Urine Glucose (UA) (Negative) Urine Ketones (Negative) Urine Blood (Negative) Urine Nitrite (Negative) Urine Bilirubin (Negative) Urine Urobilinogen (Negative) Ur Leukocyte Esterase (Negative) Urine WBC (Auto) (0-5) /hpf Urine RBC (Auto) (0-4) /hpf U Hyaline Cast (Auto) (0-5) /lpf U Epithel Cells (Auto) (0-5) /lpf Urine Bacteria (Auto) (Negative) 03/08/20 Range/Units 21:20 WBC (4.8-10.8) K/uL RBC (4.7-6.1) M/uL Hgb (14.0-18.0) g/dL Hct (42-52) % MCV (80-100) fL MCH (25-34) pg MCHC (32-36) g/dL RDW Std Deviation (36.4-46.3) fL RDW Coeff of Leonel (11.5-14.5) % Plt Count (130-400) K/uL MPV (7.4-10.4) fL Immature Gran % (Auto) % Neut % (Auto) % Lymph % (Auto) % [place] % (Auto) % Eos % (Auto) % Baso % (Auto) % Neut # (Auto) (1.4-6.5) K/uL Lymph # (Auto) (1.2-3.4) K/uL [place] # (Auto) (0.11-0.59) K/uL Eos # (Auto) (0-0.5) K/uL Baso # (Auto) (0-0.2) K/uL Immature Gran # (Auto) (0.00-0.02) K/uL PT (9.0-12.0) Seconds INR (0.9-1.1) APTT (21.0-31.0) Seconds PTT Ratio Sodium (136-145) mmol/L Potassium (3.5-5.1) mmol/L Chloride (98-107) mmol/L Carbon Dioxide (21-32) mmol/L Anion Gap (3-11) BUN (7-18) mg/dl Creatinine (0.6-1.4) mg/dl Est Cr Clr Drug Dosing ml/min Est GFR ( Amer) Est GFR (Non-Af Amer) BUN/Creatinine Ratio (10-20) Glucose (70-99) mg/dl Calcium (8.5-10.1) mg/dl Phosphorus (2.5-4.9) mg/dl Magnesium (1.8-2.4) mg/dl Total Bilirubin (0.2-1) mg/dl Direct Bilirubin (0-0.2) mg/dl AST (15-37) U/L ALT (12-78) U/L Alkaline Phosphatase (45-117) U/L Troponin I (0-0.045) ng/ml Total Protein (6.4-8.2) gm/dl Albumin (3.4-5.0) gm/dl Globulin (2.5-4.0) gm/dl Albumin/Globulin Ratio (0.9-2) Lipase (73-393) U/L TSH (0.300-4.500) uIu/ml Urine Color Dark Yellow Urine Appearance Clear (Clear) Urine pH 6.5 (4.5-7.5) Ur Specific [place] 1.014 (1.000-1.030) Urine Protein 1+ H (Negative) Urine Glucose (UA) Negative (Negative) Urine Ketones Negative (Negative) Urine Blood Negative (Negative) Urine Nitrite Negative (Negative) Urine Bilirubin Negative (Negative) Urine Urobilinogen Negative (Negative) Ur Leukocyte Esterase Negative (Negative) Urine WBC (Auto) 1-5 (0-5) /hpf Urine RBC (Auto) 5-10 H (0-4) /hpf U Hyaline Cast (Auto) 0 (0-5) /lpf U Epithel Cells (Auto) 5-10 H (0-5) /lpf Urine Bacteria (Auto) Negative (Negative) Blood Pressure Blood Pressure Findings: Normal blood pressure Blood Pressure Disposition: further management by hospitalist Discharge Plan Visit Data Chief Complaint: Weakness ED Provider: Avinash Lewis Discharge Problem: Generalized muscle weakness, NSVT (nonsustained ventricular tachycardia), Hypokalemia Patient Disposition: Admitted As Inpatient Discharge Instructions Interventions: ED Discharge Assessment Last Done: 03/09/20 00:19
--- NOTE | 2020-03-08 19:00 | XRay Report ---
XR chest 1V portable CLINICAL HISTORY: Chest Pain COMPARISON STUDY: Chest radiograph January 27, 2020. FINDINGS: Elevation of the left hemidiaphragm is unchanged. Moderate cardiomegaly is unchanged. There is no evidence for pulmonary edema. Linear bibasilar opacities favor atelectasis or scarring. There is no consolidation to suggest pneumonia. There is no pneumothorax or pleural effusion. The appearanc e of the chest is unchanged. IMPRESSION: No acute cardiopulmonary findings. No change in appearance of the chest. ACT 112: Negative or not required by law. Electronically signed by: Glenn Leon M.D. 03/08/2020 6:58 PM
[2020-03-08 19:15] LABS: Basophils # (auto) 0.01 K/uL (0-0.2); Basophils % (auto) 0.1 %; Eosinophils # (auto) 0.24 K/uL (0-0.5); Eosinophils % (auto) 2.9 %; Hematocrit (blood only) 35.8 % (42-52); Hemoglobin 11.9 g/dL (14.0-18.0); Immature Granulocytes # (auto) 0.01 K/uL (0.00-0.02); Immature Granulocytes % (auto) 0.1 %; Lymphocytes # (auto) 1.18 K/uL (1.2-3.4); Lymphocytes % (auto) 14.1 %; Mean Corpuscular Hemoglobin 32.5 pg (25-34); Mean Corpuscular Hgb Conc 33.2 g/dL (32-36); Mean Corpuscular Volume 97.8 fL (80-100); Mean Platelet Volume 8.4 fL (7.4-10.4); Monocytes # (auto) 1.08 K/uL (0.11-0.59); Monocytes % (auto) 12.9 %; Neutrophils # (auto) 5.86 K/uL (1.4-6.5); Neutrophils % (auto) 69.9 %; Platelet Count 259 K/uL (130-400); RDW Standard Deviation 50.8 fL (36.4-46.3); Red Blood Count 3.66 M/uL (4.7-6.1); White Blood Count 8.38 K/uL (4.8-10.8)
[2020-03-08 19:26] LABS: INR 2.3 (0.9-1.1); Partial Thromboplastin Ratio 1.5; Partial Thromboplastin Time 40.7 Seconds (21.0-31.0)
[2020-03-08 19:36] LABS: Alanine Aminotransferase 23 U/L (12-78); Albumin Level 2.7 gm/dl (3.4-5.0); Aspartate Aminotransferase 25 U/L (15-37); BUN Creatinine Ratio 16.9 (10-20); Bilirubin Direct 0.3 mg/dl (0-0.2); Blood Urea Nitrogen 18 mg/dl (7-18); Calcium 8.6 mg/dl (8.5-10.1); Carbon Dioxide 30 mmol/L (21-32); Chloride 100 mmol/L (98-107); Est GFR (Non-African American) 61.2; Glucose 97 mg/dl (70-99); Lipase 257 U/L (73-393); Magnesium 2.2 mg/dl (1.8-2.4); Potassium 3.4 mmol/L (3.5-5.1); Sodium 137 mmol/L (136-145)
[2020-03-08 19:45] LABS: Albumin Globulin Ratio 0.6 (0.9-2); Alkaline Phosphatase 127 U/L (45-117); Bilirubin,Total 0.7 mg/dl (0.2-1); Globulin 4.2 gm/dl (2.5-4.0); Phosphorus 2.8 mg/dl (2.5-4.9); Thyroid Stimulating Hormone 0.516 uIu/ml (0.300-4.500); Total Protein 6.9 gm/dl (6.4-8.2); Troponin I < 0.015 ng/ml (0-0.045)
--- NOTE | 2020-03-08 20:14 | CT Scan Report ---
CT OF THE HEAD WITHOUT CONTRAST CLINICAL HISTORY: Fall 5 days ago, coumadin COMPARISON STUDY: Head CT January 27, 2020. CT DOSE: 1151.75 mGy.cm TECHNIQUE: Helical axial images of the head were obtained without IV contrast. Automated exposure con trol was utilized for the study. A dose lowering technique was utilized adhering to the principles o f ALARA. FINDINGS: No acute intracranial hemorrhage, midline shift or mass effect is present. The ventricular system is unremarkable. White matter hypodensity suggests small vessel disease. There is moderate to severe atrophy. The basilar cisterns are patent. No extra-axial collections are present. There are no findings to suggest acute dural sinus thrombosis or acute territorial infarct. No significant calvar ial abnormalities are present. Visualized portions of the sinuses and mastoid air cells are clear. IMPRESSION: No acute intracranial findings. No change in appearance of the brain. ACT 112: Negative or not required by law. Electronically signed by: Glenn Leon M.D. 03/08/2020 8:13 PM
[2020-03-08 21:31] LABS: Appearance Urine Clear (Clear); Bacteria Urine Automated Negative (Negative); Bilirubin Urine Negative (Negative); Blood Urine Negative (Negative); Cast Urine Automated 0 /lpf (0-5); Color Urine Dark Yellow; Glucose Urine UA Negative (Negative); Ketones Urine Negative (Negative); Leukocyte Esterase Urine Negative (Negative); Nitrite Urine Negative (Negative); Protein Urine 1+ (Negative); Specific Gravity Urine 1.014 (1.000-1.030); Urobilinogen Urine Negative (Negative); pH Urine 6.5 (4.5-7.5)
--- NOTE | 2020-03-08 22:08 | History & Physical Report ---
Date of Service March 08, 2020 Assessment & Plan (1) Generalized muscle weakness: Generalized muscle weakness/gait abnormality/generalized deconditioning- The symptoms that brought the patient in today primarily due to deconditioning associated with previous admission, and on the ability to have aggressive physical therapy due to covered pandemic sequestration. We will consult PT/OT. Patient will need to have in-home PT/OT or be discharged to a facility where more aggressive therapy can be performed. Present on Admission?: Yes (2) Gait abnormality: See above Present on Admission?: Yes (3) NSVT (nonsustained ventricular tachycardia): Patient had 2 successive rounds of 3 beat nonsustained V. tach while in ED. No other events. Optimize potassium and follow on telemetry. Present on Admission?: Yes (4) Permanent atrial fibrillation: Continue warfarin. INR therapeutic at 2.3 Present on Admission?: Yes (5) Swelling of left lower extremity: Venous Dopplers pending at this time. However, unlikely DVT due to therapeutic INR Present on Admission?: Yes History of Present Illness Chief Complaint: The patient presents to the emergency department with complaint of generalized weakness, and ambulatory dysfunction Primary Care Provider: Walter Whitehead MD . The patient is a 89-year-old male most recently admitted to [facility] from 01/26-02/07, having undergone a laparoscopic cholecystectomy on 01/30, and was then transferred to [facility] for physical therapy. His reports that due to the COVID pandemic lockdown, his physical therapy was very limited, and patient reports that the most he walked was 110 feet. While at home today, he was visited by visiting nurse, and when he attempted to walk out to the car, which is more than 110 feet, he became short of breath, was unable to to complete the walk, and after calling his PCP, was referred to the ED for further assessment. Allergies Allergy/AdvReac Type Severity Reaction Status Date / Time No Known Drug Allergies Allergy Unknown Unknown Verified 03/08/20 20:56 Home Medications Home Medications Medication Instructions Recorded Confirmed Type flaxseed oil 1,000 mg capsule 1,000 mg PO BID 03/30/18 03/08/20 History wzjsrzfw-ugu-iuoyx acid 0.4 1 tab PO QAM 03/30/18 03/08/20 History mg-lycopene 300 mcg-lutein 250 mcg tablet warfarin 2.5 mg tablet See Rx Instructions PO UD #108 tab 12/29/19 03/08/20 Rx potassium chloride [Klor-Con M20] 20 meq PO QAM 01/27/20 03/08/20 History vitamin B complex 1 cap PO BID 01/27/20 03/08/20 History tamsulosin 0.4 mg PO QAM #1 cap 02/06/20 03/08/20 Rx calcium carb-D3-mag ox-zinc ox 1 tab PO BID 03/08/20 03/08/20 History [Anirudh Mag Zinc Plus D3] glucosamine-chondroitin [Osteo 1 tab PO BID 03/08/20 03/08/20 History Bi-Flex] verapamil [Calan SR] 240 mg PO QPM 03/08/20 03/08/20 History Past Med/Surg History Medical History (Updated 03/09/20 @ 03:22 by Pierce Gavin MD) Arthritis of multiple sites Bacteremia Chronic anticoagulation CKD (chronic kidney disease), stage III Dyslipidemia HTN (hypertension) Impaired fasting glucose Macular degeneration Osteomyelitis of lumbar vertebra Peripheral neuropathy Permanent atrial fibrillation Vertebral osteomyelitis Surgical History History of colonoscopy History of inguinal hernia repair History of tonsillectomy Family History Father Cardiac failure Mother Colorectal cancer Sister Colorectal cancer Denies family history of Ovarian cancer Prostate cancer Breast cancer Lung cancer Social History Smoking Status: Never smoker Second Hand Exposure: No; Hx Alcohol Use: No Hx Substance Use: No Preferred Language: Arabic Communication Ability: Effective Visual Impairment: Limited Hearing Ability: Use of Hearing Aid 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 Beliefs That Will Affect Care: None marital status: Current Living Situation: Spouse current occupational status: retired Other Information That Helps Us Care for You: No Feels Safe at Home: Yes Childhood Exposure to Second-Hand Smoke: No Dental Care, Regularly: Yes Physical Activity Frequency: Daily Seatbelt Use: always Sunscreen Use: Yes Review of Systems Review of Systems: The patient denies chest pain, palpitations, cough, lower extremity swelling, sore throat, fevers, chills, sweats, nausea, vomiting, diarrhea , constipation, abdominal pain, pelvic pain, blood in urine or stool, dysuria, urinary frequency or urgency, lightheadedness, dizziness, headache, memory loss, loss of consciousness, rash, abnormal bruising or bleeding, focal weakness, numbness or tingling in arms or legs, generalized arthralgias or myalgias, back or neck pain, or night sweats. The review of systems is otherwise negative other than for that already noted above, and at least 10 systems have been reviewed. Physical Exam Physical Exam: The patient is awake, alert and oriented 3, well developed and well nourished, normocephalic and atraumatic, lying in bed and in no acute distress. HEENT--PERRL, EOMI, mucous membranes and oropharynx normal. Neck--supple. No JVD. No bruits. Thyroid normal, trachea midline, no adenopathy. Heart--normal S1 and S2. No murmurs, rubs or gallops. Lungs--clear bilaterally, no respiratory distress, no accessory muscle use. Abdomen--normal bowel sounds and soft. Nontender. Nondistended. Extremities--no cyanosis or clubbing. Right lower extremity no edema. Left lower extremity with 2+ pitting edema. Both shins with multiple healing abrasions Dermatologic--see above Neurologic--cranial nerves II through XII grossly intact. Rheumatologic--normal range of motion. Psychiatric--normal affect. Results & Data Results & Data ([facility]) Vital Signs (Past 12 Hours) Vital Signs Temp Pulse Pulse Resp BP BP Pulse Ox 03/08/20 21:01 88 25 H 144/108 H 03/08/20 20:30 72 22 160/88 H 03/08/20 20:11 89 18 153/87 H 97 03/08/20 20:10 82 23 153/87 H 96 03/08/20 19:30 80 25 H 143/85 H 98 03/08/20 19:06 82 23 158/88 H 96 03/08/20 17:53 77 17 162/89 H 03/08/20 17:50 99.0 F 75 18 162/89 H 96 Laboratory Results Laboratory Results WBC 7.47 K/uL (4.8-10.8) 03/09/20 00:48 RBC 3.54 M/uL (4.7-6.1) L 03/09/20 00:48 Hgb 11.2 g/dL (14.0-18.0) L 03/09/20 00:48 Hct 34.0 % (42-52) L 03/09/20 00:48 MCV 96.0 fL (80-100) 03/09/20 00:48 MCH 31.6 pg (25-34) 03/09/20 00:48 MCHC 32.9 g/dL (32-36) 03/09/20 00:48 RDW Std Deviation 49.5 fL (36.4-46.3) H 03/09/20 00:48 RDW Coeff of Leonel 14.1 % (11.5-14.5) 03/09/20 00:48 Plt Count 225 K/uL (130-400) 03/09/20 00:48 MPV 8.3 fL (7.4-10.4) 03/09/20 00:48 Immature Gran % (Auto) 0.1 % 03/09/20 00:48 Neut % (Auto) 67.7 % 03/09/20 00:48 Lymph % (Auto) 17.5 % 03/09/20 00:48 [place] % (Auto) 11.1 % 03/09/20 00:48 Eos % (Auto) 3.5 % 03/09/20 00:48 Baso % (Auto) 0.1 % 03/09/20 00:48 Neut # (Auto) 5.05 K/uL (1.4-6.5) 03/09/20 00:48 Lymph # (Auto) 1.31 K/uL (1.2-3.4) 03/09/20 00:48 [place] # (Auto) 0.83 K/uL (0.11-0.59) H 03/09/20 00:48 Eos # (Auto) 0.26 K/uL (0-0.5) 03/09/20 00:48 Baso # (Auto) 0.01 K/uL (0-0.2) 03/09/20 00:48 Immature Gran # (Auto) 0.01 K/uL (0.00-0.02) 03/09/20 00:48 PT 23.9 Seconds (9.0-12.0) H 03/09/20 00:48 INR 2.4 (0.9-1.1) H 03/09/20 00:48 APTT 42.2 Seconds (21.0-31.0) H 03/09/20 00:48 PTT Ratio 1.5 03/09/20 00:48 Sodium 138 mmol/L (136-145) 03/09/20 00:48 Potassium 3.1 mmol/L (3.5-5.1) L 03/09/20 00:48 Chloride 103 mmol/L (98-107) 03/09/20 00:48 Carbon Dioxide 34 mmol/L (21-32) H 03/09/20 00:48 Anion Gap 1.0 (3-11) L 03/09/20 00:48 BUN 18 mg/dl (7-18) 03/09/20 00:48 Creatinine 1.03 mg/dl (0.6-1.4) 03/09/20 00:48 Est Cr Clr Drug Dosing 54.6 ml/min 03/09/20 00:48 Est GFR ( Amer) 74.3 03/09/20 00:48 Est GFR (Non-Af Amer) 64.1 03/09/20 00:48 BUN/Creatinine Ratio 17.1 (10-20) 03/09/20 00:48 Glucose 97 mg/dl (70-99) 03/09/20 00:48 Calcium 8.6 mg/dl (8.5-10.1) 03/09/20 00:48 Phosphorus 2.8 mg/dl (2.5-4.9) 03/08/20 19:05 Magnesium 2.0 mg/dl (1.8-2.4) 03/09/20 00:48 Total Bilirubin 0.6 mg/dl (0.2-1) 03/09/20 00:48 Direct Bilirubin 0.3 mg/dl (0-0.2) H 03/08/20 19:05 AST 22 U/L (15-37) 03/09/20 00:48 ALT 20 U/L (12-78) 03/09/20 00:48 Alkaline Phosphatase 99 U/L (45-117) 03/09/20 00:48 Troponin I 0.021 ng/ml (0-0.045) 03/09/20 00:48 Total Protein 6.0 gm/dl (6.4-8.2) L 03/09/20 00:48 Albumin 2.3 gm/dl (3.4-5.0) L 03/09/20 00:48 Globulin 3.7 gm/dl (2.5-4.0) 03/09/20 00:48 Albumin/Globulin Ratio 0.6 (0.9-2) L 03/09/20 00:48 Lipase 257 U/L (73-393) 03/08/20 19:05 TSH 0.516 uIu/ml (0.300-4.500) 03/08/20 19:05 Urine Color Dark Yellow 03/08/20 21:20 Urine Appearance Clear (Clear) 03/08/20 21:20 Urine pH 6.5 (4.5-7.5) 03/08/20 21:20 Ur Specific [place] 1.014 (1.000-1.030) 03/08/20 21:20 Urine Protein 1+ (Negative) H 03/08/20 21:20 Urine Glucose (UA) Negative (Negative) 03/08/20 21:20 Urine Ketones Negative (Negative) 03/08/20 21:20 Urine Blood Negative (Negative) 03/08/20 21:20 Urine Nitrite Negative (Negative) 03/08/20 21:20 Urine Bilirubin Negative (Negative) 03/08/20 21:20 Urine Urobilinogen Negative (Negative) 03/08/20 21:20 Ur Leukocyte Esterase Negative (Negative) 03/08/20 21:20 Urine WBC (Auto) 1-5 /hpf (0-5) 03/08/20 21:20 Urine RBC (Auto) 5-10 /hpf (0-4) H 03/08/20 21:20 U Hyaline Cast (Auto) 0 /lpf (0-5) 03/08/20 21:20 U Epithel Cells (Auto) 5-10 /lpf (0-5) H 03/08/20 21:20 Urine Bacteria (Auto) Negative (Negative) 03/08/20 21:20 Diagnostic Findings [facility], [place] [phone] XRay Report Patient: RENATO COLON Date: 03/08/20 MR#: [id number]: [address] Acct ID:[id number]: Date: 1930[facility] Zip: [place] [address] Age: 89Location: ED Sex: MRoom/Bed: Att Phy:Diagnosis: WEAKNESS Erica Phy: Walter Whitehead MDService Date: 03/08/20 Fam Phy:Interpreting Phy: Glenn Leon MD Admit Phy: Ordering Phy: Avinash Lewis M.D. cc: ~ XR chest 1V portable CLINICAL HISTORY: Chest Pain COMPARISON STUDY: Chest radiograph January 27, 2020. FINDINGS: Elevation of the left hemidiaphragm is unchanged. Moderate cardio megaly is unchanged. There is no evidence for pulmonary edema. Linear bibasilar opacities favor atelectasis or scarring. There is no consolidation to suggest pneumonia. There is no pneumothorax or pleural effusion. The appearance of the chest is unchanged. IMPRESSION: No acute cardiopulmonary findings. No change in appearance of the chest. ACT 112: Negative or not required by law. Electronically signed by: Glenn Leon M.D. 03/08/2020 6:58 PM Dictated: 03/08/201856 Transcribed: 03/08/201856 [place], [place] [phone] CT Scan Report Patient: RENATO COLON Date: 03/08/20 MR#: [id number]: [address] Acct ID:[id number]: Date: [address] [place] [address] Zip: [place] [address] Age: 89Location: ED Sex: MRoom/Bed: Att Phy:Diagnosis: WEAKNESS Erica Phy: Walter Whitehead MDService Date: 03/08/20 [facility] Phy:Interpreting Phy: Glenn Leon MD Admit Phy: Ordering Phy: Avinash Lewis M.D. cc: ~ CT OF THE HEAD WITHOUT CONTRAST CLINICAL HISTORY: Fall 5 days ago, coumadin COMPARISON STUDY: Head CT January 27, 2020. CT DOSE: 1151.75 mGy.cm TECHNIQUE: Helical axial images of the head were obtained without IV contrast. Automated exposure control was utilized for the study. A dose lowering technique was utilized adhering to the principles of ALARA. FINDINGS: No acute intracranial hemorrhage, midline shift or mass effect is present. The ventricular system is unremarkable. White matter hypodensity suggests small vessel disease. There is moderate to severe atrophy. The basilar cisterns are patent. No extra-axial collections are present. There are no findings to suggest acute dural sinus thrombosis or acute territorial infarct. No significant calvarial abnormalities are present. Visualized portions of the sinuses and mastoid air cells are clear. IMPRESSION: No acute intracranial findings. No change in appearance of the brain. ACT 112: Negative or not required by law. Electronically signed by: Glenn Leon M.D. 03/08/2020 8:13 PM Dictated: 03/08/202010 Transcribed: 03/08/202010 Code Status & VTE Plan Code Status Full code VTE Prophylaxis Plan VTE Prophylaxis will be ordered: Yes PG Care Time/CCT Total # of Minutes Spent Total Time Spent with Patient: Total time spent is greater than 50% in coordination of care (as documented) at patient's floor/unit and/or counseling patient: Coding Level of Care Code 84675 Initial Inpt Care Lvl 2 Diagnoses Generalized muscle weakness M62.81 Gait abnormality R26.9 NSVT (nonsustained ventricular tachycardia) I47.2 Permanent atrial fibrillation I48.21 Swelling of left lower extremity M79.89
[2020-03-09] MEDS ORDERED: MAGNESIUM HYDROXIDE SUSP 30 ML UDC PO PRN (00:21)
[2020-03-09] MEDS ORDERED: ALUMINUM/MAGNESIUM SUSP 30 ML UDC PO PRN (00:21)
[2020-03-09] MEDS ORDERED: ACETAMINOPHEN 325 MG TAB PO PRN (00:21)
[2020-03-09] MEDS ORDERED: ONDANSETRON INJ 2 MG/ML 2 ML VIAL IV PRN (00:21)
[2020-03-09 01:02] LABS: Basophils # (auto) 0.01 K/uL (0-0.2); Basophils % (auto) 0.1 %; Eosinophils # (auto) 0.26 K/uL (0-0.5); Eosinophils % (auto) 3.5 %; Hemoglobin 11.2 g/dL (14.0-18.0); Immature Granulocytes # (auto) 0.01 K/uL (0.00-0.02); Immature Granulocytes % (auto) 0.1 %; Lymphocytes # (auto) 1.31 K/uL (1.2-3.4); Lymphocytes % (auto) 17.5 %; Mean Corpuscular Hemoglobin 31.6 pg (25-34); Mean Corpuscular Hgb Conc 32.9 g/dL (32-36); Mean Platelet Volume 8.3 fL (7.4-10.4); Monocytes # (auto) 0.83 K/uL (0.11-0.59); Monocytes % (auto) 11.1 %; Neutrophils # (auto) 5.05 K/uL (1.4-6.5); Neutrophils % (auto) 67.7 %; Platelet Count 225 K/uL (130-400); RDW Coefficient of Variation 14.1 % (11.5-14.5); RDW Standard Deviation 49.5 fL (36.4-46.3); Red Blood Count 3.54 M/uL (4.7-6.1); White Blood Count 7.47 K/uL (4.8-10.8)
[2020-03-09 01:13] LABS: INR 2.4 (0.9-1.1); Partial Thromboplastin Ratio 1.5; Partial Thromboplastin Time 42.2 Seconds (21.0-31.0); Prothrombin Time 23.9 Seconds (9.0-12.0)
[2020-03-09 01:22] LABS: Albumin Level 2.3 gm/dl (3.4-5.0); BUN Creatinine Ratio 17.1 (10-20); Calcium 8.6 mg/dl (8.5-10.1); Creatinine Clr Calc Pharmacy 54.6 ml/min; Est GFR (African American) 74.3; Est GFR (Non-African American) 64.1; Potassium 3.1 mmol/L (3.5-5.1)
[2020-03-09 01:25] LABS: Albumin Globulin Ratio 0.6 (0.9-2); Bilirubin,Total 0.6 mg/dl (0.2-1); Globulin 3.7 gm/dl (2.5-4.0)
--- NOTE | 2020-03-09 08:05 | Ultrasound Report ---
LEFT LOWER EXTREMITY VENOUS DOPPLER HISTORY: Left leg edema. COMPARISON STUDY: None. FINDINGS: There is normal compressibility, flow, and augmentation within the left lower extremity garry p venous system. IMPRESSION: No DVT within the left lower extremity. ACT 112: Negative or not required by law. Electronically signed by: Parmjit Torres M.D. 03/09/2020 8:03 AM
[2020-03-09] MEDS: CALCIUM 600MG + VIT D 400 IU TAB PO SCH ×2 (08:21→20:32)
[2020-03-09] MEDS: TAMSULOSIN HCL 0.4 MG CAP PO SCH (08:21)
[2020-03-09] MEDS: CEROVITE ADV FORMULA TAB PO SCH (08:22)
[2020-03-09] MEDS: VITAMIN B COMPLEX TAB PO SCH ×2 (08:22→20:32)
--- NOTE | 2020-03-09 08:45 | XRay Report ---
XR forearm RT 2V, XR wrist RT min 3V routine, XR hand RT min 3V routine CLINICAL HISTORY: Right arm, wrist, and hand pain and swelling. COMPARISON STUDY: None. FINDINGS: Advanced degenerative and cystic changes within the wrist. 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 No fractures within the right forearm, right wrist, right hand. Basilar calcifications are n oted. Diffuse soft tissue swelling within the forearm, wrist, and hand. Advanced degenerative changes within the hand with mild subluxation at the second MCP joint. There are large marginal osteophytes, cystic change, and severe cartilage space narrowing throughout the majority of the hand. IMPRESSION: 1. Diffuse soft tissue swelling within the right forearm, wrist, and hand. 2. No fractures. 3. Advanced degenerative changes as described above with mild subluxation at the second MCP joint. ACT 112: Negative or not required by law. Electronically signed by: Parmjit Torres M.D. 03/09/2020 8:44 AM
[2020-03-09] MEDS ORDERED: POTASSIUM CHLORIDE 20 MEQ TABCR PO SCH (09:00)
[2020-03-09] MEDS ORDERED: NON-FORMULARY MEDICATION (Flaxseed Oil 1,000 MG) PO SCH (09:00)
[2020-03-09] MEDS ORDERED: NON-FORMULARY MEDICATION (Glucosamine-Chondroitin [Osteo Bi-Flex] 1 TAB) PO SCH (09:00)
[2020-03-09] MEDS: VERAPAMIL HCL 240 MG TABCR PO SCH ×2 (12:25→20:33)
--- NOTE | 2020-03-09 14:24 | Hospitalist Progress Note ---
Date of Service March 09, 2020 Assessment & Plan (1) Generalized muscle weakness: Generalized muscle weakness/gait abnormality/generalized deconditioning- prior to cholecystectomy in January the patient could walk almost a mile without stopping now he is too weak to walk 30 feet at home, he has fallen a few times get PT/OT evaluations last admission he was sent to [facility], attempted to get him to [facility] but he was considered too strong he has gotten weaker according to his will try for [facility] this time (2) Gait abnormality: See above (3) NSVT (nonsustained ventricular tachycardia): Patient had 2 successive rounds of 3 beat nonsustained V. tach while in ED. No other events. Optimize potassium and follow on telemetry -- no further episodes transfer to medical later this evening (4) Permanent atrial fibrillation: Continue warfarin. INR therapeutic at 2.4 (5) Swelling of left lower extremity: Venous Dopplers show no DVT, INR is therapeutic However, unlikely DVT due to therapeutic INR (6) Hypokalemia: replaced initially but K went down to 3.1 increase replacement to 20mEq TID Admission and Anticipated Discharge Date Admission Date: March 08, 2020 Subjective patient presented with ongoing weakness, too weak to be at home his tells me that when he got home he could not walk from the car into the house he actually got weaker at [facility] prior to his cholecystectomy in early January he could walk almost a mile without stopping, he was very active and very strong over the past week he had to call EMS four times to help lift him up finally his called PCP, had him brought to the hospital other than weakness he has no complaints reviewed imaging, no DVT on doppler, no fractures on x-rays Review of Systems Review of Systems: All systems reviewed & are unremarkable except as noted in Subjective Constitutional: + weakness; no fatigue Musculoskeletal: + muscle weakness Neurologic: + generalized weakness Physical Exam Constitutional: WD/WN, vitals as above Eyes: PERRL, conjunctivae normal, anicteric sclerae ENMT: external ear and nose normal, oropharynx normal Neck: trachea midline, no thyromegaly Respiratory: normal respiratory effort, lungs clear to auscultation Cardiovascular: RRR, no murmur, no edema Gastrointestinal (Abdomen): normal bowel sounds, soft, nontender, no hepatosplenomegaly Musculoskeletal: no cyanosis or clubbing, extremities motor strength 5/5 Skin: no rashes, warm and dry Neurologic: patellar DTR's 2+ bilat, sensation intact and PERRL, EOMI, accommodation nl, no face palsy, no dysarthria no focal motor deficits Psychiatric: A+Ox3, euthymic affect Lymphatic: no cervical or axillary lymphadenopathy Results & Data Results & Data ([facility]) Vital Signs (Past 12 Hours) Vital Signs Temp Pulse Pulse Resp BP BP Pulse Ox 03/09/20 11:11 36.5 C 86 19 158/100 H 147/106 H 95 03/09/20 10:11 74 03/09/20 07:29 37.1 C 83 17 148/76 H 95 03/09/20 04:45 36.9 C 86 18 139/82 92 Laboratory Results Laboratory Results - last 24 hr 03/08/20 03/08/20 03/08/20 19:05 19:05 19:05 WBC 8.38 RBC 3.66 L Hgb 11.9 L Hct 35.8 L MCV 97.8 MCH 32.5 MCHC 33.2 RDW Std Deviation 50.8 H RDW Coeff of Leonel 14.0 Plt Count 259 MPV 8.4 Immature Gran % (Auto) 0.1 Neut % (Auto) 69.9 Lymph % (Auto) 14.1 [place] % (Auto) 12.9 Eos % (Auto) 2.9 Baso % (Auto) 0.1 Neut # (Auto) 5.86 Lymph # (Auto) 1.18 L [place] # (Auto) 1.08 H Eos # (Auto) 0.24 Baso # (Auto) 0.01 Immature Gran # (Auto) 0.01 PT 23.0 H INR 2.3 H APTT 40.7 H PTT Ratio 1.5 Sodium 137 Potassium 3.4 L Chloride 100 Carbon Dioxide 30 Anion Gap 7.0 BUN 18 Creatinine 1.07 Est Cr Clr Drug Dosing 53.0 Est GFR ( Amer) 71.0 Est GFR (Non-Af Amer) 61.2 BUN/Creatinine Ratio 16.9 Glucose 97 Calcium 8.6 Phosphorus 2.8 Magnesium 2.2 Total Bilirubin 0.7 Direct Bilirubin 0.3 H AST 25 ALT 23 Alkaline Phosphatase 127 H Troponin I < 0.015 Total Protein 6.9 Albumin 2.7 L Globulin 4.2 H Albumin/Globulin Ratio 0.6 L Lipase 257 TSH 0.516 Urine Color Urine Appearance Urine pH Ur Specific [place] Urine Protein Urine Glucose (UA) Urine Ketones Urine Blood Urine Nitrite Urine Bilirubin Urine Urobilinogen Ur Leukocyte Esterase Urine WBC (Auto) Urine RBC (Auto) U Hyaline Cast (Auto) U Epithel Cells (Auto) Urine Bacteria (Auto) 03/08/20 03/09/20 03/09/20 21:20 00:48 00:48 WBC 7.47 RBC 3.54 L Hgb 11.2 L Hct 34.0 L MCV 96.0 MCH 31.6 MCHC 32.9 RDW Std Deviation 49.5 H RDW Coeff of Leonel 14.1 Plt Count 225 MPV 8.3 Immature Gran % (Auto) 0.1 Neut % (Auto) 67.7 Lymph % (Auto) 17.5 [place] % (Auto) 11.1 Eos % (Auto) 3.5 Baso % (Auto) 0.1 Neut # (Auto) 5.05 Lymph # (Auto) 1.31 [place] # (Auto) 0.83 H Eos # (Auto) 0.26 Baso # (Auto) 0.01 Immature Gran # (Auto) 0.01 PT INR APTT PTT Ratio Sodium Potassium Chloride Carbon Dioxide Anion Gap BUN Creatinine Est Cr Clr Drug Dosing Est GFR ( Amer) Est GFR (Non-Af Amer) BUN/Creatinine Ratio Glucose Calcium Phosphorus Magnesium Total Bilirubin Direct Bilirubin AST ALT Alkaline Phosphatase Troponin I 0.021 Total Protein Albumin Globulin Albumin/Globulin Ratio Lipase TSH Urine Color Dark Yellow Urine Appearance Clear Urine pH 6.5 Ur Specific [place] 1.014 Urine Protein 1+ H Urine Glucose (UA) Negative Urine Ketones Negative Urine Blood Negative Urine Nitrite Negative Urine Bilirubin Negative Urine Urobilinogen Negative Ur Leukocyte Esterase Negative Urine WBC (Auto) 1-5 Urine RBC (Auto) 5-10 H U Hyaline Cast (Auto) 0 U Epithel Cells (Auto) 5-10 H Urine Bacteria (Auto) Negative 03/09/20 03/09/20 03/09/20 00:48 00:48 09:04 WBC RBC Hgb Hct MCV MCH MCHC RDW Std Deviation RDW Coeff of Leonel Plt Count MPV Immature Gran % (Auto) Neut % (Auto) Lymph % (Auto) [place] % (Auto) Eos % (Auto) Baso % (Auto) Neut # (Auto) Lymph # (Auto) [place] # (Auto) Eos # (Auto) Baso # (Auto) Immature Gran # (Auto) PT 23.9 H INR 2.4 H APTT 42.2 H PTT Ratio 1.5 Sodium 138 Potassium 3.1 L Chloride 103 Carbon Dioxide 34 H Anion Gap 1.0 L BUN 18 Creatinine 1.03 Est Cr Clr Drug Dosing 54.6 Est GFR ( Amer) 74.3 Est GFR (Non-Af Amer) 64.1 BUN/Creatinine Ratio 17.1 Glucose 97 Calcium 8.6 Phosphorus Magnesium 2.0 Total Bilirubin 0.6 Direct Bilirubin AST 22 ALT 20 Alkaline Phosphatase 99 Troponin I < 0.015 Total Protein 6.0 L Albumin 2.3 L Globulin 3.7 Albumin/Globulin Ratio 0.6 L Lipase TSH Urine Color Urine Appearance Urine pH Ur Specific [place] Urine Protein Urine Glucose (UA) Urine Ketones Urine Blood Urine Nitrite Urine Bilirubin Urine Urobilinogen Ur Leukocyte Esterase Urine WBC (Auto) Urine RBC (Auto) U Hyaline Cast (Auto) U Epithel Cells (Auto) Urine Bacteria (Auto) Medications Administered Current Inpatient Medications Acetaminophen (Acetaminophen 325 Mg Tab) 650 mg PO Q4H PRN PRN Reason: Pain or Fever Stop: 04/08/20 00:20 Al Hydrox/Mg Hydrox/Simethicone (Aluminum/Magnesium Susp 30 Ml Udc) 15 ml PO Q4H PRN PRN Reason: Dyspepsia Stop: 04/08/20 00:20 Magnesium Hydroxide (Magnesium Hydroxide Susp 30 Ml Udc) 30 ml PO Q12H PRN PRN Reason: Constipation Stop: 04/08/20 00:20 Multivitamins/Minerals (Calcium 600mg + Vit D 400 Iu Tab) 1 tab PO BID [facility] Stop: 04/08/20 08:59 Last Admin: 03/09/20 08:21 Dose: 1 tab Documented by: Multivitamins/Minerals (Cerovite Adv Formula Tab) 1 tab PO QAM [facility] Stop: 04/08/20 08:59 Last Admin: 03/09/20 08:22 Dose: 1 tab Documented by: Ondansetron HCl (Ondansetron Inj 2 Mg/Ml 2 Ml Vial) 4 mg IV Q6H PRN PRN Reason: Nausea Stop: 04/08/20 00:20 Potassium Chloride (Potassium Chloride 20 Meq Tabcr) 20 meq PO QAM [facility] Stop: 09/21/20 08:59 Last Admin: 03/09/20 08:22 Dose: 20 meq Documented by: Tamsulosin HCl (Tamsulosin Hcl 0.4 Mg Cap) 0.8 mg PO QAM [facility] Stop: 04/08/20 08:59 Last Admin: 03/09/20 08:21 Dose: 0.8 mg Documented by: Verapamil HCl (Verapamil Hcl 240 Mg Tabcr) 240 mg PO BID [facility] Stop: 04/08/20 11:59 Last Admin: 03/09/20 12:25 Dose: 240 mg Documented by: Vitamin B Complex (Vitamin B Complex Tab) 1 tab PO BID [facility] Stop: 04/08/20 08:59 Last Admin: 03/09/20 08:22 Dose: 1 tab Documented by: Warfarin Sodium (Warfarin Sod 2.5 Mg Tab) 2.5 mg PO [email or web address] [facility] Stop: 04/08/20 15:59 Warfarin Sodium (Warfarin Sod 5 Mg Tab) 5 mg PO [email or web address] [facility] Stop: 04/10/20 15:59 PG Care Time/CCT Total # of Minutes Spent Total Time Spent with Patient: Total time spent is greater than 50% in coordination of care (as documented) at patient's floor/unit and/or counseling patient: Coding Level of Care Code 18906 Subseq Hosp Care Lvl 3 Diagnoses Generalized muscle weakness M62.81 Gait abnormality R26.9 NSVT (nonsustained ventricular tachycardia) I47.2 Permanent atrial fibrillation I48.21 Swelling of left lower extremity M79.89 Hypokalemia E87.6
[2020-03-09] MEDS: POTASSIUM CHLORIDE 20 MEQ TABCR PO SCH ×2 (14:55→20:32)
[2020-03-09] MEDS: WARFARIN SOD 2.5 MG TAB PO SCH (17:37)
[2020-03-09] MEDS ORDERED: VERAPAMIL HCL 240 MG TABCR PO SCH (21:00)
[2020-03-10 06:11] LABS: Basophils # (auto) 0.01 K/uL (0-0.2); Basophils % (auto) 0.1 %; Eosinophils # (auto) 0.35 K/uL (0-0.5); Eosinophils % (auto) 4.9 %; Hematocrit (blood only) 36.1 % (42-52); Hemoglobin 11.7 g/dL (14.0-18.0); Immature Granulocytes # (auto) 0.01 K/uL (0.00-0.02); Immature Granulocytes % (auto) 0.1 %; Lymphocytes # (auto) 1.14 K/uL (1.2-3.4); Lymphocytes % (auto) 15.9 %; Mean Corpuscular Hemoglobin 31.6 pg (25-34); Mean Corpuscular Hgb Conc 32.4 g/dL (32-36); Mean Corpuscular Volume 97.6 fL (80-100); Mean Platelet Volume 8.5 fL (7.4-10.4); Monocytes # (auto) 0.84 K/uL (0.11-0.59); Monocytes % (auto) 11.7 %; Neutrophils # (auto) 4.84 K/uL (1.4-6.5); Neutrophils % (auto) 67.3 %; Platelet Count 255 K/uL (130-400); RDW Coefficient of Variation 14.2 % (11.5-14.5); RDW Standard Deviation 50.4 fL (36.4-46.3); White Blood Count 7.19 K/uL (4.8-10.8)
[2020-03-10 06:24] LABS: INR 1.8 (0.9-1.1); Partial Thromboplastin Ratio 1.3; Partial Thromboplastin Time 37.3 Seconds (21.0-31.0); Prothrombin Time 18.5 Seconds (9.0-12.0)
[2020-03-10 06:58] LABS: Albumin Level 2.4 gm/dl (3.4-5.0); BUN Creatinine Ratio 17.3 (10-20); Calcium 8.6 mg/dl (8.5-10.1); Creatinine Clr Calc Pharmacy 57.4 ml/min; Est GFR (African American) 78.9; Est GFR (Non-African American) 68.1; Magnesium 2.1 mg/dl (1.8-2.4); Potassium 3.3 mmol/L (3.5-5.1)
[2020-03-10 07:00] LABS: Albumin Globulin Ratio 0.6 (0.9-2); Bilirubin,Total 0.9 mg/dl (0.2-1); Globulin 3.9 gm/dl (2.5-4.0); Total Protein 6.3 gm/dl (6.4-8.2)
[2020-03-10] MEDS: CEROVITE ADV FORMULA TAB PO SCH (08:20)
[2020-03-10] MEDS: VERAPAMIL HCL 240 MG TABCR PO SCH ×2 (08:20→20:02)
[2020-03-10] MEDS: VITAMIN B COMPLEX TAB PO SCH ×2 (08:21→20:02)
[2020-03-10] MEDS: TAMSULOSIN HCL 0.4 MG CAP PO SCH (08:21)
[2020-03-10] MEDS: CALCIUM 600MG + VIT D 400 IU TAB PO SCH ×2 (08:22→20:02)
[2020-03-10] MEDS: POTASSIUM CHLORIDE 20 MEQ TABCR PO SCH ×3 (08:22→20:02)
[2020-03-10] MEDS: WARFARIN SOD 2.5 MG TAB PO SCH (15:49)
--- NOTE | 2020-03-10 16:49 | Hospitalist Progress Note ---
Date of Service March 10, 2020 Assessment & Plan (1) Generalized muscle weakness: Generalized muscle weakness/gait abnormality/generalized deconditioning- prior to cholecystectomy in January the patient could walk almost a mile without stopping now he is too weak to walk 30 feet at home, he has fallen a few times get PT/OT evaluations last admission he was sent to [facility], attempted to get him to [facility] but he was considered too strong he has gotten weaker according to his the first ten days at [facility] she reports he was quarantined, was not leaving his room, he barely walked will try for [facility] this time, check with CM on Wednesday (2) Gait abnormality: See above (3) NSVT (nonsustained ventricular tachycardia): Patient had 2 successive rounds of 3 beat nonsustained V. tach while in ED. No other events. Optimize potassium and follow on telemetry -- no further episodes transfer to medical (4) Permanent atrial fibrillation: Continue warfarin. INR dropped from 2.4 to 1.8 despite Warfarin repeat tomorrow (5) Swelling of left lower extremity: Venous Dopplers show no DVT, INR 2.4 on admission (6) Hypokalemia: replaced initially but K went down to 3.1 increased replacement to 20mEq TID K is 3.3 today, continue TID replacement Admission and Anticipated Discharge Date Admission Date: March 08, 2020 Subjective patient stable today, no issues encouraged him to continue to eat and drink he has no pain, just says that he is weak we discussed going to rehab again but trying for [facility] he agrees with this plan, very motivated Review of Systems Review of Systems: All systems reviewed & are unremarkable except as noted in Subjective Constitutional: + weakness Neurologic: + generalized weakness Physical Exam Constitutional: WD/WN, vitals as above Eyes: PERRL, conjunctivae normal, anicteric sclerae ENMT: external ear and nose normal, oropharynx normal Neck: trachea midline, no thyromegaly Respiratory: normal respiratory effort, lungs clear to auscultation Cardiovascular: RRR, no murmur, no edema Gastrointestinal (Abdomen): normal bowel sounds, soft, nontender, no hepatosplenomegaly Musculoskeletal: no cyanosis or clubbing, extremities motor strength 5/5 Skin: no rashes, warm and dry Neurologic: patellar DTR's 2+ bilat, sensation intact and PERRL, EOMI, accommodation nl, no face palsy, no dysarthria no focal motor deficits Psychiatric: A+Ox3, euthymic affect Lymphatic: no cervical or axillary lymphadenopathy Results & Data Results & Data ([facility]) Vital Signs (Past 12 Hours) Vital Signs Temp Pulse Resp BP BP Pulse Ox 03/10/20 16:13 36.8 C 66 18 134/78 95 03/10/20 08:14 36.8 C 72 16 164/90 H 97 Laboratory Results Laboratory Results - last 24 hr 03/10/20 03/10/20 03/10/20 05:57 05:57 05:57 WBC 7.19 RBC 3.70 L Hgb 11.7 L Hct 36.1 L MCV 97.6 MCH 31.6 MCHC 32.4 RDW Std Deviation 50.4 H RDW Coeff of Leonel 14.2 Plt Count 255 MPV 8.5 Immature Gran % (Auto) 0.1 Neut % (Auto) 67.3 Lymph % (Auto) 15.9 Winston % (Auto) 11.7 Eos % (Auto) 4.9 Baso % (Auto) 0.1 Neut # (Auto) 4.84 Lymph # (Auto) 1.14 L Winston # (Auto) 0.84 H Eos # (Auto) 0.35 Baso # (Auto) 0.01 Immature Gran # (Auto) 0.01 PT 18.5 H INR 1.8 H APTT 37.3 H PTT Ratio 1.3 Sodium 137 Potassium 3.3 L Chloride 102 Carbon Dioxide 30 Anion Gap 5.0 BUN 17 Creatinine 0.98 Est Cr Clr Drug Dosing 57.4 Est GFR ( Amer) 78.9 Est GFR (Non-Af Amer) 68.1 BUN/Creatinine Ratio 17.3 Glucose 94 Calcium 8.6 Magnesium 2.1 Total Bilirubin 0.9 AST 22 ALT 19 Alkaline Phosphatase 89 Total Protein 6.3 L Albumin 2.4 L Globulin 3.9 Albumin/Globulin Ratio 0.6 L Medications Administered Current Inpatient Medications Acetaminophen (Acetaminophen 325 Mg Tab) 650 mg PO Q4H PRN PRN Reason: Pain or Fever Stop: 04/08/20 00:20 Al Hydrox/Mg Hydrox/Simethicone (Aluminum/Magnesium Susp 30 Ml Udc) 15 ml PO Q4H PRN PRN Reason: Dyspepsia Stop: 04/08/20 00:20 Magnesium Hydroxide (Magnesium Hydroxide Susp 30 Ml Udc) 30 ml PO Q12H PRN PRN Reason: Constipation Stop: 04/08/20 00:20 Multivitamins/Minerals (Calcium 600mg + Vit D 400 Iu Tab) 1 tab PO BID [facility] Stop: 04/08/20 08:59 Last Admin: 03/10/20 20:02 Dose: 1 tab Documented by: Multivitamins/Minerals (Cerovite Adv Formula Tab) 1 tab PO QAM [facility] Stop: 04/08/20 08:59 Last Admin: 03/10/20 08:20 Dose: 1 tab Documented by: Ondansetron HCl (Ondansetron Inj 2 Mg/Ml 2 Ml Vial) 4 mg IV Q6H PRN PRN Reason: Nausea Stop: 04/08/20 00:20 Potassium Chloride (Potassium Chloride 20 Meq Tabcr) 20 meq PO TID [facility] Stop: 04/08/20 14:29 Last Admin: 03/10/20 20:02 Dose: 20 meq Documented by: Tamsulosin HCl (Tamsulosin Hcl 0.4 Mg Cap) 0.8 mg PO QAM [facility] Stop: 04/08/20 08:59 Last Admin: 03/10/20 08:21 Dose: 0.8 mg Documented by: Verapamil HCl (Verapamil Hcl 240 Mg Tabcr) 240 mg PO BID [facility] Stop: 04/08/20 11:59 Last Admin: 03/10/20 20:02 Dose: 240 mg Documented by: Vitamin B Complex (Vitamin B Complex Tab) 1 tab PO BID [facility] Stop: 04/08/20 08:59 Last Admin: 03/10/20 20:02 Dose: 1 tab Documented by: Warfarin Sodium (Warfarin Sod 2.5 Mg Tab) 2.5 mg PO [email or web address] [facility] Stop: 04/08/20 15:59 Last Admin: 03/10/20 15:49 Dose: 2.5 mg Documented by: Warfarin Sodium (Warfarin Sod 5 Mg Tab) 5 mg PO [email or web address] [facility] Stop: 04/10/20 15:59 PG Care Time/CCT Total # of Minutes Spent Total Time Spent with Patient: Total time spent is greater than 50% in coordination of care (as documented) at patient's floor/unit and/or counseling patient: Coding Level of Care Code 03830 Subseq Hosp Care Lvl 2 Diagnoses Generalized muscle weakness M62.81 Gait abnormality R26.9 NSVT (nonsustained ventricular tachycardia) I47.2 Permanent atrial fibrillation I48.21 Swelling of left lower extremity M79.89 Hypokalemia E87.6
[2020-03-11 06:47] LABS: INR 1.8 (0.9-1.1); Prothrombin Time 18.8 Seconds (9.0-12.0)
--- NOTE | 2020-03-11 08:08 | Electrocardiogram Report ---
Test Reason : Blood Pressure : / mmHG Vent. 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 lead placement vs. LVH Abnormal ECG When compared with ECG of 27-JAN-2020 14:52, No significant change was found Confirmed by Ernie Vogel ([id number]) on 03/11/2020 8:07:38 AM Referred By: REFERRED SELF Confirmed By:Ernie Vogel
[2020-03-11] MEDS: VERAPAMIL HCL 240 MG TABCR PO SCH ×2 (10:35→20:25)
[2020-03-11] MEDS: CALCIUM 600MG + VIT D 400 IU TAB PO SCH ×2 (10:35→20:25)
[2020-03-11] MEDS: VITAMIN B COMPLEX TAB PO SCH ×2 (10:35→20:25)
[2020-03-11] MEDS: CEROVITE ADV FORMULA TAB PO SCH (10:35)
[2020-03-11] MEDS: TAMSULOSIN HCL 0.4 MG CAP PO SCH (10:35)
[2020-03-11] MEDS: POTASSIUM CHLORIDE 20 MEQ TABCR PO SCH ×3 (10:35→20:25)
--- NOTE | 2020-03-11 14:34 | Hospitalist Progress Note ---
Date of Service March 11, 2020 Assessment & Plan (1) Generalized muscle weakness: Generalized muscle weakness/gait abnormality/generalized deconditioning- prior to cholecystectomy in January the patient could walk almost a mile without stopping now he is too weak to walk 30 feet at home, he has fallen four times in the one week he was home from SNF. Only medication changes were increased dose of FLomax to 0.8mg at rehab, but could contribute to orthostasis-however, was having urinary retention issues and UTI so should be continued ALso had atenolol and Maxzide both discontinued here one month ago which if anything would help prevent hypotension or falls from that Awaiting PT/OT evaluations last admission he was sent to [facility], attempted to get him to [facility] but he was considered too strong he has gotten much weaker as evidence by numerous falls at home, cannot go nearl y as far as previously the first ten days at [facility] she reports he was quarantined, was not leaving his room, he barely walked will try for [facility] acute rehab now-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 tach while in ED. No other events. Not on tele currently Optimized potassium and had no further events, transferred off tele (4) Permanent atrial fibrillation: Rates controlled Continue warfarin but subtheraputic again--> increase dose to 5mg daily for now. follow INR continue verapamil atenolol was dcd last admission for bradycardia (5) Swelling of left lower extremity: Venous Dopplers show no DVT, INR 2.4 on admission Likely secondary to being off his previous diuretic for the last month -would not restart due to issues with hypokalemia -start ALFREDO brown (6) Hypokalemia: replaced initially but K went down to 3.1 increased replacement to 20mEq TID check BMP in AM (7) CKD (chronic kidney disease), stage III: Funding Specialist baseline 0.98, GFR 48-68 CKD stage 2-3 -Avoid nephrotoxins -renally dose meds when appropriate -follow BMP (8) HTN (hypertension): BP mildly elevated -continue verapamil was taken off atenolol and Maxzide last admission as above (9) Arthritis of multiple sites: tylenol prn with left olecrenon bursitis, not infected, not causing problems (10) DVT prophylaxis: Coumadin Dispo-medically stable for discharge, awaiting placement, referral made to [facility] today Admission and Anticipated Discharge Date Admission Date: March 08, 2020 Subjective Pt has c/o mild pain in left elbow, left scapula area, and a blister on his right thumb. Otherwise denies headache, no CP/SOB, no nausea or abd pain. Is eating very well, making urine, moving bowels Review of Systems Review of Systems: All systems reviewed & are unremarkable except as noted in HPI & below Physical Exam Constitutional: WD/WN, vitals as above Eyes: + anicteric sclerae ENMT: Ears: + hearing impairment Neck: trachea midline, no thyromegaly Respiratory: normal respiratory effort, lungs clear to auscultation Cardiovascular: Rate/Rhythm: regular rate and + irregularly irregular Heart Sounds: no murmur Extremities: + edema (trace pitting edema legs to knees bilat) Chest (Breasts): Chest: normal inspection of chest Gastrointestinal (Abdomen): normal bowel sounds, soft, nontender, no hepatosplenomegaly Musculoskeletal: Extremities: + elbow/forearm abnormality (left elbow with olecrenon bursitis); + extremities abnormal to inspection (multiple joint deformities of hands and some on feet), no cyanosis and no clubbing no TTP over site of pain near left posterior shoulder/scapula, no masses or ecchymosis there Skin: + excoriations (w/ multiple scabs on anterior legs bilat) Neurologic: moves all extremities and awake; no focal motor deficits Psychiatric: A+Ox3, euthymic affect Lymphatic: no lymphedema Results & Data Results & Data ([facility]) Vital Signs (Past 12 Hours) Vital Signs Temp Pulse Resp BP Pulse Ox 03/11/20 07:16 36.5 C 72 18 136/72 92 Laboratory Results 03/11/20 Range/Units 06:09 PT 18.8 H (9.0-12.0) Seconds INR 1.8 H (0.9-1.1) PG Care Time/CCT Total # of Minutes Spent Total Time Spent with Patient: Total time spent is greater than 50% in coordination of care (as documented) at patient's floor/unit and/or counseling patient: Coding Level of Care Code 45048 Subseq Hosp Care Lvl 2 Diagnoses Generalized muscle weakness M62.81 Gait abnormality R26.9 NSVT (nonsustained ventricular tachycardia) I47.2 Permanent atrial fibrillation I48.21 Swelling of left lower extremity M79.89 Hypokalemia E87.6 CKD (chronic kidney disease), stage III N18.3 HTN (hypertension) I10 Hypertension type: essential hypertension Arthritis of multiple sites M13.0 DVT prophylaxis Z29.9 (1) HTN (hypertension) Hypertension type: essential hypertension Qualified Code(s): I10 - Essential (primary) hypertension
[2020-03-11] MEDS ORDERED: WARFARIN SOD 5 MG TAB PO SCH (16:00)
[2020-03-12 06:23] LABS: Basophils # (auto) 0.01 K/uL (0-0.2); Basophils % (auto) 0.1 %; Eosinophils # (auto) 0.29 K/uL (0-0.5); Hematocrit (blood only) 33.7 % (42-52); Hemoglobin 11.4 g/dL (14.0-18.0); Immature Granulocytes # (auto) 0.02 K/uL (0.00-0.02); Immature Granulocytes % (auto) 0.3 %; Lymphocytes # (auto) 1.07 K/uL (1.2-3.4); Lymphocytes % (auto) 14.8 %; Mean Corpuscular Hemoglobin 32.2 pg (25-34); Mean Corpuscular Hgb Conc 33.8 g/dL (32-36); Mean Corpuscular Volume 95.2 fL (80-100); Mean Platelet Volume 8.6 fL (7.4-10.4); Monocytes # (auto) 0.62 K/uL (0.11-0.59); Monocytes % (auto) 8.6 %; Neutrophils # (auto) 5.23 K/uL (1.4-6.5); Neutrophils % (auto) 72.2 %; Platelet Count 263 K/uL (130-400); RDW Coefficient of Variation 13.8 % (11.5-14.5); RDW Standard Deviation 48.1 fL (36.4-46.3); Red Blood Count 3.54 M/uL (4.7-6.1); White Blood Count 7.24 K/uL (4.8-10.8)
[2020-03-12 06:30] LABS: INR 1.9 (0.9-1.1); Prothrombin Time 19.3 Seconds (9.0-12.0)
[2020-03-12 06:45] LABS: BUN Creatinine Ratio 17.9 (10-20); Calcium 9.2 mg/dl (8.5-10.1); Creatinine Clr Calc Pharmacy 52.9 ml/min; Est GFR (Non-African American) 61.2; Potassium 3.7 mmol/L (3.5-5.1)
[2020-03-12] MEDS: POTASSIUM CHLORIDE 20 MEQ TABCR PO SCH ×2 (08:17→14:34)
[2020-03-12] MEDS: VITAMIN B COMPLEX TAB PO SCH (08:17)
[2020-03-12] MEDS: TAMSULOSIN HCL 0.4 MG CAP PO SCH (08:17)
[2020-03-12] MEDS: CEROVITE ADV FORMULA TAB PO SCH (08:17)
[2020-03-12] MEDS: CALCIUM 600MG + VIT D 400 IU TAB PO SCH (08:18)
[2020-03-12] MEDS: VERAPAMIL HCL 240 MG TABCR PO SCH (08:18)
--- NOTE | 2020-03-12 14:32 | Discharge Summary ---
Date of Service March 12, 2020 Admission HPI Per Admitting Provider . The patient is a 89-year-old male most recently admitted to [facility] from 01/26-02/07, having undergone a laparoscopic cholecystectomy on 01/30, and was then transferred to [facility] for physical therapy. His reports that due to the COVID pandemic lockdown, his physical therapy was very limited, and patient reports that the most he walked was 110 feet. While at home today, he was visited by visiting nurse, and when he attempted to walk out to the car, which is more than 110 feet, he became short of breath, was unable to to complete the walk, and after calling his PCP, was referred to the ED for further assessment. Principal Diagnosis Generalized weakness, recurrent falls Discharge Exam Constitutional WD/WN, vitals as above Eyes + anicteric sclerae ENMT Ears: + hearing impairment Neck trachea midline, no thyromegaly Respiratory normal respiratory effort, lungs clear to auscultation Cardiovascular Rate/Rhythm: regular rate and + irregularly irregular Heart Sounds: no murmur Extremities: + edema (trace pitting edema legs to knees bilat) Chest (Breasts) Chest: normal inspection of chest Gastrointestinal (Abdomen) normal bowel sounds, soft, nontender, no hepatosplenomegaly Musculoskeletal Extremities: + elbow/forearm abnormality (left elbow with olecrenon bursitis); + extremities abnormal to inspection (multiple joint deformities of hands and some on feet), no cyanosis and no clubbing Skin + excoriations (w/ multiple scabs on anterior legs bilat) Neurologic moves all extremities and awake; no focal motor deficits Psychiatric A+Ox3, euthymic affect Lymphatic no lymphedema Discharge Data Allergies Allergy/AdvReac Type Severity Reaction Status Date / Time No Known Drug Allergies Allergy Unknown Unknown Verified 03/08/20 20:56 Consultations 03/08/20 20:16 ED Decision to Admit Stat 03/09/20 00:21 Consult Case Management - Discharge Planning Routine Ordered Studies 03/08/20 18:05 CT head/brain wo con Stat 03/09/20 08:00 US venous doppler LE LT Urgent Wrist xray Hand xray CXR Forearm xray Hospital Course (1) Generalized muscle weakness: Generalized muscle weakness/gait abnormality/generalized deconditioning- prior to cholecystectomy in January the patient could walk almost a mile without stopping now he is too weak to walk 30 feet at home, he has fallen four times in the one week he was home from SNF. Only medication changes were increased dose of FLomax to 0.8mg at rehab, but could contribute to orthostasis-however, was having urinary retention issues and UTI so should be continued ALso had atenolol and Maxzide both discontinued here one month ago which if anything would help prevent hypotension or falls from that Appreciate PT/OT evaluations-plan for rehab placement today last admission he was sent to [facility], attempted to get him to [facility] but he was considered too strong he has gotten much weaker as evidence by numerous falls at home, cannot go nearly as far as previously the first ten days at [facility] she reports he was quarantined, was not leaving his room, he barely walked (2) Gait abnormality: See above (3) NSVT (nonsustained ventricular tachycardia): Patient had 2 successive rounds of 3 beat nonsustained V. tach while in ED. No other events. Not on tele currently Optimized potassium and had no further events, transferred off tele (4) Permanent atrial fibrillation: Rates controlled Continue warfarin but subtheraputic --> increased dose to 5mg daily for Wed and Wednesday--> return to home doses on discharge and check INR in 2 days on 03/14 continue verapamil atenolol was dcd last admission for bradycardia (5) Swelling of left lower extremity: Venous Dopplers show no DVT, INR 2.4 on admission Likely secondary to being off his previous diuretic for the last month -would not restart due to issues with hypokalemia -start ALFREDO brown (6) Hypokalemia: replaced initially but K went down to 3.1 increased replacement to 20mEq TID here and normalized continue KCl 20meq po bid (7) CKD (chronic kidney disease), stage III: 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, GFR 48-68 CKD stage 2-3 -Avoid nephrotoxins -renally dose meds when appropriate (8) HTN (hypertension): BP mildly elevated -continue verapamil was taken off atenolol and Maxzide last admission as above (9) Arthritis of multiple sites: tylenol prn with left olecrenon bursitis, not infected, not causing problems (10) DVT prophylaxis: Coumadin Dispo-medically stable for discharge, to [facility] today Total Time Total Time Spent Total Time Spent (In Minutes): >30 min Total Time Includes: Examination of the Patient, Discharge Planning and Medication Reconciliation Discharge Plan Discharge Items Patient Disposition: Transfer Nursing Home Fac Reason For Visit: WEAKNESS, AMB DYSF, NSVT Discharge Diagnosis: Recurrent falls, generalized weakness Condition on Discharge: Fair Activity: As commented below Lifting: Gradually increase as tolerated Bathing: No limitations Exercise/Sports: Gradually increase as tolerated Weightbearing: Full weightbearing Non-emergency contact: Primary Care Provider Call non-emergency contact if: you have any medication questions and your symptoms worsen Follow-up/Referrals: Walter Whitehead MD [Primary Care Provider] - Diet: Heart Healthy Addtl Attending Provider Instructions: Please have a PT/INR drawn in 2 days. INR was 1.9 on day of discharge and coumadin dose was increased to 5mg daily. Needs aggressive PT/OT even when in quarantine please. Pending Studies at Discharge: No Stand-Alone Forms: My [facility] [place] [employer] Skilled Items Patient informed of condition?: Yes DNR: No Discharge Level of Care: Skilled Communicable Disease: No Discharge Prognosis: Stable Lines: None Urinary Catheter: No Medications and DC Order Prescriptions: New acetaminophen 325 mg Tablet 650 mg PO Q4H PRN (Reason: pain) Qty: 30 RF: 0 verapamil 240 mg Tablet Extended Release 240 mg PO BID Qty: 60 RF: 0 Continued flaxseed oil 1,000 mg capsule 1,000 mg PO BID RF: 0 qufzxrdc-zip-GG-lycopen-lutein [Centrum Silver] 0.4-300-250 mg-mcg-mcg tablet 1 tab PO QAM RF: 0 warfarin 2.5 mg tablet See Rx Instructions PO UD Qty: 108 RF: 3 vitamin B complex Capsule 1 cap PO BID RF: 0 glucosamine-chondroitin [Osteo Bi-Flex] 250-200 mg Tablet 1 tab PO BID RF: 0 Anirudh Mag Zinc Plus D3 333 mg-133 unit -133 mg-5 mg Tablet 1 tab PO BID RF: 0 Changed potassium chloride [Klor-Con M20] 20 mEq tablet,ER particles/crystals 20 meq PO BID Qty: 0 RF: 0 tamsulosin 0.4 mg Capsule 0.8 mg PO QAM Qty: 1 RF: 0 Discontinued verapamil [Calan SR] 240 mg tablet extended release 240 mg PO QPM RF: 0 Discharge Orders: Discharge Order (Routine); Ordered 03/12/20 Ordered By: Ashley Ortiz Admission Data Admit Date/Time: 03/08/20 22:07 Attending Provider: Ashley Ortiz Admit Provider: Pierce Gavin Primary Care Provider: Walter Whitehead Other Providers: [employer] [facility] ; Pierce Gavin ; [facility] ; Ingrid,[facility] Coding Level of Care Code D/C Day Management >30 mins Diagnoses Generalized muscle weakness M62.81 Gait abnormality R26.9 NSVT (nonsustained ventricular tachycardia) I47.2 Permanent atrial fibrillation I48.21 Swelling of left lower extremity M79.89 Hypokalemia E87.6 CKD (chronic kidney disease), stage III N18.3 HTN (hypertension) I10 Hypertension type: essential hypertension Arthritis of multiple sites M13.0 DVT prophylaxis Z29.9
[2020-03-12] MEDS ORDERED: WARFARIN SOD 5 MG TAB PO SCH (16:00)
== END 2020-03-12 15:44 | DRG 641 ==
LOC: ED 17:50 → SUATTDRO 22:07 → 2E 22:07 → 2N 03-09 16:43